=== PATIENT | male | born 1940 | race Caucasian/White ===

== ENCOUNTER → 2018-02-16 | Outpatient (CLI) | payer MEDICARE ==
[~2018-02-16] MED LIST: ALPR.5T PO; ASP81TEC PO; CHOL10008 PO; CHOL2000 PO; COUMADIN PO; HCTZ; HCTZ12.5T PO; HDR4T PO; HYDR1TAB PO; LISI40TA PO; LISINOPRIL; LOVA40TA2 PO; MECL25TA56 PO; METO25TA2 PO; OMG1KC PO; PROP1TAB77 PO; WRF5T PO; XANAX; [UNRECOGNIZED DRUG - OTHER]
--- NOTE | 2018-02-16 12:07 | Diagnostic Imaging Report ---
CLINICAL INDICATION: Patient having cervical spine pain which is chronic and tremors. EXAM: MRI of the cervical spine performed without IV contrast. Sequences include sagittal T1, sagittal T2, sagittal T2 fat-sat, and axial T2. COMPARISON: None. FINDINGS: There is nonspecific low T1/high T2 signal involving the right side of the C4 vertebra with Schmorl's nodes seen involving the upper T4 vertebra. There is associated left-sided degenerative disease in this high T2 marrow signal may be related to Modic type I degenerative signal changes. Cervical spine shows no acute fracture. Limited visualization of the posterior fossa is unremarkable. Cervical spinal cord is normal cord caliber and signal. There is no significant paraspinal soft tissue abnormality. C1-C2: There are degenerative spurs involving the atlantoodontoid interval anteriorly. C2-C3: There is mild diffuse disc bulge with ligamentum flavum buckling. There is mild central canal narrowing. There is xnlmxrig-iw-ddiyzw left neural foramen narrowing. There is bilateral facet arthropathy with moderately hypertrophic changes on the left. There is no significant right neural foramen narrowing. C3-C4: There is grade 1 retrolisthesis C3 on C4. There is a diffuse disc bulge with moderate loss of vertebral disc height. There is disc spurs posteriorly and hypertrophic left uncinate spurs. There is ligament flavum buckling. There is mild right facet arthropathy and severe left facet arthropathy/hypertrophy. There is severe left neural foramen narrowing and mild to moderate right neural foramen narrowing. There is severe central canal narrowing. C4-C5: There is a small posterior disc bulge and ligament flavum buckling. There is severe left facet arthropathy/hypertrophy and akab-nv-gfxsceax right facet arthropathy. There is no significant right neural foramen narrowing. There is severe left neural foramen narrowing and clvi-mv-jrjyaxra central canal narrowing. C5-C6: There is grade 1 retrolisthesis of C5 on C6. There is a diffuse disc bulge moderate loss of intervertebral disc height. There is mild ligament flavum buckling. There is mild bilateral neural foramen narrowing. There is ionfxvzc-pt-ubrbwi central canal narrowing. There is severe right neural foramen narrowing and at least moderate left neural foramen narrowing. C6-C7: There is a minimal posterior disc bulge and ligament flavum buckling. There is jtbs-ne-uqmrkbdv left facet arthropathy and mild right facet arthropathy. There is at least moderate right neural foramen narrowing and moderate left neural foramen narrowing. There is no significant central canal narrowing. C7-T1: There is no significant central spinal canal or neural foramen narrowing. 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 There is likely associated Modic type 1 degenerative signal changes involving the left C3-C4 level. 2: There is severe C3-C4 central canal narrowing and cmougcgl-ra-wbkazu C5-C6 central canal narrowing from disc spurs, ligament flavum buckling, and facet arthropathy. 3: There is yqjtpewx-fa-lcknqe multilevel neural foramen narrowing. 4: There is grade 1 retrolisthesis C3 on C4 and C5 on C6. Dictated by: Dictated on workstation # [id number]
== END ==
LOC: RAD 10:54
PROVIDERS: ATTEND Nurse Practitioner Family
DX: M47.812 Spondylosis without myelopathy or radiculopathy, cervical region (principal); M99.71 Connective tissue and disc stenosis of intervertebral foramina of cervical region; M46.82 Other specified inflammatory spondylopathies, cervical region; M43.12 Spondylolisthesis, cervical region; G25.0 Essential tremor
CPT/HCPCS: 72141

== ENCOUNTER 2018-11-18 06:39 | Inpatient (IN) | payer MEDICARE ==
[~2018-11-18] VITALS: Ht 177.8 cm; Wt 64.6 kg
[2018-11-18] VITALS (13 sets, daily range): BP systolic 75–127; BP diastolic 40–114
[2018-11-18 06:54] LABS: BASOPHILS % (AUTO) 0 % (0-10); EOSINOPHILS # (AUTO) 0.1 10^3/uL (0.0-0.3); EOSINOPHILS % (AUTO) 1 % (0-10); HEMATOCRIT 47 % (40-54); HEMOGLOBIN 15.8 G/DL (13.3-17.7); LYMPHOCYTES # (AUTO) 2.5 X 10^3 (1.0-4.0); LYMPHOCYTES % (AUTO) 28 % (12-44); MEAN CORPUSCULAR HEMOGLOBIN 32 PG (25-34); MEAN CORPUSCULAR HGB CONC 34 G/DL (32-36); MEAN CORPUSCULAR VOLUME 94 FL (80-99); MEAN PLATELET VOLUME 10.1 FL (7.4-10.4); MONOCYTES # (AUTO) 1.2 X 10^3 (0.0-1.0); MONOCYTES % (AUTO) 13 % (0-12); NEUTROPHILS # (AUTO) 5.2 X 10^3 (1.8-7.8); NEUTROPHILS % (AUTO) 58 % (42-75); PLATELET COUNT 285 10^3/uL (130-400); RED CELL DISTRIBUTION WIDTH 14.1 % (10.0-14.5)
[2018-11-18] MEDS ORDERED: NS IV 1000 ML 1,000 ML IV ONE ×3 (07:00→17:30)
[2018-11-18] MEDS ORDERED: ASPIRIN 81 MG CHEW (CHILDREN'S ASA) PO ONE (07:00)
[2018-11-18] MEDS ORDERED: DILTIAZEM 25 MG/5 ML INJ (CARDIZEM) VIAL IVP ONE (07:00)
[2018-11-18] MEDS ORDERED: DILTIAZEM INJECTION 125 MG in NS (IVPB) 100 ML IV SCH (07:00)
[2018-11-18 07:10] LABS: INR 1.2 (0.8-1.4); PROTHROMBIN TIME PATIENT 15.3 SEC (12.2-14.7)
[2018-11-18 07:17] LABS: ALANINE AMINOTRANSFERASE 22 U/L (0-55); ALBUMIN 4.8 GM/DL (3.2-4.5); ALKALINE PHOSPHATASE 72 U/L (40-136); BUN/CREATININE RATIO 33; CALCIUM 10.2 MG/DL (8.5-10.1); CARBON DIOXIDE 13 MMOL/L (21-32); CHLORIDE 107 MMOL/L (98-107); CREATININE SERUM 1.81 MG/DL (0.60-1.30); GFR ESTIMATED 36; GLUCOSE 134 MG/DL (70-105); MAGNESIUM 2.4 MG/DL (1.8-2.4); POTASSIUM 3.8 MMOL/L (3.6-5.0); SODIUM 139 MMOL/L (135-145)
--- NOTE | 2018-11-18 07:19 | NUR ---
CARDIZEM PLACED ON HOLD DUE TO HR DOWN TO 90' -100'S DR BUSTAMANTE AWARE OF AND OK WITH.
[2018-11-18 07:23] LABS: MYOGLOBIN SERUM 105.6 NG/ML (10.0-92.0)
[2018-11-18] MEDS ORDERED: NITROGLYCERIN 0.4 MG SL TABS BTL 25'S SL PRN (07:30)
[2018-11-18] MEDS ORDERED: meTOproloL SUCCINATE 50 MG (TOPROL XL) TAB PO ONE (07:30)
--- NOTE | 2018-11-18 07:30 | NUR ---
PATIENT REPORTS PAIN BETTER WORSE WHEN HE REMOVES WILL HOLD NITRO DUE TO B/P
--- NOTE | 2018-11-18 07:33 | Diagnostic Imaging Report ---
INDICATION: Chest pain Upright portable AP view of the chest is obtained. Comparison is made to the study of 09/01/2010. There is bilateral air trapping. Prominent interstitial markings are seen throughout the lungs. There is no evidence of pneumothorax or consolidation. No significant pleural fluid is seen. IMPRESSION: Probable air trapping and interstitial prominence which may be due to COPD. Otherwise, no acute abnormality or adverse change seen. Dictated by: Dictated on workstation # [id number]
--- NOTE | 2018-11-18 07:48 | NUR ---
PATIENT REPORTS THAT AFTER MOVING HIM FOR CXR REPORTS THAT PAIN WORSE WHEN PAIN WORSE DR NOTIFIED
[2018-11-18] MEDS ORDERED: fentaNYL INJECTION 100 MCG/2 ML AMP IVP ONE (08:15)
--- NOTE | 2018-11-18 08:29 | ED Chest Pain ---
General Chief Complaint: Chest Pain Stated Complaint: CP Nursing Triage Note: C/O CHEST PAIN THIS AM THAT WOKE HIM UP Nursing Sepsis Screen: No Definite Risk Source: patient Exam Limitations: no limitations History of Present Illness Date Seen by Provider: Nov 18, 2018 Time Seen by Provider: 06:48 Initial Comments This 78-year-old gentleman presented to the emergency room with complaints of chest pain and tachycardia this started this morning. He is noted to be in atrial fibrillation with RVR on arrival. Patient does have a history of atrial fibrillation and is anticoagulated on Xarelto. He denies any known coronary artery disease. 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 He last took Xarelto yesterday morning. ST depression and A. fib RVR are noted on the monitor. Allergies and Home Medications Allergies Coded Allergies: No Known Drug Allergies (Unverified , 11/18/18) Home Medications Dextromethorphan Polistirex 30 Mg/5 Ml Samanta.er.12h, 10 ML PO Q12H PRN for COUGH, (Reported) Lisinopril 40 Mg Tablet, 40 MG PO DAILY, (Reported) Metoprolol Succinate 25 Mg Tab.er.24h, 25 MG PO BID, (Reported) Rivaroxaban 10 Mg Tablet, 10 MG PO DAILY, (Reported) Tramadol HCl 50 Mg Tablet, 50 MG PO BID PRN for PAIN-MODERATE, (Reported) Patient Home Medication List Home Medication List Reviewed: Yes Review of Systems Review of Systems Constitutional: no symptoms reported EENTM: No Symptoms Reported Respiratory: No Symptoms Reported Cardiovascular: See HPI Gastrointestinal: No Symptoms Reported Genitourinary: No Symptoms Reported Musculoskeletal: no symptoms reported Skin: no symptoms reported Psychiatric/Neurological: No Symptoms Reported Endocrine: No Symptoms Reported Hematologic/Lymphatic: No Symptoms Reported Past Apcrwtc-Aekdfb-Irhnbv Hx Past Med/Social Hx: Reviewed and Corrections made Patient Social History Alcohol Use: Occasionally Uses Alcohol Beverage of Choice: Beer Recreational Drug Use: No Smoking Status: Current Everyday Smoker Recent Foreign Travel: No Contact w/Someone Who Travel: No Recent Infectious Disease Expo: No Recent Hopitalizations: No Past Medical History Surgeries: Yes (dental) Respiratory: No Cardiac: Yes Atrial Fibrillation Neurological: No Reproductive Disorders: No Gastrointestinal: No Musculoskeletal: Yes Endocrine: No HEENT: No Cancer: No Psychosocial: No Blood Disorders: No Physical Exam Vital Signs Vital Signs - First Documented 11/18/18 11/18/18 06:39 06:45 Temp 96.7 Pulse 125 Resp 18 B/P (MAP) 124/78 (93) Pulse Ox 96 O2 Delivery Nasal Cannula O2 Flow Rate 2.00 Capillary Refill : Less Than 3 Seconds Height, Weight, BMI Height: 5'10.00" Weight: 150lbs. oz. 68.205353ec; BMI Method:Stated General Appearance: No Apparent Distress, WD/WN, Thin HEENT: PERRL/EOMI, Normal ENT Inspection Neck: Normal Inspection Respiratory: Lungs Clear, Normal Breath Sounds, No Accessory Muscle Use, No Respiratory Distress Cardiovascular: No Edema, No Murmur, Irregularly Irregular, Tachycardia Gastrointestinal: Non Tender, Soft Extremity: Normal Capillary Refill, Normal Inspection, No Pedal Edema Neurologic/Psychiatric: Alert, Oriented x3, No Motor/Sensory Deficits, Normal Mood/Affect, attorney general II-XII Norm as Tested, Other (Tremor, right greater than left) Skin: Normal Color, Warm/Dry Progress/Results/Core Measures Results/Orders Lab Results Laboratory Tests Test 11/18/18 06:46 Range/Units White Blood Count 9.0 4.3-11.0 10^3/uL Red Blood Count 4.98 4.35-5.85 10^6/uL Hemoglobin 15.8 13.3-17.7 G/DL Hematocrit 47 40-54 % Mean Corpuscular Volume 94 80-99 FL Mean Corpuscular Hemoglobin 32 25-34 PG Mean Corpuscular Hemoglobin Concent 34 32-36 G/DL Red Cell Distribution Width 14.1 10.0-14.5 % Platelet Count 285 130-400 10^3/uL Mean Platelet Volume 10.1 7.4-10.4 FL Neutrophils (%) (Auto) 58 42-75 % Lymphocytes (%) (Auto) 28 12-44 % Monocytes (%) (Auto) 13 H 0-12 % Eosinophils (%) (Auto) 1 0-10 % Basophils (%) (Auto) 0 0-10 % Neutrophils # (Auto) 5.2 1.8-7.8 X 10^3 Lymphocytes # (Auto) 2.5 1.0-4.0 X 10^3 Monocytes # (Auto) 1.2 H 0.0-1.0 X 10^3 Eosinophils # (Auto) 0.1 0.0-0.3 10^3/uL Basophils # (Auto) 0.0 0.0-0.1 10^3/uL Prothrombin Time 15.3 H 12.2-14.7 SEC INR Comment 1.2 0.8-1.4 Activated Partial Thromboplast Time 38 H 24-35 SEC Sodium Level 139 135-145 MMOL/L Potassium Level 3.8 3.6-5.0 MMOL/L Chloride Level 107 98-107 MMOL/L Carbon Dioxide Level 13 L 21-32 MMOL/L Anion Gap 19 H 5-14 MMOL/L Blood Urea Nitrogen 59 H 7-18 MG/DL Creatinine 1.81 H 0.60-1.30 MG/DL Estimat Glomerular Filtration Rate 36 BUN/Creatinine Ratio 33 Glucose Level 134 H 70-105 MG/DL Calcium Level 10.2 H 8.5-10.1 MG/DL Corrected Calcium 8.5-10.1 MG/DL Magnesium Level 2.4 1.8-2.4 MG/DL Total Bilirubin 1.0 0.1-1.0 MG/DL Aspartate Amino Transf (AST/SGOT) 27 5-34 U/L Alanine Aminotransferase (ALT/SGPT) 22 0-55 U/L Alkaline Phosphatase 72 40-136 U/L Myoglobin 105.6 H 10.0-92.0 NG/ML Troponin I < 0.028 <0.028 NG/ML Total Protein 8.0 6.4-8.2 GM/DL Albumin 4.8 H 3.2-4.5 GM/DL TSH [place] Testing 2.56 0.35-4.94 UIU/ML My Orders Orders - ZULEMA LUONG MD Cbc With Automated Diff (11/18/18 06:49) Magnesium (11/18/18 06:49) Chest 1 View, Ap/Pa Only (11/18/18 06:49) Ekg Tracing (11/18/18 06:49) Cardiac Profile 1 (11/18/18 06:49) Comprehensive Metabolic Panel (11/18/18 06:49) Myoglobin Serum (11/18/18 06:49) Protime With Inr (11/18/18 06:49) Partial Thromboplastin Time (11/18/18 06:49) O2 (11/18/18 06:49) Monitor-Rhythm Ecg Trace Only (11/18/18 06:49) Lipid Panel (11/19/18 06:00) Aspirin Chewable Tablet (Baby Aspirin Ch (11/18/18 07:00) Saline Lock/Iv-Start (11/18/18 06:49) Ns (Ivpb) (Sodium C... W/Diltiazem Injec (11/18/18 07:00) Diltiazem Injection (Cardizem Injection) (11/18/18 07:00) Saline Lock/Iv-Start (11/18/18 07:00) Ns Iv 1000 Ml (Sodium Chloride 0.9%) (11/18/18 07:00) Thyroid Analyzer (11/18/18 07:00) Nitroglycerin 0.4 Mg Btl 25's (Nitrostat (11/18/18 07:30) Metoprolol Succinate (Xl) Tab (Toprol Xl (11/18/18 07:30) Fentanyl Injection (Sublimaze Injection (11/18/18 08:15) Enoxaparin Injection (Lovenox Injection) (11/18/18 08:30) Medications Given in ED Current Medications Medications Dose Ordered Sig/Froylan Route Start Time Stop Time Status Last Admin Dose Admin Aspirin 324 mg ONCE ONCE PO 11/18/18 07:00 11/18/18 07:01 DC 11/18/18 07:09 324 MG Enoxaparin Sodium 70 mg ONCE ONCE SC 11/18/18 08:30 11/18/18 08:31 DC 11/18/18 08:39 70 MG Fentanyl Citrate 50 mcg ONCE ONCE IVP 11/18/18 08:15 11/18/18 08:16 DC 11/18/18 08:08 50 MCG Metoprolol Succinate 50 mg ONCE ONCE PO 11/18/18 07:30 11/18/18 17:23 DC 11/18/18 08:06 50 MG Sodium Chloride 1,000 ml @ 0 mls/hr Q0M ONCE IV 11/18/18 07:00 11/18/18 07:01 DC 11/18/18 07:09 1,000 MLS/HR Vital Signs/I&O 11/18/18 11/18/18 11/18/18 06:39 06:45 09:03 Temp 96.7 Pulse 125 85 Resp 18 18 B/P (MAP) 124/78 (93) 104/92 (96) Pulse Ox 96 99 O2 Delivery Nasal Cannula Nasal Cannula Nasal Cannula O2 Flow Rate 2.00 2.00 Blood Pressure Mean: 93 Progress Progress Note : Time: 09:33 Progress Note Patient was seen and evaluated immediately upon arrival. He was found to be in A. fib with RVR with ST depression. Aspirin was administered. Cardizem drip and bolus were ordered but were not started as heart rate was trending down with hydration alone. Chest pain was also waning. At 07: To 8, pain and decreased from 9/10 down to 6/10. Blood pressure at that time was 107/78. Nitroglycerin was not administered due to blood pressure. Heart rate was 98 at that time. Case was discussed with Dr. Castro. He is also concerned about the ST depression and would like to treat this as potential ischemia. He recommended adding anticoagulation. It has been 24 hours since patient's last Xarelto dose. We will give Lovenox here. Per Dr. Castro's instructions patient also received Toprol-XL 50 mg by mouth. Nursing staff found patient to have an area tender to palpation on the right lateral chest. Fentanyl was given to help with further pain management. On reexamination patient had no pain. At this time we're awaiting transfer to the ICU as procedure patients are being transferred out of the ICU. Patient did receive 1 L of IV hydration. He reports he has had some diarrhea in recent days and may have been hypovolemic. Patient is to be kept NPO for possible procedures today. EKG #1: EKG Time: 06:39 Rhythm: V.Fib ECG Impression: Atrial Fibrillation w/RVR Comment Atrial fibrillation with RVR. ST depression in multiple leads. EKG #2: EKG Time: 07:06 Rate: 109 Rhythm: V.Fib ECG Impression: Atrial Fibrillation w/RVR Comment Atrial fibrillation with RVR with a slowed rate improved from prior. ST depression persists in multiple leads. Diagnostic Imaging Diagonstic Imaging: Xray Plain Films/CT/US/NM/MRI: chest Comments Chest x-ray viewed by me and report reviewed. See report below: NAME: DANNY FREITAS MED REC#: [id number] PT STATUS: REG ER : 1940 PHYSICIAN: ZULEMA LUONG MD ADMIT DATE: 11/18/18/ER Signed Date of Exam: 11/18/18 CHEST 1 VIEW, AP/PA ONLY INDICATION: Chest pain Upright portable AP view of the chest is obtained. Comparison is made to the study of 09/01/2010. There is bilateral air trapping. Prominent interstitial markings are seen throughout the lungs. There is no evidence of pneumothorax or consolidation. No significant pleural fluid is seen. IMPRESSION: Probable air trapping and interstitial prominence which may be due to COPD. Otherwise, no acute abnormality or adverse change seen. Dictated by: Dictated on workstation # [id number] Dict: 11/18/1831 Trans: 11/18/1841 Interpreted by: CASTRO KING MD Electronically signed by: CASTRO KING MD 11/18/18 0741 Departure Communication (Admissions) Time/Spoke to Admitting Phy: 07:19 Dr. Lund Time/Spoke to Consulting Phy: 07:52 Dr. Castro Impression Primary Impression: Chest pain Qualified Codes: R07.9 - Chest pain, unspecified Additional Impressions: Atrial fibrillation with RVR Renal failure Qualified Codes: N19 - Unspecified kidney failure ST segment depression Disposition: ADMITTED INPATIENT Condition: Improved Admissions Decision to Admit Reason: Admit from ER (General) Decision to Admit/Date: Nov 18, 2018 Time/Decision to Admit Time: 06:50 Departure-Patient Inst. Referrals: [facility] [place] (PCP) Primary Care Physician ZULEMA LUONG MD Nov 18, 2018 08:29
[2018-11-18] MEDS ORDERED: ENOXAPARIN 80 MG/0.8 ML (LOVENOX) SYR SC ONE (08:30)
--- NOTE | 2018-11-18 09:47 | NUR ---
DANNY FREITAS admitted to room CU5-1, with an admitting diagnosis of CP, AFIB W/ RVR, ST DEPRESSION, RENAL FAIL, on 11/18/18 from ER via CART, accompanied by STAFF.DANNY FREITAS introduced to surroundings, call light, bed controls, phone, TV, temperature control, lights, meal times, smoking policy, visitor policy, side rail policy, bathrooms and showers. Patient Rights given to patient in the handbook. DANNY FREITAS verbalizes understanding that [facility] is not responsible for the loss or damage to any personal effects or valuables that are kept in the patients posession during their hospitalization. The following Patient Care Plans were discussed with the PT: Discharge Planning, PAIN,ACTIVITY INTOLERANCE, and ANXIETY. DANNY FREITAS verbalizes understanding of Interdisciplinary Patient Education. Patient and family were informed about the Rapid Response Team and its purpose.
--- NOTE | 2018-11-18 09:58 | History & Physical-Hospitalist ---
History of Present Illness HPI/Chief Complaint Chief complaint: Palpitations HPI: This is an elderly white male Pt of [facility] with a past medical history of chronic atrial fibrillation on anti-coagulation who presented to ER with shortness of breath and palpitations found to have atrial fibrillation with rapid ventricular response. Cardiology recommended inpatient admission for IV drip for rate control. Pt does smoke on a regular basis. Pt does not use home oxygen or inhalers. Pt does have a tremor consistent with Parkinson's but the medication he has taken in the past made him very dizzy. Pt does live with his son. The son is at the bedside. 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 Pt does not drink alcohol. Diarrhea reported for the past 3 days to the nurse this afternoon so will increase fluids IV. Source: patient, family, RN/MD Exam Limitations: no limitations Date Seen 11/18/18 Time Seen by a Provider: 09:30 Attending Physician Akua Lund DO [facility] [place] Referring Physician Date of Admission Nov 18, 2018 at 09:21 Home Medications & Allergies Home Medications Reviewed patient Home Medication Reconciliation performed by pharmacy medication reconciliations csr technician and/or nursing. Patients Allergies have been reviewed. 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) Alcohol Use: Occasionally Uses Alcohol Beverage of Choice: Beer Recreational Drug Use: No Smoking Status: Current Everyday Smoker Recent Foreign Travel: No Contact w/other who traveled: No Recent Hopitalizations: No Recent Infectious Disease Expo: No Past Medical History Cardiac: Atrial Fibrillation Reproductive: No History of Blood Disorders: No Review of Systems Constitutional: see HPI, malaise, weakness EENTM: no symptoms reported Respiratory: no symptoms reported Cardiovascular: palpitations Gastrointestinal: no symptoms reported Genitourinary: no symptoms reported Musculoskeletal: no symptoms reported Skin: no symptoms reported Psychiatric/Neurological: No Symptoms Reported All Other Systems Reviewed Negative Unless Noted: Yes Physical Exam Physical Exam Vital Signs Vital Signs - First Documented 11/18/18 11/18/18 06:39 06:45 Temp 96.7 Pulse 125 Resp 18 B/P (MAP) 124/78 (93) Pulse Ox 96 O2 Delivery Nasal Cannula O2 Flow Rate 2.00 Capillary Refill : Less Than 3 Seconds Height, Weight, BMI Height: 5'10.00" Weight: 150lbs. oz. 68.245990wx; BMI Method:Stated General Appearance: No Apparent Distress, WD/WN, Anxious, Chronically ill, Cachetic Eyes: Right Eye Normal Inspection, Right Eye PERRL HEENT: PERRL/EOMI, Normal ENT Inspection, Pharynx Normal, Moist Mucous Membranes Neck: Full Range of Motion, Normal Inspection, Non Tender Respiratory: Chest Non Tender, Lungs Clear, Normal Breath Sounds, No Accessory Muscle Use, No Respiratory Distress, Decreased Breath Sounds Cardiovascular: No Edema, No Gallop, No JVD, No Murmur, Normal Peripheral Pulses, Irregularly Irregular, Tachycardia Gastrointestinal: Normal Bowel Sounds, No Organomegaly, No Pulsatile Mass, Non Tender, Soft Back: Normal Inspection, No CVA Tenderness, No Vertebral Tenderness Extremity: Normal Capillary Refill, Normal Inspection, Normal Range of Motion, Non Tender, No Calf Tenderness, No Pedal Edema Neurologic/Psychiatric: Alert, Oriented x3, No Motor/Sensory Deficits, Normal Mood/Affect Skin: Normal Color, Warm/Dry Lymphatic: No Adenopathy Results Results/Procedures Labs Laboratory Tests 11/18/18 06:46 Patient resulted labs reviewed. Assessment/Plan Admission Diagnosis Assessment: AF w/RVR ARF Dehydration Diarrhea Smoker PD Presumed COPD Plan: IVF Monitor AF w/RVR Home meds Anticoagulation Admission Status: Inpatient Order (span 2 midnights) Reason for Inpatient Admission: AF w/RVR and ARF and dehydration will require 3 days inpt Diagnosis/Problems Diagnosis/Problems (1) Atrial fibrillation with RVR Status: Acute (2) Elevated troponin Status: Acute (3) Dehydration Status: Acute (4) Smoker Status: Chronic (5) Parkinson disease Status: Chronic (6) Cachexia Status: Chronic (7) Anxiety Status: Acute (8) Atrial fibrillation, chronic Status: Chronic (9) ST segment depression Status: Acute (10) Chest pain Status: Acute Qualifiers: Chest pain type: unspecified Qualified Codes: R07.9 - Chest pain, unspecified (11) Renal failure Status: Acute Qualifiers: Renal failure chronicity: unspecified chronicity Qualified Codes: N19 - Unspecified kidney failure Clinical Quality Measures AMI/AHF: ASA po Prior to arrival: No AKUA LUND DO Nov 18, 2018 09:58
--- NOTE | 2018-11-18 10:15 | NUR ---
SUSHMA GRAHAM ON FLOOR TO SEE PT, INFORMED CARDIZEM WAS HELD IN ER. ADVISED TO HOLD AT THIS TIME.
--- NOTE | 2018-11-18 10:19 | Consultation-Cardiology ---
HPI-Cardiology Cardiology Consultation: Date of Consultation 11/18/18 Date of Admission 11-18-18 Attending Physician Akua Lund DO Admitting Physician [place] Consulting Physician Dejan Castro MD HPI: Chief Complaint: Chest pain Chronic a-fib with RVR Mr. Freitas is a 78 year old male admitted to ICU 5 from the ED. He is accompanied by his son. He reports he was awakened early this morning with a sudden onset of mid-sternal chest pain which he describes as sharp, stabbing. He states it stayed constant. He reports it was worse with movement. He reports palpitations. No c/o n/v or diaphoresis. He has chronic mild to mod dyspnea and did not feel this was any different. He reports he has had an increasing productive cough. He continues to smoke cigs approx 6-7 per day. He has chronic back pain. He denies any syncope or near syncope. No c/o LE swelling. He states he has chronic a-fib and is on Xarelto. Review of Systems-Cardiology Review of Systems Constitutional: No chills, No fever Eyes: No vision change Ears/Nose/Throat: No epistaxis, No recent hearing loss Respiratory: As described under HPI Cardiovascular: As described under HPI Gastrointestinal: No constipation, No diarrhea, No nausea, No vomiting Genitourinary: frequency, urine coloration changes (dark, orange) Musculoskeletal: back pain (chronic) Skin: No rash, No ulcerations Psychiatric/Neurological: No anxiety, No depression, No seizure, No focal weakness, No syncope Hematologic: No bleeding abnormalities WAP-Wsfwzm-Oqkysu Hx Patient Social History Alcohol Use: Occasionally Uses Recreational Drug Use: No Smoking Status: Current Everyday Smoker Recent Foreign Travel: No Recent Infectious Disease Expo: No Hospitalization with Isolation: Denies Past Medical History PMH As described under Assessment. Family Medical History Family Medical History: No known h/o CAD. Reports family h/o cancer. Allergies and Home Medications Allergies Coded Allergies: No Known Drug Allergies (Unverified , 11/18/18) Home Medications Dextromethorphan Polistirex 30 Mg/5 Ml Samanta.er.12h, 10 ML PO Q12H PRN for COUGH, (Reported) Lisinopril 40 Mg Tablet, 40 MG PO DAILY, (Reported) Metoprolol Succinate 25 Mg Tab.er.24h, 25 MG PO BID, (Reported) Rivaroxaban 10 Mg Tablet, 10 MG PO DAILY, (Reported) Tramadol HCl 50 Mg Tablet, 50 MG PO BID PRN for PAIN-MODERATE, (Reported) Physical Exam-Cardiology Physical Exam Vital Signs/I&O 11/18/18 11/18/18 11/18/18 11/18/18 20:00 20:00 21:00 22:00 Pulse 115 110 96 Resp 19 21 12 B/P (MAP) 89/67 (74) 95/66 (76) 95/67 (76) Pulse Ox 95 100 91 O2 Delivery Nasal Cannula Nasal Cannula Nasal Cannula Nasal Cannula O2 Flow Rate 2.00 2.00 2.00 2.00 11/18/18 11/18/18 11/19/18 11/19/18 23:00 23:31 00:00 00:00 Temp 97.5 Pulse 96 90 Resp 17 23 B/P (MAP) 88/67 (74) 94/72 (79) Pulse Ox 94 97 O2 Delivery Nasal Cannula Nasal Cannula Nasal Cannula O2 Flow Rate 2.00 2.00 2.00 11/19/18 11/19/18 11/19/18 11/19/18 01:00 01:00 02:00 03:00 Pulse 87 98 93 89 Resp 16 22 24 B/P (MAP) 90/71 (77) 96/67 (77) 99/71 (80) Pulse Ox 100 100 100 O2 Delivery Nasal Cannula Nasal Cannula Nasal Cannula O2 Flow Rate 2.00 2.00 2.00 11/19/18 11/19/18 11/19/18 11/19/18 03:59 04:00 04:00 05:00 Temp 97.0 Pulse 94 87 Resp 24 11 B/P (MAP) 109/99 (102) 90/69 (76) Pulse Ox 100 99 O2 Delivery Nasal Cannula Nasal Cannula Nasal Cannula O2 Flow Rate 2.00 2.00 2.00 11/19/18 06:00 Pulse 101 Resp 21 B/P (MAP) 91/68 (76) Pulse Ox 100 O2 Delivery Nasal Cannula O2 Flow Rate 2.00 11/19/18 00:00 Intake Total 4950 ml Output Total 350 ml Balance 4600 ml Capillary Refill : Less Than 3 Seconds Constitutional: AAO x 3, well-developed, other (thin) HEENT: hard of hearing; No ulceration Neck: No carotid bruit; carotid pulses are 2 + bilaterally Respiratory: No accessory muscle use, No respiratory distress; chest expansion is symmetric, chest is bilaterally symmetric, rhonchi, other (prolonged exp phase) Cardiovascular: irregularly irregular; No JVD; S1 and S2, systolic murmur Gastrointestinal: No tender; soft, round, audible bowel sounds Rectal: deferred Extremities: no lower extremity edema bilateral Neurologic/Psychiatric: other (upper extremity tremors), power is 5/5 both on sides Skin: No rash, No ulcerations Data Review Labs Laboratory Tests 11/18/18 10:28: Troponin I 0.324*H 11/18/18 15:15: Troponin I 1.580*H, White Blood Count 5.8, Red Blood Count 4.33L, Hemoglobin 13.7, Hematocrit 40, Mean Corpuscular Volume 93, Mean Corpuscular Hemoglobin 32 , Mean Corpuscular Hemoglobin Concent 34, Red Cell Distribution Width 13.9, Platelet Count 216, Mean Platelet Volume 10.0, Neutrophils (%) (Auto) 80H, Lymphocytes (%) (Auto) 11L, Monocytes (%) (Auto) 9, Eosinophils (%) (Auto) 0, Basophils (%) (Auto) 0, Neutrophils # (Auto) 4.6, Lymphocytes # (Auto) 0.6L, Monocytes # (Auto) 0.5, Eosinophils # (Auto) 0.0, Basophils # (Auto) 0.0, Sodium Level 138, Potassium Level 4.5, Chloride Level 112H, Carbon Dioxide Level 14L, Anion Gap 12, Blood Urea Nitrogen 58H, Creatinine 1.47H, Estimat Glomerular Filtration Rate 46, BUN/Creatinine Ratio 39, Glucose Level 102, Lactic Acid Level 0.73, Calcium Level 8.6, Corrected Calcium 8.8, Total Bilirubin 0.6, Aspartate Amino Transf (AST/SGOT) 32, Alanine Aminotransferase ( ALT/SGPT) 19, Alkaline Phosphatase 55, Total Protein 6.1L, Albumin 3.8 11/18/18 16:40: Urine Color YELLOW, Urine Clarity SLIGHTLY CLOUDY, Urine pH 5, Urine Specific [place] 1.020, Urine Protein 1+H, Urine Glucose (UA) NEGATIVE, Urine Ketones 1+H , Urine Nitrite NEGATIVE, Urine Bilirubin NEGATIVE, Urine Urobilinogen NORMAL, Urine Leukocyte Esterase NEGATIVE, Urine RBC (Auto) 1+H, Urine RBC 0-2, Urine WBC 2-5, Urine Squamous Epithelial Cells 5-10, Urine Crystals NONE, Urine Bacteria NEGATIVE, Urine Casts PRESENT, Urine Hyaline Casts 2-5H, Urine Mucus SMALLH, Urine Culture Indicated NO 11/18/18 18:15: Blood Gas Puncture Site LEFT BRACHIAL, Blood Gas Patient Temperature 97.3, Arterial Blood pH 7.23*L, Arterial Blood Partial Pressure CO2 27L, Arterial Blood Partial Pressure O2 90, Arterial Blood HCO3 11*L, Arterial Blood Total CO2 11.9L, Arterial Blood Oxygen Saturation 97, Arterial Blood Base Excess - 15.1L, Richard Test POSITIVE, Blood Gas Ventilator Setting NO, Blood Gas Inspired Oxygen 2 L 11/18/18 18:52: White Blood Count 5.7, Red Blood Count 4.00L, Hemoglobin 12.6L, Hematocrit 38L, Mean Corpuscular Volume 95, Mean Corpuscular Hemoglobin 32, Mean Corpuscular Hemoglobin Concent 33, Red Cell Distribution Width 13.7, Platelet Count 194, Mean Platelet Volume 9.9, Neutrophils (%) (Auto) 73, Lymphocytes (%) (Auto) 17, Monocytes (%) (Auto) 10, Eosinophils (%) (Auto) 0, Basophils (%) (Auto) 0, Neutrophils # (Auto) 4.2, Lymphocytes # (Auto) 0.9L, Monocytes # (Auto) 0.6, Eosinophils # (Auto) 0.0, Basophils # (Auto) 0.0, Sodium Level 138, Potassium Level 3.5L, Chloride Level 114H, Carbon Dioxide Level 14L, Anion Gap 10, Blood Urea Nitrogen 51H, Creatinine 1.19, Estimat Glomerular Filtration Rate 59, BUN/ Creatinine Ratio 43, Glucose Level 82, Lactic Acid Level 0.91, Calcium Level 7.7L, Corrected Calcium 8.1L, Total Bilirubin 0.5, Aspartate Amino Transf (AST/ SGOT) 67H, Alanine Aminotransferase (ALT/SGPT) 22, Alkaline Phosphatase 50, Total Protein 5.7L, Albumin 3.5 11/19/18 03:35: White Blood Count 6.6, Red Blood Count 4.18L, Hemoglobin 13.1L, Hematocrit 39L, Mean Corpuscular Volume 94, Mean Corpuscular Hemoglobin 31, Mean Corpuscular Hemoglobin Concent 34, Red Cell Distribution Width 13.9, Platelet Count 200, Mean Platelet Volume 10.0, Neutrophils (%) (Auto) 70, Lymphocytes (%) (Auto) 17 , Monocytes (%) (Auto) 13H, Eosinophils (%) (Auto) 0, Basophils (%) (Auto) 0, Neutrophils # (Auto) 4.6, Lymphocytes # (Auto) 1.1, Monocytes # (Auto) 0.9, Eosinophils # (Auto) 0.0, Basophils # (Auto) 0.0, Sodium Level 141, Potassium Level 3.7, Chloride Level 114H, Carbon Dioxide Level 15L, Anion Gap 12, Blood Urea Nitrogen 43H, Creatinine 1.09, Estimat Glomerular Filtration Rate > 60, BUN /Creatinine Ratio 39, Glucose Level 96, Calcium Level 7.8L, Phosphorus Level 2.2L, Magnesium Level 1.7L, Triglycerides Level 75, Cholesterol Level 100, LDL Cholesterol Direct 45, VLDL Cholesterol 15, HDL Cholesterol 37L 11/19/18 06:56: Blood Gas Puncture Site RR, Blood Gas Patient Temperature 96.8, Arterial Blood pH 7.36L, Arterial Blood Partial Pressure CO2 24L, Arterial Blood Partial Pressure O2 57L, Arterial Blood HCO3 13*L, Arterial Blood Total CO2 14.0L, Arterial Blood Oxygen Saturation 92L, Arterial Blood Base Excess -11.3L, Richard Test YES-POS, Blood Gas Ventilator Setting NO, Blood Gas Inspired Oxygen 2 Radiology NAME: DANNY FREITAS [facility] REC#: [id number] PT STATUS: REG ER : 1940 PHYSICIAN: ZULEMA LUONG MD ADMIT DATE: 11/18/18/ER Signed Date of Exam: 11/18/18 CHEST 1 VIEW, AP/PA ONLY INDICATION: Chest pain Upright portable AP view of the chest is obtained. Comparison is made to the study of 09/01/2010. There is bilateral air trapping. Prominent interstitial markings are seen throughout the lungs. There is no evidence of pneumothorax or consolidation. No significant pleural fluid is seen. IMPRESSION: Probable air trapping and interstitial prominence which may be due to COPD. Otherwise, no acute abnormality or adverse change seen. Dictated by: Dictated on workstation # [id number] Dict: 11/18/18 0731 Trans: 11/18/18 0741 Interpreted by: CASTRO KING MD Electronically signed by: CASTRO KING MD 11/18/18 0741 A/P-Cardiology Assessment/Admission Diagnosis Chronic a-fib - presented with RVR MPI of by Dr. Barajas showed no evidence of ischemia or infarction. LVEF 63% Xarelto for stroke prophylaxis COPD HTN Tobaccoism - cessation advised Chronic tremors TSH of 11-18-18 WNL Clinical Quality Measures AMI/AHF: ASA po Prior to arrival: SUSHMA Rodriguez Nov 18, 2018 10:19
[2018-11-18] MEDS ORDERED: CATHETER FLUSH 10 ML SYR IV PRN (10:30)
[2018-11-18] MEDS ORDERED: fentaNYL INJECTION 100 MCG/2 ML AMP IV PRN (10:30)
[2018-11-18] MEDS: DILTIAZEM 125 MG/NS 100 ML IV SCH ×2 (10:40)
[2018-11-18] MEDS: NS IV 1000 ML 1,000 ML IV SCH ×3 (10:40→23:31)
--- NOTE | 2018-11-18 12:55 | NUR ---
Initial visit with pt, ex , son and daughter in law. Pt states he is Oriental Orthodox and has always felt closer to God in nature than going to mandaeism. He demonstrated kind and welcoming attitude when I communicated respect for his personal beliefs and physical wellbeing. Smiling, pt expressed desire to be discharged as soon as tomorrow.
[2018-11-18] MEDS ORDERED: meTOproloL SUCCINATE 50 MG (TOPROL XL) TAB PO NR (13:19)
[2018-11-18] MEDS ORDERED: DEXT30SU5 PO (13:23)
[2018-11-18] MEDS ORDERED: RIVA10TA PO (13:23)
[2018-11-18] MEDS ORDERED: TRAM50TA2 PO (13:23)
[2018-11-18] MEDS ORDERED: LISI40TA PO (13:23)
[2018-11-18] MEDS ORDERED: METO-387 PO (13:23)
--- NOTE | 2018-11-18 13:24 | NUR ---
PATIENT HAD HIS MEDICATION BOTTLES WITH HIM, I COMPARED THEM WITH THE EXT MED HX AND HE VERIFIED HOW HE TAKES THEM. HE HAS BEEN TAKING DELSYM RECENTLY FOR HIS COUGH NEEDED OTC.
--- NOTE | 2018-11-18 14:23 | NUR ---
PLEASE NOTE----DIFFICULT TO OBTAIN ACCURATE BP'S R/T PTS TREMORS.
--- NOTE | 2018-11-18 15:00 | NUR ---
DR SHARP NOTIFIED OF DECREASED BP AND LOW URINE OUTPUT. NEW ORDERS RECEIVED FOR IVF AND LABS. SEE ORDERS FOR DETAILS.
[2018-11-18 15:28] LABS: BASOPHILS % (AUTO) 0 % (0-10); EOSINOPHILS % (AUTO) 0 % (0-10); HEMATOCRIT 40 % (40-54); HEMOGLOBIN 13.7 G/DL (13.3-17.7); LYMPHOCYTES # (AUTO) 0.6 X 10^3 (1.0-4.0); LYMPHOCYTES % (AUTO) 11 % (12-44); MEAN CORPUSCULAR HEMOGLOBIN 32 PG (25-34); MEAN CORPUSCULAR HGB CONC 34 G/DL (32-36); MEAN CORPUSCULAR VOLUME 93 FL (80-99); MONOCYTES # (AUTO) 0.5 X 10^3 (0.0-1.0); MONOCYTES % (AUTO) 9 % (0-12); NEUTROPHILS # (AUTO) 4.6 X 10^3 (1.8-7.8); NEUTROPHILS % (AUTO) 80 % (42-75); PLATELET COUNT 216 10^3/uL (130-400); RED CELL DISTRIBUTION WIDTH 13.9 % (10.0-14.5); WHITE BLOOD COUNT 5.8 10^3/uL (4.3-11.0)
[2018-11-18 15:55] LABS: ALBUMIN 3.8 GM/DL (3.2-4.5); BILIRUBIN,TOTAL 0.6 MG/DL (0.1-1.0); CALCIUM 8.6 MG/DL (8.5-10.1); CREATININE SERUM 1.47 MG/DL (0.60-1.30); POTASSIUM 4.5 MMOL/L (3.6-5.0); TOTAL PROTEIN 6.1 GM/DL (6.4-8.2)
[2018-11-18 16:09] LABS: CARDIAC PROFILE 2 1.58 NG/ML (<0.028)
--- NOTE | 2018-11-18 16:09 | Pulmonary Consultation ---
History of Present Illness History of Present Illness Date of Consultation 11/18/18 16:03 Date of Admission Allergies and Home Medications Allergies Coded Allergies: No Known Drug Allergies (Unverified , 11/18/18) Home Medications Dextromethorphan Polistirex 30 Mg/5 Ml Samanta.er.12h, 10 ML PO Q12H PRN for COUGH, (Reported) Lisinopril 40 Mg Tablet, 40 MG PO DAILY, (Reported) Metoprolol Succinate 25 Mg Tab.er.24h, 25 MG PO BID, (Reported) Rivaroxaban 10 Mg Tablet, 10 MG PO DAILY, (Reported) Tramadol HCl 50 Mg Tablet, 50 MG PO BID PRN for PAIN-MODERATE, (Reported) Past Siebskp-Krykny-Vaidsb Hx Past Med/Social Hx: Reviewed Nursing Past Med/Soc Hx, Reviewed and Corrections made Patient Social History Alcohol Use: Denies Use Alcohol Beverage of Choice: Beer Recreational Drug Use: No Smoking Status: Current Everyday Smoker Recent Foreign Travel: No Contact w/Someone Who Travel: No Recent Infectious Disease Expo: No Recent Hopitalizations: No Immunizations Up To Date Date of Pneumonia Vaccine: Sep 21, 2014 Date of Influenza Vaccine: Jun 21, 2018 Seasonal Allergies Seasonal Allergies: No Past Medical History Surgeries: Yes (dental) Respiratory: Yes COPD Currently Using CPAP: No Currently Using BIPAP: No Cardiac: Yes Atrial Fibrillation Neurological: Yes Reproductive Disorders: No Genitourinary: No Gastrointestinal: Yes Liver Disease/Jaundice, Hepatitis Musculoskeletal: Yes Arthritis Endocrine: No HEENT: No Cancer: No Psychosocial: No Integumentary: No Blood Disorders: No Family Medical History Diabetes mellitus 19 FATHER SON Neoplasm G8 SISTER Sepsis Event Evaluation Height, Weight, BMI Height: 5'10.00" Weight: 133lbs. 4.0oz. 60.454028wp; 19.1 BMI Method:Stated Exam Exam Vital Signs Date Time Temp Pulse Resp B/P (MAP) Pulse Ox O2 Delivery O2 Flow Rate FiO2 11/18/18 15:30 97.2 11/18/18 15:22 Nasal Cannula 2.00 11/18/18 15:00 93 14 100 Nasal Cannula 2.00 11/18/18 14:57 89 79/40 (53) 11/18/18 14:23 91/59 (70) 11/18/18 14:00 88 23 Nasal Cannula 2.00 11/18/18 13:00 97 11/18/18 13:00 84 7 Nasal Cannula 2.00 11/18/18 12:48 96.9 11/18/18 12:00 100 13 95/75 (82) 97 Nasal Cannula 2.00 11/18/18 12:00 Nasal Cannula 2.00 11/18/18 11:00 105 23 92/70 (77) 98 Nasal Cannula 2.00 11/18/18 10:30 69 11/18/18 09:52 97.6 93 28 127/98 (108) 96 Nasal Cannula 2.00 11/18/18 09:47 Nasal Cannula 2.00 11/18/18 09:38 85 18 103/77 (86) 96 Nasal Cannula 11/18/18 09:03 85 18 104/92 (96) 99 Nasal Cannula 2.00 11/18/18 06:45 Nasal Cannula 2.00 11/18/18 06:39 96.7 125 18 124/78 (93) 96 Nasal Cannula Height & Weight Height: 5'10.00" Weight: 133lbs. 4.0oz. 60.373208lk; 19.1 BMI Method:Stated General Appearance: No Apparent Distress, WD/WN, Anxious, Chronically ill, Cachetic HEENT: PERRL/EOMI, Normal ENT Inspection, Pharynx Normal, Moist Mucous Membranes Neck: Full Range of Motion, Normal Inspection, Non Tender Respiratory: Chest Non Tender, Lungs Clear, Normal Breath Sounds, No Accessory Muscle Use, No Respiratory Distress, Decreased Breath Sounds Cardiovascular: No Edema, No Gallop, No JVD, No Murmur, Normal Peripheral Pulses, Irregularly Irregular, Tachycardia Capillary Refill: Less Than 3 Seconds Extremity: Normal Capillary Refill, Normal Inspection, Normal Range of Motion, Non Tender, No Calf Tenderness, No Pedal Edema Neurologic/Psychiatric: Alert, Oriented x3, No Motor/Sensory Deficits, Normal Mood/Affect Skin: Normal Color, Warm/Dry Lymphatic: No Adenopathy Results Lab Laboratory Tests 11/18/18 06:46 11/18/18 15:15 Assessment/Plan Assessment/Plan COPD -SVNS -Check ABG Hypotension with dehydration -IVF -Monitor Tobacco use -Education -will do out patient testing NSTEMI with CP -Cardiology following renal failure with anion gap metabolic acidosis -LA is normal -monitor -Chech UA and ABG -IVF Afib RVR -Cardiology following Parkinson's disease Cachexia Anxiety DARIN RENEE DO Nov 18, 2018 16:09
[2018-11-18 16:45] LABS: BILIRUBIN,URINE NEGATIVE (NEGATIVE); CLARITY,URINE SLIGHTLY CLOUDY; COLOR,URINE YELLOW; GLUCOSE, URINE (UA) NEGATIVE (NEGATIVE); KETONES,URINE 1+ (NEGATIVE); LEUKOCYTE ESTERASE ,URINE NEGATIVE (NEGATIVE); NITRITE,URINE NEGATIVE (NEGATIVE); PH,URINE 5 (5-9); PROTEIN,URINE 1+ (NEGATIVE); UROBILINOGEN,URINE NORMAL (NORMAL)
[2018-11-18 16:55] LABS: BACTERIA,URINE NEGATIVE /HPF; RBC,URINE 0-2 /HPF
--- NOTE | 2018-11-18 17:19 | Consultation-Cardiology ---
HPI-Cardiology Cardiology Consultation: Date of Consultation 11/18/18 Time Seen by a Provider: 12:50 Date of Admission Attending Physician Akua Lund DO Admitting Physician [facility] Consulting Physician MINDI FLORES MD, MA, FACP, FACC, [facility], [facility] Physician requesting consult: Dr Lund HPI: Chief Complaint: Reasons for consultation: Chest pain Chronic a-fib with RVR HPI Mr. Salmeron is a 78 year old male admitted to ICU 5 from the ED. He is accompanied by his son. He reports he was awakened early this morning with a sudden onset of mid-sternal chest pain which he describes as sharp, stabbing. He states it stayed constant. He reports it was worse with movement. He reports palpitations. No c/o n/v or diaphoresis. He has chronic mild to mod dyspnea and did not feel this was any different. He reports he has had an increasing productive cough. He continues to smoke cigs approx 6-7 per day. He has chronic back pain. He denies any syncope or near syncope. No c/o LE swelling. He states he has chronic a-fib and is on Xarelto. Review of Systems-Cardiology Review of Systems Constitutional: No chills, No fever Eyes: No vision change Ears/Nose/Throat: No epistaxis, No recent hearing loss Respiratory: As described under HPI Cardiovascular: As described under HPI Gastrointestinal: No constipation, No diarrhea, No nausea, No vomiting Genitourinary: frequency, urine coloration changes (dark, orange) Musculoskeletal: back pain (chronic) Skin: No rash, No ulcerations Psychiatric/Neurological: No anxiety, No depression, No seizure, No focal weakness, No syncope Hematologic: No bleeding abnormalities All Other Systems Reviewed Negative Unless Noted: Yes QOV-Grxoub-Xxykfp Hx Patient Social History Marrital Status: single 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 Family Medical History Family Medical History: No known h/o CAD. Reports family h/o cancer. Family History: Diabetes mellitus 19 FATHER SON Neoplasm G8 SISTER Allergies and Home Medications Allergies Coded Allergies: No Known Drug Allergies (Unverified , 11/18/18) Home Medications Dextromethorphan Polistirex 30 Mg/5 Ml Samanta.er.12h, 10 ML PO Q12H PRN for COUGH, (Reported) Lisinopril 40 Mg Tablet, 40 MG PO DAILY, (Reported) Metoprolol Succinate 25 Mg Tab.er.24h, 25 MG PO BID, (Reported) Rivaroxaban 10 Mg Tablet, 10 MG PO DAILY, (Reported) Tramadol HCl 50 Mg Tablet, 50 MG PO BID PRN for PAIN-MODERATE, (Reported) Patient Home Medication List Home Medication List Reviewed: Yes Physical Exam-Cardiology Physical Exam Vital Signs/I&O 11/18/18 11/18/18 11/18/18 11/18/18 06:39 06:45 09:03 09:38 Temp 96.7 Pulse 125 85 85 Resp 18 18 18 B/P (MAP) 124/78 (93) 104/92 (96) 103/77 (86) Pulse Ox 96 99 96 O2 Delivery Nasal Cannula Nasal Cannula Nasal Cannula Nasal Cannula O2 Flow Rate 2.00 2.00 11/18/18 11/18/18 11/18/18 11/18/18 09:47 09:52 10:30 11:00 Temp 97.6 Pulse 93 69 105 Resp 23 B/P (MAP) 127/98 (108) 92/70 (77) Pulse Ox 96 98 O2 Delivery Nasal Cannula Nasal Cannula Nasal Cannula O2 Flow Rate 2.00 2.00 2.00 11/18/18 11/18/18 11/18/18 11/18/18 12:00 12:00 12:48 13:00 Temp 96.9 Pulse 100 84 Resp 13 7 B/P (MAP) 95/75 (82) Pulse Ox 97 O2 Delivery Nasal Cannula Nasal Cannula Nasal Cannula O2 Flow Rate 2.00 2.00 2.00 11/18/18 11/18/18 11/18/18 11/18/18 13:00 14:00 14:23 14:57 Pulse 97 88 89 Resp 23 B/P (MAP) 91/59 (70) 79/40 (53) O2 Delivery Nasal Cannula O2 Flow Rate 2.00 11/18/18 11/18/18 11/18/1819 15:00 15:22 15:30 16:00 Temp 97.2 Pulse 93 102 Resp 14 17 Pulse Ox 100 100 O2 Delivery Nasal Cannula Nasal Cannula Nasal Cannula O2 Flow Rate 2.00 2.00 2.00 Capillary Refill : Less Than 3 Seconds Constitutional: AAO x 3, well-developed, other (thin) HEENT: hard of hearing; No ulceration Neck: No carotid bruit; carotid pulses are 2 + bilaterally Respiratory: No accessory muscle use, No respiratory distress; chest expansion is symmetric, chest is bilaterally symmetric, rhonchi, other (prolonged exp phase) Cardiovascular: irregularly irregular; No JVD; S1 and S2, systolic murmur Gastrointestinal: No tender; soft, round, audible bowel sounds Rectal: deferred Extremities: no lower extremity edema bilateral Neurologic/Psychiatric: other (upper extremity tremors), power is 5/5 both on sides Skin: No rash, No ulcerations Data Review Labs Laboratory Tests 11/18/18 06:46: White Blood Count 9.0, Red Blood Count 4.98, Hemoglobin 15.8, Hematocrit 47, Mean Corpuscular Volume 94, Mean Corpuscular Hemoglobin 32, Mean Corpuscular Hemoglobin Concent 34, Red Cell Distribution Width 14.1, Platelet Count 285, Mean Platelet Volume 10.1, Neutrophils (%) (Auto) 58, Lymphocytes (%) (Auto) 28 , Monocytes (%) (Auto) 13H, Eosinophils (%) (Auto) 1, Basophils (%) (Auto) 0, Neutrophils # (Auto) 5.2, Lymphocytes # (Auto) 2.5, Monocytes # (Auto) 1.2H, Eosinophils # (Auto) 0.1, Basophils # (Auto) 0.0, Prothrombin Time 15.3H, INR Comment 1.2, Activated Partial Thromboplast Time 38H, Sodium Level 139, Potassium Level 3.8, Chloride Level 107, Carbon Dioxide Level 13L, Anion Gap 19H , Blood Urea Nitrogen 59H, Creatinine 1.81H, Estimat Glomerular Filtration Rate 36, BUN/Creatinine Ratio 33, Glucose Level 134H, Calcium Level 10.2H, Corrected Calcium , Magnesium Level 2.4, Total Bilirubin 1.0, Aspartate Amino Transf (AST/ SGOT) 27, Alanine Aminotransferase (ALT/SGPT) 22, Alkaline Phosphatase 72, Myoglobin 105.6H, Troponin I < 0.028, Total Protein 8.0, Albumin 4.8H, TSH [place] Testing 2.56 11/18/18 10:28: Troponin I 0.324*H 11/18/18 15:15: White Blood Count 5.8, Red Blood Count 4.33L, Hemoglobin 13.7, Hematocrit 40, Mean Corpuscular Volume 93, Mean Corpuscular Hemoglobin 32, Mean Corpuscular Hemoglobin Concent 34, Red Cell Distribution Width 13.9, Platelet Count 216, Mean Platelet Volume 10.0, Neutrophils (%) (Auto) 80H, Lymphocytes (%) (Auto) 11L, Monocytes (%) (Auto) 9, Eosinophils (%) (Auto) 0, Basophils (%) (Auto) 0, Neutrophils # (Auto) 4.6, Lymphocytes # (Auto) 0.6L, Monocytes # (Auto) 0.5, Eosinophils # (Auto) 0.0, Basophils # (Auto) 0.0, Sodium Level 138, Potassium Level 4.5, Chloride Level 112H, Carbon Dioxide Level 14L, Anion Gap 12, Blood Urea Nitrogen 58H, Creatinine 1.47H, Estimat Glomerular Filtration Rate 46, BUN/ Creatinine Ratio 39, Glucose Level 102, Calcium Level 8.6, Corrected Calcium 8.8 , Total Bilirubin 0.6, Aspartate Amino Transf (AST/SGOT) 32, Alanine Aminotransferase (ALT/SGPT) 19, Alkaline Phosphatase 55, Troponin I 1.580*H, Total Protein 6.1L, Albumin 3.8, Lactic Acid Level 0.73 11/18/18 16:40: Urine Color YELLOW, Urine Clarity SLIGHTLY CLOUDY, Urine pH 5, Urine Specific [place] 1.020, Urine Protein 1+H, Urine Glucose (UA) NEGATIVE, Urine Ketones 1+H , Urine Nitrite NEGATIVE, Urine Bilirubin NEGATIVE, Urine Urobilinogen NORMAL, Urine Leukocyte Esterase NEGATIVE, Urine RBC (Auto) 1+H, Urine RBC 0-2, Urine WBC 2-5, Urine Squamous Epithelial Cells 5-10, Urine Crystals NONE, Urine Bacteria NEGATIVE, Urine Casts PRESENT, Urine Hyaline Casts 2-5H, Urine Mucus SMALLH, Urine Culture Indicated NO A/P-Cardiology Assessment/Admission Diagnosis Chronic a-fib - presented with RVR Mild troponin elevation: likely acute NSTEMI due to A Fib with RVR on top of underlying CAD MPI of 12-[address] Barajas showed no evidence of ischemia or infarction. LVEF 63% Xarelto for stroke prophylaxis COPD HTN Tobaccoism - cessation advised Chronic tremors TSH of 11-18-18 WNL Discussion and Recomendations * Treat with ASA and Plavix * Switch Xarelto to enoxaparin during the hospitalization * Statin therapy * BB and LUIS-inhib, if tolerated by bp * Echo to evaluate LVEF and wall motion * Consider cath, but risk is elevated due to CKD. At the time of my exam, he was desiring conservative therapy * Monitor labs Clinical Quality Measures AMI/AHF: ASA po Prior to arrival: No DVT/VTE Risk/Contraindication: Risk Factor Score Per Nursin RFS Level Per Nursing on Admit: 4+=Very High MINDI FLORES MD FACP FAC CCDS Nov 18, 2018 17:19
[2018-11-18] MEDS ORDERED: CLOPIDOGREL 300 MG (PLAVIX) TABLET PO NR (18:01)
[2018-11-18] MEDS ORDERED: DIGOXIN 0.125 MG (LANOXIN) TAB PO NR (18:01)
[2018-11-18 18:23] LABS: ABG BASE EXCESS -15.1 MMOL/L (-2.5-2.5); ABG OXYGEN SATURATION 97 % (94-100); ABG PCO2 27 MMHG (35-45); ABG PO2 90 MMHG (79-93); ABG TCO2 11.9 MMOL/L (21.0-31.0)
[2018-11-18 18:27] LABS: ABG PH 7.23 (7.37-7.43)
[2018-11-18 18:28] LABS: ALLENS TEST POSITIVE; INSPIRED O2 2 L; PATIENT TEMP 97.3; VENTILATOR NO
[2018-11-18] MEDS: ENOXAPARIN 60 MG/0.6 ML (LOVENOX) SYR SC SCH (18:31)
[2018-11-18] MEDS ORDERED: SODIUM BICARB 8.4% 50 MEQ/50 ML (ABBOTT) SYR IV NR (18:52)
[2018-11-18 19:02] LABS: BASOPHILS % (AUTO) 0 % (0-10); EOSINOPHILS % (AUTO) 0 % (0-10); HEMATOCRIT 38 % (40-54); HEMOGLOBIN 12.6 G/DL (13.3-17.7); LYMPHOCYTES # (AUTO) 0.9 X 10^3 (1.0-4.0); LYMPHOCYTES % (AUTO) 17 % (12-44); MEAN CORPUSCULAR HEMOGLOBIN 32 PG (25-34); MEAN CORPUSCULAR HGB CONC 33 G/DL (32-36); MEAN CORPUSCULAR VOLUME 95 FL (80-99); MEAN PLATELET VOLUME 9.9 FL (7.4-10.4); MONOCYTES # (AUTO) 0.6 X 10^3 (0.0-1.0); MONOCYTES % (AUTO) 10 % (0-12); NEUTROPHILS # (AUTO) 4.2 X 10^3 (1.8-7.8); NEUTROPHILS % (AUTO) 73 % (42-75); PLATELET COUNT 194 10^3/uL (130-400); RED CELL DISTRIBUTION WIDTH 13.7 % (10.0-14.5); WHITE BLOOD COUNT 5.7 10^3/uL (4.3-11.0)
[2018-11-18 19:21] LABS: ALBUMIN 3.5 GM/DL (3.2-4.5); BILIRUBIN,TOTAL 0.5 MG/DL (0.1-1.0); CALCIUM 7.7 MG/DL (8.5-10.1); CREATININE SERUM 1.19 MG/DL (0.60-1.30); POTASSIUM 3.5 MMOL/L (3.6-5.0); TOTAL PROTEIN 5.7 GM/DL (6.4-8.2)
[2018-11-18] MEDS ORDERED: meTOproloL SUCCINATE 50 MG (TOPROL XL) TAB PO SCH (21:00)
[2018-11-18] MEDS: ATORVASTATIN 40 MG (LIPITOR) TABLET PO SCH (21:07)
--- NOTE | 2018-11-18 21:07 | NUR ---
This RN to bring pt's HS meds. Discussed with pt. Pt reports not taking atorvastatin at home and requesting to not take medication until cholesterol lab levels were checked. Therapeutic communication attempted, pt educated, verbalized understanding.
--- NOTE | 2018-11-18 21:40 | NUR ---
Pt requesting home dose of melatonin to help with sleeping tonight. E-ICU contacted, see EMR.
[2018-11-18] MEDS: MELATONIN 3 MG TABLET PO SCH (21:59)
[2018-11-19] VITALS (26 sets, daily range): BP systolic 80–185; BP diastolic 58–160
--- NOTE | 2018-11-19 03:30 | NUR ---
Pt reports leaking from around [place], linens changed, luis care performed. As this is the second time tonight and accurate I&O is critical for this pt, [place] was removed and replaced with condom catheter at this time, pt educated, agreeable, tolerated procedure well.
[2018-11-19 03:54] LABS: BASOPHILS % (AUTO) 0 % (0-10); EOSINOPHILS % (AUTO) 0 % (0-10); HEMATOCRIT 39 % (40-54); HEMOGLOBIN 13.1 G/DL (13.3-17.7); LYMPHOCYTES # (AUTO) 1.1 X 10^3 (1.0-4.0); LYMPHOCYTES % (AUTO) 17 % (12-44); MEAN CORPUSCULAR HEMOGLOBIN 31 PG (25-34); MEAN CORPUSCULAR HGB CONC 34 G/DL (32-36); MEAN CORPUSCULAR VOLUME 94 FL (80-99); MONOCYTES # (AUTO) 0.9 X 10^3 (0.0-1.0); MONOCYTES % (AUTO) 13 % (0-12); NEUTROPHILS # (AUTO) 4.6 X 10^3 (1.8-7.8); NEUTROPHILS % (AUTO) 70 % (42-75); PLATELET COUNT 200 10^3/uL (130-400); RED CELL DISTRIBUTION WIDTH 13.9 % (10.0-14.5); WHITE BLOOD COUNT 6.6 10^3/uL (4.3-11.0)
[2018-11-19 04:12] LABS: BUN/CREATININE RATIO 39; CALCIUM 7.8 MG/DL (8.5-10.1); CARBON DIOXIDE 15 MMOL/L (21-32); CHLORIDE 114 MMOL/L (98-107); CHOLESTEROL 100 MG/DL (< 200); CREATININE SERUM 1.09 MG/DL (0.60-1.30); GFR ESTIMATED > 60; GLUCOSE 96 MG/DL (70-105); HDL CHOLESTEROL 37 MG/DL (40-60); MAGNESIUM 1.7 MG/DL (1.8-2.4); PHOSPHORUS 2.2 MG/DL (2.3-4.7); POTASSIUM 3.7 MMOL/L (3.6-5.0); SODIUM 141 MMOL/L (135-145); TRIGLYCERIDES 75 MG/DL (<150); VLDL CHOLESTEROL 15 MG/DL (5-40)
[2018-11-19] MEDS: NS IV 1000 ML 1,000 ML IV SCH ×5 (04:39→23:28)
[2018-11-19] MEDS: KCL 20 MEQ TAB (K-DUR) PO SCH (05:00)
[2018-11-19] MEDS: POTASSIUM CL 10MEQ/50ML IVPB 50 ML IV SCH (05:00)
[2018-11-19] MEDS: MAGNESIUM 1 GM/100 ML IVPB 100 ML IV SCH (05:00)
--- NOTE | 2018-11-19 05:43 | Pulmonary Progress Note ---
Subjective Time Seen by a Provider: 06:17 Subjective/Events-last exam complains of SOB. Sepsis Event Evaluation Height, Weight, BMI Height: 5'10.00" Weight: 133lbs. 4.0oz. 60.519749ry; 19.1 BMI Method:Stated Focused Exam Lactate Level 11/18/18 15:15: Lactic Acid Level 0.73 11/18/18 18:52: Lactic Acid Level 0.91 Exam Exam Vital Signs Date Time Temp Pulse Resp B/P (MAP) Pulse Ox O2 Delivery O2 Flow Rate FiO2 11/19/18 05:00 87 11 90/69 (76) 99 Nasal Cannula 2.00 11/19/18 04:00 Nasal Cannula 2.00 11/19/18 04:00 94 24 109/99 (102) 100 Nasal Cannula 2.00 11/19/18 03:59 97.0 11/19/18 03:00 89 24 99/71 (80) 100 Nasal Cannula 2.00 11/19/18 02:00 93 22 96/67 (77) 100 Nasal Cannula 2.00 11/19/18 01:00 98 16 90/71 (77) 100 Nasal Cannula 2.00 11/19/18 01:00 87 11/19/18 00:00 Nasal Cannula 2.00 11/19/18 00:00 90 23 94/72 (79) 97 Nasal Cannula 2.00 11/18/18 23:31 97.5 11/18/18 23:00 96 17 88/67 (74) 94 Nasal Cannula 2.00 11/18/18 22:00 96 12 95/67 (76) 91 Nasal Cannula 2.00 11/18/18 21:00 110 21 95/66 (76) 100 Nasal Cannula 2.00 11/18/18 20:00 Nasal Cannula 2.00 11/18/18 20:00 115 19 89/67 (74) 95 Nasal Cannula 2.00 11/18/18 19:45 97.4 11/18/18 19:00 106 11/18/18 19:00 110 10 75/55 (62) 100 Nasal Cannula 2.00 11/18/18 18:00 124 8 101/73 (82) 99 Nasal Cannula 2.00 11/18/18 17:00 108 16 126/114 (118) 98 Nasal Cannula 2.00 11/18/18 16:00 102 17 100 Nasal Cannula 2.00 11/18/18 15:30 97.2 11/18/18 15:22 Nasal Cannula 2.00 11/18/18 15:00 93 14 100 Nasal Cannula 2.00 11/18/18 14:57 89 79/40 (53) 11/18/18 14:23 91/59 (70) 11/18/18 14:00 88 23 Nasal Cannula 2.00 11/18/18 13:00 97 11/18/18 13:00 84 7 Nasal Cannula 2.00 11/18/18 12:48 96.9 11/18/18 12:00 100 13 95/75 (82) 97 Nasal Cannula 2.00 11/18/18 12:00 Nasal Cannula 2.00 11/18/18 11:00 105 23 92/70 (77) 98 Nasal Cannula 2.00 11/18/18 10:30 69 11/18/18 09:52 97.6 93 28 127/98 (108) 96 Nasal Cannula 2.00 11/18/18 09:47 Nasal Cannula 2.00 11/18/18 09:38 85 18 103/77 (86) 96 Nasal Cannula 11/18/18 09:03 85 18 104/92 (96) 99 Nasal Cannula 2.00 11/18/18 06:45 Nasal Cannula 2.00 11/18/18 06:39 96.7 125 18 124/78 (93) 96 Nasal Cannula I & O 11/19/18 07:00 Intake Total 6050 ml Output Total 425 ml Balance 5625 ml Height & Weight Height: 5'10.00" Weight: 133lbs. 4.0oz. 60.622721ji; 19.1 BMI Method:Stated General Appearance: WD/WN, Anxious, Chronically ill, Moderate Distress, Thin HEENT: PERRL/EOMI, Normal ENT Inspection Neck: Normal Inspection Respiratory: Lungs Clear, Normal Breath Sounds, No Accessory Muscle Use, No Respiratory Distress Cardiovascular: No Edema, No Murmur, Irregularly Irregular, Tachycardia Capillary Refill: Less Than 3 Seconds Gastrointestinal: normal bowel sounds, non tender, soft Extremity: Normal Capillary Refill, Normal Inspection, No Pedal Edema Neurologic/Psychiatric: Alert, Oriented x3, No Motor/Sensory Deficits, Normal Mood/Affect, 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-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 Norm as Tested, Other (Tremor, right greater than left) Skin: Normal Color, Warm/Dry Lymphatic: No Adenopathy Results Lab Laboratory Tests 11/18/18 06:46 11/18/18 15:15 11/18/18 18:52 11/19/18 03:35 Assessment/Plan Assessment/Plan COPD -SVNS -Repeat ABG Hypotension with dehydration -IVF at 200 -Monitor -OBTAIN PICC LINE Tobacco use -Education -will do out patient testing Cachexia with recent significant wt loss -Will do CT of chest r/o mass CHF EF 35% -Monitor NSTEMI with CP -Cardiology following -Possible cath today Anemia -On plavix -Monitor -Check gastric occult renal failure with anion gap metabolic acidosis -LA is normal -Urine keytones are positive - Not DKA this is from dehydration -monitor -IVF hypokalemia, hypophos -Kphos Afib RVR- -Cardiology following Parkinson's disease Anxiety DARIN RENEE DO Nov 19, 2018 05:43
[2018-11-19] MEDS ORDERED: POTASSIUM PHOSPHATE INJ 30 MM in NS (IVPB) 250 ML IV ONE (05:45)
--- NOTE | 2018-11-19 06:00 | NUR ---
Condom catheter leaked per pt report, this RN at bedside, catheter off pt. This RN handed pt urinal and instructed on usage. Pt states "that's what I wanted all along".
[2018-11-19] MEDS: ENOXAPARIN 60 MG/0.6 ML (LOVENOX) SYR SC SCH ×2 (06:06→19:02)
[2018-11-19 07:05] LABS: ABG BASE EXCESS -11.3 MMOL/L (-2.5-2.5); ABG OXYGEN SATURATION 92 % (94-100); ABG PCO2 24 MMHG (35-45); ABG PH 7.36 (7.37-7.43); ABG PO2 57 MMHG (79-93)
[2018-11-19 07:13] LABS: ALLENS TEST YES-POS; INSPIRED O2 2; PATIENT TEMP 96.8; VENTILATOR NO
--- NOTE | 2018-11-19 08:45 | Progress Note-Cardiology ---
Cardiology SOAP Progress Note Subjective: Sitting up in bed. No c/o CP, palpitations, syncope or near syncope. Feels breathing is same as yesterday. Objective: I&O/Vital Signs 11/18/18 11/18/18 11/19/18 11/19/18 23:00 23:31 00:00 00:00 Temp 97.5 Pulse 96 90 Resp 17 23 B/P (MAP) 88/67 (74) 94/72 (79) Pulse Ox 94 97 O2 Delivery Nasal Cannula Nasal Cannula Nasal Cannula O2 Flow Rate 2.00 2.00 2.00 11/19/18 11/19/18 11/19/18 11/19/18 01:00 01:00 02:00 03:00 Pulse 87 98 93 89 Resp 16 22 24 B/P (MAP) 90/71 (77) 96/67 (77) 99/71 (80) Pulse Ox 100 100 100 O2 Delivery Nasal Cannula Nasal Cannula Nasal Cannula O2 Flow Rate 2.00 2.00 2.00 11/19/18 11/19/18 11/19/18 11/19/18 03:59 04:00 04:00 05:00 Temp 97.0 Pulse 94 87 Resp 24 11 B/P (MAP) 109/99 (102) 90/69 (76) Pulse Ox 100 99 O2 Delivery Nasal Cannula Nasal Cannula Nasal Cannula O2 Flow Rate 2.00 2.00 2.00 11/19/18 11/19/18 11/19/18 11/19/18 06:00 07:00 07:00 08:00 Pulse 101 146 88 92 Resp 21 14 22 B/P (MAP) 91/68 (76) 93/64 (74) 101/68 (79) Pulse Ox 100 100 100 O2 Delivery Nasal Cannula Nasal Cannula Nasal Cannula O2 Flow Rate 2.00 2.00 2.00 11/19/18 09:00 Pulse 98 Resp 19 B/P (MAP) 107/82 (90) Pulse Ox 94 O2 Delivery Nasal Cannula O2 Flow Rate 2.00 11/19/18 00:00 Intake Total 4950 ml Output Total 350 ml Balance 4600 ml Weight (Pounds): 141 Weight (Ounces): 9.0 Weight (Calculated Kilograms): 64.779309 Constitutional: AAO x 3, well-developed, other (thin) Respiratory: No accessory muscle use, No respiratory distress; chest expansion is symmetric, chest is bilaterally symmetric, rhonchi, other (prolonged exp phase) Cardiovascular: irregularly irregular; No JVD; S1 and S2, systolic murmur Gastrointestional: No tender; soft, round, audible bowel sounds Extremities: no lower extremity edema bilateral Neurologic/Psychiatric: other (upper extremity tremors), power is 5/5 both on sides Skin: No rash, No ulcerations Results/Procedures: Labs Laboratory Tests 11/18/18 10:28: Troponin I 0.324*H 11/18/18 15:15: Troponin I 1.580*H, White Blood Count 5.8, Red Blood Count 4.33L, Hemoglobin 13.7, Hematocrit 40, Mean Corpuscular Volume 93, Mean Corpuscular Hemoglobin 32 , Mean Corpuscular Hemoglobin Concent 34, Red Cell Distribution Width 13.9, Platelet Count 216, Mean Platelet Volume 10.0, Neutrophils (%) (Auto) 80H, Lymphocytes (%) (Auto) 11L, Monocytes (%) (Auto) 9, Eosinophils (%) (Auto) 0, Basophils (%) (Auto) 0, Neutrophils # (Auto) 4.6, Lymphocytes # (Auto) 0.6L, Monocytes # (Auto) 0.5, Eosinophils # (Auto) 0.0, Basophils # (Auto) 0.0, Sodium Level 138, Potassium Level 4.5, Chloride Level 112H, Carbon Dioxide Level 14L, Anion Gap 12, Blood Urea Nitrogen 58H, Creatinine 1.47H, Estimat Glomerular Filtration Rate 46, BUN/Creatinine Ratio 39, Glucose Level 102, Lactic Acid Level 0.73, Calcium Level 8.6, Corrected Calcium 8.8, Total Bilirubin 0.6, Aspartate Amino Transf (AST/SGOT) 32, Alanine Aminotransferase ( ALT/SGPT) 19, Alkaline Phosphatase 55, Total Protein 6.1L, Albumin 3.8 11/18/18 16:40: Urine Color YELLOW, Urine Clarity SLIGHTLY CLOUDY, Urine pH 5, Urine Specific [place] 1.020, Urine Protein 1+H, Urine Glucose (UA) NEGATIVE, Urine Ketones 1+H , Urine Nitrite NEGATIVE, Urine Bilirubin NEGATIVE, Urine Urobilinogen NORMAL, Urine Leukocyte Esterase NEGATIVE, Urine RBC (Auto) 1+H, Urine RBC 0-2, Urine WBC 2-5, Urine Squamous Epithelial Cells 5-10, Urine Crystals NONE, Urine Bacteria NEGATIVE, Urine Casts PRESENT, Urine Hyaline Casts 2-5H, Urine Mucus SMALLH, Urine Culture Indicated NO 11/18/18 18:15: Blood Gas Puncture Site LEFT BRACHIAL, Blood Gas Patient Temperature 97.3, Arterial Blood pH 7.23*L, Arterial Blood Partial Pressure CO2 27L, Arterial Blood Partial Pressure O2 90, Arterial Blood HCO3 11*L, Arterial Blood Total CO2 11.9L, Arterial Blood Oxygen Saturation 97, Arterial Blood Base Excess - 15.1L, Richard Test POSITIVE, Blood Gas Ventilator Setting NO, Blood Gas Inspired Oxygen 2 L 11/18/18 18:52: White Blood Count 5.7, Red Blood Count 4.00L, Hemoglobin 12.6L, Hematocrit 38L, Mean Corpuscular Volume 95, Mean Corpuscular Hemoglobin 32, Mean Corpuscular Hemoglobin Concent 33, Red Cell Distribution Width 13.7, Platelet Count 194, Mean Platelet Volume 9.9, Neutrophils (%) (Auto) 73, Lymphocytes (%) (Auto) 17, Monocytes (%) (Auto) 10, Eosinophils (%) (Auto) 0, Basophils (%) (Auto) 0, Neutrophils # (Auto) 4.2, Lymphocytes # (Auto) 0.9L, Monocytes # (Auto) 0.6, Eosinophils # (Auto) 0.0, Basophils # (Auto) 0.0, Sodium Level 138, Potassium Level 3.5L, Chloride Level 114H, Carbon Dioxide Level 14L, Anion Gap 10, Blood Urea Nitrogen 51H, Creatinine 1.19, Estimat Glomerular Filtration Rate 59, BUN/ Creatinine Ratio 43, Glucose Level 82, Lactic Acid Level 0.91, Calcium Level 7.7L, Corrected Calcium 8.1L, Total Bilirubin 0.5, Aspartate Amino Transf (AST/ SGOT) 67H, Alanine Aminotransferase (ALT/SGPT) 22, Alkaline Phosphatase 50, Total Protein 5.7L, Albumin 3.5 11/19/18 03:35: White Blood Count 6.6, Red Blood Count 4.18L, Hemoglobin 13.1L, Hematocrit 39L, Mean Corpuscular Volume 94, Mean Corpuscular Hemoglobin 31, Mean Corpuscular Hemoglobin Concent 34, Red Cell Distribution Width 13.9, Platelet Count 200, Mean Platelet Volume 10.0, Neutrophils (%) (Auto) 70, Lymphocytes (%) (Auto) 17 , Monocytes (%) (Auto) 13H, Eosinophils (%) (Auto) 0, Basophils (%) (Auto) 0, Neutrophils # (Auto) 4.6, Lymphocytes # (Auto) 1.1, Monocytes # (Auto) 0.9, Eosinophils # (Auto) 0.0, Basophils # (Auto) 0.0, Sodium Level 141, Potassium Level 3.7, Chloride Level 114H, Carbon Dioxide Level 15L, Anion Gap 12, Blood Urea Nitrogen 43H, Creatinine 1.09, Estimat Glomerular Filtration Rate > 60, BUN /Creatinine Ratio 39, Glucose Level 96, Calcium Level 7.8L, Phosphorus Level 2.2L, Magnesium Level 1.7L, Triglycerides Level 75, Cholesterol Level 100, LDL Cholesterol Direct 45, VLDL Cholesterol 15, HDL Cholesterol 37L 11/19/18 06:56: Blood Gas Puncture Site RR, Blood Gas Patient Temperature 96.8, Arterial Blood pH 7.36L, Arterial Blood Partial Pressure CO2 24L, Arterial Blood Partial Pressure O2 57L, Arterial Blood HCO3 13*L, Arterial Blood Total CO2 14.0L, Arterial Blood Oxygen Saturation 92L, Arterial Blood Base Excess -11.3L, Richard Test YES-POS, Blood Gas Ventilator Setting NO, Blood Gas Inspired Oxygen 2 A/P: Assessment: Chronic a-fib - presented with RVR Mild troponin elevation: likely acute NSTEMI due to A Fib with RVR on top of underlying CAD MPI of by Dr. Barajas showed no evidence of ischemia or infarction. LVEF 63% Echocardiogram of 11-18-18 showed LVEF 30-35%. LA dilated. Mild AoR. Mod to severe TR. PASP 40mmHg Xarelto for stroke prophylaxis - currently receiving Lovenox COPD HTN - currently low BP Tobaccoism - cessation advised Chronic tremors TSH of 11-18-18 WNL Plan: * Continue ASA and Plavix * Switch Xarelto to enoxaparin during the hospitalization * Statin therapy * Continue BB * Unable to initiate LUIS-inhib d/t low BP * Echo reviewed * CXR pending * Consider cath, but risk is elevated due to CKD * Monitor labs Physician Assessment Physician Assessment No cp. Shortness of breath persistent. No palp or syncope Lungs: dec bs at bases Cor: irreg Ext: no c/c/e A&R * As documented in our note above that I updated (italics) and as noted below * Card cath recommended to investigate his marked cm. The rationale, procedure, risks, and benefits of cath/PCI reviewed. I answered his questions. He provides informed consent. Will schedule Clinical Quality Measures AMI/AHF: ASA po Prior to arrival: SUSHMA Rodriguez Nov 19, 2018 08:45 MIDNI FLORES MD FACP FAC CCDS Nov 19, 2018 10:04
--- NOTE | 2018-11-19 08:54 | Diagnostic Imaging Report ---
Portable erect AP chest at 311 hours. INDICATION: Chest pain. FINDINGS: The heart size is within normal limits and stable when compared to 11/18/2018. The chronic pulmonary changes seen on the prior study are again evident. In the interval since the prior study, however, a few Sly B lines have developed in the periphery of each lung base. There is also now a trace amount of fluid in the minor fissure on the right. These findings do suggest that there is an element of mild pulmonary congestion present. There is still no confluent pneumonia identified nor is there any significant pleural effusion. Mediastinum is not widened. The osseous structures are intact. IMPRESSION: In the interval since the prior study, mild pulmonary congestion has developed. A followup study would be recommended for continued evaluation. Dictated by: Dictated on workstation # [id number]
[2018-11-19] MEDS ORDERED: ASPIRIN E.C. 81 MG (ECOTRIN) TAB PO SCH (09:00)
[2018-11-19] MEDS ORDERED: meTOproloL SUCCINATE 50 MG (TOPROL XL) TAB PO SCH (09:00)
[2018-11-19] MEDS: ASPIRIN 81 MG CHEW (CHILDREN'S ASA) PO SCH ×2 (09:33→12:17)
[2018-11-19] MEDS: DIGOXIN 0.125 MG (LANOXIN) TAB PO SCH (09:34)
[2018-11-19] MEDS: CLOPIDOGREL 75 MG (PLAVIX) TABLET PO SCH (09:34)
--- NOTE | 2018-11-19 10:34 | Progress Note-Hospitalist ---
Subjective HPI/CC On Admission Date Seen by Provider: Nov 19, 2018 Time Seen by Provider: 10:00 Chief complaint: Palpitations HPI: This is an elderly white male Pt of [facility] with a past medical history of chronic atrial fibrillation on anti-coagulation who presented to ER with shortness of breath and palpitations found to have atrial fibrillation with rapid ventricular response. Cardiology recommended inpatient admission for IV drip for rate control. Pt does smoke on a regular basis. Pt does not use home oxygen or inhalers. Pt does have a tremor consistent with Parkinson's but the medication he has taken in the past made him very dizzy. Pt does live with his son. The son is at the bedside. 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 Pt does not drink alcohol. Diarrhea reported for the past 3 days to the nurse this afternoon so will increase fluids IV. Subjective/Events-last exam Pt has an uneventful night last night. Pt is about to undergo cardiac catheterization if he agrees. Creatinine is now 1.0. Still having some diarrhea but much improved. Nebulizer treatments are maintained along with oxygen. Overall very weak. Smoking cessation counseled. IV fluid bolus resolved the hypotension yesterday. Review of Systems General: Fatigue Pulmonary: Dyspnea Focused Exam Lactate Level 11/18/18 15:15: Lactic Acid Level 0.73 11/18/18 18:52: Lactic Acid Level 0.91 Objective Exam Vital Signs Vital Signs Date Time Temp Pulse Resp B/P (MAP) Pulse Ox O2 Delivery O2 Flow Rate FiO2 11/19/18 21:00 96 19 104/81 (89) 100 Nasal Cannula 2.00 11/19/18 03:59 97.0 Capillary Refill : Less Than 3 Seconds General Appearance: WD/WN, Anxious, Chronically ill, Mild Distress, Thin HEENT: PERRL/EOMI, Normal ENT Inspection Neck: Normal Inspection Respiratory: Lungs Clear, Normal Breath Sounds, No Accessory Muscle Use, No Respiratory Distress, Decreased Breath Sounds Cardiovascular: No Edema, No Murmur, Irregularly Irregular, Tachycardia Gastrointestinal: Non Tender, Soft Back: Normal Inspection, No CVA Tenderness, No Vertebral Tenderness Extremity: Normal Capillary Refill, Normal Inspection, No Pedal Edema Neurologic/Psychiatric: Alert, Oriented x3, No Motor/Sensory Deficits, Normal Mood/Affect, motor driver II-XII Norm as Tested, Other (Tremor, right greater than left) Skin: Normal Color, Warm/Dry Lymphatic: No Adenopathy Results/Procedures Lab Laboratory Tests 11/19/18 03:35 Patient resulted labs reviewed. Assessment/Plan Assessment and Plan Assess & Plan/Chief Complaint Assessment: Chest pain AF w/RVR COPD Smoker ARF now resolved Presumed needs home O2 Plan: IVF Supportive care Cardiology evaluation along with Pulmonary revaluation is appreciated Diagnosis/Problems Diagnosis/Problems (1) Atrial fibrillation with RVR Status: Acute (2) Elevated troponin Status: Acute (3) Dehydration Status: Resolved Resolution Date/Time: 11/19/18 @ 21:31 (4) Smoker Status: Chronic (5) Parkinson disease Status: Chronic (6) Cachexia Status: Chronic (7) Anxiety Status: Acute (8) Atrial fibrillation, chronic Status: Chronic (9) ST segment depression Status: Acute (10) Chest pain Status: Acute Qualifiers: Chest pain type: unspecified Qualified Codes: R07.9 - Chest pain, unspecified (11) Renal failure Status: Resolved Qualifiers: Renal failure chronicity: unspecified chronicity Qualified Codes: N19 - Unspecified kidney failure Resolution Date/Time: 11/19/18 @ 21:31 Clinical Quality Measures AMI/AHF: ASA po Prior to arrival: No DVT/VTE Risk/Contraindication: Risk Factor Score Per Nursin RFS Level Per Nursing on Admit: 4+=Very High NIYAH SHARP DO Nov 19, 2018 10:34
--- NOTE | 2018-11-19 13:07 | Diagnostic Imaging Report ---
INDICATION: Evaluate PICC line placement. COMPARISON: Comparison made with prior examination from 11/19/2018. FINDINGS: There is cardiomegaly. There is a hiatal hernia. There is venous congestion. There are bibasilar infiltrates, right greater than left. There is no pleural effusion or pneumothorax. Mediastinum is unremarkable. The left upper extremity PICC line is likely coiled within a duplicated left SVC. IMPRESSION: 1. The left upper extremity PICC line is likely coiled within a duplicated left SVC. 2. Bibasilar infiltrates, right greater than left. 3. Cardiomegaly and some central pulmonary venous congestion. Dictated by: Dictated on workstation # [id number]
[2018-11-19] MEDS ORDERED: MIDAZOLAM 5 MG/5 ML (VERSED) VIAL ONE (15:10)
[2018-11-19] MEDS ORDERED: fentaNYL INJECTION 100 MCG/2 ML AMP ONE (15:10)
[2018-11-19] MEDS ORDERED: HEParin 1000 UNIT/ML (10ML VIAL) FOR BOLUS ONE (15:11)
[2018-11-19] MEDS ORDERED: NS IV 1000 ML 2,000 ML ONE (15:11)
[2018-11-19] MEDS ORDERED: LIDOCAINE 1% INJ 20 ML 20 ML VIAL ONE (15:11)
--- NOTE | 2018-11-19 15:26 | Diagnostic Imaging Report ---
INDICATION: Evaluate PICC line placement. Comparison made with prior examination from 11/19/2018. FINDINGS: The left upper extremity PICC line now has its tip in the superior vena cava. There is cardiomegaly. There is some venous congestion. There are patchy bibasilar infiltrates, right greater than left. There is no pleural effusion or pneumothorax. Mediastinum is unremarkable. IMPRESSION: The left upper extremity PICC line now has its tip in the upper superior vena cava. This could still be advanced a few centimeters. Patchy bibasilar infiltrates right greater than left. Cardiomegaly and mild central pulmonary venous congestion. Dictated by: Dictated on workstation # [id number]
[2018-11-19] MEDS ORDERED: NITRO DRIP 25000 MCG/D5W 0 ML IV ONE (16:02)
[2018-11-19] MEDS ORDERED: EPTIFIBATIDE BOLUS 20 ML IV ONE (16:02)
[2018-11-19] MEDS ORDERED: CLOPIDOGREL 75 MG (PLAVIX) TABLET ONE (16:56)
[2018-11-19] MEDS ORDERED: ASPIRIN 81 MG CHEW (CHILDREN'S ASA) ONE (16:58)
[2018-11-19] MEDS ORDERED: NS IV 1000 ML 1,000 ML IV SCH (16:59)
[2018-11-19] MEDS ORDERED: PATIENT MAY USE OWN MEDS, ALL PO SCH (17:00)
[2018-11-19] MEDS ORDERED: MAGNESIUM 1 GM/100 ML IVPB 100 ML IV ONE (17:00)
[2018-11-19] MEDS: DILTIAZEM 125 MG/NS 100 ML IV SCH ×2 (17:32)
[2018-11-19] MEDS: ATORVASTATIN 40 MG (LIPITOR) TABLET PO SCH (20:45)
[2018-11-19] MEDS: MELATONIN 3 MG TABLET PO SCH (20:45)
[2018-11-20] VITALS (18 sets, daily range): BP systolic 97–178; BP diastolic 66–103
--- NOTE | 2018-11-20 00:20 | CARDIAC CATHETERIZATION ---
DATE OF SERVICE: 11/18/2018 CARDIAC CATHETERIZATION AND CORONARY INTERVENTION REPORT The patient is a 78-year-old man who was hospitalized with acute systolic heart failure and acute non-ST elevation myocardial infarction. Cardiac catheterization was carried out today after having obtained an informed consent. DESCRIPTION OF PROCEDURE: He was brought to the cardiac catheterization laboratory in a fasting state. Right groin was prepared and draped in the usual sterile fashion. A 1% lidocaine was used for local anesthesia. Modified Seldinger technique was used to advance a 5-American sheath in right femoral artery, 5-American JL4 catheter for left coronary angiography, 5-American JR4 catheter for right coronary angiography. We did not carry left heart catheterization. This was to conserve contrast because the patient has chronic kidney disease and we wanted to reduce the risk of contrast nephropathy. PERCUTANEOUS INTERVENTION TO THE LEFT ANTERIOR DESCENDING ARTERY: Following completion of the diagnostic procedure, we carried out percutaneous intervention to the left anterior descending artery. There was exhibiting 99% ostial stenosis. We exchanged the sheath over a wire for a 7-American sheath. We used a 7-American JL5 guide catheter. The left coronary artery was engaged. We advanced a ChoICE Floppy wire into the left circumflex artery. This was to protect the left circumflex while intervention to the ostial left anterior descending. We used a BMW wire to cross the ostial lesion in the left anterior descending with moderate difficulty and the tip of the wire was placed in the distal vessel. We carried out a balloon angioplasty with Emerge 2.5 x 20 mm balloon. This improved the stenosis from 99% to approximately 70%. The balloon was removed and we advanced Alpine Rimma 3.0 x 18 mm stent. This was carefully positioned to cover the entire lesion and the stent was deployed at 15 atmospheres. The stent balloon was then collapsed and the stent balloon was pulled proximally to the proximal two thirds of the stent. This area of the stent was ballooned again and the balloon was inflated to 20 atmospheres. The balloon was then collapsed and removed. Angiography revealed 0% residual stenosis at the previous site of 90% stenosis and the distal flow has improved from JEWELS 2 to JEWELS 3. The patient tolerated the procedure well. Angiography of the right femoral artery had been carried out through the sheath at the beginning of the procedure. At the end of the procedure, Mynx was used to achieve hemostasis following sheath removal. CORONARY ANGIOGRAPHY: Diffuse coronary calcification seen. Left main coronary artery does not exhibit significant disease. Left anterior descending artery had 99% ostial stenosis with JEWELS 2 antegrade flow, which improved to 0% residual stenosis and JEWELS 3 antegrade flow following deployment of Rimma 3.0 x 18 mm stent. The left circumflex and the rest of left coronary system has mild diffuse disease. The right coronary artery is dominant, has 60% mid vessel stenosis. CONCLUSIONS: Coronary artery disease primarily consisting of 99% ostial stenosis left anterior descending artery, which was treated with Rimma 3.0 x 18 mm stent with reduction of stenosis to 0% residual and normal antegrade flow. The right coronary artery has moderate mid vessel disease and the rest of left coronary system has mild diffuse disease. DISCUSSION AND RECOMMENDATIONS: Dual antiplatelet therapy is being continued. He also has chronic atrial fibrillation and we are continuing therapy for stroke prophylaxis with enoxaparin. After 24 to 48 hours, we will reinitiate apixaban, stop Lovenox, continue clopidogrel, and stop aspirin. This is an effort to prevent triple therapy (to reduce risk of bleeding). Risk factor modification has been reviewed. Further recommendation will be based on hospital course. Job ID: [id number] DocumentID: [id number] Dictated Date: 11/19/2018 16:51:16 Clinical Education Coordinator Date: 11/20/2018 00:19:40 Dictated By: MINDI FLORES MD, MA, FACP, FACC,
[2018-11-20 04:17] LABS: BASOPHILS % (AUTO) 0 % (0-10); EOSINOPHILS % (AUTO) 0 % (0-10); HEMATOCRIT 32 % (40-54); HEMOGLOBIN 10.8 G/DL (13.3-17.7); LYMPHOCYTES # (AUTO) 1.3 X 10^3 (1.0-4.0); LYMPHOCYTES % (AUTO) 15 % (12-44); MEAN CORPUSCULAR HEMOGLOBIN 31 PG (25-34); MEAN CORPUSCULAR HGB CONC 33 G/DL (32-36); MEAN CORPUSCULAR VOLUME 93 FL (80-99); MEAN PLATELET VOLUME 10.5 FL (7.4-10.4); MONOCYTES # (AUTO) 1.1 X 10^3 (0.0-1.0); MONOCYTES % (AUTO) 12 % (0-12); NEUTROPHILS # (AUTO) 6.3 X 10^3 (1.8-7.8); NEUTROPHILS % (AUTO) 73 % (42-75); PLATELET COUNT 192 10^3/uL (130-400); RED CELL DISTRIBUTION WIDTH 14.2 % (10.0-14.5); WHITE BLOOD COUNT 8.7 10^3/uL (4.3-11.0)
[2018-11-20 04:43] LABS: BUN/CREATININE RATIO 38; CALCIUM 7.8 MG/DL (8.5-10.1); CARBON DIOXIDE 15 MMOL/L (21-32); CHLORIDE 115 MMOL/L (98-107); CREATININE SERUM 0.82 MG/DL (0.60-1.30); GFR ESTIMATED > 60; GLUCOSE 95 MG/DL (70-105); MAGNESIUM 1.8 MG/DL (1.8-2.4); PHOSPHORUS 2.2 MG/DL (2.3-4.7); POTASSIUM 4.3 MMOL/L (3.6-5.0); SODIUM 137 MMOL/L (135-145)
--- NOTE | 2018-11-20 04:54 | Pulmonary Progress Note ---
Subjective Time Seen by a Provider: 04:55 Subjective/Events-last exam Gets very SOB with even little exertion. Pt is on 2 liters of oxygen. Sepsis Event Evaluation Height, Weight, BMI Height: 5'10.00" Weight: 141lbs. 9.0oz. 64.911803yf; 19.1 BMI Method:Stated Focused Exam Lactate Level 11/18/18 15:15: Lactic Acid Level 0.73 11/18/18 18:52: Lactic Acid Level 0.91 Exam Exam Vital Signs Date Time Temp Pulse Resp B/P (MAP) Pulse Ox O2 Delivery O2 Flow Rate FiO2 11/20/18 04:00 97 18 105/78 (87) 100 Nasal Cannula 2.00 11/20/18 03:00 101 25 104/75 (85) 100 Nasal Cannula 2.00 11/20/18 02:00 99 21 102/75 (84) 100 Nasal Cannula 2.00 11/20/18 01:00 96 20 96 Nasal Cannula 2.00 11/20/18 01:00 103 11/20/18 00:00 96 23 119/87 (98) 98 Nasal Cannula 2.00 11/20/18 00:00 Nasal Cannula 2.00 11/20/18 00:00 97.6 11/19/18 23:00 90 20 105/83 (90) 97 Nasal Cannula 2.00 11/19/18 22:00 93 23 88/58 (68) 98 Nasal Cannula 2.00 11/19/18 21:29 Nasal Cannula 2.00 11/19/18 21:00 96 19 104/81 (89) 100 Nasal Cannula 2.00 11/19/18 20:00 108 14 125/67 (86) 94 Nasal Cannula 2.00 11/19/18 20:00 Nasal Cannula 2.00 11/19/18 20:00 97.1 Nasal Cannula 2.00 11/19/18 19:00 98 11/19/18 19:00 98 16 103/72 (82) 96 Nasal Cannula 2.00 11/19/18 18:30 101 15 125/82 (96) 99 Nasal Cannula 2.00 11/19/18 18:00 105 23 185/160 (168) 98 Nasal Cannula 2.00 11/19/18 17:45 93 22 122/76 (91) 100 Nasal Cannula 2.00 11/19/18 17:30 92 19 98/68 (78) 98 Nasal Cannula 2.00 11/19/18 17:15 101 20 99/76 (84) 100 Nasal Cannula 2.00 11/19/18 16:00 Nasal Cannula 2.00 11/19/18 15:00 98 22 98/70 (79) 97 Nasal Cannula 2.00 11/19/18 14:00 88 17 92/64 (73) 95 Nasal Cannula 2.00 11/19/18 13:00 101 26 94/61 (72) 95 Nasal Cannula 2.00 11/19/18 13:00 101 11/19/18 12:21 Nasal Cannula 2.00 11/19/18 12:00 96 52 102/74 (83) 98 Nasal Cannula 2.00 11/19/18 11:00 93 17 80/63 (69) 98 Nasal Cannula 2.00 11/19/18 10:07 135 11 159/127 (138) 99 Nasal Cannula 2.00 11/19/18 09:00 98 19 107/82 (90) 94 Nasal Cannula 2.00 11/19/18 08:00 92 22 101/68 (79) 100 Nasal Cannula 2.00 11/19/18 08:00 Nasal Cannula 2.00 11/19/18 07:00 88 11/19/18 07:00 146 14 93/64 (74) 100 Nasal Cannula 2.00 11/19/18 06:00 101 21 91/68 (76) 100 Nasal Cannula 2.00 11/19/18 05:00 87 11 90/69 (76) 99 Nasal Cannula 2.00 I & O 11/20/18 07:00 Intake Total 320 ml Output Total 655 ml Balance -335 ml Height & Weight Height: 5'10.00" Weight: 141lbs. 9.0oz. 64.239062mz; 19.1 BMI Method:Stated General Appearance: WD/WN, Anxious, Chronically ill, Thin HEENT: PERRL/EOMI, Normal ENT Inspection Neck: Normal Inspection Respiratory: No Accessory Muscle Use, No Respiratory Distress, Crackles, Decreased Breath Sounds Cardiovascular: No Edema, No Murmur, Irregularly Irregular, Tachycardia Capillary Refill: Less Than 3 Seconds Gastrointestinal: normal bowel sounds, non tender, soft Extremity: Normal Capillary Refill, Normal Inspection, No Pedal Edema Neurologic/Psychiatric: Alert, Oriented x3, No Motor/Sensory Deficits, Normal Mood/Affect, mortgage closer II-XII Norm as Tested, Other (Tremor, right greater than left) Skin: Normal Color, Warm/Dry Lymphatic: No Adenopathy Results Lab Laboratory Tests 11/18/18 06:46 11/18/18 15:15 11/18/18 18:52 11/19/18 03:35 11/20/18 03:35 Assessment/Plan Assessment/Plan COPD -SVNS -Repeat ABG Hypotension with dehydration -IVF at 200 -Monitor Tobacco use -Education -will do out patient testing Cachexia with recent significant wt loss -Will do CT of chest r/o mass CHF EF 35% -Monitor NSTEMI with CP s/p Cath with stenting of LAD -Cardiology following -Possible cath today Anemia -On plavix -Monitor -Check gastric occult renal failure with nonanion gap metabolic acidosis -LA - repeat -Urine keytones are positive - repeat LA -monitor -IVF - change to LR at 125 hypophos -Kphos Afib RVR- -Cardiology following Parkinson's disease Anxiety DARIN RENEE DO Nov 20, 2018 04:54
[2018-11-20] MEDS ORDERED: SODIUM BICARB 8.4% 50 MEQ/50 ML (ABBOTT) SYR IV ONE (05:00)
[2018-11-20] MEDS ORDERED: D5 LR IV SOLUTION 1,000 ML IV ONE (05:31)
[2018-11-20] MEDS ORDERED: SODIUM BICARB 8.4% 50 MEQ/50 ML (ABBOTT) SYR ONE (05:31)
[2018-11-20] MEDS: D5 LR IV SOLUTION 1,000 ML IV SCH ×3 (05:46→21:19)
[2018-11-20 06:01] LABS: BILIRUBIN,URINE NEGATIVE (NEGATIVE); CLARITY,URINE CLEAR; COLOR,URINE YELLOW; GLUCOSE, URINE (UA) NEGATIVE (NEGATIVE); KETONES,URINE 1+ (NEGATIVE); LEUKOCYTE ESTERASE ,URINE NEGATIVE (NEGATIVE); NITRITE,URINE NEGATIVE (NEGATIVE); PH,URINE 5 (5-9); PROTEIN,URINE 1+ (NEGATIVE); UROBILINOGEN,URINE NORMAL (NORMAL)
[2018-11-20 06:09] LABS: BACTERIA,URINE FEW /HPF
[2018-11-20] MEDS: MAGNESIUM 1 GM/100 ML IVPB 100 ML IV SCH (06:39)
[2018-11-20] MEDS: POTASSIUM CL 10MEQ/50ML IVPB 50 ML IV SCH (06:39)
[2018-11-20] MEDS: KCL 20 MEQ TAB (K-DUR) PO SCH (06:40)
[2018-11-20] MEDS: ENOXAPARIN 60 MG/0.6 ML (LOVENOX) SYR SC SCH ×2 (06:40→18:19)
[2018-11-20] MEDS ORDERED: SODIUM PHOSPHATE INJ 30 MM in NS (IVPB) 250 ML IV NR (07:00)
[2018-11-20] MEDS: DIGOXIN 0.125 MG (LANOXIN) TAB PO SCH (08:33)
[2018-11-20] MEDS: CLOPIDOGREL 75 MG (PLAVIX) TABLET PO SCH (08:33)
--- NOTE | 2018-11-20 08:57 | Diagnostic Imaging Report ---
INDICATION: Chest pain. COMPARISON: 11/19/2018. FINDINGS: No change in right basilar heterogeneous consolidations and trace right pleural effusion. Hyperaerated lung volume is unchanged. Borderline cardiomegaly similar. No pneumothorax. Stable left PICC. IMPRESSION: 1. No change in right lower lobe opacities likely on the basis of pneumonia. Dictated by: Dictated on workstation # [id number]
--- NOTE | 2018-11-20 12:31 | Progress Note-Hospitalist ---
Subjective HPI/CC On Admission Date Seen by Provider: Nov 20, 2018 Time Seen by Provider: 11:00 Chief complaint: Palpitations HPI: This is an elderly white male Pt of [facility] with a past medical history of chronic atrial fibrillation on anti-coagulation who presented to ER with shortness of breath and palpitations found to have atrial fibrillation with rapid ventricular response. Cardiology recommended inpatient admission for IV drip for rate control. Pt does smoke on a regular basis. Pt does not use home oxygen or inhalers. Pt does have a tremor consistent with Parkinson's but the medication he has taken in the past made him very dizzy. Pt does live with his son. The son is at the bedside. 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 Pt does not drink alcohol. Diarrhea reported for the past 3 days to the nurse this afternoon so will increase fluids IV. Subjective/Events-last exam Patient doing well Breathing better Reviewed Cardiology note Less diarrhea Had cardiac stent Review of Systems General: Fatigue Pulmonary: Dyspnea Focused Exam Lactate Level 11/18/18 15:15: Lactic Acid Level 0.73 11/18/18 18:52: Lactic Acid Level 0.91 11/20/18 05:45: Lactic Acid Level 1.04 Objective Exam Vital Signs Vital Signs Date Time Temp Pulse Resp B/P (MAP) Pulse Ox O2 Delivery O2 Flow Rate FiO2 11/20/18 15:00 106 22 109/86 (94) Nasal Cannula 2.00 11/20/18 12:00 100 11/20/18 04:00 97.2 Capillary Refill : Less Than 3 Seconds General Appearance: WD/WN, Anxious, Chronically ill, Thin HEENT: PERRL/EOMI, Normal ENT Inspection Neck: Normal Inspection Respiratory: No Accessory Muscle Use, No Respiratory Distress, Crackles, Decreased Breath Sounds Cardiovascular: No Edema, No Murmur, Irregularly Irregular, Tachycardia Gastrointestinal: Non Tender, Soft Back: Normal Inspection, No CVA Tenderness, No Vertebral Tenderness Extremity: Normal Capillary Refill, Normal Inspection, No Pedal Edema Neurologic/Psychiatric: Alert, Oriented x3, No Motor/Sensory Deficits, Normal Mood/Affect, medical records receptionist II-XII Norm as Tested, Other (Tremor, right greater than left) Skin: Normal Color, Warm/Dry Lymphatic: No Adenopathy Results/Procedures Lab Laboratory Tests 11/20/18 03:35 Patient resulted labs reviewed. Assessment/Plan Assessment and Plan Assess & Plan/Chief Complaint Assessment: Chest pain w/stent placed yesterday NSTEMI AF w/RVR COPD Smoker ARF now resolved Presumed needs home O2 Plan: IVF Supportive care Cardiology evaluation along with Pulmonary revaluation is appreciated Diagnosis/Problems Diagnosis/Problems (1) Atrial fibrillation with RVR Status: Acute (2) Elevated troponin Status: Acute (3) Dehydration Status: Resolved Resolution Date/Time: 11/19/18 @ 21:31 (4) Smoker Status: Chronic (5) Parkinson disease Status: Chronic (6) Cachexia Status: Chronic (7) Anxiety Status: Acute (8) Atrial fibrillation, chronic Status: Chronic (9) ST segment depression Status: Acute (10) Chest pain Status: Acute Qualifiers: Chest pain type: unspecified Qualified Codes: R07.9 - Chest pain, unspecified (11) Renal failure Status: Resolved Qualifiers: Renal failure chronicity: unspecified chronicity Qualified Codes: N19 - Unspecified kidney failure Resolution Date/Time: 11/19/18 @ 21:31 (12) Stented coronary artery Status: Acute (13) NSTEMI (non-ST elevated myocardial infarction) Status: Acute Clinical Quality Measures AMI/AHF: ASA po Prior to arrival: No DVT/VTE Risk/Contraindication: Risk Factor Score Per Nursin RFS Level Per Nursing on Admit: 4+=Very High NIYAH SHARP DO Nov 20, 2018 12:31
--- NOTE | 2018-11-20 15:12 | Progress Note-Cardiology ---
Cardiology SOAP Progress Note Subjective: Feels somewhat less short of breath and stronger No cp or palp or syncope Objective: I&O/Vital Signs 11/20/18 11/20/18 11/20/18 11/20/18 04:00 04:00 04:00 05:00 Temp 97.2 Pulse 97 101 Resp 18 22 B/P (MAP) 105/78 (87) 178/103 (128) Pulse Ox 100 98 O2 Delivery Nasal Cannula Nasal Cannula Nasal Cannula O2 Flow Rate 2.00 2.00 2.00 11/20/18 11/20/18 11/20/18 11/20/18 06:00 07:00 07:00 08:00 Pulse 110 95 95 Resp 24 18 B/P (MAP) 111/95 (100) 109/82 (91) Pulse Ox 100 100 O2 Delivery Nasal Cannula Nasal Cannula Nasal Cannula O2 Flow Rate 2.00 2.00 2.00 11/20/18 11/20/18 11/20/18 11/20/18 08:00 08:55 09:00 10:00 Pulse 111 105 108 Resp 14 21 21 B/P (MAP) 116/83 (94) 118/82 (94) 105/85 (92) Pulse Ox 100 100 100 O2 Delivery Nasal Cannula Nasal Cannula Nasal Cannula Nasal Cannula O2 Flow Rate 2.00 2.00 2.00 2.00 11/20/18 11/20/18 11/20/18 11/20/18 11:00 12:00 12:00 13:00 Pulse 93 96 112 Resp 10 18 21 B/P (MAP) 105/79 (88) 120/96 (104) 119/87 (98) Pulse Ox 92 100 O2 Delivery Nasal Cannula Nasal Cannula Nasal Cannula Nasal Cannula O2 Flow Rate 2.00 2.00 2.00 2.00 11/20/18 11/20/18 13:00 14:00 Pulse 117 109 Resp 15 B/P (MAP) 117/96 (103) O2 Delivery Nasal Cannula O2 Flow Rate 2.00 11/20/18 00:00 Intake Total 100 ml Output Total 575 ml Balance -475 ml Weight (Pounds): 140 Weight (Ounces): 9.0 Weight (Calculated Kilograms): 63.323975 Constitutional: AAO x 3, well-developed, other (thin) Respiratory: No accessory muscle use, No respiratory distress; chest expansion is symmetric, chest is bilaterally symmetric, rhonchi, other (prolonged exp phase) Cardiovascular: irregularly irregular; No JVD; S1 and S2, systolic murmur Gastrointestional: No tender; soft, round, audible bowel sounds Extremities: no lower extremity edema bilateral Neurologic/Psychiatric: other (upper extremity tremors), power is 5/5 both on sides Skin: No rash, No ulcerations Results/Procedures: Labs Laboratory Tests 11/20/18 03:35: White Blood Count 8.7, Red Blood Count 3.49L, Hemoglobin 10.8L, Hematocrit 32L, Mean Corpuscular Volume 93, Mean Corpuscular Hemoglobin 31, Mean Corpuscular Hemoglobin Concent 33, Red Cell Distribution Width 14.2, Platelet Count 192, Mean Platelet Volume 10.5H, Neutrophils (%) (Auto) 73, Lymphocytes (%) (Auto) 15 , Monocytes (%) (Auto) 12, Eosinophils (%) (Auto) 0, Basophils (%) (Auto) 0, Neutrophils # (Auto) 6.3, Lymphocytes # (Auto) 1.3, Monocytes # (Auto) 1.1H, Eosinophils # (Auto) 0.0, Basophils # (Auto) 0.0, Sodium Level 137, Potassium Level 4.3, Chloride Level 115H, Carbon Dioxide Level 15L, Anion Gap 7, Blood Urea Nitrogen 31H, Creatinine 0.82, Estimat Glomerular Filtration Rate > 60, BUN /Creatinine Ratio 38, Glucose Level 95, Calcium Level 7.8L, Phosphorus Level 2.2L, Magnesium Level 1.8 11/20/18 05:45: Lactic Acid Level 1.04 11/20/18 05:50: Urine Color YELLOW, Urine Clarity CLEAR, Urine pH 5, Urine Specific [place] 1.025H, Urine Protein 1+H, Urine Glucose (UA) NEGATIVE, Urine Ketones 1+H, Urine Nitrite NEGATIVE, Urine Bilirubin NEGATIVE, Urine Urobilinogen NORMAL, Urine Leukocyte Esterase NEGATIVE, Urine RBC (Auto) 3+H, Urine RBC 10-25H, Urine WBC NONE, Urine Squamous Epithelial Cells 2-5, Urine Crystals NONE, Urine Bacteria FEWH, Urine Casts NONE, Urine Mucus NEGATIVE, Urine Culture Indicated NO Microbiology 11/18/18 MRSA Screen - Final, Complete MRSA not isolated A/P: Assessment: CAD: Cath of 11/19/18 showed 99% ostial LAD that was stented with Rimma 3 x 18; other cors had mild to mod stenoses Ischemic dilated cardiomyopathy. Echocardiogram of 11-18-18 showed LVEF 30-35%. LA dilated. Mild AoR. Mod to severe TR. PASP 40mmHg Chronic a-fib - presented with RVR, now better controlled Xarelto for stroke prophylaxis - currently receiving Lovenox COPD Tobaccoism - cessation advised Chronic resting tremor TSH of 11-18-18 WNL Plan: * Dual antiplatelet therapy is being continued. He also has chronic atrial fibrillation and we are continuing therapy for stroke prophylaxis with enoxaparin. Tomorrow, we will reinitiate rivaroxaban, stop Lovenox, continue clopidogrel, and stop aspirin. * Unable to initiate LUIS-inhib d/t low BP * Monitor labs * I reviewed in detail with him the cath findings and interventions undertaken Clinical Quality Measures AMI/AHF: ASA po Prior to arrival: MINDI Mina MD FACP FAC CCDS Nov 20, 2018 15:12
[2018-11-20] MEDS: DILTIAZEM 125 MG/NS 100 ML IV SCH ×2 (18:38)
[2018-11-20 19:23] LABS: BILIRUBIN,URINE NEGATIVE (NEGATIVE); CLARITY,URINE CLEAR; COLOR,URINE YELLOW; GLUCOSE, URINE (UA) NEGATIVE (NEGATIVE); KETONES,URINE 1+ (NEGATIVE); LEUKOCYTE ESTERASE ,URINE NEGATIVE (NEGATIVE); NITRITE,URINE NEGATIVE (NEGATIVE); PH,URINE 5 (5-9); PROTEIN,URINE 1+ (NEGATIVE); UROBILINOGEN,URINE NORMAL (NORMAL)
[2018-11-20 19:36] LABS: BACTERIA,URINE NEGATIVE /HPF; RBC,URINE 0-2 /HPF; WBC,URINE 0-2 /HPF
[2018-11-20] MEDS: MELATONIN 3 MG TABLET PO SCH (21:19)
[2018-11-20] MEDS: ATORVASTATIN 40 MG (LIPITOR) TABLET PO SCH (21:19)
[2018-11-21] VITALS (8 sets, daily range): BP systolic 104–137; BP diastolic 55–84
--- OUTSIDE RECORDS SUMMARY | 2018-11-21 01:37 | XMS REPORT ---
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 28729747222549523 Problem Anxiety F41.9 Active 13666555 Problem Essential hypertension I10 Active 16510984 ALLERGIES No Known Allergies ENCOUNTERS Encounter Location Date Diagnosis [facility] [address] [phone] Jul, Essential hypertension I10 ; Degenerative disc disease, cervical M50.30 ; Essential tremor G25.0 and History of atrial fibrillation Z86.79 [facility] [id number] [place] [address] Jul, History of atrial fibrillation Z86.79 [facility] [id number] [place] [phone] Mar, Essential hypertension I10 [facility] [id number] [place] [phone] Mar, [facility] [address] [address] Mar, Essential hypertension I10 [facility] [id number] [place] [address] Mar, [facility] [id number] [place] [address] Mar, Exposure to hepatitis C Z20.5 and Essential hypertension I10 [place] [address] [address] [facility] [id number] [place] [address] Feb, Degenerative disc disease, cervical M50.30 [place] [address] [address] [facility] [id number] [address] January, Essential tremor G25.0 ; Neck pain without injury M54.2 and Skin lesion L98.9 [place] [address] [address] [facility] [id number] [address] Dec, Encounter to establish care Z76.89 ; Essential hypertension I10 ; History of atrial fibrillation Z86.79 and Anxiety F41.9 IMMUNIZATIONS No Known Immunizations SOCIAL HISTORY Never Assessed REASON FOR VISIT 6 month check up Inés GIL, Pt would like to know if he can take any OTC pain meds with the medication he is taking Inés gil PLAN OF CARE Activity Details Follow Up w/ PCP,3 Months Reason:CHM VITAL SIGNS Height 70 in 2018-08-04 Weight 136.8 lbs 2018-08-04 Temperature 97.6 degrees Fahrenheit 2018-08-04 Heart Rate 78 bpm 2018-08-04 Respiratory Rate 18 2018-08-04 BMI 19.63 kg/m2 2018-08-04 Blood pressure systolic 138 mmHg 2018-08-04 Blood pressure diastolic 84 mmHg 2018-08-04 MEDICATIONS Medication Instructions Dosage Frequency Start Date End Date Duration Status Toprol XL 25 MG Orally Once a day 1 tablet 24h Dec, Active Tramadol HCl 50 MG by oral route 2 times a day 1 tablet 12h 07 days Active Lisinopril 40 mg Orally Once a day 1 tablet 24h Active Xarelto 10 mg Orally Once a day 1 tablet with food 24h 10 Dec, 2017 Active Topiramate 50 MG Orally daily 1 tablet 24h Jul, 30 day(s) Active RESULTS No Results PROCEDURES No Known procedures INSTRUCTIONS MEDICATIONS ADMINISTERED No Known Medications MEDICAL (GENERAL) HISTORY Type Description Date Medical History HTN Medical History COPD Medical History Brain Tumor Medical History Afib Medical History Severe central canal narrowing C3-C4, multi level neural foramen narrowing Medical History Degenerative Disc disease C3-C6 Hospitalization History HTN 2009?
--- OUTSIDE RECORDS SUMMARY | 2018-11-21 01:38 | XMS REPORT ---
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 Active 88058822157317348 Problem Anxiety F41.9 Active 50050746 Problem Essential hypertension I10 Active 20557090 ALLERGIES No Known Allergies ENCOUNTERS Encounter Location Date Diagnosis [facility] [id number] [place] [phone] Mar, Essential hypertension I10 [facility] [id number] [place] [address] Mar, [facility] [id number] [place] [address] Mar, Essential hypertension I10 [facility] [id number] [place] [address] Mar, [facility] [address] [address] Mar, Exposure to hepatitis C Z20.5 and Essential hypertension I10 [facility] [address] [address] Feb, Degenerative disc disease, cervical M50.30 [facility] [id number] [place] [address] January, Essential tremor G25.0 ; Neck pain without injury M54.2 and Skin lesion L98.9 [facility] [address] [facility] [id number] [place] [address] Dec, 2017 Encounter to establish care Z76.89 ; Essential hypertension I10 ; History of atrial fibrillation Z86.79 and Anxiety F41.9 IMMUNIZATIONS No Known Immunizations SOCIAL HISTORY Never Assessed REASON FOR VISIT Growth on back of head x2 weeks - Pt reports dull pain upon palpation. Neck pain x5 years, pt states pain medication is not helping. [facility] PLAN OF CARE Activity Details Follow Up 4 Weeks, prn Reason:neck pain and tremors VITAL SIGNS Height 70 in 2018-02-05 Weight 127 lbs 2018-02-05 Temperature 97.7 degrees Fahrenheit 2018-02-05 Respiratory Rate 24 2018-02-05 BMI 18.22 kg/m2 2018-02-05 Blood pressure systolic 160 mmHg 2018-02-05 Blood pressure diastolic 100 mmHg 2018-02-05 MEDICATIONS Medication Instructions Dosage Frequency Start Date End Date Duration Status Cyclobenzaprine HCl 5 mg Orally twice a day 1 tablet as needed 12h 18 Jan, 2018 Feb, 30 days Active Tramadol HCl Active Xarelto 10 mg Orally Once a day 1 tablet with food 24h Dec, 30 day(s) Active Lisinopril 10 MG Orally daily 1 tablet 24h 90 days Active BusPIRone HCl 10 mg Orally Three times a day 1 tablet 8h Dec, 30 days Active Toprol XL 25 MG Orally Once a day 1 tablet 24h Dec, 90 days Active RESULTS Name Result Date Reference Range MRI : Cervical w/o Contrast 2018-02-16 PROCEDURES No Known procedures INSTRUCTIONS MEDICATIONS ADMINISTERED No Known Medications MEDICAL (GENERAL) HISTORY Type Description Date Medical History HTN Medical History COPD Medical History Brain Tumor Medical History Afib Medical History Severe central canal narrowing C3-C4, multi level neural foramen narrowing Medical History Degenerative Disc disease C3-C6 Hospitalization History HTN 2009?
--- OUTSIDE RECORDS SUMMARY | 2018-11-21 01:38 | XMS REPORT ---
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 [id number] [place] [phone] Jul, [facility] [id number] [place] [address] Jul, History of atrial fibrillation Z86.79 [facility] [id number] [place] [phone] Mar, Essential hypertension I10 [facility] [id number] [place] [address] Mar, [facility] [id number] [place] [address] Mar, Essential hypertension I10 [facility] [id number] [place] [address] Mar, [facility] [id number] [place] [address] Mar, Exposure to hepatitis C Z20.5 and Essential hypertension I10 [facility] [id number] [place] [address] Feb, Degenerative disc disease, cervical M50.30 [facility] [address] [facility] [id number] [address] January, Essential tremor G25.0 ; Neck pain without injury M54.[address] [facility] [address] [facility] [id number] [phone] Dec, Encounter to establish care Z76.89 ; Essential hypertension I10 ; History of atrial fibrillation Z86.79 and Anxiety F41.9 IMMUNIZATIONS No Known Immunizations SOCIAL HISTORY Never Assessed REASON FOR VISIT Xarelto Refill Request PLAN OF CARE VITAL SIGNS MEDICATIONS Medication Instructions Dosage Frequency Start Date End Date Duration Status Xarelto 10 mg Orally Once a day 1 tablet with food 24h Dec, 30 day(s) Active RESULTS No Results PROCEDURES [...]
--- OUTSIDE RECORDS SUMMARY | 2018-11-21 01:38 | XMS REPORT ---
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 58564310037553511 Problem Anxiety F41.9 Active 22371666 Problem Essential hypertension I10 Active 42670497 ALLERGIES No Information ENCOUNTERS Encounter Location Date Diagnosis [facility] IN [facility] [id number] [place] [address] Mar, Essential hypertension I10 [facility] [place] [address] [address] Mar, [facility] [place] [address] [address] Mar, Essential hypertension I10 [facility] [place] [id number] [place] [address] Mar, [facility] [place] [address] [address] Mar, Exposure to hepatitis C Z20.5 and Essential hypertension I10 [facility] [place] [address] [address] Feb, Degenerative disc disease, cervical M50.30 [facility] [place] [id number] [place] [address] January, Essential tremor G25.0 ; Neck pain without injury M54.2 and Skin lesion L98.9 [facility] [place] [address] [facility] [id number] [place] [address] 10 Dec, 2017 Encounter to establish care Z76.89 ; Essential hypertension I10 ; History of atrial fibrillation Z86.79 and Anxiety F41.9 IMMUNIZATIONS No Known Immunizations SOCIAL HISTORY Never Assessed REASON FOR VISIT Medication Dosage PLAN OF CARE VITAL SIGNS MEDICATIONS No Known Medications RESULTS No Results PROCEDURES No Known procedures INSTRUCTIONS MEDICATIONS ADMINISTERED No Known Medications MEDICAL (GENERAL) HISTORY Type Description Date Medical History HTN Medical History COPD Medical History Brain Tumor Medical History Afib Medical History Severe central canal narrowing C3-C4, multi level neural foramen narrowing Medical History Degenerative Disc disease C3-C6 Hospitalization History HTN 2009?
--- OUTSIDE RECORDS SUMMARY | 2018-11-21 01:38 | XMS REPORT ---
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 Active 72578913349089647 Problem Anxiety F41.9 Active 90348705 Problem Essential hypertension I10 Active 86135377 ALLERGIES No Known Allergies ENCOUNTERS Encounter Location Date Diagnosis [facility] IN [facility] [id number] [place] [address] Mar, Essential hypertension I10 [facility] [id number] [place] [address] Mar, [facility] [id number] [place] [address] Mar, Essential hypertension I10 [facility] [id number] [place] [address] Mar, [facility] [address] [address] Mar, Exposure to hepatitis C Z20.5 and Essential hypertension I10 [facility] [address] [address] Feb, Degenerative disc disease, cervical M50.30 [facility] [id number] [place] [address] January, Essential tremor G25.0 ; Neck pain without injury M54.2 and Skin lesion L98.9 [facility] [address] [facility] [id number] [place] [address] Dec, Encounter to establish care Z76.89 ; Essential hypertension I10 ; History of atrial fibrillation Z86.79 and Anxiety F41.9 IMMUNIZATIONS No Known Immunizations SOCIAL HISTORY Never Assessed REASON FOR VISIT bp f/u--LOUISE Zuniga PLAN OF CARE Activity Details Follow Up 3 Months, prn Reason:HTN VITAL SIGNS Height 70 in 2018-04-14 Weight 132 lbs 2018-04-14 Temperature 98.1 degrees Fahrenheit 2018-04-14 Heart Rate 80 bpm 2018-04-14 Respiratory Rate 20 2018-04-14 BMI 18.94 kg/m2 2018-04-14 Blood pressure systolic 138 mmHg 2018-04-14 Blood pressure diastolic 88 mmHg 2018-04-14 MEDICATIONS Medication Instructions Dosage Frequency Start Date End Date Duration Status Gabapentin 300 MG Orally Once a day at bedtime 1 capsule Active Tramadol HCl Active Lisinopril 40 mg Orally Once a day 1 tablet 24h 90 days Active Xarelto 10 mg Orally Once a day 1 tablet with food 24h Dec, 30 day(s) Active Toprol XL 25 MG Orally Once a day 1 tablet 24h Dec, 90 days Active RESULTS No Results PROCEDURES No Known procedures INSTRUCTIONS MEDICATIONS ADMINISTERED No Known Medications MEDICAL (GENERAL) HISTORY Type Description Date Medical History HTN Medical History COPD Medical History Brain Tumor Medical History Afib Medical History Severe central canal narrowing C3-C4, multi level neural foramen narrowing Medical History Degenerative Disc disease C3-C6 Hospitalization History HTN 2009?
--- OUTSIDE RECORDS SUMMARY | 2018-11-21 01:38 | XMS REPORT ---
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 Active 45022029356267633 Problem Anxiety F41.9 Active 87195853 Problem Essential hypertension I10 Active 15523038 ALLERGIES No Information ENCOUNTERS Encounter Location Date Diagnosis [facility] [address] [address] Mar, Essential hypertension I10 [facility] [address] [address] Mar, [facility] [address] [address] Mar, Essential hypertension I10 [facility] [address] [address] Mar, [facility] [address] [address] Mar, Exposure to hepatitis C Z20.5 and Essential hypertension I10 [facility] [address] [address] Feb, Degenerative disc disease, cervical M50.30 [facility] [address] [address] January, Essential tremor G25.0 ; Neck pain without injury M54.2 and Skin lesion L98.9 [facility] [address] [facility] [id number] [place] [address] Dec, Encounter to establish care Z76.89 ; Essential hypertension I10 ; History of atrial fibrillation Z86.79 and Anxiety F41.9 IMMUNIZATIONS No Known Immunizations SOCIAL HISTORY Never Assessed REASON FOR VISIT Requests return call PLAN OF CARE VITAL SIGNS MEDICATIONS No [...]
--- OUTSIDE RECORDS SUMMARY | 2018-11-21 01:38 | XMS REPORT ---
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 Active 03607642548380096 Problem Anxiety F41.9 Active 10722317 Problem Essential hypertension I10 Active 62627113 ALLERGIES No Known Allergies ENCOUNTERS Encounter Location Date Diagnosis [facility] [address] [address] Mar, Essential hypertension I10 [facility] [address] [address] Mar, [facility] [address] [address] Mar, Essential hypertension I10 [facility] [address] [address] Mar, [facility] [address] [address] Mar, Exposure to hepatitis C Z20.5 and Essential hypertension I10 [facility] [address] [address] Feb, Degenerative disc disease, cervical M50.30 [facility] [address] [address] January, Essential tremor G25.0 ; Neck pain without injury M54.2 and Skin lesion L98.9 [facility] [address] [facility] [id number] [place] [address] 10 Dec, 2017 Encounter to establish care Z76.89 ; Essential hypertension I10 ; History of atrial fibrillation Z86.79 and Anxiety F41.9 IMMUNIZATIONS No Known Immunizations SOCIAL HISTORY Never Assessed REASON FOR VISIT possible exposure to hep C roughly 8 years and is just now finding out that he could possibly be exposed., almost out of BP medication-awoods PLAN OF CARE Activity Details Follow Up prn or as indicated by lab Reason: VITAL SIGNS Height 70 in 2018-03-31 Weight 132.3 lbs 2018-03-31 Temperature 98.8 degrees Fahrenheit 2018-03-31 Heart Rate 70 bpm 2018-03-31 Respiratory Rate 20 2018-03-31 BMI 18.98 kg/m2 2018-03-31 Blood pressure systolic 134 mmHg 2018-03-31 Blood pressure diastolic 82 mmHg 2018-03-31 MEDICATIONS Medication Instructions Dosage Frequency Start Date End Date Duration Status Lisinopril 10 MG Orally daily 1 tablet 24h 90 days Active Tramadol HCl Active Toprol XL 25 MG Orally Once a day 1 tablet 24h Dec, 90 days Active Xarelto 10 mg Orally Once a day 1 tablet with food 24h Dec, 30 day(s) Active RESULTS Name Result Date Reference Range HEPATITIS PROFILE 2018-03-31 HEPATITIS A IGM NON-REACTIVE NON-REACTIVE HEPATITIS B SURFACE ANTIGEN NON-REACTIVE NON-REACTIVE HEPATITIS B CORE ANTIBODY (IGM) NON-REACTIVE NON-REACTIVE HEPATITIS C ANTIBODY NON-REACTIVE NON-REACTIVE SIGNAL TO CUT-OFF 0.03 <1.00 PROCEDURES Procedure Date Ordered Result Body Site LAB NOT BILLED BY [facility] March 31, 2018 VENIPUNCT, ROUTINE* March 31, 2018 INSTRUCTIONS MEDICATIONS ADMINISTERED No Known Medications MEDICAL (GENERAL) HISTORY Type Description Date Medical History HTN Medical History COPD Medical History Brain Tumor Medical History Afib Medical History Severe central canal narrowing C3-C4, multi level neural foramen narrowing Medical History Degenerative Disc disease C3-C6 Hospitalization History HTN 2009?
--- OUTSIDE RECORDS SUMMARY | 2018-11-21 01:38 | XMS REPORT ---
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 Active 12455834052554683 Problem Anxiety F41.9 Active 94492678 Problem Essential hypertension I10 Active 63048713 ALLERGIES No Known Allergies ENCOUNTERS Encounter Location Date Diagnosis [facility] [id number] [place] [address] Mar, Essential hypertension I10 [facility] [id number] [place] [address] Mar, [facility] [id number] [place] [address] Mar, Essential hypertension I10 [facility] [id number] [place] [address] Mar, [facility] [address] [address] Mar, Exposure to hepatitis C Z20.5 and Essential hypertension I10 [facility] [address] [address] Feb, Degenerative disc disease, cervical M50.30 [facility] [id number] [place] [address] January, Essential tremor G25.0 ; Neck pain without injury M54.2 and Skin lesion L98.9 [facility] [address] [facility] [id number] [place] [address] Dec, Encounter to establish care Z76.89 ; Essential hypertension I10 ; History of atrial fibrillation Z86.79 and Anxiety F41.9 IMMUNIZATIONS No Known Immunizations SOCIAL HISTORY Never Assessed REASON FOR VISIT Establish Care, DARLENE Weaver, History of A-fib, tremors, neck pain, HTN, brain tumor and COPD PLAN OF CARE Activity Details Follow Up 6 Months, prn Reason:pending lab results VITAL SIGNS Height 70 in 2017-12-29 Weight 124 lbs 2017-12-29 Temperature 97.6 degrees Fahrenheit 2017-12-29 Heart Rate 103 bpm 2017-12-29 Respiratory Rate 20 2017-12-29 Oximetry 98 % 2017-12-29 BMI 17.79 kg/m2 2017-12-29 Blood pressure systolic 118 mmHg 2017-12-29 Blood pressure diastolic 68 mmHg 2017-12-29 MEDICATIONS Medication Instructions Dosage Frequency Start Date End Date Duration Status BusPIRone HCl 10 mg Orally Three times a day 1 tablet 8h Dec, 30 days Active Toprol XL 25 MG Orally Once a day 1 tablet 24h Dec, 90 days Active Xarelto 10 mg Orally Once a day 1 tablet with food 24h Dec, 30 day(s) Active Lisinopril 10 MG Orally daily 1 tablet 24h 90 days Active RESULTS No Results PROCEDURES Procedure Date Ordered Result Body Site Hemoglobin Test Send Out 0 dollar December 29, 2017 ASSAY THYROID STIM HORMONE December 29, 2017 COMPREHEN METABOLIC PANEL December 29, 2017 COMPLETE CBC W/AUTO DIFF WBC December 29, 2017 LIPID PANEL December 29, 2017 INSTRUCTIONS MEDICATIONS ADMINISTERED No Known Medications MEDICAL (GENERAL) HISTORY Type Description Date Medical History HTN Medical History COPD Medical History Brain Tumor Medical History Afib Medical History Severe central canal narrowing C3-C4, multi level neural foramen narrowing Medical History Degenerative Disc disease C3-C6 Hospitalization History HTN 2009?
--- OUTSIDE RECORDS SUMMARY | 2018-11-21 01:38 | XMS REPORT ---
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 [address] [address] Mar, Essential hypertension I10 [facility] [address] [address] Mar, [facility] [address] [address] Mar, Essential hypertension I10 [facility] [address] [address] Mar, [facility] [address] [address] Mar, Exposure to hepatitis C Z20.5 and Essential hypertension I10 [facility] [address] [address] Feb, Degenerative disc disease, cervical M50.30 [facility] [address] [address] January, Essential tremor G25.0 ; Neck pain without injury M54.2 and Skin lesion L98.9 [facility] [address] [facility] [id number] [place] [address] Dec, Encounter to establish care Z76.89 ; Essential hypertension I10 ; History of atrial fibrillation Z86.79 and Anxiety F41.9 IMMUNIZATIONS No Known Immunizations SOCIAL HISTORY Never Assessed REASON FOR VISIT growth f/u- mpopepemagenkMA, Pt states he had an MRI at a week ago and would like to discuss this. PLAN OF CARE Activity Details Follow Up prn Reason: VITAL SIGNS Height 70 in 2018-02-26 Weight 130.2 lbs 2018-02-26 Temperature 97.7 degrees Fahrenheit 2018-02-26 Heart Rate 80 bpm 2018-02-26 Respiratory Rate 20 2018-02-26 BMI 18.68 kg/m2 2018-02-26 Blood pressure systolic 130 mmHg 2018-02-26 Blood pressure diastolic 85 mmHg 2018-02-26 MEDICATIONS Medication Instructions Dosage Frequency Start Date End Date Duration Status Xarelto 10 mg Orally Once a day 1 tablet with food 24h Dec, 30 day(s) Active Cyclobenzaprine HCl 5 mg Orally twice a day 1 tablet as needed 12h January, Feb, 30 days Active Toprol XL 25 MG Orally Once a day 1 tablet 24h Dec, 90 days Active Lisinopril 10 MG Orally daily 1 tablet 24h 90 days Active BusPIRone HCl 10 mg Orally Three times a day 1 tablet 8h Dec, 30 days Active Tramadol HCl Active RESULTS No Results PROCEDURES No Known procedures INSTRUCTIONS MEDICATIONS ADMINISTERED No Known Medications MEDICAL (GENERAL) HISTORY Type Description Date Medical History HTN Medical History COPD Medical History Brain Tumor Medical History Afib Medical History Severe central canal narrowing C3-C4, multi level neural foramen narrowing Medical History Degenerative Disc disease C3-C6 Hospitalization History HTN 2009?
--- OUTSIDE RECORDS SUMMARY | 2018-11-21 01:38 | XMS REPORT ---
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 Active 98663284446450495 Problem Anxiety F41.9 Active 73982041 Problem Essential hypertension I10 Active 72871559 ALLERGIES No Information ENCOUNTERS Encounter Location Date Diagnosis [facility] [id number] [place] [address] Mar, Essential hypertension I10 [facility] [address] [address] Mar, [place] [address] [address] Mar, Essential hypertension I10 [facility] [id number] [place] [address] Mar, [facility] [address] [address] Mar, Exposure to hepatitis C Z20.5 and Essential hypertension I10 [facility] [address] [address] Feb, Degenerative disc disease, cervical M50.30 [facility] [id number] [place] [address] January, Essential tremor G25.0 ; Neck pain without injury M54.2 and Skin lesion L98.9 [facility] [address] [facility] [id number] [place] [address] 10 Dec, 2017 Encounter to establish care Z76.89 ; Essential hypertension I10 ; History of atrial fibrillation Z86.79 and Anxiety F41.9 IMMUNIZATIONS No Known Immunizations SOCIAL HISTORY Never Assessed REASON FOR VISIT medication refill PLAN OF CARE VITAL SIGNS MEDICATIONS Medication [...]
[2018-11-21] MEDS: D5 LR IV SOLUTION 1,000 ML IV SCH ×3 (06:04→22:38)
[2018-11-21] MEDS: ENOXAPARIN 60 MG/0.6 ML (LOVENOX) SYR SC SCH (06:08)
[2018-11-21 06:25] LABS: BASOPHILS % (AUTO) 0 % (0-10); EOSINOPHILS % (AUTO) 0 % (0-10); HEMATOCRIT 30 % (40-54); HEMOGLOBIN 10.2 G/DL (13.3-17.7); LYMPHOCYTES # (AUTO) 1.5 X 10^3 (1.0-4.0); LYMPHOCYTES % (AUTO) 18 % (12-44); MEAN CORPUSCULAR HEMOGLOBIN 31 PG (25-34); MEAN CORPUSCULAR HGB CONC 34 G/DL (32-36); MEAN CORPUSCULAR VOLUME 91 FL (80-99); MEAN PLATELET VOLUME 9.9 FL (7.4-10.4); MONOCYTES % (AUTO) 12 % (0-12); NEUTROPHILS # (AUTO) 5.9 X 10^3 (1.8-7.8); NEUTROPHILS % (AUTO) 70 % (42-75); PLATELET COUNT 177 10^3/uL (130-400); RED CELL DISTRIBUTION WIDTH 13.7 % (10.0-14.5); WHITE BLOOD COUNT 8.5 10^3/uL (4.3-11.0)
[2018-11-21 06:54] LABS: BUN/CREATININE RATIO 24; CARBON DIOXIDE 24 MMOL/L (21-32); CHLORIDE 108 MMOL/L (98-107); CREATININE SERUM 0.75 MG/DL (0.60-1.30); GFR ESTIMATED > 60; GLUCOSE 100 MG/DL (70-105); MAGNESIUM 1.4 MG/DL (1.8-2.4); PHOSPHORUS 1.9 MG/DL (2.3-4.7); POTASSIUM 3.6 MMOL/L (3.6-5.0); SODIUM 138 MMOL/L (135-145)
[2018-11-21] MEDS: ASPIRIN 81 MG CHEW (CHILDREN'S ASA) PO SCH (09:44)
[2018-11-21] MEDS: DIGOXIN 0.125 MG (LANOXIN) TAB PO SCH (09:44)
[2018-11-21] MEDS: CLOPIDOGREL 75 MG (PLAVIX) TABLET PO SCH (09:44)
[2018-11-21] MEDS: lisINopril 40 MG (PRINIVIL) TABLET PO SCH (09:44)
--- NOTE | 2018-11-21 12:55 | Progress Note-Hospitalist ---
Subjective HPI/CC On Admission Date Seen by Provider: Nov 21, 2018 Time Seen by Provider: 11:00 Chief complaint: Palpitations HPI: This is an elderly white male Pt of [facility] with a past medical history of chronic atrial fibrillation on anti-coagulation who presented to ER with shortness of breath and palpitations found to have atrial fibrillation with rapid ventricular response. Cardiology recommended inpatient admission for IV drip for rate control. Pt does smoke on a regular basis. Pt does not use home oxygen or inhalers. Pt does have a tremor consistent with Parkinson's but the medication he has taken in the past made him very dizzy. Pt does live with his son. The son is at the bedside. 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 Pt does not drink alcohol. Diarrhea reported for the past 3 days to the nurse this afternoon so will increase fluids IV. Subjective/Events-last exam Patient doing much better Maintained on oxygen of which he does not use at home Maintained on oral anticoagulation in addition to Plavix now since stent was placed Rate is controlled reviewed meds Slept well last night Right-sided tremor noted Review of Systems General: Fatigue Pulmonary: Dyspnea Focused Exam Lactate Level 11/20/18 05:45: Lactic Acid Level 1.04 Objective Exam Vital Signs Vital Signs Date Time Temp Pulse Resp B/P (MAP) Pulse Ox O2 Delivery O2 Flow Rate FiO2 11/21/18 19:00 103 11/21/18 17:56 Nasal Cannula 2.00 11/21/18 16:05 98.3 24 109/76 (87) 100 Capillary Refill : Less Than 3 Seconds General Appearance: No Apparent Distress, WD/WN, Anxious, Chronically ill, Thin HEENT: PERRL/EOMI, Normal ENT Inspection Neck: Normal Inspection Respiratory: No Accessory Muscle Use, No Respiratory Distress, Crackles, Decreased Breath Sounds Cardiovascular: No Edema, No Murmur, Irregularly Irregular, Tachycardia Gastrointestinal: Non Tender, Soft Back: Normal Inspection, No CVA Tenderness, No Vertebral Tenderness Extremity: Normal Capillary Refill, Normal Inspection, No Pedal Edema Neurologic/Psychiatric: Alert, Oriented x3, No Motor/Sensory Deficits, Normal Mood/Affect, healthcare marketer II-XII Norm as Tested, Other (Tremor, right greater than left) Skin: Normal Color, Warm/Dry Lymphatic: No Adenopathy Results/Procedures Lab Laboratory Tests 11/21/18 06:15 Patient resulted labs reviewed. Assessment/Plan Assessment and Plan Assess & Plan/Chief Complaint Assessment: Chest pain w/stent placed Thursday for NSTEMI AF w/RVR COPD Smoker ARF now resolved Presumed needs home O2 Plan: IVF Supportive care Cardiology evaluation along with Pulmonary revaluation is appreciated Needs home O2 at DC Smoking cessation Diagnosis/Problems Diagnosis/Problems (1) Atrial fibrillation with RVR Status: Resolved Resolution Date/Time: 11/21/18 @ 19:57 (2) Elevated troponin Status: Acute (3) Dehydration Status: Resolved Resolution Date/Time: 11/19/18 @ 21:31 (4) Smoker Status: Chronic (5) Parkinson disease Status: Chronic (6) Cachexia Status: Chronic (7) Anxiety Status: Acute (8) Atrial fibrillation, chronic Status: Chronic (9) ST segment depression Status: Acute (10) Chest pain Status: Acute Qualifiers: Chest pain type: unspecified Qualified Codes: R07.9 - Chest pain, unspecified (11) Renal failure Status: Resolved Qualifiers: Renal failure chronicity: unspecified chronicity Qualified Codes: N19 - Unspecified kidney failure Resolution Date/Time: 11/19/18 @ 21:31 (12) Stented coronary artery Status: Acute (13) NSTEMI (non-ST elevated myocardial infarction) Status: Acute Clinical Quality Measures AMI/AHF: ASA po Prior to arrival: No DVT/VTE Risk/Contraindication: Risk Factor Score Per Nursin RFS Level Per Nursing on Admit: 4+=Very High NIYAH SHARP DO Nov 21, 2018 12:55
--- NOTE | 2018-11-21 15:11 | Progress Note-Cardiology ---
Cardiology SOAP Progress Note Subjective: Feels better than before Still has impaired appetite and malaise, but improving No cp or palp or syncope Objective: I&O/Vital Signs 11/21/18 11/21/18 11/21/18 11/21/18 04:00 04:11 06:21 07:00 Temp 97.0 98.0 Pulse 107 103 97 Resp 20 20 B/P (MAP) 104/73 (83) 119/81 (94) Pulse Ox 97 98 O2 Delivery Nasal Cannula Nasal Cannula Nasal Cannula O2 Flow Rate 2.00 2.00 2.00 11/21/18 11/21/18 11/21/18 11/21/18 08:00 08:00 12:00 13:00 Temp 97.3 98.4 Pulse 71 72 95 Resp 18 20 B/P (MAP) 137/84 (101) 111/72 (85) Pulse Ox 97 97 95 O2 Delivery Nasal Cannula Nasal Cannula Nasal Cannula O2 Flow Rate 2.00 2.00 2.00 11/21/18 00:00 Intake Total 300 ml Output Total 850 ml Balance -550 ml Weight (Pounds): 142 Weight (Ounces): 0.0 Weight (Calculated Kilograms): 64.837528 Constitutional: AAO x 3, well-developed, other (thin) Respiratory: No accessory muscle use, No respiratory distress; chest expansion is symmetric, chest is bilaterally symmetric, rhonchi, other (prolonged exp phase) Cardiovascular: irregularly irregular; No JVD; S1 and S2, systolic murmur Gastrointestional: No tender; soft, round, audible bowel sounds Extremities: no lower extremity edema bilateral Neurologic/Psychiatric: other (upper extremity tremors), power is 5/5 both on sides Skin: No rash, No ulcerations Results/Procedures: Labs Laboratory Tests 11/21/18 06:15: White Blood Count 8.5, Red Blood Count 3.26L, Hemoglobin 10.2L, Hematocrit 30L, Mean Corpuscular Volume 91, Mean Corpuscular Hemoglobin 31, Mean Corpuscular Hemoglobin Concent 34, Red Cell Distribution Width 13.7, Platelet Count 177, Mean Platelet Volume 9.9, Neutrophils (%) (Auto) 70, Lymphocytes (%) (Auto) 18, Monocytes (%) (Auto) 12, Eosinophils (%) (Auto) 0, Basophils (%) (Auto) 0, Neutrophils # (Auto) 5.9, Lymphocytes # (Auto) 1.5, Monocytes # (Auto) 1.0, Eosinophils # (Auto) 0.0, Basophils # (Auto) 0.0, Sodium Level 138, Potassium Level 3.6, Chloride Level 108H, Carbon Dioxide Level 24, Anion Gap 6, Blood Urea Nitrogen 18, Creatinine 0.75, Estimat Glomerular Filtration Rate > 60, BUN/ Creatinine Ratio 24, Glucose Level 100, Calcium Level 8.0L, Phosphorus Level 1.9L, Magnesium Level 1.4L Microbiology 11/18/18 MRSA Screen - Final, Complete MRSA not isolated Laboratory Tests 11/20/18 03:35 11/21/18 06:15 A/P: Assessment: CAD: Cath of 11/19/18 showed 99% ostial LAD that was stented with Rimma 3 x 18; other cors had mild to mod stenoses Ischemic dilated cardiomyopathy. Echocardiogram of 11-18-18 showed LVEF 30-35%. LA dilated. Mild AoR. Mod to severe TR. PASP 40mmHg Chronic a-fib - presented with RVR, now better controlled Xarelto for stroke prophylaxis - currently receiving Lovenox COPD Tobaccoism - cessation advised Chronic resting tremor TSH of 11-18-18 WNL Plan: * Stop Lovenox; start Eliquis; stop ASA (after starting Eliquis); continue Plavix * Replenish Mg * Monitor labs Clinical Quality Measures AMI/AHF: ASA po Prior to arrival: MINDI Mina MD FACP [facility] CCDS Nov 21, 2018 15:11
[2018-11-21] MEDS: MAGNESIUM 1 GM/100 ML IVPB 100 ML IV SCH ×3 (17:01→19:39)
[2018-11-21] MEDS: ATORVASTATIN 40 MG (LIPITOR) TABLET PO SCH (20:50)
[2018-11-21] MEDS: MELATONIN 3 MG TABLET PO SCH (20:51)
[2018-11-21] MEDS: APIXABAN 5 MG (ELIQUIS) TABLET PO SCH (20:51)
[2018-11-22] VITALS (7 sets, daily range): BP systolic 99–127; BP diastolic 58–80
[2018-11-22] MEDS: D5 LR IV SOLUTION 1,000 ML IV SCH (01:16)
[2018-11-22 05:28] LABS: BASOPHILS % (AUTO) 0 % (0-10); EOSINOPHILS % (AUTO) 0 % (0-10); HEMATOCRIT 30 % (40-54); HEMOGLOBIN 10.2 G/DL (13.3-17.7); LYMPHOCYTES # (AUTO) 1.4 X 10^3 (1.0-4.0); LYMPHOCYTES % (AUTO) 15 % (12-44); MEAN CORPUSCULAR HEMOGLOBIN 32 PG (25-34); MEAN CORPUSCULAR HGB CONC 34 G/DL (32-36); MEAN CORPUSCULAR VOLUME 92 FL (80-99); MEAN PLATELET VOLUME 10.2 FL (7.4-10.4); MONOCYTES # (AUTO) 0.9 X 10^3 (0.0-1.0); MONOCYTES % (AUTO) 10 % (0-12); NEUTROPHILS % (AUTO) 74 % (42-75); PLATELET COUNT 197 10^3/uL (130-400); RED CELL DISTRIBUTION WIDTH 13.3 % (10.0-14.5); WHITE BLOOD COUNT 9.3 10^3/uL (4.3-11.0)
[2018-11-22 05:46] LABS: BUN/CREATININE RATIO 23; CALCIUM 8.1 MG/DL (8.5-10.1); CARBON DIOXIDE 23 MMOL/L (21-32); CHLORIDE 105 MMOL/L (98-107); CREATININE SERUM 0.69 MG/DL (0.60-1.30); GFR ESTIMATED > 60; GLUCOSE 109 MG/DL (70-105); PHOSPHORUS 2.1 MG/DL (2.3-4.7); POTASSIUM 3.4 MMOL/L (3.6-5.0); SODIUM 134 MMOL/L (135-145)
[2018-11-22 06:09] LABS: LYMPHOCYTES % (MANUAL) 15 %; MONOCYTES % (MANUAL) 13 %; NEUTROPHILS % (MANUAL) 72 %
--- NOTE | 2018-11-22 07:50 | Pulmonary Progress Note ---
Subjective Time Seen by a Provider: 12:43 Subjective/Events-last exam PT has more wheezing denies SOB. Sepsis Event Evaluation Height, Weight, BMI Height: 5'10.00" Weight: 146lbs. 9.0oz. 66.512000uv; 19.1 BMI Method:Stated Focused Exam Lactate Level 11/20/18 05:45: Lactic Acid Level 1.04 Exam Exam Vital Signs Date Time Temp Pulse Resp B/P (MAP) Pulse Ox O2 Delivery O2 Flow Rate FiO2 11/22/18 07:32 Nasal Cannula 2.00 11/22/18 07:00 90 11/22/18 03:43 98.0 90 20 113/80 (91) 95 Nasal Cannula 2.00 11/22/18 01:00 82 11/22/18 00:00 98.6 73 21 104/58 (73) 98 Nasal Cannula 2.00 11/21/18 21:00 Nasal Cannula 2.00 11/21/18 20:51 97 20 113/81 (92) 95 Nasal Cannula 2.00 11/21/18 19:05 97.5 101 24 117/55 (75) 98 Nasal Cannula 2.00 11/21/18 19:00 103 11/21/18 17:56 Nasal Cannula 2.00 11/21/18 16:05 98.3 96 24 109/76 (87) 100 Nasal Cannula 2.00 11/21/18 13:00 95 11/21/18 12:00 98.4 72 20 111/72 (85) 95 Nasal Cannula 2.00 11/21/18 08:00 97.3 71 18 137/84 (101) 97 Nasal Cannula 2.00 11/21/18 08:00 97 Nasal Cannula 2.00 I & O 11/22/18 06:59 Intake Total 2010 ml Output Total 950 ml Balance 1060 ml Height & Weight Height: 5'10.00" Weight: 146lbs. 9.0oz. 66.593244fx; 19.1 BMI Method:Stated General Appearance: No Apparent Distress, WD/WN, Anxious, Chronically ill, Thin HEENT: PERRL/EOMI, Normal ENT Inspection Neck: Normal Inspection Respiratory: No Accessory Muscle Use, No Respiratory Distress, Crackles, Decreased Breath Sounds, Wheezing Cardiovascular: No Edema, No Murmur, Irregularly Irregular, Tachycardia Capillary Refill: Less Than 3 Seconds Gastrointestinal: normal bowel sounds, non tender, soft Extremity: Normal Capillary Refill, Normal Inspection, No Pedal Edema Neurologic/Psychiatric: Alert, Oriented x3, No Motor/Sensory Deficits, Normal Mood/Affect, bottle carrier II-XII Norm as Tested, Other (Tremor, right greater than left) Skin: Normal Color, Warm/Dry Lymphatic: No Adenopathy Results Lab Laboratory Tests 11/21/18 06:15 11/22/18 05:22 Assessment/Plan Assessment/Plan COPD -SVNS -Hep lock IVF -Give lasix x1 and check BNP Tobacco use -Education -will do out patient testing Cachexia with recent significant wt loss -Will do CT of chest r/o mass CHF EF 35% -Monitor NSTEMI with CP s/p Cath with stenting of LAD -Cardiology following -Possible cath today SOB with hypoxia and wheezing -SVNS -Pt is on 2 liters of oxygen -Check BNP and repeat CXR -give lasix x 1 Anemia -On plavix -Monitor -Check gastric occult hypophos -Kphos Afib RVR- -Cardiology following Parkinson's disease Anxiety DARIN RENEE DO Nov 22, 2018 07:50
[2018-11-22] MEDS ORDERED: KCL 20 MEQ TAB (K-DUR) PO NR (08:00)
[2018-11-22] MEDS ORDERED: SODIUM PHOSPHATE INJ 30 MM in NS (IVPB) 250 ML IV NR (08:00)
[2018-11-22] MEDS: lisINopril 40 MG (PRINIVIL) TABLET PO SCH (08:41)
[2018-11-22] MEDS: APIXABAN 5 MG (ELIQUIS) TABLET PO SCH ×2 (08:41→21:18)
[2018-11-22] MEDS: CLOPIDOGREL 75 MG (PLAVIX) TABLET PO SCH (08:41)
[2018-11-22] MEDS: DIGOXIN 0.125 MG (LANOXIN) TAB PO SCH (08:41)
[2018-11-22] MEDS ORDERED: ATOR40TA PO (11:02)
[2018-11-22] MEDS ORDERED: CLOP75TA28 PO (11:02)
[2018-11-22] MEDS ORDERED: DIGO125T18 PO (11:02)
[2018-11-22] MEDS ORDERED: APIX5TAB PO (11:02)
[2018-11-22] MEDS ORDERED: FUROSEMIDE 40 MG/4 ML INJ (LASIX) IVP NR (12:45)
--- NOTE | 2018-11-22 13:07 | Diagnostic Imaging Report ---
INDICATION: Shortness of breath. Comparison made with prior examination from 11/20/2018. FINDINGS: There is cardiomegaly. There is moderate central pulmonary venous congestion. There are bibasilar infiltrates right greater than left. There is no pleural effusion or pneumothorax. Mediastinum is unremarkable. IMPRESSION: Bibasilar infiltrates right greater than left. Cardiomegaly and moderate central pulmonary venous congestion. Dictated by: Dictated on workstation # [id number]
--- NOTE | 2018-11-22 13:14 | Progress Note-Cardiology ---
Cardiology SOAP Progress Note Subjective: No cp or palp or syncope Shortness of breath improved Wishes to go home Objective: I&O/Vital Signs 11/22/18 11/22/18 11/22/18 11/22/18 03:43 07:00 07:32 08:00 Temp 98.0 97.6 Pulse 90 90 96 Resp 20 20 B/P (MAP) 113/80 (91) 122/71 (88) Pulse Ox 95 96 O2 Delivery Nasal Cannula Nasal Cannula Nasal Cannula O2 Flow Rate 2.00 2.00 2.00 11/22/18 09:00 O2 Delivery Nasal Cannula O2 Flow Rate 2.00 11/22/18 00:00 Intake Total 1470 ml Output Total 750 ml Balance 720 ml Weight (Pounds): 146 Weight (Ounces): 9.0 Weight (Calculated Kilograms): 66.061742 Constitutional: AAO x 3, well-developed, other (thin) Respiratory: No accessory muscle use, No respiratory distress; chest expansion is symmetric, chest is bilaterally symmetric, rhonchi, other (prolonged exp phase) Cardiovascular: irregularly irregular; No JVD; S1 and S2, systolic murmur Gastrointestional: No tender; soft, round, audible bowel sounds Extremities: no lower extremity edema bilateral Neurologic/Psychiatric: other (upper extremity tremors), power is 5/5 both on sides Skin: No rash, No ulcerations Results/Procedures: Labs Laboratory Tests 11/22/18 05:22: White Blood Count 9.3, Red Blood Count 3.23L, Hemoglobin 10.2L, Hematocrit 30L, Mean Corpuscular Volume 92, Mean Corpuscular Hemoglobin 32, Mean Corpuscular Hemoglobin Concent 34, Red Cell Distribution Width 13.3, Platelet Count 197, Mean Platelet Volume 10.2, Neutrophils (%) (Auto) 74, Lymphocytes (%) (Auto) 15 , Monocytes (%) (Auto) 10, Eosinophils (%) (Auto) 0, Basophils (%) (Auto) 0, Neutrophils # (Auto) 7.0, Lymphocytes # (Auto) 1.4, Monocytes # (Auto) 0.9, Eosinophils # (Auto) 0.0, Basophils # (Auto) 0.0, Neutrophils % (Manual) 72, Lymphocytes % (Manual) 15, Monocytes % (Manual) 13, Sodium Level 134L, Potassium Level 3.4L, Chloride Level 105, Carbon Dioxide Level 23, Anion Gap 6, Blood Urea Nitrogen 16, Creatinine 0.69, Estimat Glomerular Filtration Rate > 60 , BUN/Creatinine Ratio 23, Glucose Level 109H, Calcium Level 8.1L, Phosphorus Level 2.1L, Magnesium Level 2.0, B-Type Natriuretic Peptide 680.2H, Digoxin Level < 0.30L Microbiology 11/18/18 MRSA Screen - Final, Complete MRSA not isolated A/P: Assessment: CAD: Cath of 11/19/18 showed 99% ostial LAD that was stented with Rimma 3 x 18; other cors had mild to mod stenoses Ischemic dilated cardiomyopathy. Echocardiogram of 11-18-18 showed LVEF 30-35%. LA dilated. Mild AoR. Mod to severe TR. PASP 40mmHg Chronic a-fib - presented with RVR, now better controlled Apixaban for stroke prophylaxis COPD Tobaccoism - cessation advised Chronic resting tremor TSH of 11-18-18 WNL Plan: * Stop Lovenox; start Eliquis; stop ASA (after starting Eliquis); continue Plavix. This all was done yesterday * Reduce or discontinue diuretics * Close outpt f/u * Ok for d/c from card standpoint. Cardiac meds written Clinical Quality Measures AMI/AHF: ASA po Prior to arrival: MINDI Mina MD FACP [facility] CCDS Nov 22, 2018 13:13
--- NOTE | 2018-11-22 14:33 | Physical Therapy Evaluation ---
PT Evaluation-General Medical Diagnosis Admission Date Nov 18, 2018 at 09:21 Medical Diagnosis: chest pain; a fib Onset Date: Nov 18, 2018 Therapy Diagnosis Therapy Diagnosis: weakness; abn gait Height/Weight Height (Feet): 5 Height (Inches): 10.00 Weight (Pounds): 146 Weight (Ounces): 9.0 Precautions Precautions/Isolations: Fall Prevention, Standard Precautions Weight Bear Status Right Lower Extremity: Right Weight Bearing/Tolerated Left Lower Extremity: Left Weight Bearing/Tolerated Referral Physician: Guero Reason for Referral: Evaluation/Treatment Medical History Pertinent Medical History: Atrial Fib, LA, Parkinson's Additional Medical History anxiety Current History Pt admitted with chest pain and A fib. Cardiac Stent placed. Reviewed History: Yes Social History Home: Single Level Current Living Status: Other Family (son and DIL) Entry Into Home: Stairs With Railing Prior/Core FIM Prior Level of Function Therapy Code Descriptions/Definitions Functional [place] Measure: 0=Not Assessed/NA 4=Minimal Assistance 1=Total Assistance 5=Supervision or Setup 2=Maximal Assistance 6=Modified [place] 3=Moderate Assistance 7=Complete [place] Therapy Quality Codes: 6 Independent with activity with or without an assistive device 5 Patient requires set up or clean up by helper. Patient completes activity by themselves 4 Supervision or touching assist (CGA). [place] provide cues , steadying assist 3 The helper provides less than half the effort to complete the activity 2 The helper provides more than half the effort to complete the activity 1 Dependent. The helper does all the effort to complete an activity 7 Patient refused to complete or attempt activity 9 The patient did not perform the activity before the current illness or injury 88 Not attempted due to Medical conditions or safety concerns Functional Abilities and Goals: Independent: Patient completed the activities by him/herself, with or without an assistive device, with no assistance from a helper. Needed Some Help: Patient needed partial assistance from another person to complete activities. Dependent: A helper completed the activities for the patient. Unknown: Not Applicable: Bed Mobility: 7 Transfers (B,C,W/C) (FIM): 7 Gait: [address] PT Evaluation-Current Subjective Agrees to PT. Reports he would like to go home soon. Wants to sit up in the chair. Pain Numeric Pain Scale: 0-No Pain Comment: Pt denies pain. Reports he is "sore" Pt/Family Goals Home with family when able. Objective Patient Orientation: Person, Place, Time, Situation Problem Solving: Fair Attachments: Oxygen ROM/Strength ROM Lower Extremities WFL Strength Lower Extremities grossly 3+/5 Integumentary/Posture Integumentary Refer to nursing notes. Bowel Incontinence: No Bladder Incontinence: No Posture rounded shoulders with sligth thoracic kyphosis. Neuromuscular (Tone, Coordination, Reflexes) intact and functional Sensory Vision: Functional Hearing: Functional Hand Dominance: Right Sensation Right Lower Extremit: Intact Sensation Left Lower Extremity: Intact Transfers Therapy Code Descriptions/Definitions Functional [place] Measure: 0=Not Assessed/NA 4=Minimal Assistance 1=Total Assistance 5=Supervision or Setup 2=Maximal Assistance 6=Modified [place] 3=Moderate Assistance 7=Complete [place] Transfers (B, C, W/C) (FIM): 4 Supine to/from Sit: 5 (takes extra time and skilled cues to sequence; relies on HOB elevated and bed rail to pull up) Sit to/from Stand: 4 (to steady him to to tremors and decreased safety) Pt was able to stand up and take a few steps to the chair with min assist. Pt up in chair post treatment with needs met. Balance Sitting Static: Good Sitting Dynamic: Good Standing Static: Fair Standing Dynamic: Fair Treatment Sitting EOB, worked on posture and trunk control. Performed LE ther ex to promote strength for gait and transfers for AP< LAQ and seated hip flexion x 15 B Assessment/Needs pt presents with tremors that do imipair functional mobioltiy. He has strength adn balance deficits that limit safety with transfers. He will benefit from continued skilled PT to address safe functional mobiolity. Rehab Potential: Good PT Developer Advocate Goals Developer Advocate Goals PT Developer Advocate Goals Time Frame: Nov 29, 2018 Transfers (B,C,W/C) (FIM): 7 Gait (FIM): 6 Gait distance (FIM): 3=150 ft Gait Assistive Device: FWW PT Plan Problem List Problem List: Activity Tolerance, Functional Strength, Safety, Balance, Gait, Transfer, Bed Mobility Treatment/Plan Treatment Plan: Continue Plan of Care Treatment Plan: Bed Mobility, Education, Functional Activity [place], Functional Strength, Gait, Safety, Therapeutic Exercise, Transfers Treatment Duration: Nov 29, 2018 Frequency: 6 times per week Estimated Hrs Per Day: .5 hour per day Patient and/or Family Agrees t: Yes Safety Risks/Education Patient Education: Transfer Techniques, Safety Issues Teaching Recipient: Patient Teaching Methods: Demonstration, Discussion Response to Teaching: Reinforcement Needed Discharge Recommendations Therapy D/C Recommendations: Physical Therapy Home Care Time/GCodes Time In: 1400 Time Out: 1424 Total Billed Treatment Time: 24 Total Billed Treatment visit EVL 14 FA 10 INDERJIT MCDOWELL PT Nov 22, 2018 14:33
--- NOTE | 2018-11-22 15:28 | NUR ---
HOME O2 EVAL. PTS SP02 ON 1.5LPM 96% AFTER 15MINS, SP02 DROPPED TO 87% 1.5LPM NC REPLACED. SP02 INCREASED TO 95% AFTER 3MINS. PT REQUIRES HOME 02 AT ALL TIMES. Addendum: 11/22/18 at 1529 by TIP PRATER RT Amended: Links added.
--- NOTE | 2018-11-22 16:16 | Progress Note (SOAP) ---
Subjective Subjective/Events-last exam Afebrile, no acute events. He states he is hoping to go home, but he is still requiring 2 lpm supplemental oxygen and does not normally use oxygen at home. He states he does not have inhalers or nebulizer at home, because he does not want to. Review of Systems Date Seen by Provider: Nov 22, 2018 Time Seen by Provider: 10:42 Focused Exam Lactate Level 11/20/18 05:45: Lactic Acid Level 1.04 Objective Exam Last Set of Vital Signs Vital Signs Date Time Temp Pulse Resp B/P (MAP) Pulse Ox O2 Delivery O2 Flow Rate FiO2 11/22/18 15:38 97.6 106 24 117/70 (86) 98 Nasal Cannula 2.00 Capillary Refill : Less Than 3 Seconds I&O Intake and Output 11/22/18 00:00 Intake Total 1770 ml Output Total 1350 ml Balance 420 ml Intake Oral 1770 ml Output Urine Total 1350 ml # Voids 1 General: Alert, No Acute Distress Lungs: Other (diffuse wheezing) Heart: Regular Rate, No Murmurs Abdomen: Normal Bowel Sounds, Soft Neuro: Other (pill rolling tremor in hands) Psych/Mental Status: Mood NL Results/Procedures Lab Laboratory Tests 11/22/18 05:22: White Blood Count 9.3, Red Blood Count 3.23L, Hemoglobin 10.2L, Hematocrit 30L, Mean Corpuscular Volume 92, Mean Corpuscular Hemoglobin 32, Mean Corpuscular Hemoglobin Concent 34, Red Cell Distribution Width 13.3, Platelet Count 197, Mean Platelet Volume 10.2, Neutrophils (%) (Auto) 74, Lymphocytes (%) (Auto) 15 , Monocytes (%) (Auto) 10, Eosinophils (%) (Auto) 0, Basophils (%) (Auto) 0, Neutrophils # (Auto) 7.0, Lymphocytes # (Auto) 1.4, Monocytes # (Auto) 0.9, Eosinophils # (Auto) 0.0, Basophils # (Auto) 0.0, Neutrophils % (Manual) 72, Lymphocytes % (Manual) 15, Monocytes % (Manual) 13, Sodium Level 134L, Potassium Level 3.4L, Chloride Level 105, Carbon Dioxide Level 23, Anion Gap 6, Blood Urea Nitrogen 16, Creatinine 0.69, Estimat Glomerular Filtration Rate > 60 , BUN/Creatinine Ratio 23, Glucose Level 109H, Calcium Level 8.1L, Phosphorus Level 2.1L, Magnesium Level 2.0, B-Type Natriuretic Peptide 680.2H, Digoxin Level < 0.30L Microbiology 11/18/18 MRSA Screen - Final, Complete MRSA not isolated Radiology NAME: DANNY FREITAS [facility] REC#: [id number] PT STATUS: REG ER : 1940 PHYSICIAN: ZULEMA LUONG MD ADMIT DATE: 11/18/18/ER Signed Date of Exam: 11/18/18 CHEST 1 VIEW, AP/PA ONLY INDICATION: Chest pain Upright portable AP view of the chest is obtained. Comparison is made to the study of 09/01/2010. There is bilateral air trapping. Prominent interstitial markings are seen throughout the lungs. There is no evidence of pneumothorax or consolidation. No significant pleural fluid is seen. IMPRESSION: Probable air trapping and interstitial prominence which may be due to COPD. Otherwise, no acute abnormality or adverse change seen. Dictated by: Dictated on workstation # [id number] Dict: 11/18/18 0731 Trans: 11/18/18 0741 Interpreted by: CASTRO KING MD Electronically signed by: CASTRO KING MD 11/18/18 0741 Assessment/Plan Assessment/Plan (1) Atrial fibrillation, chronic Status: Chronic Assessment & Plan: On admission with RVR, now resolved. Cardiology consulted, appreciate recommendations. Continue Eliquis. (2) NSTEMI (non-ST elevated myocardial infarction) Status: Acute Assessment & Plan: Now s/p stenting on 11/19, Cardiology following, appreciate recommendations. Continue antiplatelet. (3) Congestive heart failure Status: Acute Assessment & Plan: EF 30-35 on 11/18 echo. Secondary to ischemia and a fib. Appreciate Cardiology recommendations. 3- BNP elevated this am, furosemide ordered per Dr. Gonzales Qualifiers: (4) Hypertension Status: Chronic Qualifiers: Qualified Codes: I10 - Essential (primary) hypertension (5) COPD exacerbation Status: Acute Assessment & Plan: 3/4 Remains wheezy and hypoxic today in spite of being on IV solumedrol and breathing treatments. X-ray with possible right sided abnormality. No clear evidence of pneumonia. CT chest tomorrow am. Pulmonology consulted, appreciate recommendations. (6) Chronic neck pain Status: Chronic Assessment & Plan: Continue home meds. (7) Parkinson disease Status: Chronic Assessment & Plan: Possible, outpatient had not been diagnosed with PD, but tremor is consistent. PT to eval for discharge planning purposes. (8) DVT prophylaxis Status: Acute Assessment & Plan: On Eliis Clinical Quality Measures AMI/AHF: ASA po Prior to arrival: No DVT/VTE Risk/Contraindication: Risk Factor Score Per Nursin RFS Level Per Nursing on Admit: 4+=Very High HOME MARCOS MD Nov 22, 2018 16:16
--- NOTE | 2018-11-22 17:47 | NUR ---
CALLED R.T. FOR BREATHING TREATMENT. PATIENT IS AUDIBLY WHEEZING AFTER COMING BACK FOR CT OF CHEST.
--- NOTE | 2018-11-22 17:57 | Diagnostic Imaging Report ---
PROCEDURE: CT chest without contrast. TECHNIQUE: Multiple contiguous axial images were obtained through the chest without the use of intravenous contrast. INDICATION: Dyspnea. FINDINGS: Unenhanced images of the thorax reveal mild to moderate pleural effusion, greater on the right with subjacent atelectasis and/or pneumonitis involving primarily the lower lobes. Interstitial markings are prominent diffusely likely related to interstitial edema and/or pneumonitis with possible component of associated underlying scarring. There are mildly prominent mediastinal lymph nodes without evidence of pathologic adenopathy. There is small amount of pericardial fluid. Upper abdominal images somewhat limited due to motion. There may be mild diffuse edema or inflammation within the mesentery. Left upper extremity PICC is in place with tip reaching the distal left brachiocephalic vein. IMPRESSION: Mild bilateral pleural effusions, greater on the right with subjacent atelectasis and/or pneumonitis. There is also diffuse interstitial lung disease likely related to interstitial edema and/or pneumonitis with possible underlying fibrosis as well. Dictated by: Dictated on workstation # [id number]
[2018-11-22] MEDS: RT-ALBUTEROL/IPRATROPIUM 3 ML (DUONEB) VIAL INH SCH (19:02)
[2018-11-22] MEDS: MELATONIN 3 MG TABLET PO SCH (21:18)
[2018-11-22] MEDS: ATORVASTATIN 40 MG (LIPITOR) TABLET PO SCH (21:18)
[2018-11-23] VITALS (7 sets, daily range): BP systolic 61–143; BP diastolic 70–84
[2018-11-23] MEDS: RT-ALBUTEROL/IPRATROPIUM 3 ML (DUONEB) VIAL INH SCH ×5 (03:45→19:25)
[2018-11-23] MEDS ORDERED: RT-ALBUTEROL/IPRATROPIUM 3 ML (DUONEB) VIAL INH PRN (04:00)
[2018-11-23 07:06] LABS: BASOPHILS % (AUTO) 0 % (0-10); EOSINOPHILS % (AUTO) 0 % (0-10); HEMATOCRIT 31 % (40-54); HEMOGLOBIN 10.6 G/DL (13.3-17.7); LYMPHOCYTES # (AUTO) 1.6 X 10^3 (1.0-4.0); LYMPHOCYTES % (AUTO) 15 % (12-44); MEAN CORPUSCULAR HEMOGLOBIN 32 PG (25-34); MEAN CORPUSCULAR HGB CONC 34 G/DL (32-36); MEAN CORPUSCULAR VOLUME 93 FL (80-99); MEAN PLATELET VOLUME 9.9 FL (7.4-10.4); MONOCYTES # (AUTO) 1.2 X 10^3 (0.0-1.0); MONOCYTES % (AUTO) 11 % (0-12); NEUTROPHILS # (AUTO) 7.8 X 10^3 (1.8-7.8); NEUTROPHILS % (AUTO) 74 % (42-75); PLATELET COUNT 249 10^3/uL (130-400); RED CELL DISTRIBUTION WIDTH 13.6 % (10.0-14.5); WHITE BLOOD COUNT 10.6 10^3/uL (4.3-11.0)
[2018-11-23 07:24] LABS: BUN/CREATININE RATIO 16; CALCIUM 8.5 MG/DL (8.5-10.1); CARBON DIOXIDE 25 MMOL/L (21-32); CHLORIDE 103 MMOL/L (98-107); CREATININE SERUM 0.76 MG/DL (0.60-1.30); GFR ESTIMATED > 60; GLUCOSE 109 MG/DL (70-105); MAGNESIUM 2.1 MG/DL (1.8-2.4); PHOSPHORUS 2.5 MG/DL (2.3-4.7); POTASSIUM 3.7 MMOL/L (3.6-5.0); SODIUM 137 MMOL/L (135-145)
--- NOTE | 2018-11-23 07:51 | Pulmonary Progress Note ---
Subjective Time Seen by a Provider: 07:50 Subjective/Events-last exam No complications noted. Sepsis Event Evaluation Height, Weight, BMI Height: 5'10.00" Weight: 146lbs. 9.0oz. 66.256696yj; 19.1 BMI Method:Stated Exam Exam Vital Signs Date Time Temp Pulse Resp B/P (MAP) Pulse Ox O2 Delivery O2 Flow Rate FiO2 11/23/18 03:54 97.0 97 24 122/70 (87) 98 Nasal Cannula 2.00 11/23/18 03:52 91 Nasal Cannula 1.50 11/23/18 01:00 91 11/23/18 01:00 100 11/22/18 23:07 97.9 91 22 109/70 (83) 96 Nasal Cannula 2.00 11/22/18 21:00 Nasal Cannula 2.00 11/22/18 19:31 98.4 128 22 127/77 (94) 98 Nasal Cannula 2.00 11/22/18 19:02 95 Nasal Cannula 2.50 11/22/18 19:00 106 11/22/18 15:38 97.6 106 24 117/70 (86) 98 Nasal Cannula 2.00 11/22/18 15:27 96 1.50 11/22/18 13:00 106 11/22/18 12:00 97.6 87 20 99/75 (83) 97 Nasal Cannula 2.00 11/22/18 09:00 Nasal Cannula 2.00 11/22/18 08:00 97.6 96 20 122/71 (88) 96 Nasal Cannula 2.00 I & O 11/23/18 07:00 Intake Total 2965 ml Output Total 2600 ml Balance 365 ml Height & Weight Height: 5'10.00" Weight: 146lbs. 9.0oz. 66.074223da; 19.1 BMI Method:Stated General Appearance: No Apparent Distress, WD/WN, Anxious, Chronically ill, Thin HEENT: PERRL/EOMI, Normal ENT Inspection Neck: Normal Inspection Respiratory: No Accessory Muscle Use, No Respiratory Distress, Crackles, Decreased Breath Sounds, Wheezing Cardiovascular: No Edema, No Murmur, Irregularly Irregular, Tachycardia Capillary Refill: Less Than 3 Seconds Gastrointestinal: normal bowel sounds, non tender, soft Extremity: Normal Capillary Refill, Normal Inspection, No Pedal Edema Neurologic/Psychiatric: Alert, Oriented x3, No Motor/Sensory Deficits, Normal Mood/Affect, 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 Norm as Tested, Other (Tremor, right greater than left) Skin: Normal Color, Warm/Dry Lymphatic: No Adenopathy Results Lab Laboratory Tests 11/22/18 05:22 11/23/18 07:00 Assessment/Plan Assessment/Plan COPDAE with hypoxia -Add prednisone taper -Oxygen -SVNS -Hep lock IVF -Give lasix x1 and check BNP -CT scan reviewed CHF EF 35% with bilateral pleural effusions -Give 60mg of Lasix X 1 -Monitor Tobacco use -Education -will do out patient testing Cachexia with recent significant wt loss -Will do CT of chest r/o mass NSTEMI with CP s/p Cath with stenting of LAD -Cardiology following -Possible cath today SOB with hypoxia and wheezing -SVNS -Pt is on 2 liters of oxygen -Check BNP and repeat CXR -give lasix x 1 Anemia -On plavix -Monitor -Check gastric occult hypophos -Kphos Afib RVR- -Cardiology following Parkinson's disease Anxiety DARIN RENEE DO Nov 23, 2018 07:51
[2018-11-23] MEDS ORDERED: KCL 20 MEQ TAB (K-DUR) PO NR (08:00)
[2018-11-23] MEDS ORDERED: FUROSEMIDE 40 MG/4 ML INJ (LASIX) IVP NR (08:00)
[2018-11-23] MEDS: DIGOXIN 0.125 MG (LANOXIN) TAB PO SCH (08:38)
[2018-11-23] MEDS: APIXABAN 5 MG (ELIQUIS) TABLET PO SCH ×2 (08:38→21:07)
[2018-11-23] MEDS: lisINopril 40 MG (PRINIVIL) TABLET PO SCH (08:38)
[2018-11-23] MEDS: predniSONE 10 MG TAB PO SCH (08:38)
[2018-11-23] MEDS: CLOPIDOGREL 75 MG (PLAVIX) TABLET PO SCH (08:38)
--- NOTE | 2018-11-23 09:32 | Physical Therapy Progress Note ---
Therapy Progress Note Attempted PT visit this morning. Pt declined stating, "I'm peeing too much" due to having taken a "water pill". Reports he will try to walk later. INDERJIT MCDOWELL PT Nov 23, 2018 09:32
[2018-11-23] MEDS ORDERED: FURO-124 PO (11:00)
[2018-11-23] MEDS ORDERED: POTA-51 PO (11:00)
--- NOTE | 2018-11-23 11:00 | Progress Note-Cardiology ---
Cardiology SOAP Progress Note Subjective: Sitting up in bed. C/O frequent urination. No c/o CP or palpitations. Chronic dyspnea, which he feels is better, but reports "wheezing". Objective: I&O/Vital Signs 11/23/18 11/23/18 11/23/18 11/23/18 07:00 07:48 08:00 09:00 Temp 97.6 Pulse 112 116 Resp 20 B/P (MAP) 110/74 (86) Pulse Ox 96 97 O2 Delivery Nasal Cannula Nasal Cannula Nasal Cannula O2 Flow Rate 2.00 1.00 2.00 11/23/18 11/23/18 11/23/18 11/23/18 11:11 12:21 13:00 16:24 Temp 98.2 97.1 Pulse 130 130 108 Resp 20 20 B/P (MAP) 143/76 (98) 61/74 (70) Pulse Ox 94 98 98 O2 Delivery Nasal Cannula Nasal Cannula Nasal Cannula O2 Flow Rate 2.00 2.00 1.00 11/23/18 00:00 Intake Total 1730 ml Output Total 2250 ml Balance -520 ml Weight (Pounds): 146 Weight (Ounces): 9.0 Weight (Calculated Kilograms): 66.517306 Constitutional: AAO x 3, well-developed, other (thin) Respiratory: No accessory muscle use, No respiratory distress; chest expansion is symmetric, chest is bilaterally symmetric, crackles (bi-basilar), rhonchi, other (prolonged exp phase) Cardiovascular: irregularly irregular; No JVD; S1 and S2, systolic murmur Gastrointestional: No tender; soft, round, audible bowel sounds Extremities: no lower extremity edema bilateral Neurologic/Psychiatric: other (upper extremity tremors), power is 5/5 both on sides Skin: No rash, No ulcerations Results/Procedures: Labs Laboratory Tests 11/23/18 07:00: White Blood Count 10.6, Red Blood Count 3.34L, Hemoglobin 10.6L, Hematocrit 31L , Mean Corpuscular Volume 93, Mean Corpuscular Hemoglobin 32, Mean Corpuscular Hemoglobin Concent 34, Red Cell Distribution Width 13.6, Platelet Count 249, Mean Platelet Volume 9.9, Neutrophils (%) (Auto) 74, Lymphocytes (%) (Auto) 15, Monocytes (%) (Auto) 11, Eosinophils (%) (Auto) 0, Basophils (%) (Auto) 0, Neutrophils # (Auto) 7.8, Lymphocytes # (Auto) 1.6, Monocytes # (Auto) 1.2H, Eosinophils # (Auto) 0.0, Basophils # (Auto) 0.0, Sodium Level 137, Potassium Level 3.7, Chloride Level 103, Carbon Dioxide Level 25, Anion Gap 9, Blood Urea Nitrogen 12, Creatinine 0.76, Estimat Glomerular Filtration Rate > 60, BUN/ Creatinine Ratio 16, Glucose Level 109H, Calcium Level 8.5, Phosphorus Level 2.5 , Magnesium Level 2.1 11/23/18 16:23: Glucometer 208H Microbiology 11/18/18 MRSA Screen - Final, Complete MRSA not isolated Laboratory Tests 11/22/18 05:22 11/23/18 07:00 Procedures NAME: DANNY FREITAS [facility] REC#: [id number] PT STATUS: ADM IN : 1940 PHYSICIAN: HOME MARCOS MD ADMIT DATE: 11/18/18 Signed Date of Exam: 11/22/18 CT CHEST WO PROCEDURE: CT chest without contrast. TECHNIQUE: Multiple contiguous axial images were obtained through the chest without the use of intravenous contrast. INDICATION: Dyspnea. FINDINGS: Unenhanced images of the thorax reveal mild to moderate pleural effusion, greater on the right with subjacent atelectasis and/or pneumonitis involving primarily the lower lobes. Interstitial markings are prominent diffusely likely related to interstitial edema and/or pneumonitis with possible component of associated underlying scarring. There are mildly prominent mediastinal lymph nodes without evidence of pathologic adenopathy. There is small amount of pericardial fluid. Upper abdominal images somewhat limited due to motion. There may be mild diffuse edema or inflammation within the mesentery. Left upper extremity PICC is in place with tip reaching the distal left brachiocephalic vein. IMPRESSION: Mild bilateral pleural effusions, greater on the right with subjacent atelectasis and/or pneumonitis. There is also diffuse interstitial lung disease likely related to interstitial edema and/or pneumonitis with possible underlying fibrosis as well. Dictated by: Dictated on workstation # [id number] Dict: 11/22/18 1752 Trans: 11/22/181801 Interpreted by: CATSRO KING MD Electronically signed by: CASTRO KING MD 11/22/181801 A/P: Assessment: CAD: Cath of 11/19/18 showed 99% ostial LAD that was stented with Rimma 3 x 18; other cors had mild to mod stenoses Ischemic dilated cardiomyopathy. Echocardiogram of 11-18-18 showed LVEF 30-35%. LA dilated. Mild AoR. Mod to severe TR. PASP 40mmHg Chronic a-fib - presented with RVR, now better controlled Apixaban for stroke prophylaxis COPD Tobaccoism - cessation advised Chronic resting tremor TSH of 11-18-18 WNL Plan: * Continue Eliquis and Plavix * Continue current medication regimen * Add oral lasix and potassium * Close outpt f/u * Ok for d/c from card standpoint. Cardiac meds written Physician Assessment Physician Assessment No new symptoms. Shortness of breath improved. No cp or palp or syncope Cor: reg Lungs: fair to good bilat air entry Ext: no c/c/e A&R * As documented in our note above that I updated (italics) and as noted below * Monitor labs * Ok for d/c from card standpoint * Outpt f/u advised Clinical Quality Measures AMI/AHF: ASA po Prior to arrival: SUSHMA Rodriguez Nov 23, 2018 11:00 MIND[facility] FLORES MD [facility] Nov 23, 2018 16:57
[2018-11-23] MEDS: RT-ADVAIR HFA 115/21 MCG PER PUFF IH SCH ×2 (11:13→19:25)
--- NOTE | 2018-11-23 11:39 | Progress Note (SOAP) ---
Subjective Subjective/Events-last exam Afebrile, no acute events. He is hopeful to go home, but continues to have a lot of wheezing and requiring 2 lpm supplemental oxygen. Review of Systems Date Seen by Provider: Nov 23, 2018 Time Seen by Provider: 08:23 Objective Exam Last Set of Vital Signs Vital Signs Date Time Temp Pulse Resp B/P (MAP) Pulse Ox O2 Delivery O2 Flow Rate FiO2 11/23/18 11:11 94 Nasal Cannula 2.00 11/23/18 08:00 97.6 116 20 110/74 (86) Capillary Refill : Less Than 3 Seconds I&O Intake and Output 11/23/18 00:00 Intake Total 3145 ml Output Total 2450 ml Balance 695 ml Intake Oral 2010 ml IV Total 1135 ml Output Urine Total 2450 ml # Voids 1 General: Alert, No Acute Distress Lungs: Other (diffuse wheezing) Heart: Regular Rate, No Murmurs Abdomen: Normal Bowel Sounds, Soft Neuro: Other (right hand/arm resting tremor) Psych/Mental Status: Mood NL Results/Procedures Lab Laboratory Tests 11/23/18 07:00: White Blood Count 10.6, Red Blood Count 3.34L, Hemoglobin 10.6L, Hematocrit 31L , Mean Corpuscular Volume 93, Mean Corpuscular Hemoglobin 32, Mean Corpuscular Hemoglobin Concent 34, Red Cell Distribution Width 13.6, Platelet Count 249, Mean Platelet Volume 9.9, Neutrophils (%) (Auto) 74, Lymphocytes (%) (Auto) 15, Monocytes (%) (Auto) 11, Eosinophils (%) (Auto) 0, Basophils (%) (Auto) 0, Neutrophils # (Auto) 7.8, Lymphocytes # (Auto) 1.6, Monocytes # (Auto) 1.2H, Eosinophils # (Auto) 0.0, Basophils # (Auto) 0.0, Sodium Level 137, Potassium Level 3.7, Chloride Level 103, Carbon Dioxide Level 25, Anion Gap 9, Blood Urea Nitrogen 12, Creatinine 0.76, Estimat Glomerular Filtration Rate > 60, BUN/ Creatinine Ratio 16, Glucose Level 109H, Calcium Level 8.5, Phosphorus Level 2.5 , Magnesium Level 2.1 Microbiology 11/18/18 MRSA Screen - Final, Complete MRSA not isolated Radiology NAME: DANNY FREITAS [facility] REC#: [id number] PT STATUS: REG ER : 1940 PHYSICIAN: ZULEMA LUONG MD ADMIT DATE: 11/18/18/ER Signed Date of Exam: 11/18/18 CHEST 1 VIEW, AP/PA ONLY INDICATION: Chest pain Upright portable AP view of the chest is obtained. Comparison is made to the study of 09/01/2010. There is bilateral air trapping. Prominent interstitial markings are seen throughout the lungs. There is no evidence of pneumothorax or consolidation. No significant pleural fluid is seen. IMPRESSION: Probable air trapping and interstitial prominence which may be due to COPD. Otherwise, no acute abnormality or adverse change seen. Dictated by: Dictated on workstation # [id number] Dict: 11/18/18730 Trans: 11/18/18740 Interpreted by: CASTRO KING MD Electronically signed by: CASTRO KING MD 11/18/1841 Assessment/Plan Assessment/Plan (1) Atrial fibrillation, chronic Status: Chronic Assessment & Plan: On admission with RVR, now resolved. Cardiology consulted, appreciate recommendations. Continue Eliquis. (2) NSTEMI (non-ST elevated myocardial infarction) Status: Acute Assessment & Plan: Now s/p stenting on 11/19, Cardiology following, appreciate recommendations. Continue antiplatelet. (3) Congestive heart failure Status: Acute Assessment & Plan: EF 30-35 on 11/18 echo. Secondary to ischemia and a fib. Appreciate Cardiology recommendations. 3/4- BNP elevated this am, furosemide ordered per Dr. Gonzales 3/5- Repeating furosemide per Dr. Gonzales Qualifiers: (4) Hypertension Status: Chronic Qualifiers: Qualified Codes: I10 - Essential (primary) hypertension (5) COPD exacerbation Status: Acute Assessment & Plan: 3/4 Remains wheezy and hypoxic today in spite of being on IV solumedrol and breathing treatments. X-ray with possible right sided abnormality. No clear evidence of pneumonia. CT chest tomorrow am. Pulmonology consulted, appreciate recommendations. 3/5 change to oral taper, continue breathing treatments. CT without evidence of mass. (6) Chronic neck pain Status: Chronic Assessment & Plan: Continue home meds. (7) Parkinson disease Status: Chronic Assessment & Plan: Possible, outpatient had not been diagnosed with PD, but tremor is consistent. PT to eval for discharge planning purposes. (8) DVT prophylaxis Status: Acute Assessment & Plan: On Eliquis Clinical Quality Measures AMI/AHF: ASA po Prior to arrival: No DVT/VTE Risk/Contraindication: Risk Factor Score Per Nursin RFS Level Per Nursing on Admit: 4+=Very High HOME MARCOS MD Nov 23, 2018 11:39
--- NOTE | 2018-11-23 12:04 | Physical Therapy Daily Note ---
PT Daily Note-Current Subjective Pt declined therapy visit at 1030 this date but agreed this attempt. "I'm not trying to be contankerous". Agreed to sit up in the chair for lunch. Transfers Therapy Code Descriptions/Definitions Functional [place] Measure: 0=Not Assessed/NA 4=Minimal Assistance 1=Total Assistance 5=Supervision or Setup 2=Maximal Assistance 6=Modified [place] 3=Moderate Assistance 7=Complete [place] Therapy Quality Codes: 6 Independent with activity with or without an assistive device 5 Patient requires set up or clean up by helper. Patient completes activity by themselves 4 Supervision or touching assist (CGA). [place] provide cues , steadying assist 3 The helper provides less than half the effort to complete the activity 2 The helper provides more than half the effort to complete the activity 1 Dependent. The helper does all the effort to complete an activity 7 Patient refused to complete or attempt activity 9 The patient did not perform the activity before the current illness or injury 88 Not attempted due to Medical conditions or safety concerns Transfers (B, C, W/C) (FIM): 5 SBA with all transfers. Used bedrail to get up out of bed. SBA to stand up; tremors noted. Weight Bearing Right Lower Extremity: Right Weight Bearing/Tolerated Left Lower Extremity: Left Weight Bearing/Tolerated Treatments Pt used FWW to take 5-6 steps to transfer to the chair at bedside. Up in chair with needs met. Pt planned to order lunch. Instructed pt to request assist to return to bed. He verbalized understanding. Assessment Pt fearful of urine incontinence when up. Tremors decrease functional safety with upright mobilty. PT Locker Room Attendant Goals Locker Room Attendant Goals PT Locker Room Attendant Goals Time Frame: Nov 29, 2018 Transfers (B,C,W/C) (FIM): 7 Gait (FIM): 6 Gait distance (FIM): 3=150 ft Gait Assistive Device: FWW PT Plan Problem List Problem List: Activity Tolerance, Functional Strength, Safety, Balance, Gait, Transfer, Bed Mobility Treatment/Plan Treatment Plan: Continue Plan of Care Treatment Plan: Bed Mobility, Education, Functional Activity [place], Functional Strength, Gait, Safety, Therapeutic Exercise, Transfers Treatment Duration: Nov 29, 2018 Frequency: 6 times per week Estimated Hrs Per Day: .5 hour per day Patient and/or Family Agrees t: Yes Safety Risks/Education Patient Education: Safety Issues Teaching Recipient: Patient Teaching Methods: Discussion Response to Teaching: Reinforcement Needed Discharge Recommendations Therapy D/C Recommendations: Physical Therapy Home Care Time/GCodes Time In: 1144 Time Out: 1200 Total Billed Treatment Time: 16 Total Billed Treatment visit FA 16 INDERJIT MCDOWELL PT Nov 23, 2018 12:04
--- NOTE | 2018-11-23 18:00 | NUR ---
NOTE THAT PT'S SON WAS TO DESK AND ASKED [facility] ABOUT PT'S CELL PHONE Z OS MAINFRAME SYSTEMS PROGRAMMER SHE CALLED ICU SINCE PT WAS A PT THERE -- THEY WOULD LOOK -- APPARENTLY THAT WAS NOT QUICK ENOUGH FOR THE PT'S SON HE WENT UP TO ICU TO HAVE THEM CHECK -- HE THEN ASKED THE [facility] ABOUT CELL PHONE Z OS MAINFRAME SYSTEMS PROGRAMMER AND HIS HOME MEDS -- NOTE THAT THIS RN WAS TOLD BY N.A. THAT SHE WAS ASKED ABOUT PHONE Z OS MAINFRAME SYSTEMS PROGRAMMER -- THIS RN WENT IN ROOM AND OPENED THE [facility] CHIEF ROOM AND FOUND HOME MEDS AND HIS PHONE CHARGE IN BAG -- SON VOICED HE WOULD TAKE THE HOME MEDS HE GRABEED THEM FROM THIS RN HAND -- AND SON HANDED THE PHONE Z OS MAINFRAME SYSTEMS PROGRAMMER TO THE PT -- THIS RN LEFT ROOM
[2018-11-23] MEDS: MELATONIN 3 MG TABLET PO SCH (21:07)
[2018-11-23] MEDS: ATORVASTATIN 40 MG (LIPITOR) TABLET PO SCH (21:07)
[2018-11-24 00:28] VITALS: BP 118/79
[2018-11-24 04:47] VITALS: BP 122/83
[2018-11-24 06:47] LABS: BASOPHILS % (AUTO) 0 % (0-10); EOSINOPHILS % (AUTO) 0 % (0-10); HEMATOCRIT 31 % (40-54); HEMOGLOBIN 10.3 G/DL (13.3-17.7); LYMPHOCYTES # (AUTO) 1.8 X 10^3 (1.0-4.0); LYMPHOCYTES % (AUTO) 13 % (12-44); MEAN CORPUSCULAR HEMOGLOBIN 31 PG (25-34); MEAN CORPUSCULAR HGB CONC 33 G/DL (32-36); MEAN CORPUSCULAR VOLUME 94 FL (80-99); MEAN PLATELET VOLUME 10.2 FL (7.4-10.4); MONOCYTES # (AUTO) 1.5 X 10^3 (0.0-1.0); MONOCYTES % (AUTO) 12 % (0-12); NEUTROPHILS # (AUTO) 9.8 X 10^3 (1.8-7.8); NEUTROPHILS % (AUTO) 75 % (42-75); PLATELET COUNT 291 10^3/uL (130-400); RED CELL DISTRIBUTION WIDTH 13.4 % (10.0-14.5); WHITE BLOOD COUNT 13.2 10^3/uL (4.3-11.0)
[2018-11-24] MEDS ORDERED: KCL 20 MEQ TAB (K-DUR) PO SCH (07:00)
[2018-11-24 07:15] LABS: BUN/CREATININE RATIO 17; CARBON DIOXIDE 28 MMOL/L (21-32); CHLORIDE 101 MMOL/L (98-107); CREATININE SERUM 0.78 MG/DL (0.60-1.30); GFR ESTIMATED > 60; GLUCOSE 103 MG/DL (70-105); MAGNESIUM 1.6 MG/DL (1.8-2.4); PHOSPHORUS 2.9 MG/DL (2.3-4.7); POTASSIUM 3.9 MMOL/L (3.6-5.0); SODIUM 137 MMOL/L (135-145)
--- NOTE | 2018-11-24 07:26 | Pulmonary Progress Note ---
Sepsis Event Evaluation Height, Weight, BMI Height: " Weight: 146lbs. 9.0oz. 66.622048aa; 19.1 BMI Method:Stated Exam Exam Vital Signs Date Time Temp Pulse Resp B/P (MAP) Pulse Ox O2 Delivery O2 Flow Rate FiO2 11/24/18 04:47 97.8 95 20 122/83 (96) 96 Nasal Cannula 2.00 11/24/18 01:00 99 11/24/18 00:28 97.8 101 20 118/79 (92) 97 Nasal Cannula 2.00 11/23/18 21:08 110 20 130/74 (92) 97 Nasal Cannula 2.00 11/23/18 21:00 Nasal Cannula 2.00 11/23/18 19:44 98.1 121 22 130/84 (99) 97 Nasal Cannula 2.00 11/23/18 19:30 Nasal Cannula 2.00 11/23/18 19:25 96 Nasal Cannula 2.00 11/23/18 19:00 100 11/23/18 16:45 97.1 108 20 141/74 (96) 98 Nasal Cannula 1.00 11/23/18 13:00 130 11/23/18 12:21 98.2 130 20 143/76 (98) 98 Nasal Cannula 2.00 11/23/18 11:11 94 Nasal Cannula 2.00 11/23/18 09:00 Nasal Cannula 2.00 11/23/18 08:00 97.6 116 20 110/74 (86) 97 Nasal Cannula 1.00 11/23/18 07:48 96 Nasal Cannula 2.00 I & O 11/24/18 07:00 Intake Total 850 ml Output Total 2025 ml Balance -1175 ml Height & Weight Height: " Weight: 146lbs. 9.0oz. 66.167649gx; 19.1 BMI Method:Stated General Appearance: No Apparent Distress, WD/WN, Anxious, Chronically ill, Thin HEENT: PERRL/EOMI, Normal ENT Inspection Neck: Normal Inspection Respiratory: No Accessory Muscle Use, No Respiratory Distress, Crackles, Decreased Breath Sounds, Wheezing Cardiovascular: No Edema, No Murmur, Irregularly Irregular, Tachycardia Capillary Refill: Less Than 3 Seconds Gastrointestinal: normal bowel sounds, non tender, soft Extremity: Normal Capillary Refill, Normal Inspection, No Pedal Edema Neurologic/Psychiatric: Alert, Oriented x3, No Motor/Sensory Deficits, Normal Mood/Affect, manager file II-XII Norm as Tested, Other (Tremor, right greater than left) Skin: Normal Color, Warm/Dry Lymphatic: No Adenopathy Results Lab Laboratory Tests 11/23/18 07:00 11/24/18 06:15 Assessment/Plan Assessment/Plan COPDAE with hypoxia - prednisone taper -Oxygen -SVNS -Hep lock IVF -Give lasix x1 and check BNP -CT scan reviewed CHF EF 35% with bilateral pleural effusions -Lasix -Monitor ILD per CT chest -Will continue to follow as out patient. Tobacco use -Education -will do out patient testing Cachexia with recent significant wt loss= NSTEMI with CP s/p Cath with stenting of LAD -Cardiology following -Possible cath today SOB with hypoxia and wheezing -SVNS -Pt is on 2 liters of oxygen -give lasix x 1 Anemia -On plavix -Monitor -Check gastric occult hypophos -Kphos Afib RVR- -Cardiology following Parkinson's disease Anxiety DARIN RENEE DO Nov 24, 2018 07:26
[2018-11-24] MEDS: RT-ALBUTEROL/IPRATROPIUM 3 ML (DUONEB) VIAL INH SCH ×2 (07:59→11:01)
[2018-11-24 08:00] VITALS: BP 132/84
[2018-11-24] MEDS: RT-ADVAIR HFA 115/21 MCG PER PUFF IH SCH (08:06)
[2018-11-24] MEDS: MAGNESIUM 1 GM/100 ML IVPB 100 ML IV SCH ×2 (08:32→08:34)
--- NOTE | 2018-11-24 08:36 | Diagnostic Imaging Report ---
Indication: Shortness of breath. Time of exam 8:15 AM Correlation is made with prior study from 11/22/2018. Left upper extremity PICC line has tip overlying the left innominate vein. The heart size is stable. Interstitial changes in both lungs persist but these appear somewhat improved since two days earlier perhaps on the basis of mild improving interstitial edema. There continues to be some airspace infiltrate in the right base. Small infiltrate in left base as well partially obscuring the left hemidiaphragm. There appear to be small effusions. No pneumothorax is seen. Impression: There has been some improvement in interstitial changes since 2 days earlier, perhaps improving interstitial edema. Mild bibasilar infiltrates and small effusions persist. Dictated by: Dictated on workstation # [id number]
[2018-11-24] MEDS: CLOPIDOGREL 75 MG (PLAVIX) TABLET PO SCH (08:39)
[2018-11-24] MEDS: DIGOXIN 0.125 MG (LANOXIN) TAB PO SCH (08:39)
[2018-11-24] MEDS: lisINopril 40 MG (PRINIVIL) TABLET PO SCH (08:40)
[2018-11-24] MEDS: predniSONE 10 MG TAB PO SCH (08:40)
[2018-11-24] MEDS: APIXABAN 5 MG (ELIQUIS) TABLET PO SCH (08:40)
[2018-11-24] MEDS ORDERED: FUROSEMIDE 40 MG (LASIX) TAB PO SCH (09:00)
[2018-11-24 12:00] VITALS: BP 123/86
[2018-11-24] MEDS ORDERED: IPRA3AMP31 INH (13:01)
[2018-11-24] MEDS ORDERED: PRD10T PO (13:01)
[2018-11-24] MEDS ORDERED: FLUT12AE4 IH (13:01)
--- NOTE | 2018-11-24 13:07 | D/C HH Face to Face Order ---
D/C Face to Face Orders Instructions for Patient Via [facility], Patient Instructions/FollowUp: Follow up with Dr. Sindy Agustin at [facility] on 11/29 at 9:40 am. Follow up with Dr. Castro as scheduled. Physician to follow Patient: Dr. Sindy Agustin Discharge Diet for Home: Cardiac Diet Patient Problems: CHF COPD Parkinson Disease suspected Atrial fibrillation Hypertension Patient Data-Allergies,Ht & Wt Patient Allergies: Coded Allergies: No Known Drug Allergies (Unverified , 11/18/18) Height (Feet): 5 Height (Inches): 10.00 Weight (Pounds): 142 Weight (Ounces): 6.0 Home Health Need/Face to Face Date of Face to Face: Nov 24, 2018 Clinical Findings: Generalized weakness and fatigue, Shortness of breath I have seen Pt [id number]: Yes Discharged To: Home Diagnosis/Conditions: COPD exacerbation Parkinson disease CHF exacerbation Patient is Homebound due to: Adina fall risk due to instabilty, Shortness of breath/distress Homebound Status Due to the above stated illness, injury or surgical procedure (medical condition or diagnosis) and associated clinical findings, the patient is homebound because of his/her inability to leave home except with aid of a supportive device and/or person AND leaving the home requires a considerable and taxing effort or is medically contraindicated. Pt req the following assistanc: Aid of another person Home Health Nursing Orders Home Health Services Order: Nursing Services, Hydroelectric Station Operator Chief-Evaluate & Treat, Physical Therapy-Evaluate & Treat Home Health Infusion Therapy Line Type: PICC Therapy Orders Therapy Orders: OT (must have SN or PT order), Physical Therapy, PT to assess for OT Therapy Specific Orders: Eval assistive deivces, Teach enviro modifications/ safety, Gait training Certify Stmt I certify that this patient is under my care and that I, a nurse practitioner or a physician; a assistant director of financial aid working with me, had a face to face encounter that - meets the physician face to face encounter requirements with this patient as dated. HOME MARCOS MD Nov 24, 2018 13:07
--- NOTE | 2018-11-24 14:00 | NUR ---
Important Message from Medicare presented/reviewed/signed and charted. Patient voiced no intention to appeal and deny any needs or further questions at this time. Patient states, "Once he gets his discharge papers, he will call family to come get him."
--- NOTE | 2018-11-24 14:01 | Physical Therapy Daily Note ---
PT Daily Note-Current Subjective Pt is laying Supine in bed with visible tremors. Pt agrees to Supine Ex so pt can practice these at home as pt is DC today. Pain Location: No Pain Reported Mental Status Patient Orientation: Person, Place, Situation Transfers Therapy Code Descriptions/Definitions Functional Gary Measure: 0=Not Assessed/NA 4=Minimal Assistance 1=Total Assistance 5=Supervision or Setup 2=Maximal Assistance 6=Modified Gary 3=Moderate Assistance 7=Complete Gary Therapy Quality Codes: 6 Independent with activity with or without an assistive device 5 Patient requires set up or clean up by helper. Patient completes activity by themselves 4 Supervision or touching assist (CGA). [place] provide cues , steadying assist 3 The helper provides less than half the effort to complete the activity 2 The helper provides more than half the effort to complete the activity 1 Dependent. The helper does all the effort to complete an activity 7 Patient refused to complete or attempt activity 9 The patient did not perform the activity before the current illness or injury 88 Not attempted due to Medical conditions or safety concerns Weight Bearing Right Lower Extremity: Right Weight Bearing/Tolerated Left Lower Extremity: Left Weight Bearing/Tolerated Exercises Supine Ex: Ankle pumps, Quad Set, Glut sets, Straight leg raise, Hip abd/add Supine Reps: 15 Treatments Pt completes Supine Ex in bed as practice for home. Pt is to DC today. Pt resting in bed at end of tx. with all needs met. Assessment Current Status: Fair Progress Pt demonstrates continual tremors during Ex. Pt states this is ongoing over last 4-5 years. PT Chcf Goals Chcf Goals PT Supervisor Education Goals Time Frame: Nov 29, 2018 Transfers (B,C,W/C) (FIM): 7 Gait (FIM): 6 Gait distance (FIM): 3=150 ft Gait Assistive Device: FWW PT Plan Problem List Problem List: Activity Tolerance, Functional Strength, Safety Treatment/Plan Treatment Plan: Continue Plan of Care Treatment Plan: Bed Mobility, Education, Functional Activity Edna, Functional Strength, Gait, Safety, Therapeutic Exercise, Transfers Treatment Duration: Nov 29, 2018 Frequency: 6 times per week Estimated Hrs Per Day: .5 hour per day Patient and/or Family Agrees t: Yes Safety Risks/Education Patient Education: Correct Positioning, Safety Issues Teaching Recipient: Patient Teaching Methods: Discussion Response to Teaching: Verbalize Understanding Time/GCodes Time In: 1320 Time Out: 1337 Total Billed Treatment Time: 17 Total Billed Treatment 1, EX (17m) G Codes Necessary: SUSANA Yanes PTA Nov 24, 2018 14:01
--- NOTE | 2018-11-24 14:46 | Discharge Summary ---
Diagnosis/Chief Complaint Date of Admission Nov 18, 2018 at 09:21 Date of Discharge Nov 24, 2018 Admission Diagnosis Admission Diagnosis See problem list Discharge Diagnosis See problem list Problems/Diagnosis: (1) Atrial fibrillation, chronic Assessment & Plan: On admission with RVR, now resolved. Cardiology consulted, appreciate recommendations. Continue Eliquis. Status: Chronic (2) NSTEMI (non-ST elevated myocardial infarction) Assessment & Plan: Now s/p stenting on 11/19, Cardiology following, appreciate recommendations. Continue antiplatelet. Status: Acute (3) Congestive heart failure Assessment & Plan: EF 30-35 on 11/18 echo. Secondary to ischemia and a fib. Appreciate Cardiology recommendations. 11/22- BNP elevated this am, furosemide ordered per Dr. Gonzales 11/23- Repeating furosemide per Dr. Gonzales Discharged on daily furosemide. Qualifiers: Status: Acute (4) Hypertension Qualifiers: Qualified Codes: I10 - Essential (primary) hypertension Status: Chronic (5) COPD exacerbation Assessment & Plan: 11/22 Remains wheezy and hypoxic today in spite of being on IV solumedrol and breathing treatments. X-ray with possible right sided abnormality. No clear evidence of pneumonia. CT chest tomorrow am. Pulmonology consulted, appreciate recommendations. 11/23 change to oral taper, continue breathing treatments. CT without evidence of mass. 11/24 no wheezing, discharged with scripts for fluticasone/salmeterol inhaler, nebulizer and Duonebs and supplemental oxygen. Status: Acute (6) Chronic neck pain Assessment & Plan: Continue home meds. Status: Chronic (7) Parkinson disease Assessment & Plan: Possible, outpatient had not been diagnosed with PD, but tremor is consistent. PT to [facility] for discharge planning purposes. Home health ordered with PT. Status: Chronic Chief Complaint/HPI Chief Complaint/HPI From Dr. Lund's H&P: This is an elderly white male Pt of [facility] with a past medical history of chronic atrial fibrillation on anti-coagulation who presented to ER with shortness of breath and palpitations found to have atrial fibrillation with rapid ventricular response. Cardiology recommended inpatient admission for IV drip for rate control. Pt does smoke on a regular basis. Pt does not use home oxygen or inhalers. Pt does have a tremor consistent with Parkinson's but the medication he has taken in the past made him very dizzy. Pt does live with his son. The son is at the bedside. 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 Pt does not drink alcohol. Diarrhea reported for the past 3 days to the nurse this afternoon so will increase fluids IV. Discharge Summary-Simple/Stand Consultations Discharge Physical Examination Allergies: Coded Allergies: No Known Drug Allergies (Unverified , 11/18/18) Vitals & I&Os Vital Sign - Last 12Hours Date Time Temp Pulse Resp B/P (MAP) Pulse Ox O2 Delivery O2 Flow Rate FiO2 11/24/18 12:00 98.1 82 20 123/86 (98) 94 Nasal Cannula 2.00 Intake and Output 11/24/18 00:00 Intake Total 850 ml Output Total 2025 ml Balance -1175 ml General Appearance: Alert, No Acute Distress Respiratory: Normal Air Movement, Other (faint ronchi) Cardiovascular: Regular Rate, No Murmurs Abdominal: Normal Bowel Sounds, Soft Neuro: Other (right hand/arm tremor) Psych/Mental Status: Mental Status NL Hospital Course See final discharge diagnosis. Radiology Reviewed NAME: DANNY FREITAS [facility] REC#: [id number] PT STATUS: REG ER : 1940 PHYSICIAN: ZULEMA LUONG MD ADMIT DATE: 11/18/18/ER Signed Date of Exam: 11/18/18 CHEST 1 VIEW, AP/PA ONLY INDICATION: Chest pain Upright portable AP view of the chest is obtained. Comparison is made to the study of 09/01/2010. There is bilateral air trapping. Prominent interstitial markings are seen throughout the lungs. There is no evidence of pneumothorax or consolidation. No significant pleural fluid is seen. IMPRESSION: Probable air trapping and interstitial prominence which may be due to COPD. Otherwise, no acute abnormality or adverse change seen. Dictated by: Dictated on workstation # [id number] Dict: 11/18/18 0731 Trans: 11/18/1841 Interpreted by: CASTRO KING MD Electronically signed by: CASTRO KING MD 11/18/18 0741 Discharge Instructions to patient/family Please see electronic discharge instructions given to patient. Discharge Medications Reviewed and agree with Discharge Medication list on patient's Discharge Instruction sheet Clinical Quality Measures AMI/AHF: ASA po Prior to arrival: No DVT/VTE Risk/Contraindication: Risk Factor Score Per Nursin RFS Level Per Nursing on Admit: 4+=Very High Copy Copies To 1: DARIN GONZALES DO; MINDI FLORES MD FACP FAC CCDS; MANI REAVES MD, BETHANY N MD Nov 24, 2018 14:46
--- NOTE | 2018-11-24 15:00 | NUR ---
CM/SS, respond to consult for post hospital care coordination. HHC: Discussed with patient, referral completed with his preferred agency, [facility]. Physician understands agency can not start services until Thursday, she has added addendum approving start date. DME: Patient requires continuous O2 and nebulizer. Discussed agencies, referral completed with his preferred agency, [facility]. Agency staff understand to deliver portable to patient room and to contact family about home setup. Patient has significant tremor and was unable to sign forms or manipulate his cell phone. Visited appropriately regarding topics of discussion. He resides with his son Indio Salmeron, phone [phone]. A daughter will likely transport home, commercial insurance underwriter asked that patient have someone stay with him until home O2 is set up. Updated unit RN that patient must wait for portable O2 before leaving.
[2018-11-24 17:23] VITALS: BP 123/86
== END 2018-11-24 17:26 | disposition home health service (06) | DRG 246 ==
LOC: EDUNIT# 06:39 → ER 06:42 → ICU 09:21 → 4TH 11-20 22:29
PROVIDERS: ADMIT Internal Medicine; ATTEND Internal Medicine
PROC: 027034Z Dilation of Coronary Artery, One Artery with Drug-eluting Intraluminal Device, Percutaneous Approach (ICD-10-PCS; principal; 2018-11-18)
PROC: B2111ZZ Fluoroscopy of Multiple Coronary Arteries using Low Osmolar Contrast (ICD-10-PCS; 2018-11-18)
DX: I21.4 Non-ST elevation (NSTEMI) myocardial infarction (principal); I25.10 Atherosclerotic heart disease of native coronary artery without angina pectoris; I48.2 Chronic atrial fibrillation; I13.0 Hypertensive heart and chronic kidney disease with heart failure and stage 1 through stage 4 chronic kidney disease, or unspecified chronic kidney disease; I50.21 Acute systolic (congestive) heart failure; N18.9 Chronic kidney disease, unspecified; E87.2 Acidosis; N17.9 Acute kidney failure, unspecified; J44.1 Chronic obstructive pulmonary disease with (acute) exacerbation; R64 Cachexia; I25.5 Ischemic cardiomyopathy; D64.9 Anemia, unspecified; F17.210 Nicotine dependence, cigarettes, uncomplicated; E87.6 Hypokalemia; E83.39 Other disorders of phosphorus metabolism; K75.9 Inflammatory liver disease, unspecified; E86.0 Dehydration; G20 Parkinson's disease; R19.7 Diarrhea, unspecified; F41.9 Anxiety disorder, unspecified; M19.91 Primary osteoarthritis, unspecified site; M54.9 Dorsalgia, unspecified; Z79.01 Long term (current) use of anticoagulants
CPT/HCPCS: 36415; 36600; 71045; 71250; 76937; 80048; 80053; 80061; 80162; 81000; 82274; 82805; 82962; 83605; 83735; 83874; 83880; 84100; 84443; 84484; 85007; 85025; 85027; 85610; 85730; 87081; 93005; 93041; 93306; 93454; 94640; 94760; 94761; 96361; 96372; 96374

== ENCOUNTER 2018-11-29 11:10 | Inpatient (IN) | payer MEDICARE ==
[2018-11-29] VITALS (8 sets, daily range): BP systolic 89–109; BP diastolic 54–70
[~2018-11-29] VITALS: Ht 177.8 cm; Wt 65.8 kg
[~2018-11-29 11:10] MED LIST changes: +APIX5TAB PO; +ATOR40TA PO; +CLOP75TA28 PO; +DEXT30SU5 PO; +DIGO125T18 PO; +FLUT12AE4 IH; +FURO-124 PO; +IPRA3AMP31 INH; +METO-387 PO; +POTA-51 PO; +PRD10T PO; +RIVA10TA PO; +TRAM50TA2 PO
[2018-11-29 11:34] LABS: BASOPHILS % (AUTO) 0 % (0-10); EOSINOPHILS % (AUTO) 0 % (0-10); HEMATOCRIT 36 % (40-54); HEMOGLOBIN 11.7 G/DL (13.3-17.7); LYMPHOCYTES # (AUTO) 2.3 X 10^3 (1.0-4.0); LYMPHOCYTES % (AUTO) 9 % (12-44); MEAN CORPUSCULAR HEMOGLOBIN 32 PG (25-34); MEAN CORPUSCULAR HGB CONC 33 G/DL (32-36); MEAN CORPUSCULAR VOLUME 97 FL (80-99); MEAN PLATELET VOLUME 9.2 FL (7.4-10.4); MONOCYTES # (AUTO) 1.5 X 10^3 (0.0-1.0); MONOCYTES % (AUTO) 6 % (0-12); NEUTROPHILS # (AUTO) 22.2 X 10^3 (1.8-7.8); NEUTROPHILS % (AUTO) 85 % (42-75); PLATELET COUNT 494 10^3/uL (130-400); RED CELL DISTRIBUTION WIDTH 13.7 % (10.0-14.5)
--- NOTE | 2018-11-29 11:34 | ED General ---
General Chief Complaint: Respiratory Problems Stated Complaint: LOW ON OXYGEN JUST FEELS BAD Source of Information: Patient Exam Limitations: No Limitations History of Present Illness Date Seen by Provider: Nov 29, 2018 Time Seen by Provider: 11:31 Initial Comments To ER per private vehicle from [facility] with reports of "low oxygen". He presented there for a follow-up appointment and was found to be hypoxic and referred to the emergency room. He does wear oxygen at home. Patient states he feels "like shit". He was admitted to the hospital and and discharged on 11/24/18 for chest pain, atrial fibrillation with rapid ventricular response, COPD and congestive heart failure. He states he feels worse today than he did on discharge. He states he does not have any shortness of breath or chest pain, states that he feels generally weak. 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 With rate controlling agents and apixaban. He states that he has been compliant with taking his Plavix. Timing/Duration: 2-3 Days Severity: Moderate Associated Systoms: Weakness Allergies and Home Medications Allergies Coded Allergies: No Known Drug Allergies (Unverified , 11/18/18) Home Medications Apixaban 5 Mg Tablet, 5 MG PO BID Prescribed by: SUSHMA JORGE on 11/22/18 1102 Atorvastatin Calcium 40 Mg Tablet, 40 MG PO HS Prescribed by: SUSHMA JORGE on 11/22/18 1102 Clopidogrel Bisulfate 75 Mg Tablet, 75 MG PO DAILY Prescribed by: SUSHMA JORGE on 11/22/18 1102 Dextromethorphan Polistirex 30 Mg/5 Ml Samanta.er.12h, 10 ML PO Q12H PRN for COUGH, (Reported) Digoxin 125 Mcg Tablet, 0.125 MG PO DAILY Prescribed by: SUSHMA JORGE on 11/22/18 1102 Fluticasone/Salmeterol 12 Gm Hfa.aer.ad, 2 PUFF IH BID@08,20 Prescribed by: HOME MARCOS on 11/24/18 1301 Furosemide 40 Mg Tablet, 40 MG PO DAILY Prescribed by: SUSHMA JORGE on 11/23/18 1100 Ipratropium/Albuterol Sulfate 3 Ml Ampul.neb, 3 ML INH QID PRN for SHORTNESS OF BREATH Prescribed by: HOME MARCOS on 11/24/18 1301 Lisinopril 40 Mg Tablet, 40 MG PO DAILY, (Reported) Metoprolol Succinate 25 Mg Tab.er.24h, 25 MG PO BID, (Reported) Potassium Chloride 20 Meq Tablet.er, 20 MEQ PO DAILY Prescribed by: SUSHMA JORGE on 11/23/18 1100 Prednisone 10 Mg Tab, 0 PO UD Take 4 tabs(40mg)daily, decrease by 1 tab(10mg) every other day. Prescribed by: HOME MARCOS on 11/24/18 1301 Tramadol HCl 50 Mg Tablet, 50 MG PO BID PRN for PAIN-MODERATE, (Reported) Patient Home Medication List Home Medication List Reviewed: Yes Review of Systems Review of Systems Constitutional: see HPI, weakness EENTM: see HPI Respiratory: see HPI Cardiovascular: no symptoms reported Genitourinary: no symptoms reported Musculoskeletal: no symptoms reported Skin: no symptoms reported Psychiatric/Neurological: No Symptoms Reported Hematologic/Lymphatic: No Symptoms Reported Immunological/Allergic: no symptoms reported Past Rkyinne-Jjtcuf-Payyzz Hx Patient Social History Alcohol Beverage of Choice: Beer Recent Foreign Travel: No Contact w/Someone Who Travel: No Recent Hopitalizations: No Immunizations Up To Date Date of Pneumonia Vaccine: Sep 21, 2014 Date of Influenza Vaccine: Jun 21, 2018 Seasonal Allergies Seasonal Allergies: No Past Medical History Surgeries: Yes (dental) Respiratory: Yes COPD Currently Using CPAP: No Currently Using BIPAP: No Cardiac: Yes Atrial Fibrillation Neurological: Yes Reproductive Disorders: No Genitourinary: No Gastrointestinal: Yes Liver Disease/Jaundice, Hepatitis Musculoskeletal: Yes Arthritis Endocrine: No HEENT: No Cancer: No Psychosocial: No Integumentary: No Blood Disorders: No Family Medical History Diabetes mellitus 19 FATHER SON Neoplasm G8 SISTER Physical Exam Vital Signs Vital Signs - First Documented 11/29/18 11:15 Temp 96.5 Pulse 98 Resp 22 B/P (MAP) 136/106 (116) Pulse Ox 96 O2 Delivery OxyMask O2 Flow Rate 10.00 Capillary Refill : Height, Weight, BMI Height: 5'10.00" Weight: 142lbs. 6.0oz. [id number]; 19.1 BMI Method:Stated General Appearance: No Apparent Distress, WD/WN, Other (speaks in full sentences, alert and oriented, no obvious distress) Eyes: Bilateral Eye Normal Inspection, Bilateral Eye PERRL, Bilateral Eye EOMI HEENT: PERRL/EOMI, TMs Normal Neck: Full Range of Motion, Normal Inspection Respiratory: No Accessory Muscle Use, No Respiratory Distress, Decreased Breath Sounds Cardiovascular: Regular Rate, Rhythm, Normal Peripheral Pulses Gastrointestinal: Normal Bowel Sounds, Non Tender, Soft Extremity: Normal Capillary Refill, Normal Inspection, No Pedal Edema Neurologic/Psychiatric: Alert, Oriented x3 Skin: Normal Color, Warm/Dry Focused Exam Sepsis Stage: Sepsis Possible Source: Pulmonary Lactate Level 11/29/18 11:20: Lactic Acid Level 2.47*H 11/29/18 13:09: Lactic Acid Level 0.73 Time of Focused Exam: 14:36 Respiratory: Chest Non Tender, Decreased Breath Sounds Cardiovascular: Regular Rate, Rhythm, Normal Peripheral Pulses Capillary Refill: Less Than 3 Seconds Skin: normal color, warm/dry Lactic Acid Level Laboratory Tests Test 11/29/18 13:09 Lactic Acid Level 0.73 MMOL/L (0.50-2.00) Within 3hrs of presentation: Blood cultures prior to ABX's, Lactate level Progress/Results/Core Measures Suspected Sepsis SIRS Temperature: Pulse: Respiratory Rate: Laboratory Tests 11/29/18 11:20: White Blood Count 26.0H Blood Pressure / Mean: 11/29/18 11:20: Lactic Acid Level 2.47*H 11/29/18 13:09: Lactic Acid Level 0.73 Laboratory Tests 11/29/18 11:20: Creatinine 1.23, Platelet Count 494H, Total Bilirubin 1.6H Results/Orders Lab Results Laboratory Tests Test 11/29/18 10:26 11/29/18 11:20 11/29/18 11:29 11/29/18 12:21 Range/Units Digoxin Level 0.60 L 0.80-2.00 NG/ML White Blood Count 26.0 H 4.3-11.0 10^3/uL Red Blood Count 3.71 L 4.35-5.85 10^6/uL Hemoglobin 11.7 L 13.3-17.7 G/DL Hematocrit 36 L 40-54 % Mean Corpuscular Volume 97 80-99 FL Mean Corpuscular Hemoglobin 32 25-34 PG Mean Corpuscular Hemoglobin Concent 33 32-36 G/DL Red Cell Distribution Width 13.7 10.0-14.5 % Platelet Count 494 H 130-400 10^3/uL Mean Platelet Volume 9.2 7.4-10.4 FL Neutrophils (%) (Auto) 85 H 42-75 % Lymphocytes (%) (Auto) 9 L 12-44 % Monocytes (%) (Auto) 6 0-12 % Eosinophils (%) (Auto) 0 0-10 % Basophils (%) (Auto) 0 0-10 % Neutrophils # (Auto) 22.2 H 1.8-7.8 X 10^3 Lymphocytes # (Auto) 2.3 1.0-4.0 X 10^3 Monocytes # (Auto) 1.5 H 0.0-1.0 X 10^3 Eosinophils # (Auto) 0.0 0.0-0.3 10^3/uL Basophils # (Auto) 0.0 0.0-0.1 10^3/uL Neutrophils % (Manual) 85 % Lymphocytes % (Manual) 9 % Monocytes % (Manual) 6 % Blood Morphology Comment NORMAL Sodium Level 138 135-145 MMOL/L Potassium Level 4.0 3.6-5.0 MMOL/L Chloride Level 98 98-107 MMOL/L Carbon Dioxide Level 28 21-32 MMOL/L Anion Gap 12 5-14 MMOL/L Blood Urea Nitrogen 27 H 7-18 MG/DL Creatinine 1.23 0.60-1.30 MG/DL Estimat Glomerular Filtration Rate 57 BUN/Creatinine Ratio 22 Glucose Level 96 70-105 MG/DL Lactic Acid Level 2.47 *H 0.50-2.00 MMOL/L Calcium Level 9.4 8.5-10.1 MG/DL Corrected Calcium 9.6 8.5-10.1 MG/DL Total Bilirubin 1.6 H 0.1-1.0 MG/DL Aspartate Amino Transf (AST/SGOT) 20 5-34 U/L Alanine Aminotransferase (ALT/SGPT) 26 0-55 U/L Alkaline Phosphatase 65 40-136 U/L Troponin I 0.419 *H <0.028 NG/ML B-Type Natriuretic Peptide 595.1 H <100.0 PG/ML Total Protein 6.6 6.4-8.2 GM/DL Albumin 3.8 3.2-4.5 GM/DL Blood Gas Puncture Site R BRACH Blood Gas Patient Temperature 96.5 Arterial Blood pH 7.52 H 7.37-7.43 Arterial Blood Partial Pressure CO2 35 35-45 MMHG Arterial Blood Partial Pressure O2 137 H 79-93 MMHG Arterial Blood HCO3 28 H 23-27 MMOL/L Arterial Blood Total CO2 29.4 21.0-31.0 MMOL/L Arterial Blood Oxygen Saturation 99 94-100 % Arterial Blood Base Excess 5.0 H -2.5-2.5 MMOL/L Richard Test YES-POS Blood Gas Ventilator Setting NO Blood Gas Inspired Oxygen 6 Urine Color YELLOW Urine Clarity CLEAR Urine pH 7 5-9 Urine Specific [place] 1.010 L 1.016-1.022 Urine Protein NEGATIVE NEGATIVE Urine Glucose (UA) NEGATIVE NEGATIVE Urine Ketones NEGATIVE NEGATIVE Urine Nitrite NEGATIVE NEGATIVE Urine Bilirubin NEGATIVE NEGATIVE Urine Urobilinogen NORMAL NORMAL MG/DL Urine Leukocyte Esterase NEGATIVE NEGATIVE Urine RBC (Auto) NEGATIVE NEGATIVE Urine RBC NONE /HPF Urine WBC NONE /HPF Urine Crystals NONE /LPF Urine Bacteria NEGATIVE /HPF Urine Casts NONE /LPF Urine Mucus NEGATIVE /LPF Urine Culture Indicated NO Test 11/29/18 13:09 Range/Units Lactic Acid Level 0.73 0.50-2.00 MMOL/L My Orders Orders - DARIELA SORENSON APRN Troponin I (11/29/18 11:26) Ekg Tracing (11/29/18 11:26) Chest 1 View, Ap/Pa Only (11/29/18 11:26) Cbc With Automated Diff (11/29/18 11:26) Comprehensive Metabolic Panel (11/29/18 11:26) Blood Culture (11/29/18 11:26) Lactic Acid Analyzer (11/29/18 11:26) BNP (11/29/18 11:26) Arterial Blood Gas (11/29/18 11:29) Arterial Blood Draw (11/29/18 ) Digoxin (11/29/18 11:34) Manual Differential (11/29/18 11:20) Ua Culture If Indicated (11/29/18 12:09) General/Regular (11/29/18 Lunch) Aspirin Chewable Tablet (Baby Aspirin Ch (11/29/18 13:30) Piperacillin/Tazobactam (Bulk) (Zosyn In (11/29/18 14:45) Lactated Ringers (Lr 1000 Ml Iv Solution (3/11/19 16:00) Medications Given in ED Current Medications Medications Dose Ordered Sig/Froylan Route Start Time Stop Time Status Last Admin Dose Admin Aspirin 324 mg ONCE ONCE PO 11/29/18 13:30 11/29/18 13:31 DC 11/29/18 14:00 324 MG Vital Signs/I&O 11/29/18 11/29/18 11:15 15:25 Temp 96.5 96.5 Pulse 98 86 Resp 22 18 B/P (MAP) 136/106 (116) 96/64 (75) Pulse Ox 96 98 O2 Delivery OxyMask Nasal Cannula O2 Flow Rate 10.00 4.00 Capillary Refill : Departure Communication (Admissions) Time/Spoke to Admitting Phy: 13:[address] Lund who is on-call for [facility]. We will admit for recurrent pneumonia, consult Dr. Gonzales and Dr. Castro. Time/Spoke to Consulting Phy: 13:[address] Waters. He agrees to consult and wishes to ensure that the patient did have his Plavix today. I confirmed with the patient that he did take his morning dose of Plavix and has been compliant with taking it. 1552- floor RN has called to report that patient is hypotensive at 80s systolic now. Fluids were initially withheld due to his history of CHF and absence of hypotension here. However we'll give 1 L bolus, all further orders per admitting physician. Impression Primary Impression: Recurrent pneumonia Additional Impressions: Sepsis COPD (chronic obstructive pulmonary disease) Disposition: 01 HOME, SELF-CARE Condition: Stable Admissions Decision to Admit Reason: Admit from ER (General) Decision to Admit/Date: Nov 29, 2018 Time/Decision to Admit Time: 13:00 Departure-Patient Inst. Referrals: [facility] (PCP) Primary Care Physician DARIELA SORENSON APRN Nov 29, 2018 11:34
[2018-11-29 11:35] LABS: ABG OXYGEN SATURATION 99 % (94-100); ABG PCO2 35 MMHG (35-45); ABG PH 7.52 (7.37-7.43); ABG PO2 137 MMHG (79-93); ABG TCO2 29.4 MMOL/L (21.0-31.0)
[2018-11-29 11:36] LABS: ALLENS TEST YES-POS; INSPIRED O2 6; PATIENT TEMP 96.5; VENTILATOR NO
[2018-11-29 11:50] LABS: LYMPHOCYTES % (MANUAL) 9 %; NEUTROPHILS % (MANUAL) 85 %
[2018-11-29 11:51] LABS: MONOCYTES % (MANUAL) 6 %; RBC MORPH NORMAL
[2018-11-29 11:54] LABS: ALBUMIN 3.8 GM/DL (3.2-4.5); BILIRUBIN,TOTAL 1.6 MG/DL (0.1-1.0); CALCIUM 9.4 MG/DL (8.5-10.1); CREATININE SERUM 1.23 MG/DL (0.60-1.30); TOTAL PROTEIN 6.6 GM/DL (6.4-8.2)
[2018-11-29 12:26] LABS: BILIRUBIN,URINE NEGATIVE (NEGATIVE); CLARITY,URINE CLEAR; COLOR,URINE YELLOW; GLUCOSE, URINE (UA) NEGATIVE (NEGATIVE); KETONES,URINE NEGATIVE (NEGATIVE); LEUKOCYTE ESTERASE ,URINE NEGATIVE (NEGATIVE); NITRITE,URINE NEGATIVE (NEGATIVE); PH,URINE 7 (5-9); PROTEIN,URINE NEGATIVE (NEGATIVE); UROBILINOGEN,URINE NORMAL (NORMAL)
--- NOTE | 2018-11-29 12:27 | Diagnostic Imaging Report ---
Indication: Low oxygen and respiratory problems. Time of exam 12:05 PM Correlation is made to prior study 11/24/2018. The heart size is stable. Lungs are hyperinflated. Infiltrate in the lung bases persist, greater on the right however this is improved when compared to examination from 5 days earlier. No new infiltrate is seen. Mid and upper lung moreno are clear. Impression: Bibasilar infiltrates do show some mild improvement when compared to examination 5 days earlier. Dictated by: Dictated on workstation # [id number]
[2018-11-29 12:32] LABS: BACTERIA,URINE NEGATIVE /HPF
--- NOTE | 2018-11-29 13:12 | History & Physical-Hospitalist ---
History of Present Illness HPI/Chief Complaint CC: Dyspnea HPI: This is a 78-year-old white male [facility] patient who is known to me from recent hospital stay for pneumonia, non-ST elevation status post stented coronary artery and elevated BNP who presents to the ER with hypoxia when he saw Dr. Agustin a [facility] for a follow-up visit. He was that 80 percent at the clinic but when he arrived to the ER he was found to be stable but having bilateral infiltrates elevated white count and elevated lactic acid along with elevated troponin and BNP he met criteria for hospital stay and pulmonary and cardiology consultation along with [facility] placement arrangements. He does live with his son and tokhpyzm-yq-exu but it appears that he has declined since going home and may very well need skilled care. Source: patient, family, RN/MD Exam Limitations: no limitations Date Seen 11/29/18 Time Seen by a Provider: 13:00 Attending Physician PCP Zenda/Loretta,[facility] Referring Physician Date of Admission Home Medications & Allergies Home Medications Reviewed patient Home Medication Reconciliation performed by pharmacy medication reconciliations oscillograph technician and/or nursing. Patients Allergies have been reviewed. Allergies Allergies Coded Allergies No Known Drug Allergies (Unverified11/18/18) Past Ilacuzo-Yylcjz-Vhouat Hx Past Med/Social Hx: Reviewed Nursing Past Med/Soc Hx, Reviewed and Corrections made Patient Social History Marrital Status: single Employed/Student: retired Alcohol Use: Past History Number of Drinks Today: AA Alcohol Beverage of Choice: Beer Recreational Drug Use: No Smoking Status: Former Smoker (quit 11/09) Type Used: Cigarettes 2nd Hand Smoke Exposure: Yes Recent Foreign Travel: No Contact w/other who traveled: No Recent Hopitalizations: No Recent Infectious Disease Expo: No Immunizations Up To Date Tetanus Booster (TDap): Unknown Date of Pneumonia Vaccine: Sep 21, 2014 Date of Influenza Vaccine: Jun 21, 2018 Seasonal Allergies Seasonal Allergies: No Past Medical History Surgeries: Coronary Stent Currently Using CPAP: No Currently Using BIPAP: No Cardiac: Atrial Fibrillation, Coronary Artery Disease, High Cholesterol Reproductive: No Gastrointestinal: Liver Disease/Jaundice, Hepatitis Musculoskeletal: Arthritis History of Blood Disorders: No Family History Diabetes mellitus 19 FATHER SON Neoplasm G8 SISTER Review of Systems Constitutional: see HPI, weakness EENTM: no symptoms reported Respiratory: dyspnea on exertion, wheezing Cardiovascular: no symptoms reported Gastrointestinal: loss of appetite Genitourinary: no symptoms reported Musculoskeletal: no symptoms reported Skin: no symptoms reported Psychiatric/Neurological: No Symptoms Reported All Other Systems Reviewed Negative Unless Noted: Yes Physical Exam Physical Exam Vital Signs Vital Signs - First Documented 11/29/18 11:15 Temp 96.5 Pulse 98 Resp 22 B/P (MAP) 136/106 (116) Pulse Ox 96 O2 Delivery OxyMask O2 Flow Rate 10.00 Capillary Refill : Less Than 3 Seconds Height, Weight, BMI Height: 5'10.00" Weight: 133lbs. 6.0oz. 60.347222hq; 19.1 BMI Method:Stated General Appearance: No Apparent Distress, Chronically ill, Thin Eyes: Right Eye Normal Inspection, Right Eye PERRL HEENT: PERRL/EOMI, Normal ENT Inspection, Pharynx Normal, Moist Mucous Membranes Neck: Full Range of Motion, Normal Inspection, Non Tender Respiratory: Chest Non Tender, Accessory Muscle Use, Crackles, Decreased Breath Sounds, Rales, Wheezing Cardiovascular: Regular Rate, Rhythm, No Edema, No Gallop, No JVD, No Murmur, Normal Peripheral Pulses Gastrointestinal: Normal Bowel Sounds, No Organomegaly, No Pulsatile Mass, Non Tender, Soft Back: Normal Inspection, No CVA Tenderness, No Vertebral Tenderness Extremity: Normal Capillary Refill, Normal Inspection, Normal Range of Motion, Non Tender, No Calf Tenderness, No Pedal Edema Neurologic/Psychiatric: Alert, Oriented x3, No Motor/Sensory Deficits, Normal Mood/Affect, Other (tremor noted right hand) Skin: Normal Color, Warm/Dry Lymphatic: No Adenopathy Results Results/Procedures Labs Laboratory Tests 11/29/18 11:20 Patient resulted labs reviewed. Assessment/Plan Admission Diagnosis Assessment: Recurrent bibasilar pneumonia Hypoxia Elevated troponin Recent stent and coronary artery Status post non-ST elevation ND Elevated BNP Parkinson's Cachexia Former smoker quit last week Home O2 dependent Plan: Readmit Cardiology and pulmonology consultations Social work for placement in skilled facility at discharge Maintain oxygen Nebulizer treatments Antibiotics Admission Status: Inpatient Order (span 2 midnights) Reason for Inpatient Admission: Recurrent pneumonia failed home Diagnosis/Problems Diagnosis/Problems (1) Recurrent pneumonia Status: Acute (2) Cachexia Status: Chronic (3) Former smoker Status: Chronic (4) RESPIRATORY FAILURE, UNSP, UNSP W HYPOXIA OR HYPERCAPNIA Status: Acute (5) Anxiety Status: Acute (6) Parkinson disease Status: Chronic (7) Elevated troponin Status: Acute (8) Atrial fibrillation, chronic Status: Chronic (9) Congestive heart failure Status: Acute Qualifiers: Heart failure type: unspecified Heart failure chronicity: unspecified Qualified Codes: I50.9 - Heart failure, unspecified (10) Hypertension Status: Chronic Qualifiers: Hypertension type: essential hypertension Qualified Codes: I10 - Essential (primary) hypertension (11) COPD (chronic obstructive pulmonary disease) Status: Chronic Qualifiers: COPD type: unspecified COPD Qualified Codes: J44.9 - Chronic obstructive pulmonary disease, unspecified (12) Stented coronary artery Status: Acute NIYAH SHARP DO Nov 29, 2018 13:12
[2018-11-29] MEDS ORDERED: ASPIRIN 81 MG CHEW (CHILDREN'S ASA) PO ONE (13:30)
--- NOTE | 2018-11-29 13:35 | NUR ---
MEAL TRAY RECIEVED. ASSISTED PT TO SIDE OF ED CART.
--- NOTE | 2018-11-29 13:50 | NUR ---
PT TOLERATED FOOD WELL.
--- NOTE | 2018-11-29 14:31 | NUR ---
1430: BP 87/65 BP CUFF REPOSITIONED. 1431: BP 115/74
[2018-11-29] MEDS ORDERED: PIPERACILLIN/TAZOBACTAM (BULK) 4.5 GM in NS (IVPB) 100 ML IV ONE (14:45)
--- NOTE | 2018-11-29 15:25 | NUR ---
1524: BP 75/62 BP CUFF REPOSITIONED 1525: BP 96/64
--- NOTE | 2018-11-29 15:45 | NUR ---
patient's bp-89/54 pulse tachy at
--- NOTE | 2018-11-29 15:45 | NUR ---
NOTE this is an extension of linked note. Called Down to ER to ask patient's primary ER nurse if patient had any fluids given in the ER. Notified her that patient's bp is now hypotensive at 89/54 and patient's heart rate is tachy. TECHNICIAN [employer]MENT states she will talk with Chela the ER ENGLISH AND READING INSTRUCTOR and call me back. Flakito calls this RN back and states to give a 1 time 1L LR bolus at a rate of 500ml/hr then go back to running lr at 100ml/hr. Will carry out orders and continue to monitor.
[2018-11-29] MEDS ORDERED: D5 LR IV SOLUTION 1,000 ML IV ONE (16:00)
[2018-11-29] MEDS ORDERED: LACTATED RINGERS 1,000 ML IV SCH ×3 (16:00→16:30)
--- NOTE | 2018-11-29 16:08 | Consultation-Cardiology ---
HPI-Cardiology Cardiology Consultation: Date of Consultation 11/29/18 Time Seen by a Provider: 16:00 Date of Admission 11-29-18 Attending Physician Akua Lund DO Admitting Physician [place] Consulting Physician Dejan Castro MD HPI: Chief Complaint: Hypoxia Elevated troponin Mr. Freitas is a 78 year old male admitted to [facility] from the ED. He has family x 2 at the bedside. He reports he was seen at [facility] for his f/u appt. His oxygen sat was low at 83% with oxygen. They increased his O2 and were unable to raise his oxygen sats therefore he was sent to the ED. His family reports he has not been sleeping well secondary to steroids. He reports feeling weak and tired. He denies any c/o CP, palpitations, syncope, or near syncope. He reports he has been compliant with his medications. He reports no cough at home , but has been coughing occ since he has been admitted. Review of Systems-Cardiology Review of Systems Constitutional: No chills, No fever; malaise Eyes: No vision change Ears/Nose/Throat: No epistaxis, No recent hearing loss Respiratory: As described under HPI Cardiovascular: As described under HPI Gastrointestinal: No constipation, No diarrhea, No nausea, No vomiting Genitourinary: No dysuria, No hematuria Musculoskeletal: no symptoms reported Skin: No rash, No ulcerations Psychiatric/Neurological: other (chronic tremors of upper extremities); No anxiety, No depression, No seizure, No focal weakness, No syncope Hematologic: No bleeding abnormalities All Other Systems Reviewed Negative Unless Noted: Yes OAK-Nvyhsu-Qzibkw Hx Patient Social History Marrital Status: single Employed/Student: retired Alcohol Use: Past History Recreational Drug Use: No Smoking Status: Former Smoker (quit 11/09) Type Used: Cigarettes 2nd Hand Smoke Exposure: Yes Recent Foreign Travel: No Recent Infectious Disease Expo: No Hospitalization with Isolation: Denies Immunizations Up To Date Tetanus Booster (TDap): Unknown Date of Pneumonia Vaccine: Sep 21, 2014 Date of Influenza Vaccine: Jun 21, 2018 Past Medical History PMH As described under Assessment. Family Medical History Family Medical History: No known h/o CAD. Reports family h/o cancer. Family History: Diabetes mellitus 19 FATHER SON Neoplasm G8 SISTER Allergies and Home Medications Allergies Coded Allergies: No Known Drug Allergies (Unverified , 11/18/18) Home Medications Apixaban 5 Mg Tablet, 5 MG PO BID, (Reported) Atorvastatin Calcium 40 Mg Tablet, 40 MG PO HS, (Reported) Clopidogrel Bisulfate 75 Mg Tablet, 75 MG PO DAILY, (Reported) Dextromethorphan Polistirex 30 Mg/5 Ml Samanta.er.12h, 10 ML PO Q12H PRN for COUGH, (Reported) Digoxin 125 Mcg Tablet, 125 MCG PO DAILY, (Reported) Fluticasone/Salmeterol 12 Gm Hfa.aer.ad, 2 PUFF IH BID, (Reported) Furosemide 40 Mg Tablet, 40 MG PO DAILY, (Reported) Ipratropium/Albuterol Sulfate 3 Ml Ampul.neb, 3 ML NEB QID PRN for SHORTNESS OF BREATH, (Reported) Lisinopril 40 Mg Tablet, 40 MG PO DAILY, (Reported) Metoprolol Succinate 25 Mg Tab.er.24h, 25 MG PO BID, (Reported) Potassium Chloride 20 Meq Tablet.er, 20 MEQ PO DAILY, (Reported) Prednisone 10 Mg Tab, 0 PO UD Take 4 tabs(40mg)daily, decrease by 1 tab(10mg) every other day. Prescribed by: HOME MARCOS on 11/24/18 1301 Tramadol HCl 50 Mg Tablet, 50 MG PO BID PRN for PAIN-MODERATE, (Reported) Physical Exam-Cardiology Physical Exam Vital Signs/I&O 11/29/18 11/29/18 11/29/18 11/29/18 20:00 20:00 21:55 23:23 Temp 98.1 98.3 Pulse 94 95 Resp 18 18 B/P (MAP) 96/59 (71) 109/58 (75) Pulse Ox 95 98 98 O2 Delivery Nasal Cannula Nasal Cannula Nasal Cannula Nasal Cannula O2 Flow Rate 1.00 1.00 0.50 0.50 11/29/18 11/30/18 11/30/18 11/30/18 23:50 01:00 02:53 04:08 Temp 98.5 98.2 Pulse 93 94 106 Resp 20 18 B/P (MAP) 100/65 (77) 110/76 (87) Pulse Ox 98 98 97 O2 Delivery Nasal Cannula Nasal Cannula Nasal Cannula O2 Flow Rate 0.50 0.50 0.50 11/30/18 00:00 Intake Total 1742.5 ml Output Total 200 ml Balance 1542.5 ml Capillary Refill : Less Than 3 Seconds Constitutional: AAO x 3, other (thin) HEENT: PERRL, hearing is well preserved Neck: No carotid bruit; carotid pulses are 2 + bilaterally Respiratory: No accessory muscle use, No respiratory distress; other ( diminished lower lobes bilat) Cardiovascular: irregularly irregular; No JVD; S1 and S2 Gastrointestinal: No tender; soft, round Rectal: deferred Extremities: no lower extremity edema bilateral Neurologic/Psychiatric: other (chronic resting tremors of upper extremities), grossly intact, power is 5/5 both on sides Skin: warm/dry; No rash, No ulcerations Data Review Labs Laboratory Tests 11/29/18 10:26: Digoxin Level 0.60L 11/29/18 11:20: White Blood Count 26.0H, Red Blood Count 3.71L, Hemoglobin 11.7L, Hematocrit 36L , Mean Corpuscular Volume 97, Mean Corpuscular Hemoglobin 32, Mean Corpuscular Hemoglobin Concent 33, Red Cell Distribution Width 13.7, Platelet Count 494H, Mean Platelet Volume 9.2, Neutrophils (%) (Auto) 85H, Lymphocytes (%) (Auto) 9L , Monocytes (%) (Auto) 6, Eosinophils (%) (Auto) 0, Basophils (%) (Auto) 0, Neutrophils # (Auto) 22.2H, Lymphocytes # (Auto) 2.3, Monocytes # (Auto) 1.5H, Eosinophils # (Auto) 0.0, Basophils # (Auto) 0.0, Neutrophils % (Manual) 85, Lymphocytes % (Manual) 9, Monocytes % (Manual) 6, Blood Morphology Comment NORMAL, Sodium Level 138, Potassium Level 4.0, Chloride Level 98, Carbon Dioxide Level 28, Anion Gap 12, Blood Urea Nitrogen 27H, Creatinine 1.23, Estimat Glomerular Filtration Rate 57, BUN/Creatinine Ratio 22, Glucose Level 96 , Lactic Acid Level 2.47*H, Calcium Level 9.4, Corrected Calcium 9.6, Total Bilirubin 1.6H, Aspartate Amino Transf (AST/SGOT) 20, Alanine Aminotransferase ( ALT/SGPT) 26, Alkaline Phosphatase 65, Troponin I 0.419*H, B-Type Natriuretic Peptide 595.1H, Total Protein 6.6, Albumin 3.8 11/29/18 11:29: Blood Gas Puncture Site R BRACH, Blood Gas Patient Temperature 96.5, Arterial Blood pH 7.52H, Arterial Blood Partial Pressure CO2 35, Arterial Blood Partial Pressure O2 137H, Arterial Blood HCO3 28H, Arterial Blood Total CO2 29.4, Arterial Blood Oxygen Saturation 99, Arterial Blood Base Excess 5.0H, Richard Test YES-POS, Blood Gas Ventilator Setting NO, Blood Gas Inspired Oxygen 6 11/29/18 12:21: Urine Color YELLOW, Urine Clarity CLEAR, Urine pH 7, Urine Specific [place] 1.010L, Urine Protein NEGATIVE, Urine Glucose (UA) NEGATIVE, Urine Ketones NEGATIVE, Urine Nitrite NEGATIVE, Urine Bilirubin NEGATIVE, Urine Urobilinogen NORMAL, Urine Leukocyte Esterase NEGATIVE, Urine RBC (Auto) NEGATIVE, Urine RBC NONE, Urine WBC NONE, Urine Crystals NONE, Urine Bacteria NEGATIVE, Urine Casts NONE, Urine Mucus NEGATIVE, Urine Culture Indicated NO 11/29/18 13:09: Lactic Acid Level 0.73 11/30/18 03:45: White Blood Count 11.8H, Red Blood Count 3.63L, Hemoglobin 11.3L, Hematocrit 35L , Mean Corpuscular Volume 96, Mean Corpuscular Hemoglobin 31, Mean Corpuscular Hemoglobin Concent 32, Red Cell Distribution Width 13.4, Platelet Count 421H, Mean Platelet Volume 9.3, Neutrophils (%) (Auto) 94H, Lymphocytes (%) (Auto) 5L , Monocytes (%) (Auto) 2, Eosinophils (%) (Auto) 0, Basophils (%) (Auto) 0, Neutrophils # (Auto) 11.0H, Lymphocytes # (Auto) 0.5L, Monocytes # (Auto) 0.2, Eosinophils # (Auto) 0.0, Basophils # (Auto) 0.0, Sodium Level 138, Potassium Level 3.9, Chloride Level 99, Carbon Dioxide Level 26, Anion Gap 13, Blood Urea Nitrogen 29H, Creatinine 1.11, Estimat Glomerular Filtration Rate > 60, BUN/ Creatinine Ratio 26, Glucose Level 178H, Calcium Level 8.9, Corrected Calcium 9.4, Magnesium Level 1.7L, Total Bilirubin 1.3H, Aspartate Amino Transf (AST/ SGOT) 19, Alanine Aminotransferase (ALT/SGPT) 23, Alkaline Phosphatase 60, Total Protein 6.0L, Albumin 3.4, Digoxin Level 0.58L Radiology NAME: DANNY FREITAS REC#: [id number] PT STATUS: REG ER : 1940 PHYSICIAN: DARIELA SORENSON APRN ADMIT DATE: 11/29/18/ER Draft Date of Exam:11/29/18 CHEST 1 VIEW, AP/PA ONLY Indication: Low oxygen and respiratory problems. Time of exam 12:05 PM Correlation is made to prior study 11/24/2018. The heart size is stable. Lungs are hyperinflated. Infiltrate in the lung bases persist, greater on the right however this is improved when compared to examination from 5 days earlier. No new infiltrate is seen. Mid and upper lung moreno are clear. Impression: Bibasilar infiltrates do show some mild improvement when compared to examination 5 days earlier. Dictated on workstation # [id number] Dict: 11/29/18 1223 Trans: 11/29/18 1227 [facility] [id number] Interpreted by: JOSE GEE MD Electronically signed by: ECG Impression ECG Initial ECG Impression: Atrial Fibrillation A/P-Cardiology Assessment/Admission Diagnosis Pneumonia with sepsis- management per medical services Elevated troponin - likely r/t recent coronary intervention as noted below, trending down CAD: Cath of 11/19/18 showed 99% ostial LAD that was stented with Rimma 3 x 18; other cors had mild to mod stenoses Ischemic dilated cardiomyopathy. Echocardiogram of 11-18-18 showed LVEF 30-35%. LA dilated. Mild AoR. Mod to severe TR. PASP 40mmHg Acute on chronic systolic CHF Chronic a-fib - controlled Apixaban for stroke prophylaxis COPD Tobaccoism - cessation advised - he has been refraining Chronic resting tremor TSH of 11-18-18 WNL Discussion and Recomendations Pneumonia with sepsis - management per medical services Mild troponin elevated likely d/t recent coronary intervention and/or hypoxia Continue Plavix d/t know h/o CAD with recent stent placement Chronic a-fib - continue OAC for stroke prophylaxis; resume Dig Hypotension - hold anti-hypertensives for now (Lisinopril and BB) - receiving IVF Acute on chronic systolic CHF - give Lasix as indicated and tolerated Monitor lab closely Further recs will be based on hospital course We would like to thank medical services for this consult SUSHMA JORGE Nov 29, 2018 16:08
[2018-11-29] MEDS: LACTATED RINGERS 1,000 ML IV SCH ×2 (16:12→18:27)
[2018-11-29] MEDS ORDERED: IPRA3AMP31 NEB (16:23)
[2018-11-29] MEDS ORDERED: DIGO125T PO (16:23)
[2018-11-29] MEDS ORDERED: POTA-51 PO (16:23)
[2018-11-29] MEDS ORDERED: ATOR40TA70 PO (16:23)
[2018-11-29] MEDS ORDERED: CLOP75TA69 PO (16:23)
[2018-11-29] MEDS ORDERED: FURO40TA4 PO (16:23)
[2018-11-29] MEDS ORDERED: FLUT12AE4 IH (16:23)
[2018-11-29] MEDS ORDERED: APIX5TAB PO (16:23)
--- NOTE | 2018-11-29 16:24 | NUR ---
REVIEWED MED REC IT WAS ORDERED UPON RECENT DISCHARGE. DID NOT RE INTERVIEW THE PATIENT AT THIS TIME.
--- NOTE | 2018-11-29 17:08 | Pulmonary Consultation ---
History of Present Illness History of Present Illness Date of Consultation 11/29/18 17:04 Date of Admission Allergies and Home Medications Allergies Coded Allergies: No Known Drug Allergies (Unverified , 11/18/18) Home Medications Apixaban 5 Mg Tablet, 5 MG PO BID, (Reported) Atorvastatin Calcium 40 Mg Tablet, 40 MG PO HS, (Reported) Clopidogrel Bisulfate 75 Mg Tablet, 75 MG PO DAILY, (Reported) Dextromethorphan Polistirex 30 Mg/5 Ml Samanta.er.12h, 10 ML PO Q12H PRN for COUGH, (Reported) Digoxin 125 Mcg Tablet, 125 MCG PO DAILY, (Reported) Fluticasone/Salmeterol 12 Gm Hfa.aer.ad, 2 PUFF IH BID, (Reported) Furosemide 40 Mg Tablet, 40 MG PO DAILY, (Reported) Ipratropium/Albuterol Sulfate 3 Ml Ampul.neb, 3 ML NEB QID PRN for SHORTNESS OF BREATH, (Reported) Lisinopril 40 Mg Tablet, 40 MG PO DAILY, (Reported) Metoprolol Succinate 25 Mg Tab.er.24h, 25 MG PO BID, (Reported) Potassium Chloride 20 Meq Tablet.er, 20 MEQ PO DAILY, (Reported) Prednisone 10 Mg Tab, 0 PO UD Take 4 tabs(40mg)daily, decrease by 1 tab(10mg) every other day. Prescribed by: HOME MARCOS on 11/24/18 1301 Tramadol HCl 50 Mg Tablet, 50 MG PO BID PRN for PAIN-MODERATE, (Reported) Past Wqfogkq-Tcfrcu-Biekyp Hx Past Med/Social Hx: Reviewed Nursing Past Med/Soc Hx, Reviewed and Corrections made Patient Social History Alcohol Use: Past History Number of Drinks Today: AA Alcohol Beverage of Choice: Beer Recreational Drug Use: No Smoking Status: Former Smoker (quit 11/09) Type Used: Cigarettes 2nd Hand Smoke Exposure: Yes Recent Foreign Travel: No Contact w/Someone Who Travel: No Recent Infectious Disease Expo: No Recent Hopitalizations: No Immunizations Up To Date Tetanus Booster (TDap): Unknown Date of Pneumonia Vaccine: Sep 21, 2014 Date of Influenza Vaccine: Jun 21, 2018 Seasonal Allergies Seasonal Allergies: No Past Medical History Surgeries: Yes (dental) Coronary Stent Respiratory: Yes COPD Currently Using CPAP: No Currently Using BIPAP: No Cardiac: Yes Atrial Fibrillation, Coronary Artery Disease, High Cholesterol Neurological: Yes Reproductive Disorders: No Genitourinary: No Gastrointestinal: Yes Liver Disease/Jaundice, Hepatitis Musculoskeletal: Yes Arthritis Endocrine: No HEENT: No Cancer: No Psychosocial: No Integumentary: No Blood Disorders: No Family Medical History Diabetes mellitus 19 FATHER SON Neoplasm G8 SISTER Sepsis Event Evaluation Height, Weight, BMI Height: 5'10.00" Weight: 133lbs. 6.0oz. 60.038172ad; 19.1 BMI Method:Stated Exam Exam Vital Signs Date Time Temp Pulse Resp B/P (MAP) Pulse Ox O2 Delivery O2 Flow Rate FiO2 11/29/18 16:48 90 11/29/18 15:25 96.5 86 18 96/64 (75) 98 Nasal Cannula 4.00 11/29/18 13:00 98 Nasal Cannula 4.00 11/29/18 11:15 96 OxyMask 10.00 11/29/18 11:15 96.5 98 22 136/106 (116) 96 OxyMask 10.00 Height & Weight Height: 5'10.00" Weight: 133lbs. 6.0oz. 60.289125cv; 19.1 BMI Method:Stated General Appearance: No Apparent Distress, WD/WN, Other (speaks in full sentences, alert and oriented, no obvious distress) HEENT: PERRL/EOMI, TMs Normal Neck: Full Range of Motion, Normal Inspection Respiratory: Chest Non Tender, Decreased Breath Sounds Cardiovascular: Regular Rate, Rhythm, Normal Peripheral Pulses Capillary Refill: Less Than 3 Seconds Extremity: Normal Capillary Refill, Normal Inspection, No Pedal Edema Neurologic/Psychiatric: Alert, Oriented x3 Skin: Normal Color, Warm/Dry Lymphatic: No Adenopathy Results Lab Laboratory Tests 11/29/18 11:20 Assessment/Plan Assessment/Plan Recurrent Bibasilar PNA with sepsis -Zosyn - add vanco -Eddy culture -30cc/kg -IVF COPDAE with hypoxia with home oxygen - Solumedrol -Oxygen -SVNS NSTEMI -Cardiology following CHF EF 35% with bilateral pleural effusions -Monitor Dehydration -IVF ILD per CT chest -Will continue to follow as out patient. Tobacco use -Education -will do out patient testing Hypoxia -Pt does have home 02 -out patient testing Elevated troponin CAD - with stents Parkinsons Cachexia DARIN RENEE DO Nov 29, 2018 17:08
[2018-11-29] MEDS ORDERED: PHARMACY TO DOSE IV SCH (17:15)
[2018-11-29] MEDS: methylPREDNISolone 125 MG (Solu-MEDROL) VIAL IV SCH ×2 (17:18→23:37)
[2018-11-29] MEDS ORDERED: VANCOMYCIN 1250 MG/NS 250 ML IVPB IV NR ×2 (18:00)
--- NOTE | 2018-11-29 18:04 | NUR ---
VANCOMYCIN DOSING SCR 1.23; CRCL ~ 42; BOLUS VANC 20 MG/KG X 60 KG ~ 1250 MG THEN 15 MG/KG ~ 1 GM Q24H CHECK TROUGH LEVEL BEFORE 3RD DOSE 12/01 1700 HOLD DOSE AND CONTACT PHARMACY IF LEVEL IS GREATER THAN 20
--- NOTE | 2018-11-29 18:53 | Consultation-Cardiology ---
HPI-Cardiology Cardiology Consultation: Date of Consultation 11/29/18 Time Seen by a Provider: 18:40 Date of Admission Attending Physician Akua Lund DO Admitting Physician [place]/[facility] Consulting Physician MINDI FLORES MD, MA, FACP, FACC, [facility], [facility] Physician requesting consult: Dr Lund HPI: Chief Complaint: Hypoxia Elevated troponin Mr. Salmeron is a 78 year old male admitted to [facility] from the ED. He has family x 2 at the bedside. He reports he was seen at [facility] for his f/u appt. His oxygen sat was low at 83% with oxygen. They increased his O2 and were unable to raise his oxygen sats therefore he was sent to the ED. His family reports he has not been sleeping well secondary to steroids. He reports feeling weak and tired. He denies any c/o CP, palpitations, syncope, or near syncope. He reports he has been compliant with his medications. He reports no cough at home , but has been coughing occ since he has been admitted. Review of Systems-Cardiology Review of Systems Constitutional: No chills, No fever; malaise Eyes: No vision change Ears/Nose/Throat: No epistaxis, No recent hearing loss Respiratory: As described under HPI Cardiovascular: As described under HPI Gastrointestinal: No constipation, No diarrhea, No nausea, No vomiting Genitourinary: No dysuria, No hematuria Musculoskeletal: no symptoms reported Skin: No rash, No ulcerations Psychiatric/Neurological: other (chronic tremors of upper extremities); No anxiety, No depression, No seizure, No focal weakness, No syncope Hematologic: No bleeding abnormalities All Other Systems Reviewed Negative Unless Noted: Yes [id number]-[id number]-Nzepic Hx Patient Social History Marrital Status: single Employed/Student: retired Alcohol Use: Past History Recreational Drug Use: No Smoking Status: Former Smoker (quit 11/09) Type Used: Cigarettes 2nd Hand Smoke Exposure: Yes Recent Foreign Travel: No Recent Infectious Disease Expo: No Hospitalization with Isolation: Denies Immunizations Up To Date Tetanus Booster (TDap): Unknown Date of Pneumonia Vaccine: Jul 01, 2018 Date of Influenza Vaccine: Jul 01, 2018 Past Medical History PMH As described under Assessment. Family Medical History Family Medical History: No known h/o CAD. Reports family h/o cancer. Family History: Diabetes mellitus 19 FATHER SON Neoplasm G8 SISTER Allergies and Home Medications Allergies Coded Allergies: No Known Drug Allergies (Unverified , 11/18/18) Home Medications Apixaban 5 Mg Tablet, 5 MG PO BID, (Reported) Atorvastatin Calcium 40 Mg Tablet, 40 MG PO HS, (Reported) Clopidogrel Bisulfate 75 Mg Tablet, 75 MG PO DAILY, (Reported) Dextromethorphan Polistirex 30 Mg/5 Ml Samanta.er.12h, 10 ML PO Q12H PRN for COUGH, (Reported) Digoxin 125 Mcg Tablet, 125 MCG PO DAILY, (Reported) Fluticasone/Salmeterol 12 Gm Hfa.aer.ad, 2 PUFF IH BID, (Reported) Furosemide 40 Mg Tablet, 40 MG PO DAILY, (Reported) Ipratropium/Albuterol Sulfate 3 Ml Ampul.neb, 3 ML NEB QID PRN for SHORTNESS OF BREATH, (Reported) Lisinopril 40 Mg Tablet, 40 MG PO DAILY, (Reported) Metoprolol Succinate 25 Mg Tab.er.24h, 25 MG PO BID, (Reported) Potassium Chloride 20 Meq Tablet.er, 20 MEQ PO DAILY, (Reported) Prednisone 10 Mg Tab, 0 PO UD Take 4 tabs(40mg)daily, decrease by 1 tab(10mg) every other day. Prescribed by: HOME MARCOS on 11/24/18 1301 Tramadol HCl 50 Mg Tablet, 50 MG PO BID PRN for PAIN-MODERATE, (Reported) Patient Home Medication List Home Medication List Reviewed: Yes Physical Exam-Cardiology Physical Exam Vital Signs/I&O 11/29/18 11/29/18 11/29/18 11/29/18 11:15 11:15 13:00 15:25 Temp 96.5 96.5 Pulse 98 86 Resp 22 18 B/P (MAP) 136/106 (116) 96/64 (75) Pulse Ox 96 96 98 98 O2 Delivery OxyMask OxyMask Nasal Cannula Nasal Cannula O2 Flow Rate 10.00 10.00 4.00 4.00 11/29/18 11/29/18 11/29/18 11/29/18 16:48 17:06 17:06 17:28 Temp 96.5 Pulse 90 92 92 Resp 18 B/P (MAP) 100/60 Pulse Ox 100 100 100 O2 Delivery Nasal Cannula Nasal Cannula O2 Flow Rate 4.00 4.00 4.00 FiO2 36 Capillary Refill : Less Than 3 Seconds Constitutional: AAO x 3, other (thin) HEENT: PERRL, hearing is well preserved Neck: No carotid bruit; carotid pulses are 2 + bilaterally Respiratory: No accessory muscle use, No respiratory distress; other ( diminished lower lobes bilat) Cardiovascular: irregularly irregular; No JVD; S1 and S2 Gastrointestinal: No tender; soft, round Rectal: deferred Extremities: no lower extremity edema bilateral Neurologic/Psychiatric: other (chronic resting tremors of upper extremities), grossly intact, power is 5/5 both on sides Skin: warm/dry; No rash, No ulcerations Data Review Labs Laboratory Tests 11/29/18 10:26: Digoxin Level 0.60L 11/29/18 11:20: White Blood Count 26.0H, Red Blood Count 3.71L, Hemoglobin 11.7L, Hematocrit 36L , Mean Corpuscular Volume 97, Mean Corpuscular Hemoglobin 32, Mean Corpuscular Hemoglobin Concent 33, Red Cell Distribution Width 13.7, Platelet Count 494H, Mean Platelet Volume 9.2, Neutrophils (%) (Auto) 85H, Lymphocytes (%) (Auto) 9L , Monocytes (%) (Auto) 6, Eosinophils (%) (Auto) 0, Basophils (%) (Auto) 0, Neutrophils # (Auto) 22.2H, Lymphocytes # (Auto) 2.3, Monocytes # (Auto) 1.5H, Eosinophils # (Auto) 0.0, Basophils # (Auto) 0.0, Neutrophils % (Manual) 85, Lymphocytes % (Manual) 9, Monocytes % (Manual) 6, Blood Morphology Comment NORMAL, Sodium Level 138, Potassium Level 4.0, Chloride Level 98, Carbon Dioxide Level 28, Anion Gap 12, Blood Urea Nitrogen 27H, Creatinine 1.23, Estimat Glomerular Filtration Rate 57, BUN/Creatinine Ratio 22, Glucose Level 96 , Lactic Acid Level 2.47*H, Calcium Level 9.4, Corrected Calcium 9.6, Total Bilirubin 1.6H, Aspartate Amino Transf (AST/SGOT) 20, Alanine Aminotransferase ( ALT/SGPT) 26, Alkaline Phosphatase 65, Troponin I 0.419*H, B-Type Natriuretic Peptide 595.1H, Total Protein 6.6, Albumin 3.8 11/29/18 11:29: Blood Gas Puncture Site R BRACH, Blood Gas Patient Temperature 96.5, Arterial Blood pH 7.52H, Arterial Blood Partial Pressure CO2 35, Arterial Blood Partial Pressure O2 137H, Arterial Blood HCO3 28H, Arterial Blood Total CO2 29.4, Arterial Blood Oxygen Saturation 99, Arterial Blood Base Excess 5.0H, Richard Test YES-POS, Blood Gas Ventilator Setting NO, Blood Gas Inspired Oxygen 6 11/29/18 12:21: Urine Color YELLOW, Urine Clarity CLEAR, Urine pH 7, Urine Specific [place] 1.010L, Urine Protein NEGATIVE, Urine Glucose (UA) NEGATIVE, Urine Ketones NEGATIVE, Urine Nitrite NEGATIVE, Urine Bilirubin NEGATIVE, Urine Urobilinogen NORMAL, Urine Leukocyte Esterase NEGATIVE, Urine RBC (Auto) NEGATIVE, Urine RBC NONE, Urine WBC NONE, Urine Crystals NONE, Urine Bacteria NEGATIVE, Urine Casts NONE, Urine Mucus NEGATIVE, Urine Culture Indicated NO 11/29/18 13:09: Lactic Acid Level 0.73 A/P-Cardiology Assessment/Admission Diagnosis Pneumonia with sepsis- management per medical services Elevated troponin - likely on the downward trend from recent NSTEMI CAD: Cath of 11/19/18 showed 99% ostial LAD that was stented with Rimma 3 x 18; other cors had mild to mod stenoses Ischemic dilated cardiomyopathy. Echocardiogram of 11-18-18 showed LVEF 30-35%. LA dilated. Mild AoR. Mod to severe TR. PASP 40mmHg Acute on chronic systolic CHF Chronic a-fib - controlled Apixaban for stroke prophylaxis COPD Tobaccoism - cessation advised - he has been refraining Chronic resting tremor TSH of 11-18-18 WNL Discussion and Recomendations Pneumonia with sepsis - management per medical services Mild troponin elevated likely d/t NSTEMI (treated with cor intervention) and/or hypoxia Continue Plavix d/t know h/o CAD with recent stent placement Chronic a-fib - continue OAC for stroke prophylaxis; resume Dig Hypotension - hold anti-hypertensives for now (Lisinopril and BB) - receiving IVF Acute on chronic systolic CHF - give Lasix as indicated and tolerated Monitor lab closely Further recs will be based on hospital course We would like to thank medical services for this consult MINDI FLORES MD FACP [facility] Nov 29, 2018 18:53
[2018-11-29] MEDS: RT-ALBUTEROL/IPRATROPIUM 3 ML (DUONEB) VIAL INH SCH ×2 (19:27→23:22)
[2018-11-29] MEDS: APIXABAN 5 MG (ELIQUIS) TABLET PO SCH (19:43)
[2018-11-29] MEDS: PIPERACILLIN/TAZO 4.5 GM/NS 100 ML IV SCH ×2 (19:43)
[2018-11-29] MEDS ORDERED: CALCIUM CARBONATE 500 MG (TUMS) TAB.CHEW PO PRN (20:15)
[2018-11-29] MEDS ORDERED: LOPERAMIDE 2 MG (IMODIUM) CAP PO PRN (20:15)
[2018-11-29] MEDS ORDERED: HYDROcodone/APAP 5 MG/325 MG (LORTAB) TAB PO PRN (20:15)
[2018-11-29] MEDS ORDERED: diphenhydrAMINE 25 MG TAB (BENADRYL) PO PRN (20:15)
[2018-11-29] MEDS ORDERED: DOCUSATE SODIUM 100 MG (COLACE) CAP PO PRN (20:15)
[2018-11-29] MEDS ORDERED: ONDANSETRON 4 MG (ZOFRAN) ORAL DISSOLVE TAB PO PRN (20:15)
[2018-11-29] MEDS ORDERED: fentaNYL INJECTION 100 MCG/2 ML AMP IVP PRN (20:15)
[2018-11-29] MEDS ORDERED: ACETAMINOPHEN 500 MG TAB (TYLENOL) PO PRN (20:15)
[2018-11-29] MEDS ORDERED: ONDANSETRON 4 MG/2 ML (SDV) Z0FRAN IVP PRN (20:15)
[2018-11-30] MEDS: RT-ALBUTEROL/IPRATROPIUM 3 ML (DUONEB) VIAL INH SCH ×6 (02:51→22:18)
[2018-11-30 04:08] VITALS: BP 110/76
[2018-11-30 04:21] LABS: BASOPHILS % (AUTO) 0 % (0-10); EOSINOPHILS % (AUTO) 0 % (0-10); HEMATOCRIT 35 % (40-54); HEMOGLOBIN 11.3 G/DL (13.3-17.7); LYMPHOCYTES # (AUTO) 0.5 X 10^3 (1.0-4.0); LYMPHOCYTES % (AUTO) 5 % (12-44); MEAN CORPUSCULAR HEMOGLOBIN 31 PG (25-34); MEAN CORPUSCULAR HGB CONC 32 G/DL (32-36); MEAN CORPUSCULAR VOLUME 96 FL (80-99); MEAN PLATELET VOLUME 9.3 FL (7.4-10.4); MONOCYTES # (AUTO) 0.2 X 10^3 (0.0-1.0); MONOCYTES % (AUTO) 2 % (0-12); NEUTROPHILS % (AUTO) 94 % (42-75); PLATELET COUNT 421 10^3/uL (130-400); RED CELL DISTRIBUTION WIDTH 13.4 % (10.0-14.5); WHITE BLOOD COUNT 11.8 10^3/uL (4.3-11.0)
[2018-11-30 04:51] LABS: ALANINE AMINOTRANSFERASE 23 U/L (0-55); ALBUMIN 3.4 GM/DL (3.2-4.5); ALKALINE PHOSPHATASE 60 U/L (40-136); BILIRUBIN,TOTAL 1.3 MG/DL (0.1-1.0); BUN/CREATININE RATIO 26; CALCIUM 8.9 MG/DL (8.5-10.1); CARBON DIOXIDE 26 MMOL/L (21-32); CHLORIDE 99 MMOL/L (98-107); CREATININE SERUM 1.11 MG/DL (0.60-1.30); GFR ESTIMATED > 60; GLUCOSE 178 MG/DL (70-105); MAGNESIUM 1.7 MG/DL (1.8-2.4); POTASSIUM 3.9 MMOL/L (3.6-5.0); SODIUM 138 MMOL/L (135-145)
[2018-11-30] MEDS: LACTATED RINGERS 1,000 ML IV SCH ×3 (05:07→22:43)
[2018-11-30] MEDS: PIPERACILLIN/TAZO 4.5 GM/NS 100 ML IV SCH ×6 (05:23→20:46)
[2018-11-30 08:00] VITALS: BP 129/92
[2018-11-30] MEDS: CLOPIDOGREL 75 MG (PLAVIX) TABLET PO SCH (08:23)
[2018-11-30] MEDS: DIGOXIN 0.125 MG (LANOXIN) TAB PO SCH (08:23)
[2018-11-30] MEDS: methylPREDNISolone 125 MG (Solu-MEDROL) VIAL IV SCH ×3 (08:23→23:45)
[2018-11-30] MEDS: APIXABAN 5 MG (ELIQUIS) TABLET PO SCH ×2 (08:23→20:46)
--- NOTE | 2018-11-30 11:11 | Progress Note-Cardiology ---
Cardiology SOAP Progress Note Subjective: No new symptoms Objective: I&O/Vital Signs 11/30/18 11/30/18 11/30/18 11/30/18 11:23 12:00 12:15 13:14 Temp 97.8 Pulse 101 110 Resp 20 B/P (MAP) 160/88 (112) Pulse Ox 97 95 O2 Delivery Nasal Cannula Room Air Room Air O2 Flow Rate 2.00 11/30/18 11/30/18 11/30/18 11/30/18 15:37 18:58 19:00 19:11 Temp 98.6 Pulse 93 93 Resp 18 B/P (MAP) 100/57 (71) Pulse Ox 98 95 100 O2 Delivery Nasal Cannula Nasal Cannula Room Air O2 Flow Rate 2.00 1.50 11/30/18 20:53 Pulse 115 B/P (MAP) 111/61 (78) 11/30/18 00:00 Intake Total 1742.5 ml Output Total 200 ml Balance 1542.5 ml Weight (Pounds): 133 Weight (Ounces): 6.0 Weight (Calculated Kilograms): 60.989433 Constitutional: AAO x 3, other (thin) Respiratory: No accessory muscle use, No respiratory distress; other ( diminished lower lobes bilat) Cardiovascular: irregularly irregular; No JVD; S1 and S2 Gastrointestional: No tender; soft, round, audible bowel sounds Extremities: no lower extremity edema bilateral Neurologic/Psychiatric: other (chronic resting tremors of upper extremities), grossly intact, power is 5/5 both on sides Skin: warm/dry; No rash, No ulcerations Results/Procedures: Labs Laboratory Tests 11/30/18 03:45: White Blood Count 11.8H, Red Blood Count 3.63L, Hemoglobin 11.3L, Hematocrit 35L , Mean Corpuscular Volume 96, Mean Corpuscular Hemoglobin 31, Mean Corpuscular Hemoglobin Concent 32, Red Cell Distribution Width 13.4, Platelet Count 421H, Mean Platelet Volume 9.3, Neutrophils (%) (Auto) 94H, Lymphocytes (%) (Auto) 5L , Monocytes (%) (Auto) 2, Eosinophils (%) (Auto) 0, Basophils (%) (Auto) 0, Neutrophils # (Auto) 11.0H, Lymphocytes # (Auto) 0.5L, Monocytes # (Auto) 0.2, Eosinophils # (Auto) 0.0, Basophils # (Auto) 0.0, Sodium Level 138, Potassium Level 3.9, Chloride Level 99, Carbon Dioxide Level 26, Anion Gap 13, Blood Urea Nitrogen 29H, Creatinine 1.11, Estimat Glomerular Filtration Rate > 60, BUN/ Creatinine Ratio 26, Glucose Level 178H, Calcium Level 8.9, Corrected Calcium 9.4, Magnesium Level 1.7L, Total Bilirubin 1.3H, Aspartate Amino Transf (AST/ SGOT) 19, Alanine Aminotransferase (ALT/SGPT) 23, Alkaline Phosphatase 60, Total Protein 6.0L, Albumin 3.4, Digoxin Level 0.58L Microbiology 11/29/18 Blood Culture - Preliminary, Resulted No growth 11/29/18 Gram Stain, Resulted Pending 11/29/18 Sputum Culture - Preliminary, Resulted Usual upper respiratory ashish Laboratory Tests 11/29/18 11:20 11/30/18 03:45 A/P: Assessment: Pneumonia with sepsis- management per medical services Elevated troponin - likely on the downward trend from recent NSTEMI CAD: Cath of 11/19/18 showed 99% ostial LAD that was stented with Rimma 3 x 18; other cors had mild to mod stenoses Ischemic dilated cardiomyopathy. Echocardiogram of 11-18-18 showed LVEF 30-35%. LA dilated. Mild AoR. Mod to severe TR. PASP 40mmHg Acute on chronic systolic CHF Chronic a-fib - rate not well controlled Apixaban for stroke prophylaxis COPD Tobaccoism - cessation advised - he has been refraining Chronic resting tremor TSH of 11-18-18 WNL Plan: Pneumonia with sepsis - management per medical services Mild troponin elevated likely d/t NSTEMI (treated with cor intervention) and/or hypoxia Continue Plavix d/t know h/o CAD with recent stent placement Chronic a-fib - continue OAC for stroke prophylaxis - HR not well controlled - resume BB Hypotension - resolved - BB restarted - if BP allows re-start LUIS d/t ICM Acute on chronic systolic CHF - give Lasix as indicated and tolerated Monitor lab closely Physician Assessment Physician Assessment No cp or palp or syncope. Shortness of breath improving Lungs: fair to good air entry, diminished at the bases Cor: irreg Ext: no c/c/e A&R * As documented in our note above that I updated (italics) and as noted below * Monitor labs * Dr Deras covering Card Svce beginning 12/01/18 [facility] Nov 30, 2018 11:11 MINDI FLORES MD [facility] Nov 30, 2018 21:55
--- NOTE | 2018-11-30 11:14 | Progress Note-Hospitalist ---
Subjective HPI/CC On Admission Date Seen by Provider: Nov 30, 2018 Time Seen by Provider: 10:15 CC: Dyspnea HPI: This is a 78-year-old white male [facility] patient who is known to me from recent hospital stay for pneumonia, non-ST elevation status post stented coronary artery and elevated BNP who presents to the ER with hypoxia when he saw Dr. Agustin a [facility] for a follow-up visit. He was that 80 percent at the clinic but when he arrived to the ER he was found to be stable but having bilateral infiltrates elevated white count and elevated lactic acid along with elevated troponin and BNP he met criteria for hospital stay and pulmonary and cardiology consultation along with long term placement arrangements. He does live with his son and [id number] but it appears that he has declined since going home and may very well need skilled care. Subjective/Events-last exam Pt improved. Bowels are moving. Less shortness of breath. Severe tremor noted but intolerant to Parkinson's medications. Denies any chest pain. Appreciate cardiology and pulmonology expertise Needs to go to a long term at discharge. Review of Systems General: Fatigue Focused Exam Lactate Level 11/29/18 11:20: Lactic Acid Level 2.47*H 11/29/18 13:09: Lactic Acid Level 0.73 Time of Focused Exam: 14:36 Objective Exam Vital Signs Vital Signs Date Time Temp Pulse Resp B/P (MAP) Pulse Ox O2 Delivery O2 Flow Rate FiO2 11/30/18 19:11 98.6 93 18 100/57 (71) 100 Room Air 11/30/18 18:58 1.50 11/29/18 17:06 36 Capillary Refill : Less Than 3 Seconds General Appearance: No Apparent Distress, WD/WN, Chronically ill, Cachetic, Other (speaks in full sentences, alert and oriented, no obvious distress) HEENT: PERRL/EOMI, TMs Normal Neck: Full Range of Motion, Normal Inspection Respiratory: Chest Non Tender, No Accessory Muscle Use, No Respiratory Distress , Crackles, Decreased Breath Sounds, Wheezing Cardiovascular: No Edema, Normal Peripheral Pulses, Irregularly Irregular Gastrointestinal: Normal Bowel Sounds, Non Tender, Soft Back: Normal Inspection, No CVA Tenderness, No Vertebral Tenderness Extremity: Normal Capillary Refill, Normal Inspection, No Pedal Edema Neurologic/Psychiatric: Alert, Oriented x3, No Motor/Sensory Deficits, Normal Mood/Affect, 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 Assessment/Plan Assessment and Plan Assess & Plan/Chief Complaint Assessment: Recurrent bibasilar pneumonia Hypoxia Elevated troponin Recent stent and coronary artery Status post non-ST elevation AK Elevated BNP Parkinson's Cachexia Former smoker quit last week Home O2 dependent Plan: Readmit Cardiology and pulmonology consultations Social work for placement in skilled facility at discharge Maintain oxygen Nebulizer treatments Antibiotics Diagnosis/Problems Diagnosis/Problems (1) Recurrent pneumonia Status: Acute (2) Cachexia Status: Chronic (3) Former smoker Status: Chronic (4) RESPIRATORY FAILURE, UNSP, UNSP W HYPOXIA OR HYPERCAPNIA Status: Acute (5) Anxiety Status: Acute (6) Parkinson disease Status: Chronic (7) Elevated troponin Status: Acute (8) Atrial fibrillation, chronic Status: Chronic (9) Congestive heart failure Status: Acute Qualifiers: Heart failure type: unspecified Heart failure chronicity: unspecified Qualified Codes: I50.9 - Heart failure, unspecified (10) Hypertension Status: Chronic Qualifiers: Hypertension type: essential hypertension Qualified Codes: I10 - Essential (primary) hypertension (11) COPD (chronic obstructive pulmonary disease) Status: Chronic Qualifiers: COPD type: unspecified COPD Qualified Codes: J44.9 - Chronic obstructive pulmonary disease, unspecified (12) Stented coronary artery Status: Acute Clinical Quality Measures DVT/VTE Risk/Contraindication: Risk Factor Score Per Nursin RFS Level Per Nursing on Admit: 4+=Very High NIYAH SHARP DO Nov 30, 2018 11:14
[2018-11-30 12:00] VITALS: BP 160/88
--- NOTE | 2018-11-30 12:46 | NUR ---
CM/SS. Patient was IP Nov 18 - Nov 24, 2018. He is now readmitted for recurrent pneumonia and sepsis. Physician documentation reflects recommendation [facility]. Patient was sleeping soundly, brief writer contacted son [place] who indicated they preferred [facility]. Boardinghouse Keeper contacted [facility] to inquire if they accept patient's insurance, [employer], confirmed they likely will. Referral sent for their review and to allow for benefit exploration.
--- NOTE | 2018-11-30 16:22 | Pulmonary Progress Note ---
Sepsis Event Evaluation Height, Weight, BMI Height: 5'10.00" Weight: 133lbs. 6.0oz. 60.220971ui; 19.1 BMI Method:Stated Focused Exam Lactate Level 11/29/18 11:20: Lactic Acid Level 2.47*H 11/29/18 13:09: Lactic Acid Level 0.73 Time of Focused Exam: 14:36 Exam Exam Vital Signs Date Time Temp Pulse Resp B/P (MAP) Pulse Ox O2 Delivery O2 Flow Rate FiO2 11/30/18 15:37 98 Nasal Cannula 2.00 11/30/18 13:14 110 11/30/18 12:15 95 Room Air 11/30/18 12:00 97.8 101 20 160/88 (112) 97 Room Air 11/30/18 11:23 Nasal Cannula 2.00 11/30/18 08:05 93 Room Air 11/30/18 08:00 Room Air 11/30/18 08:00 97.4 131 22 129/92 (104) 93 Room Air 11/30/18 07:09 85 11/30/18 04:08 98.2 106 18 110/76 (87) 97 Nasal Cannula 0.50 11/30/18 02:53 98 Nasal Cannula 0.50 11/30/18 01:00 94 11/29/18 23:50 98.5 93 20 100/65 (77) 98 Nasal Cannula 0.50 11/29/18 23:23 98 Nasal Cannula 0.50 11/29/18 21:55 98.3 95 18 109/58 (75) 98 Nasal Cannula 0.50 11/29/18 20:00 Nasal Cannula 1.00 11/29/18 20:00 98.1 94 18 96/59 (71) 95 Nasal Cannula 1.00 11/29/18 19:32 98 Nasal Cannula 1.00 11/29/18 19:00 86 11/29/18 18:00 98.0 93 18 106/70 (82) 99 Nasal Cannula 2.00 11/29/18 17:28 96.5 92 18 100/60 100 Nasal Cannula 4.00 4.00 11/29/18 17:06 92 100 36 11/29/18 17:06 100 Nasal Cannula 4.00 11/29/18 16:55 88 100/60 (73) Nasal Cannula 3.50 11/29/18 16:48 90 I & O 11/30/18 07:00 Intake Total 2862.5 ml Output Total 825 ml Balance 2037.5 ml Height & Weight Height: 5'10.00" Weight: 133lbs. 6.0oz. 60.346933fc; 19.1 BMI Method:Stated General Appearance: No Apparent Distress, WD/WN, Other (speaks in full sentences, alert and oriented, no obvious distress) HEENT: PERRL/EOMI, TMs Normal Neck: Full Range of Motion, Normal Inspection Respiratory: Chest Non Tender, Decreased Breath Sounds Cardiovascular: Regular Rate, Rhythm, Normal Peripheral Pulses Capillary Refill: Less Than 3 Seconds Extremity: Normal Capillary Refill, Normal Inspection, No Pedal Edema Neurologic/Psychiatric: Alert, Oriented x3 Skin: Normal Color, Warm/Dry Lymphatic: No Adenopathy Results Lab Laboratory Tests 11/29/18 11:20 11/30/18 03:45 Assessment/Plan Assessment/Plan Recurrent Bibasilar PNA with sepsis -Zosyn vanco -Eddy culture -IVF COPDAE with hypoxia with home oxygen - Solumedrol -Oxygen -SVNS NSTEMI -Cardiology following CHF EF 35% with bilateral pleural effusions -Monitor Dehydration -IVF ILD per CT chest -Will continue to follow as out patient. Tobacco use -Education -will do out patient testing Hypoxia -Pt does have home 02 -out patient testing Elevated troponin CAD - with stents Parkinsons Cachexia DARIN RENEE DO Nov 30, 2018 16:22
[2018-11-30] MEDS ORDERED: VANCOMYCIN 1 GM/NS 250 ML IVPB IV SCH ×2 (18:00)
[2018-11-30 19:11] VITALS: BP 100/57
[2018-11-30 20:53] VITALS: BP 111/61
[2018-12-01 00:39] VITALS: BP 112/69
[2018-12-01] MEDS: RT-ALBUTEROL/IPRATROPIUM 3 ML (DUONEB) VIAL INH SCH ×6 (02:26→21:51)
[2018-12-01] MEDS: LACTATED RINGERS 1,000 ML IV SCH ×3 (03:23→20:48)
[2018-12-01 04:04] VITALS: BP 125/72
[2018-12-01] MEDS: PIPERACILLIN/TAZO 4.5 GM/NS 100 ML IV SCH ×2 (04:37)
[2018-12-01 04:41] LABS: BUN/CREATININE RATIO 28; CALCIUM 8.9 MG/DL (8.5-10.1); CARBON DIOXIDE 25 MMOL/L (21-32); CHLORIDE 103 MMOL/L (98-107); CREATININE SERUM 0.95 MG/DL (0.60-1.30); GFR ESTIMATED > 60; GLUCOSE 159 MG/DL (70-105); POTASSIUM 4.1 MMOL/L (3.6-5.0); SODIUM 140 MMOL/L (135-145)
--- NOTE | 2018-12-01 07:48 | Pulmonary Progress Note ---
Sepsis Event Evaluation Height, Weight, BMI Height: 5'.00" Weight: 145lbs. 12.8oz. 66.817407xu; 19.1 BMI Method:Stated Focused Exam Lactate Level 11/29/18 11:20: Lactic Acid Level 2.47*H 11/29/18 13:09: Lactic Acid Level 0.73 Time of Focused Exam: 14:36 Exam Exam Vital Signs Date Time Temp Pulse Resp B/P (MAP) Pulse Ox O2 Delivery O2 Flow Rate FiO2 12/01/18 07:05 97 Nasal Cannula 1.50 12/01/18 04:04 98.3 93 18 125/72 (89) 100 Nasal Cannula 1.00 12/01/18 02:26 93 Nasal Cannula 1.50 12/01/18 01:00 93 12/01/18 00:39 98.4 97 18 112/69 (83) 100 Nasal Cannula 1.50 11/30/18 22:18 92 Nasal Cannula 1.50 11/30/18 20:53 115 111/61 (78) 11/30/18 20:45 Nasal Cannula 1.00 11/30/18 19:11 98.6 93 18 100/57 (71) 100 Room Air 11/30/18 19:00 93 11/30/18 18:58 95 Nasal Cannula 1.50 11/30/18 15:37 98 Nasal Cannula 2.00 11/30/18 13:14 110 11/30/18 12:15 95 Room Air 11/30/18 12:00 97.8 101 20 160/88 (112) 97 Room Air 11/30/18 11:23 Nasal Cannula 2.00 11/30/18 08:05 93 Room Air 11/30/18 08:00 Room Air 11/30/18 08:00 97.4 131 22 129/92 (104) 93 Room Air I & O 12/01/18 07:00 Intake Total 2900 ml Output Total 2240 ml Balance 660 ml Height & Weight Height: 5'10.00" Weight: 145lbs. 12.8oz. 66.122197tx; 19.1 BMI Method:Stated General Appearance: No Apparent Distress, WD/WN, Chronically ill, Cachetic, Other (speaks in full sentences, alert and oriented, no obvious distress) HEENT: PERRL/EOMI, TMs Normal Neck: Full Range of Motion, Normal Inspection Respiratory: Chest Non Tender, No Accessory Muscle Use, No Respiratory Distress , Crackles, Decreased Breath Sounds, Wheezing Cardiovascular: No Edema, Normal Peripheral Pulses, Irregularly Irregular Capillary Refill: Less Than 3 Seconds Extremity: Normal Capillary Refill, Normal Inspection, No Pedal Edema Neurologic/Psychiatric: Alert, Oriented x3, No Motor/Sensory Deficits, Normal Mood/Affect, charge authorizer II-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 Tobacco use -Education -will do out patient testing Hypoxia -Pt does have home 02 -out patient testing Elevated troponin CAD - with stents Parkinsons Cachexia DARIN RENEE DO Dec 01, 2018 07:48
[2018-12-01 08:00] VITALS: BP 144/88
[2018-12-01] MEDS: DIGOXIN 0.125 MG (LANOXIN) TAB PO SCH (09:57)
[2018-12-01] MEDS: predniSONE 10 MG TAB PO SCH (09:57)
[2018-12-01] MEDS: APIXABAN 5 MG (ELIQUIS) TABLET PO SCH ×2 (09:58→20:46)
[2018-12-01] MEDS: CLOPIDOGREL 75 MG (PLAVIX) TABLET PO SCH (09:58)
--- NOTE | 2018-12-01 11:18 | Progress Note-Hospitalist ---
Subjective HPI/CC On Admission Date Seen by Provider: Dec 01, 2018 Time Seen by Provider: 11:00 CC: Dyspnea HPI: This is a 78-year-old white male [facility] patient who is known to me from recent hospital stay for pneumonia, non-ST elevation status post stented coronary artery and elevated BNP who presents to the ER with hypoxia when he saw Dr. Agustin a [facility] for a follow-up visit. He was that 80 percent at the clinic but when he arrived to the ER he was found to be stable but having bilateral infiltrates elevated white count and elevated lactic acid along with elevated troponin and BNP he met criteria for hospital stay and pulmonary and cardiology consultation along with intermediate placement arrangements. He does live with his son and [id number] but it appears that he has declined since going home and may very well need skilled care. Subjective/Events-last exam Patient doing a little better Overall weakness will require intermediate placement and [place] at discharge likely tomorrow or Patrick Tolerating antibiotics well Lungs are clear but diminished which is chronic Severe Parkinson's and intolerant to Parkinson's medications preclude anything other than a poor prognosis Will initiate physical therapy and occupational therapy to get out of bed Bowels moved yesterday Urinating well Maintained on oxygen Review of Systems General: Fatigue Pulmonary: Dyspnea Focused Exam Lactate Level 11/29/18 11:20: Lactic Acid Level 2.47*H 11/29/18 13:09: Lactic Acid Level 0.73 Time of Focused Exam: 14:36 Objective Exam Vital Signs Vital Signs Date Time Temp Pulse Resp B/P (MAP) Pulse Ox O2 Delivery O2 Flow Rate FiO2 12/01/18 11:02 96 Nasal Cannula 1.50 12/01/18 08:00 97.2 98 20 144/88 (106) 11/29/18 17:06 36 Capillary Refill : Less Than 3 Seconds General Appearance: No Apparent Distress, WD/WN, Chronically ill, Cachetic, Other (speaks in full sentences, alert and oriented, no obvious distress) HEENT: PERRL/EOMI, TMs Normal Neck: Full Range of Motion, Normal Inspection Respiratory: Chest Non Tender, Lungs Clear, Normal Breath Sounds, No Accessory Muscle Use, No Respiratory Distress, Decreased Breath Sounds Cardiovascular: No Edema, Normal Peripheral Pulses, Irregularly Irregular Gastrointestinal: Normal Bowel Sounds, Non Tender, Soft Back: Normal Inspection, No CVA Tenderness, No Vertebral Tenderness Extremity: Normal Capillary Refill, Normal Inspection, No Pedal Edema Neurologic/Psychiatric: Alert, Oriented x3, No Motor/Sensory Deficits, Normal Mood/Affect, rn referral II-XII Norm as Tested, Other (tremor noted) Skin: Normal Color, Warm/Dry Lymphatic: No Adenopathy Results/Procedures Lab Laboratory Tests 12/01/18 04:05 Patient resulted labs reviewed. Assessment/Plan Assessment and Plan Assess & Plan/Chief Complaint Assessment: Recurrent bibasilar pneumonia Hypoxia Elevated troponin Recent stent and coronary artery Status post non-ST elevation [place] Elevated BNP Parkinson's Cachexia Former smoker quit last week Home O2 dependent Plan: Readmit Cardiology and pulmonology consultations Social work for placement in skilled facility at discharge Maintain oxygen Nebulizer treatments Antibiotics NHP Diagnosis/Problems Diagnosis/Problems (1) Recurrent pneumonia Status: Acute (2) Cachexia Status: Chronic (3) Former smoker Status: Chronic (4) RESPIRATORY FAILURE, UNSP, UNSP W HYPOXIA OR HYPERCAPNIA Status: Acute (5) Anxiety Status: Acute (6) Parkinson disease Status: Chronic (7) Elevated troponin Status: Acute (8) Atrial fibrillation, chronic Status: Chronic (9) Congestive heart failure Status: Acute Qualifiers: Heart failure type: unspecified Heart failure chronicity: unspecified Qualified Codes: I50.9 - Heart failure, unspecified (10) Hypertension Status: Chronic Qualifiers: Hypertension type: essential hypertension Qualified Codes: I10 - Essential (primary) hypertension (11) COPD (chronic obstructive pulmonary disease) Status: Chronic Qualifiers: COPD type: unspecified COPD Qualified Codes: J44.9 - Chronic obstructive pulmonary disease, unspecified (12) Stented coronary artery Status: Acute Clinical Quality Measures DVT/VTE Risk/Contraindication: Risk Factor Score Per Nursin RFS Level Per Nursing on Admit: 4+=Very High NIYAH SHARP DO Dec 01, 2018 11:18
--- NOTE | 2018-12-01 11:29 | NUR ---
CM/CAREN. [facility] has accepted patient for admission, they have submitted for preauthorization to his insurance. Must wait for that approval, they will followup with insurance later today and update with any news. Anticipate discharge Thursday depending on medical stability. CARE Assessment pending.
[2018-12-01 12:00] VITALS: BP 107/64
--- NOTE | 2018-12-01 14:01 | Cardiology Progress Note ---
Cardiology SOAP Progress Note Subjective: No cardiac complaints. Objective: I&O/Vital Signs 12/01/18 12/01/18 12/01/18 12/01/18 02:26 04:04 07:03 07:05 Temp 98.3 Pulse 93 82 Resp 18 B/P (MAP) 125/72 (89) Pulse Ox 93 100 97 O2 Delivery Nasal Cannula Nasal Cannula Nasal Cannula O2 Flow Rate 1.50 1.00 1.50 12/01/18 12/01/18 12/01/18 12/01/18 08:00 11:02 12:00 12:51 Temp 97.2 97.6 Pulse 98 88 94 Resp 20 20 B/P (MAP) 144/88 (106) 107/64 (78) Pulse Ox 98 96 97 O2 Delivery Nasal Cannula Nasal Cannula Nasal Cannula O2 Flow Rate 1.00 1.50 1.00 12/01/18 00:00 Intake Total 1440 ml Output Total 1015 ml Balance 425 ml Weight (Pounds): 145 Weight (Ounces): 12.8 Weight (Calculated Kilograms): 66.391966 Constitutional: No appears stated age; AAO x 3; No apparent distress, No PERRL , No well-developed, No well-nourished; other (thin) Respiratory: No accessory muscle use, No respiratory distress; chest is bilaterally symmetric, lungs clear to auscultation, other (diminished lower lobes bilat) Cardiovascular: No regular rate-rhythm; irregularly irregular; No extra beats, No parasternal heave is noted, No JVD, No edema, No bradycardia, No tachycardia , No point of maximal impulse, No cardiac thrills are palpable; S1 and S2; No gallop/S3, No gallop/S4, No diastolic murmur, No systolic murmur, No friction rub, No click, No other Gastrointestional: No tender; soft, round, audible bowel sounds Extremities: No normal range of motion, No non-tender, No normal inspection, No pedal edema, No calf tenderness, No normal capillary refill, No pelvis stable , No calf tenderness, No inflammation, No pedal edema, No slow capillary refill , No swelling, No other, No abrasion, No clubbing, No cyanosis, No ecchymosis, No laceration; no lower extremity edema bilateral; No significant edema, No tenderness, No wound Neurologic/Psychiatric: no motor/sensory deficits, alert, normal mood/affect, oriented x 3, other (chronic resting tremors of upper extremities), grossly intact, power is 5/5 both on sides Skin: warm/dry; No rash, No ulcerations Results/Procedures: Labs Laboratory Tests 12/01/18 04:05: Sodium Level 140, Potassium Level 4.1, Chloride Level 103, Carbon Dioxide Level 25, Anion Gap 12, Blood Urea Nitrogen 27H, Creatinine 0.95, Estimat Glomerular Filtration Rate > 60, BUN/Creatinine Ratio 28, Glucose Level 159H, Calcium Level 8.9 Microbiology 11/29/18 Blood Culture - Preliminary, Resulted No growth 11/29/18 Gram Stain - Final, Resulted 11/29/18 Sputum Culture - Preliminary, Resulted Streptococcus pneumoniae Usual upper respiratory ashish A/P: Assessment/Dx: Pneumonia with sepsis- management per medical services Elevated troponin - likely on the downward trend from recent NSTEMI CAD: Cath of 11/19/18 showed 99% ostial LAD that was stented with Xience Rimma 3 x 18; other cors had mild to mod stenoses Ischemic dilated cardiomyopathy. Echocardiogram of 11-18-18 showed LVEF 30-35%. LA dilated. Mild AoR. Mod to severe TR. PASP 40mmHg Acute on chronic systolic CHF Chronic a-fib - rate not well controlled Apixaban for stroke prophylaxis COPD Tobaccoism - cessation advised - he has been refraining Chronic resting tremor TSH of 11-18-18 WNL Plan: Pneumonia with sepsis - management per medical services Mild troponin elevated likely d/t NSTEMI (treated with cor intervention) and/or hypoxia Continue Plavix d/t know h/o CAD with recent stent placement Chronic a-fib - continue OAC for stroke prophylaxis - HR not well controlled - resume BB Hypotension - resolved - BB restarted - if BP allows re-start LUIS d/t ICM Acute on chronic systolic CHF - give Lasix as indicated and tolerated Monitor lab closely Thank you for your consultation. Please call me if you have any questions. Jacques Deras MD, FACP, FACC, FSCAI, FHRS, CCDS Interventional Cardiology Cardiac Electrophysiology Vascular Medicine and Endovascular Interventions Focused Exam Lactate Level 11/29/18 11:20: Lactic Acid Level 2.47*H 11/29/18 13:09: Lactic Acid Level 0.73 Time of Focused Exam: 14:36 Cameron DERAS MD Dec 01, 2018 14:01
--- NOTE | 2018-12-01 14:27 | Occupational Therapy Eval ---
OT Evaluation-General/PLF Medical Diagnosis Admission Date Nov 29, 2018 at 14:21 Medical Diagnosis: Hypoxia Onset Date: Nov 29, 2018 Therapy Diagnosis Therapy Diagnosis: Weakness Height/Weight Height (Feet): 5 Height (Inches): 10.00 Weight (Pounds): 145 Weight (Ounces): 12.8 Precautions Precautions/Isolations: Fall Prevention Safety Interventions: Bed Exit Alarm Weight Bear Status Weight Bearing Restriction: Weight Bearing/Tolerated Referral Physician: Dr. Lund Referral Reason: Activity Tolerance, Self Care, Evaluation/Treatment, Strengthening/ROM Medical History Pertinent Medical History: Atrial Fib, CAD, SC, Parkinson's Additional Medical History Coronary stent Current History pt. came to ER with hypoxia. Has recurrent bibasilar pneumonia, recent stent, Parkinsons. Reviewed History: Yes Social History Home: Single Level Current Living Status: Children Entry Into Home: Level Entry ADL-Prior Level of Function Therapy Code Descriptions/Definitions Functional [place] Measure: 0=Not Assessed/NA 4=Minimal Assistance 1=Total Assistance 5=Supervision or Setup 2=Maximal Assistance 6=Modified [place] 3=Moderate Assistance 7=Complete [place] Therapy Quality Codes: 6 Independent with activity with or without an assistive device 5 Patient requires set up or clean up by helper. Patient completes activity by themselves 4 Supervision or touching assist (CGA). [place] provide cues , steadying assist 3 The helper provides less than half the effort to complete the activity 2 The helper provides more than half the effort to complete the activity 1 Dependent. The helper does all the effort to complete an activity 7 Patient refused to complete or attempt activity 9 The patient did not perform the activity before the current illness or injury 88 Not attempted due to Medical conditions or safety concerns Functional Abilities and Goals: Independent: Patient completed the activities by him/herself, with or without an assistive device, with no assistance from a helper. Needed Some Help: Patient needed partial assistance from another person to complete activities. Dependent: A helper completed the activities for the patient. Unknown: Not Applicable: Self Care: Independent (Per pt. with ADLs) Functional Cognition: Unknown DME/Equipment: Bath Chair, Shower DME/Equipment Comments Pt. doesn't use walker but states that he has one. OT Current Status Subjective No pain reported. Appearance Pt. in bed. Pt's IV site has been bleeding and pt. has blood on gown, blanket. Pt. agrees to let OT assist him to clean up and change clothing. Mental Status/Objective Patient Orientation: Person, Place Attachments: IV, Oxygen Current Hand Dominance: Right Upper Extremity ROM WFL Noted bilateral UE tremors during all tasks. ADL-Treatment Therapy Code Descriptions/Definitions Functional [place] Measure: 0=Not Assessed/NA 4=Minimal Assistance 1=Total Assistance 5=Supervision or Setup 2=Maximal Assistance 6=Modified [place] 3=Moderate Assistance 7=Complete [place] Therapy Quality Codes: 6 Independent with activity with or without an assistive device 5 Patient requires set up or clean up by helper. Patient completes activity by themselves 4 Supervision or touching assist (CGA). [place] provide cues , steadying assist 3 The helper provides less than half the effort to complete the activity 2 The helper provides more than half the effort to complete the activity 1 Dependent. The helper does all the effort to complete an activity 7 Patient refused to complete or attempt activity 9 The patient did not perform the activity before the current illness or injury 88 Not attempted due to Medical conditions or safety concerns Bathing (FIM): 5 (SBA seated on side of bed with cues to wash all parts. Pt able to stand and wash luis area with bath wipes.) Transfers (B, C, W/C) (FIM): 4 (Pt. able to transfer supine-sit with SBA, and sit on side of bed with CGA.) Pt. transferred to side of bed to complete sponge bath. OT assisted with cleansing dried blood on arm. Pt. able to wash all other parts. OT changed squares in bed, sheet, and blanket, as well as pt's gown due to IV site. Pt. transferred back to bed with SBA after this task. Nurse tech notified of pt's arm and site to let nurse know. Pt. declines donning slipper socks at this time. Education OT Patient Education: Correct positioning, Modified ADL techniques, Progress toward Goal/Update tx plan, Purpose of tx/functional activities, Reviewed precautions, Rehab process, Transfer techniques Teaching Recipient: Patient Teaching Methods: Demonstration, Discussion Response to Teaching: Verbalize Understanding, Return Demonstration OT Short Term Goals Short Term Goals 1=Demonstrate adherence to instructed precautions during ADL tasks. 2=Patient will verbalize/demonstrate understanding of assistive devices/ modifications for ADL. 3=Patient will improve strength/tolerance for activity to enable patient to perform ADL's. OT Fur Remodeler Goals Fur Remodeler Goals Time Frame: Dec 15, 2018 Eating (FIM): 6 Grooming(FIM): 6 Bathing(FIM): 5 Upper Body Dressing(FIM): 5 Lower Body Dressing(FIM): 5 Toileting(FIM): 6 Transfers (B,C,W/C) (FIM): 6 Toilet/Commode Transfer(FIM): 6 Shower Transfer(FIM): 5 Additional Goals: 1-Demonstrate ADL Tasks, 2-Verbalize Understanding, 3- ImproveStrength/[place] 1=Demonstrate adherence to instructed precautions during ADL tasks. 2=Patient will verbalize/demonstrate understanding of assistive devices/ modifications for ADL. 3=Patient will improve strength/tolerance for activity to enable patient to perform ADL's. OT Education/Plan Problem List/Assessment Assessment: Decreased Activ Tolerance, Decreased UE Strength, Dependent Transfers, Impaired I ADL's, Impaired Self-Care Skills Discharge Recommendations Plan/Recommendations: Continue POC Treatment Plan/Plan of Care Treatment,Training & Education: Yes Patient would benefit from OT for education, treatment and training to promote independence in ADL's, mobility, safety and/or upper extremity function for ADL' s. Plan of Care: ADL Retraining, Functional Mobility, UE Funct Exercise/Act Treatment Duration: Dec 15, 2018 Frequency: 5 times per week Estimated Hrs Per Day: .25 hour per day Agreement: Yes Rehab Potential: Fair Time/GCodes Start Time: 13:45 Stop Time: 14:10 Total Time Billed (hr/min): 25 Billed Treatment Time 1, EVH x 10minutes, ADL x 15minutes DEUCE ADHIKARI OT Dec 01, 2018 14:27
--- NOTE | 2018-12-01 14:40 | NUR ---
LT AC HL LEAKING AND REMOVED.
--- NOTE | 2018-12-01 14:45 | Physical Therapy Progress Note ---
Therapy Progress Note Evaluation order received. Eval attempted but patient refused. He states he thought the eval was scheduled for tomorrow and was too tired to do it at this time. He would like to start PT in the morning. Will try back in the morning. JANES MG PT Dec 01, 2018 14:45
[2018-12-01 16:15] VITALS: BP 113/71
[2018-12-01] MEDS ORDERED: TROUGH ORDER-PHARMACY XX NR (17:00)
[2018-12-01] MEDS: AUGMENTIN 500 MG TAB (AMOXICILLIN/CLAVULANATE) PO SCH (17:26)
[2018-12-01 20:45] VITALS: BP 109/72
[2018-12-02] VITALS: BP 119/77
[2018-12-02] MEDS: MELATONIN 3 MG TABLET PO PRN ×2 (00:03→21:07)
[2018-12-02] MEDS: RT-ALBUTEROL/IPRATROPIUM 3 ML (DUONEB) VIAL INH SCH ×5 (01:55→21:14)
[2018-12-02 04:00] VITALS: BP 110/72
[2018-12-02] MEDS: LACTATED RINGERS 1,000 ML IV SCH ×2 (06:25→16:44)
[2018-12-02] MEDS: AUGMENTIN 500 MG TAB (AMOXICILLIN/CLAVULANATE) PO SCH ×2 (06:26→16:44)
[2018-12-02] MEDS: predniSONE 10 MG TAB PO SCH (06:26)
[2018-12-02] MEDS: CLOPIDOGREL 75 MG (PLAVIX) TABLET PO SCH (07:55)
[2018-12-02] MEDS: DIGOXIN 0.125 MG (LANOXIN) TAB PO SCH (07:55)
[2018-12-02] MEDS: APIXABAN 5 MG (ELIQUIS) TABLET PO SCH ×2 (07:55→21:07)
[2018-12-02 08:00] VITALS: BP 139/78
--- NOTE | 2018-12-02 08:43 | Physician Query Clarification ---
PQ-Conflicting Diagnosis Admission/Discharge Admission Date: Nov 29, 2018 at 14:21 Discharge Date: The medical record reflects the following clinical scenario: History/Risk Factors: Pneumonia COPD Clinical Findings:T 96.5, Pulse 98, Resp 22, BP 136/106, WBC 26.0, blood cultures-no growth, lactic acid 2.47. Treatment:IV Piperacillin Sod/Tazobactam Sod, IV vancomycin HCI. Question: Do you agree with the impression of the Sepsis per Flakito Majano APRN and Dr. Gonzales. Also, please clarify, if acute respiratory failure documented on your H& P is due to sepsis? Please document a response below. Yes PHYSICIAN RESPONSE Do you agree w/Consulting Dx?: Yes In responding to this query, please exercise your independent professional judgment. The purpose of this communication is to more accurately reflect the complexity of your patients condition. The fact that a question is asked does not imply that any particular answer is desired or expected. Thank you for your timely response to this clarification. Requestors name: Latia Bar [facility] Phone # [phone] or [phone] THIS PHYSICIAN QUERY FORM IS A PERMANENT PART OF THE MEDICAL RECORD LATIA BAR Dec 02, 2018 08:43 NIYAH SHARP DO Dec 02, 2018 09:35
--- NOTE | 2018-12-02 09:49 | Progress Note-Hospitalist ---
Subjective HPI/CC On Admission Date Seen by Provider: Dec 02, 2018 Time Seen by Provider: 10:15 CC: Dyspnea HPI: This is a 78-year-old [facility] who is known to me from recent hospital stay for pneumonia, non-ST elevation status post stented coronary artery and elevated BNP who presents to the ER with hypoxia when he saw Dr. Agustin a [facility] for a follow-up visit. He was that 80 percent at the clinic but when he arrived to the ER he was found to be stable but having bilateral infiltrates elevated white count and elevated lactic acid along with elevated troponin and BNP he met criteria for hospital stay and pulmonary and cardiology consultation along with shelter placement arrangements. He does live with his son and [id number] but it appears that he has declined since going home and may very well need skilled care. Subjective/Events-last exam Patient doing well Has dry eyes so will initiate an ointment Awaiting shelter approval for [facility] in [place] Shortness of breath is much improved Checked meds and labs Urinating and bowels are normal Review of Systems General: Fatigue Focused Exam Lactate Level 11/29/18 13:09: Lactic Acid Level 0.73 Time of Focused Exam: 14:36 Objective Exam Vital Signs Vital Signs Date Time Temp Pulse Resp B/P (MAP) Pulse Ox O2 Delivery O2 Flow Rate FiO2 12/02/18 08:01 Nasal Cannula 2.00 12/02/18 08:00 97.0 90 20 139/78 (98) 92 11/29/18 17:06 36 Capillary Refill : Less Than 3 SecondsLess Than 3 Seconds General Appearance: No Apparent Distress, WD/WN, Chronically ill, Cachetic, Other (speaks in full sentences, alert and oriented, no obvious distress) HEENT: PERRL/EOMI, TMs Normal Neck: Full Range of Motion, Normal Inspection Respiratory: Chest Non Tender, Lungs Clear, Normal Breath Sounds, No Accessory Muscle Use, No Respiratory Distress Cardiovascular: No Edema, Normal Peripheral Pulses, Irregularly Irregular Gastrointestinal: Normal Bowel Sounds, Non Tender, Soft Back: Normal Inspection, No CVA Tenderness, No Vertebral Tenderness Extremity: Normal Capillary Refill, Normal Inspection, No Pedal Edema Neurologic/Psychiatric: Alert, Oriented x3, No Motor/Sensory Deficits, Normal Mood/Affect, 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 Assessment/Plan Assessment and Plan Assess & Plan/Chief Complaint Assessment: Recurrent bibasilar pneumonia Hypoxia Elevated troponin Recent stent and coronary artery Status post non-ST elevation [place] Elevated BNP Parkinson's Cachexia Former smoker quit last week Home O2 dependent Plan: Cardiology and pulmonology consultations are appreciated Social work for placement in skilled facility at discharge, awaiting approval Maintain oxygen Nebulizer treatments Antibiotics NHP Diagnosis/Problems Diagnosis/Problems (1) Recurrent pneumonia Status: Acute (2) Cachexia Status: Chronic (3) Former smoker Status: Chronic (4) RESPIRATORY FAILURE, UNSP, UNSP W HYPOXIA OR HYPERCAPNIA Status: Acute (5) Anxiety Status: Acute (6) Parkinson disease Status: Chronic (7) Elevated troponin Status: Acute (8) Atrial fibrillation, chronic Status: Chronic (9) Congestive heart failure Status: Acute Qualifiers: Heart failure type: unspecified Heart failure chronicity: unspecified Qualified Codes: I50.9 - Heart failure, unspecified (10) Hypertension Status: Chronic Qualifiers: Hypertension type: essential hypertension Qualified Codes: I10 - Essential (primary) hypertension (11) COPD (chronic obstructive pulmonary disease) Status: Chronic Qualifiers: COPD type: unspecified COPD Qualified Codes: J44.9 - Chronic obstructive pulmonary disease, unspecified (12) Stented coronary artery Status: Acute Clinical Quality Measures DVT/VTE Risk/Contraindication: Risk Factor Score Per Nursin RFS Level Per Nursing on Admit: 4+=Very High NIYAH SHARP DO Dec 02, 2018 09:49
--- NOTE | 2018-12-02 10:58 | Physical Therapy Evaluation ---
PT Evaluation-General Medical Diagnosis Admission Date Nov 29, 2018 at 14:21 Medical Diagnosis: Hypoxia Onset Date: Nov 29, 2018 Therapy Diagnosis Therapy Diagnosis: generalized weakness/debility Height/Weight Height (Feet): 5 Height (Inches): 10.00 Weight (Pounds): 144 Weight (Ounces): 12.8 Precautions Precautions/Isolations: Fall Prevention, Standard Precautions Referral Physician: Dr. Lund Reason for Referral: Evaluation/Treatment Medical History Pertinent Medical History: Atrial Fib, CAD, COPD, Heart Failure, ND, Parkinson' s Current History ED via private vehicle secondary to increase SOA (has home O2) Reviewed History: Yes Social History Home: Single Level Current Living Status: Children Entry Into Home: Level Entry Prior/Core FIM Prior Level of Function Therapy Code Descriptions/Definitions Functional [place] Measure: 0=Not Assessed/NA 4=Minimal Assistance 1=Total Assistance 5=Supervision or Setup 2=Maximal Assistance 6=Modified [place] 3=Moderate Assistance 7=Complete [place] Therapy Quality Codes: 6 Independent with activity with or without an assistive device 5 Patient requires set up or clean up by helper. Patient completes activity by themselves 4 Supervision or touching assist (CGA). [place] provide cues , steadying assist 3 The helper provides less than half the effort to complete the activity 2 The helper provides more than half the effort to complete the activity 1 Dependent. The helper does all the effort to complete an activity 7 Patient refused to complete or attempt activity 9 The patient did not perform the activity before the current illness or injury 88 Not attempted due to Medical conditions or safety concerns Functional Abilities and Goals: Independent: Patient completed the activities by him/herself, with or without an assistive device, with no assistance from a helper. Needed Some Help: Patient needed partial assistance from another person to complete activities. Dependent: A helper completed the activities for the patient. Unknown: Not Applicable: Bed Mobility: 6 Transfers (B,C,W/C) (FIM): 6 Gait: 6 Indoor Mobility (Ambulation): Independent Stairs: Independent Prior Devices Use: Walker PT Evaluation-Current Subjective Patient agrees to PT and reports that he may go to [place] to receive therapy to improve his mobility and strength. Pain Numeric Pain Scale: 0-No Pain Location: No Pain Reported Objective Patient Orientation: Normal For Age Problem Solving: Fair Attachments: Oxygen, IV ROM/Strength ROM Lower Extremities bilateral LE WFL Strength Lower Extremities 4/5 grossly bilateral LE all planes Integumentary/Posture Integumentary refer to nursing notes Bowel Incontinence: No Bladder Incontinence: No Posture WFL Neuromuscular (Tone, Coordination, Reflexes) noted tremors bilateral UE's Sensory Vision: Functional Hearing: Impaired Hand Dominance: Right Sensation Right Lower Extremit: Intact Sensation Left Lower Extremity: Intact Transfers Therapy Code Descriptions/Definitions Functional [place] Measure: 0=Not Assessed/NA 4=Minimal Assistance 1=Total Assistance 5=Supervision or Setup 2=Maximal Assistance 6=Modified [place] 3=Moderate Assistance 7=Complete [place] Transfers (B, C, W/C) (FIM): 5 Scootin Rollin Supine to/from Sit: 6 Sit to/from Stand: 5 SBA for safety Gait Mode of Locomotion: Walk Anticipated Mode of Locomotion: Walk Gait (FIM): 5 Distance (FIM): 3=150 ft Distance: 225' Gait Level of Assist: 5 Gait Assistive Device: FWW Comments/Gait Description slow, steady reciprocal pattern with FWW Balance Sitting Static: Good Sitting Dynamic: Good Standing Static: Good Standing Dynamic: Good Assessment/Needs 78 y.o male, will benefit from skilled PT to address functional strength and mobility to improve current LOF. Patient reports difficulty caring for self at home and is very agreeable to NH placement if needed. Rehab Potential: Fair PT [place] Department Operator Goals Jail Goals PT Jail Goals Time Frame: Dec 08, 2018 Transfers (B,C,W/C) (FIM): 6 Gait (FIM): 6 Gait distance (FIM): 3=150 ft Distance: 300' Gait Level of Assist: 6 Gait Assistive Device: FWW PT Plan Problem List Problem List: Activity Tolerance, Functional Strength, Safety, Balance, Gait, Transfer, Bed Mobility Treatment/Plan Treatment Plan: Continue Plan of Care Treatment Plan: Bed Mobility, Education, Functional Activity Edna, Functional Strength, Gait, Safety, Therapeutic Exercise, Transfers Treatment Duration: Dec 08, 2018 Frequency: 6 times per week Estimated Hrs Per Day: .25 hour per day Patient and/or Family Agrees t: Yes Discharge Recommendations Therapy D/C Recommendations: Senior Care Placement, Fdc (TCU/NH) Time/GCodes Time In: 1000 Time Out: 1024 Total Billed Treatment Time: 24 Total Billed Treatment 1 visit EVMod 24 min AINSLEY CANSECO PT Dec 02, 2018 10:58
--- NOTE | 2018-12-02 11:26 | Occupational Ther Daily Note ---
OT Current Status-Daily Note Subjective Pt seen in room, up in recliner, agreeable to OT. No pain mentioned. Appearance Alert, cooperative Mental Status/Objective Therapy Code Descriptions/Definitions Functional [place] Measure: 0=Not Assessed/NA 4=Minimal Assistance 1=Total Assistance 5=Supervision or Setup 2=Maximal Assistance 6=Modified [place] 3=Moderate Assistance 7=Complete [place] Attachments: IV, Oxygen, Telemetry ADL-Treatment Pt declined a shower, stating that he was too tired after walking with PT. Also declined toileting, stating that he was pleased that he could stand to urinate now and it made urinating easier. Pt indicated that he wanted to be able to get up to stand to use the urinal and OT cautioned him to be sure to call for help first, for safety. Pt got up from recliner with SBA and walked to bed. Sat EOB without assistance, then was able to swing his legs into bed himself. Tremors noted bilat UEs. Cues for hand placement. Pt left up in bed, 4 rails up, O2 in place, bed alarm on, all needs met. Education OT Patient Education: Progress toward Goal/Update tx plan, Purpose of tx/ functional activities, Safety issues, Transfer techniques Teaching Recipient: Patient Teaching Methods: Discussion Response to Teaching: Verbalize Understanding, Return Demonstration, Reinforcement Needed OT Short Term Goals Short Term Goals 1=Demonstrate adherence to instructed precautions during ADL tasks. 2=Patient will verbalize/demonstrate understanding of assistive devices/ modifications for ADL. 3=Patient will improve strength/tolerance for activity to enable patient to perform ADL's. OT Nursing Home Goals Nursing Home Goals Time Frame: Dec 15, 2018 Eating (FIM): 6 Grooming(FIM): 6 Bathing(FIM): 5 Upper Body Dressing(FIM): 5 Lower Body Dressing(FIM): 5 Toileting(FIM): 6 Transfers (B,C,W/C) (FIM): 6 Toilet/Commode Transfer(FIM): 6 Shower Transfer(FIM): 5 Additional Goals: 1-Demonstrate ADL Tasks, 2-Verbalize Understanding, 3- ImproveStrength/Edna 1=Demonstrate adherence to instructed precautions during ADL tasks. 2=Patient will verbalize/demonstrate understanding of assistive devices/ modifications for ADL. 3=Patient will improve strength/tolerance for activity to enable patient to perform ADL's. OT Education/Plan Discharge Recommendations Plan/Recommendations: Continue POC Treatment Plan/Plan of Care Patient would benefit from OT for education, treatment and training to promote independence in ADL's, mobility, safety and/or upper extremity function for ADL' s. Plan of Care: ADL Retraining, Functional Mobility, UE Funct Exercise/Act Treatment Duration: Dec 15, 2018 Frequency: 5 times per week Estimated Hrs Per Day: .25 hour per day Agreement: Yes Rehab Potential: Fair Time/GCodes Start Time: 10:55 Stop Time: 11:10 Total Time Billed (hr/min): 15 Billed Treatment Time visit, 15 minutes functional activity XOCHILT MOSHER OT Dec 02, 2018 11:26
[2018-12-02 12:00] VITALS: BP 115/87
--- NOTE | 2018-12-02 15:07 | Cardiology Progress Note ---
Cardiology SOAP Progress Note Subjective: Feeling weak. Objective: I&O/Vital Signs 12/02/18 12/02/18 12/02/18 12/02/18 07:00 07:22 08:00 08:01 Temp 97.0 Pulse 78 90 Resp 20 B/P (MAP) 139/78 (98) Pulse Ox 96 92 O2 Delivery Nasal Cannula Nasal Cannula Nasal Cannula O2 Flow Rate 2.50 1.50 2.00 12/02/18 12/02/18 12/02/18 12/02/18 11:52 12:00 13:00 15:54 Temp 97.1 98.4 Pulse 105 84 87 82 Resp 20 19 B/P (MAP) 115/87 (96) 119/82 (94) Pulse Ox 96 95 100 O2 Delivery Nasal Cannula Nasal Cannula O2 Flow Rate 1.50 2.50 FiO2 30 12/02/18 00:00 Intake Total 2500 ml Output Total 1775 ml Balance 725 ml Weight (Pounds): 144 Weight (Ounces): 12.8 Weight (Calculated Kilograms): 65.058848 Constitutional: No appears stated age; AAO x 3; No apparent distress, No PERRL , No well-developed, No well-nourished; other (thin) Respiratory: No accessory muscle use, No respiratory distress; chest is bilaterally symmetric, lungs clear to auscultation, other (diminished lower lobes bilat) Cardiovascular: No regular rate-rhythm; irregularly irregular; No extra beats, No parasternal heave is noted, No JVD, No edema, No bradycardia, No tachycardia , No point of maximal impulse, No cardiac thrills are palpable; S1 and S2; No gallop/S3, No gallop/S4, No diastolic murmur, No systolic murmur, No friction rub, No click, No other Gastrointestional: No tender; soft, round, audible bowel sounds Extremities: No normal range of motion, No non-tender, No normal inspection, No pedal edema, No calf tenderness, No normal capillary refill, No pelvis stable , No calf tenderness, No inflammation, No pedal edema, No slow capillary refill , No swelling, No other, No abrasion, No clubbing, No cyanosis, No ecchymosis, No laceration; no lower extremity edema bilateral; No significant edema, No tenderness, No wound Neurologic/Psychiatric: no motor/sensory deficits, alert, normal mood/affect, oriented x 3, other (chronic resting tremors of upper extremities), grossly intact, power is 5/5 both on sides Skin: warm/dry; No rash, No ulcerations Results/Procedures: Labs Microbiology 11/29/18 Blood Culture - Preliminary, Resulted No growth 11/29/18 Gram Stain - Final, Complete 11/29/18 Sputum Culture - Final, Complete Streptococcus pneumoniae Usual upper respiratory ashish A/P: Assessment/Dx: Pneumonia with sepsis- management per medical services Elevated troponin - likely on the downward trend from recent NSTEMI CAD: Cath of 11/19/18 showed 99% ostial LAD that was stented with Xience Rimma 3 x 18; other cors had mild to mod stenoses Ischemic dilated cardiomyopathy. Echocardiogram of 11-18-18 showed LVEF 30-35%. LA dilated. Mild AoR. Mod to severe TR. PASP 40mmHg Acute on chronic systolic CHF Chronic a-fib - rate not well controlled Apixaban for stroke prophylaxis COPD Tobaccoism - cessation advised - he has been refraining Chronic resting tremor TSH of 11-18-18 WNL Plan: Pneumonia with sepsis - management per medical services Mild troponin elevated likely d/t NSTEMI (treated with cor intervention) and/or hypoxia Continue Plavix d/t know h/o CAD with recent stent placement Chronic a-fib - continue OAC for stroke prophylaxis - HR not well controlled - resume BB Hypotension - resolved - BB restarted - if BP allows re-start LUIS d/t ICM Acute on chronic systolic CHF - give Lasix as indicated and tolerated Monitor lab closely Thank you for your consultation. Please call me if you have any questions. Jacques Deras MD, FACP, FACC, FSCAI, FHRS, CCDS Interventional Cardiology Cardiac Electrophysiology Vascular Medicine and Endovascular Interventions Focused Exam Time of Focused Exam: 14:36 Cameron DERAS MD Dec 02, 2018 15:07
--- NOTE | 2018-12-02 15:39 | NUR ---
CM/SS. Insurance has requested more information, provided this date a.m. by KARIN RN. Computer Laboratory Technician left message for SANDRA/Nakita to see if they had any confirmation, await update. Call from patient's DIL/Melody Salmeron. Anxious about patient going to SNF, but she works and patient is alone during days. Melody was trying to figure out how to keep patient at home and avoid SNF environment; however, magazine writer assured her that patient needs were best addressed with 24/7 care at this time and daily therapy to regain and maximize strength/stamina. Melody is going to visit with patient tonight about correction and the goal for his return home as soon as he is able. Waiting for insurance approval, [facility] is ready to receive patient when medically stable.
[2018-12-02 15:54] VITALS: BP 119/82
--- NOTE | 2018-12-02 15:58 | Pulmonary Progress Note ---
Subjective Time Seen by a Provider: 10:16 Subjective/Events-last exam PT is doing better. Sepsis Event Evaluation Height, Weight, BMI Height: 5'10.00" Weight: 144lbs. 12.8oz. 65.713811hr; 19.1 BMI Method:Stated Focused Exam Time of Focused Exam: 14:36 Exam Exam Vital Signs Date Time Temp Pulse Resp B/P (MAP) Pulse Ox O2 Delivery O2 Flow Rate FiO2 12/02/18 13:00 87 12/02/18 12:00 97.1 84 20 115/87 (96) 95 Nasal Cannula 1.50 12/02/18 11:52 105 96 30 12/02/18 08:01 Nasal Cannula 2.00 12/02/18 08:00 97.0 90 20 139/78 (98) 92 Nasal Cannula 1.50 12/02/18 07:22 96 Nasal Cannula 2.50 12/02/18 07:00 78 12/02/18 04:00 98.0 90 18 110/72 (85) 95 Nasal Cannula 1.50 1.50 12/02/18 01:55 96 Nasal Cannula 1.50 12/02/18 01:00 93 12/02/18 00:00 98.5 92 18 119/77 (91) 96 Nasal Cannula 1.50 1.50 12/01/18 21:52 92 Nasal Cannula 1.50 12/01/18 20:45 98.5 81 18 109/72 (84) 97 Nasal Cannula 1.00 12/01/18 20:00 Nasal Cannula 2.00 12/01/18 19:00 100 12/01/18 16:15 98.7 93 18 113/71 (85) 96 Nasal Cannula 1.00 I & O 12/02/18 07:00 Intake Total 2600 ml Output Total 2400 ml Balance 200 ml Height & Weight Height: 5'10.00" Weight: 144lbs. 12.8oz. 65.727762ta; 19.1 BMI Method:Stated General Appearance: No Apparent Distress, WD/WN, Chronically ill, Cachetic, Other (speaks in full sentences, alert and oriented, no obvious distress) HEENT: PERRL/EOMI, TMs Normal Neck: Full Range of Motion, Normal Inspection Respiratory: Chest Non Tender, Lungs Clear, Normal Breath Sounds, No Accessory Muscle Use, No Respiratory Distress Cardiovascular: No Edema, Normal Peripheral Pulses, Irregularly Irregular Capillary Refill: Less Than 3 Seconds Extremity: Normal Capillary Refill, Normal Inspection, No Pedal Edema Neurologic/Psychiatric: Alert, Oriented x3, No Motor/Sensory Deficits, Normal Mood/Affect, 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 Tobacco use -Education -will do out patient testing Hypoxia -Pt does have home 02 -out patient testing Elevated troponin CAD - with stents Parkinsons Cachexia DARIN RENEE DO Dec 02, 2018 15:58
--- NOTE | 2018-12-02 17:28 | NUR ---
HOME MEDS TO SON DANNY PER HIS REQUEST.
[2018-12-02 20:24] VITALS: BP 128/80
[2018-12-02] MEDS: ALPRAZolam 0.25 MG (XANAX) TAB PO PRN (21:07)
[2018-12-03 00:14] VITALS: BP 111/66
[2018-12-03] MEDS: LACTATED RINGERS 1,000 ML IV SCH ×2 (02:59→18:07)
[2018-12-03 04:20] VITALS: BP 138/83
[2018-12-03] MEDS: RT-ALBUTEROL/IPRATROPIUM 3 ML (DUONEB) VIAL INH SCH ×3 (04:22→22:12)
[2018-12-03] MEDS: AUGMENTIN 500 MG TAB (AMOXICILLIN/CLAVULANATE) PO SCH ×2 (06:03→18:11)
[2018-12-03] MEDS: predniSONE 10 MG TAB PO SCH (06:03)
[2018-12-03 08:00] VITALS: BP 119/78
[2018-12-03] MEDS: APIXABAN 5 MG (ELIQUIS) TABLET PO SCH ×2 (08:41→21:11)
[2018-12-03] MEDS: CLOPIDOGREL 75 MG (PLAVIX) TABLET PO SCH (08:41)
[2018-12-03] MEDS: DIGOXIN 0.125 MG (LANOXIN) TAB PO SCH (08:45)
--- NOTE | 2018-12-03 10:18 | Pulmonary Progress Note ---
Subjective Time Seen by a Provider: 10:18 Subjective/Events-last exam NO complications noted. Sepsis Event Evaluation Height, Weight, BMI Height: 5'10.00" Weight: 146lbs. 6.0oz. 66.208188yh; 19.1 BMI Method:Stated Focused Exam Time of Focused Exam: 14:36 Exam Exam Vital Signs Date Time Temp Pulse Resp B/P (MAP) Pulse Ox O2 Delivery O2 Flow Rate FiO2 12/03/18 08:00 Nasal Cannula 2.00 12/03/18 08:00 97.5 92 20 119/78 (92) 100 Nasal Cannula 2.00 12/03/18 07:49 94 Nasal Cannula 2.50 12/03/18 07:00 103 12/03/18 04:24 95 Nasal Cannula 2.50 12/03/18 04:20 96.8 93 20 138/83 (101) 98 Nasal Cannula 1.00 12/03/18 00:14 97.0 106 18 111/66 (81) 97 Nasal Cannula 2.00 12/02/18 21:14 96 Nasal Cannula 2.50 12/02/18 20:24 97.2 90 20 128/80 (96) 100 Nasal Cannula 2.00 12/02/18 20:00 Nasal Cannula 2.00 12/02/18 19:00 93 12/02/18 15:54 98.4 82 19 119/82 (94) 100 Nasal Cannula 2.50 12/02/18 13:00 87 12/02/18 12:00 97.1 84 20 115/87 (96) 95 Nasal Cannula 1.50 12/02/18 11:52 105 96 30 I & O 12/03/18 07:00 Intake Total 3040 ml Output Total 2075 ml Balance 965 ml Height & Weight Height: 5'.00" Weight: 146lbs. 6.0oz. 66.747023wn; 19.1 BMI Method:Stated General Appearance: No Apparent Distress, WD/WN, Chronically ill, Cachetic, Other (speaks in full sentences, alert and oriented, no obvious distress) HEENT: PERRL/EOMI, TMs Normal Neck: Full Range of Motion, Normal Inspection Respiratory: Chest Non Tender, Lungs Clear, Normal Breath Sounds, No Accessory Muscle Use, No Respiratory Distress Cardiovascular: No Edema, Normal Peripheral Pulses, Irregularly Irregular Capillary Refill: Less Than 3 Seconds Extremity: Normal Capillary Refill, Normal Inspection, No Pedal Edema Neurologic/Psychiatric: Alert, Oriented x3, No Motor/Sensory Deficits, Normal 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 Tobacco use -Education -will do out patient testing Hypoxia -Pt does have home 02 -out patient testing Elevated troponin CAD - with stents Parkinsons Cachexia DARIN RENEE DO Dec 03, 2018 10:18
--- NOTE | 2018-12-03 10:38 | Progress Note-Hospitalist ---
Subjective HPI/CC On Admission Date Seen by Provider: Dec 03, 2018 Time Seen by Provider: 10:00 CC: Dyspnea HPI: This is a 78-year-old white [facility] patient who is known to me from recent hospital stay for pneumonia, non-ST elevation status post stented coronary artery and elevated BNP who presents to the ER with hypoxia when he saw Dr. Agustin a [facility] for a follow-up visit. He was that 80 percent at the clinic but when he arrived to the ER he was found to be stable but having bilateral infiltrates elevated white count and elevated lactic acid along with elevated troponin and BNP he met criteria for hospital stay and pulmonary and cardiology consultation along with prison placement arrangements. He does live with his son and [id number] but it appears that he has declined since going home and may very well need skilled care. Subjective/Events-last exam Patient doing better but too weak to go home. Spoke to Dr [facility] at the [employer] in-depth regarding the need to go to [place] due to failure at home after DC last week and they will let us know their decision soon and I informed her that there would be a Fast Appeal if her decision was a denial. Patient reports his BM are normal Tolerating abx well along with steroids. Review of Systems General: Fatigue Pulmonary: Dyspnea Focused Exam Time of Focused Exam: 14:36 Objective Exam Vital Signs Vital Signs Date Time Temp Pulse Resp B/P (MAP) Pulse Ox O2 Delivery O2 Flow Rate FiO2 12/03/18 08:00 Nasal Cannula 2.00 12/03/18 08:00 97.5 92 20 119/78 (92) 100 12/02/18 11:52 30 Capillary Refill : Less Than 3 SecondsLess Than 3 Seconds General Appearance: No Apparent Distress, WD/WN, Chronically ill, Cachetic, Other (speaks in full sentences, alert and oriented, no obvious distress) HEENT: PERRL/EOMI, TMs Normal Neck: Full Range of Motion, Normal Inspection Respiratory: Chest Non Tender, Lungs Clear, No Accessory Muscle Use, No Respiratory Distress, Decreased Breath Sounds Cardiovascular: No Edema, Normal Peripheral Pulses, Irregularly Irregular Gastrointestinal: Normal Bowel Sounds, Non Tender, Soft Back: Normal Inspection, No CVA Tenderness, No Vertebral Tenderness Extremity: Normal Capillary Refill, Normal Inspection, No Pedal Edema Neurologic/Psychiatric: Alert, Oriented x3, No Motor/Sensory Deficits, Normal Mood/Affect, 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 Assessment/Plan Assessment and Plan Assess & Plan/Chief Complaint Assessment: Recurrent bibasilar pneumonia on PO abx AECOPD on steroids Hypoxia Elevated troponin Recent stent and coronary artery Status post non-ST elevation [place] Elevated BNP Parkinson's Cachexia Former smoker quit last week Home O2 dependent Plan: Cardiology and pulmonology consultations are appreciated Social work for placement in skilled facility at discharge, awaiting approval Maintain oxygen Nebulizer treatments Antibiotics NHP is needed for skilled care due to cachexia and overall weakness and failed DC to home last week Diagnosis/Problems Diagnosis/Problems (1) Recurrent pneumonia Status: Acute (2) Cachexia Status: Chronic (3) Former smoker Status: Chronic (4) RESPIRATORY FAILURE, UNSP, UNSP W HYPOXIA OR HYPERCAPNIA Status: Acute (5) Anxiety Status: Acute (6) Parkinson disease Status: Chronic (7) Elevated troponin Status: Acute (8) Atrial fibrillation, chronic Status: Chronic (9) Congestive heart failure Status: Acute Qualifiers: Heart failure type: unspecified Heart failure chronicity: unspecified Qualified Codes: I50.9 - Heart failure, unspecified (10) Hypertension Status: Chronic Qualifiers: Hypertension type: essential hypertension Qualified Codes: I10 - Essential (primary) hypertension (11) COPD (chronic obstructive pulmonary disease) Status: Chronic Qualifiers: COPD type: unspecified COPD Qualified Codes: J44.9 - Chronic obstructive pulmonary disease, unspecified (12) Stented coronary artery Status: Acute Clinical Quality Measures DVT/VTE Risk/Contraindication: Risk Factor Score Per Nursin RFS Level Per Nursing on Admit: 4+=Very High NIYAH SHARP DO Dec 03, 2018 10:38
--- NOTE | 2018-12-03 10:58 | Physical Therapy Daily Note ---
PT Daily Note-Current Subjective Patient agrees to PT. No c/o on this date. Pain Numeric Pain Scale: 0-No Pain Location: No Pain Reported Mental Status Patient Orientation: Person, Time, Situation Attachments: Oxygen, IV Transfers Therapy Code Descriptions/Definitions Functional [place] Measure: 0=Not Assessed/NA 4=Minimal Assistance 1=Total Assistance 5=Supervision or Setup 2=Maximal Assistance 6=Modified [place] 3=Moderate Assistance 7=Complete [place] Therapy Quality Codes: 6 Independent with activity with or without an assistive device 5 Patient requires set up or clean up by helper. Patient completes activity by themselves 4 Supervision or touching assist (CGA). Lynd provide cues , steadying assist 3 The helper provides less than half the effort to complete the activity 2 The helper provides more than half the effort to complete the activity 1 Dependent. The helper does all the effort to complete an activity 7 Patient refused to complete or attempt activity 9 The patient did not perform the activity before the current illness or injury 88 Not attempted due to Medical conditions or safety concerns Transfers (B, C, W/C) (FIM): 5 Scootin Supine to/from Sit: 5 Sit to/from Stand: 5 Gait Training Gait (FIM): 4 Distance (FIM): 3=150 ft Distance: 250' x 2 Gait Level of Assist: 4 Gait Persons Needed: 1 Gait Assistive Device: FWW CGA for safety Assessment Patient declined exercises on this date and returned to bed with all 4 rails up and bed alarm activated. PT Intermediate Goals Forging Press Setter Up Goals PT Intermediate Goals Time Frame: Dec 08, 2018 Transfers (B,C,W/C) (FIM): 6 Gait (FIM): 6 Gait distance (FIM): 3=150 ft Distance: 300' Gait Level of Assist: 6 Gait Assistive Device: FWW PT Plan Treatment/Plan Treatment Plan: Continue Plan of Care Treatment Plan: Bed Mobility, Education, Functional Activity Edna, Functional Strength, Gait, Safety, Therapeutic Exercise, Transfers Treatment Duration: Dec 08, 2018 Frequency: 6 times per week Estimated Hrs Per Day: .25 hour per day Patient and/or Family Agrees t: Yes Time/GCodes Time In: 1013 Time Out: 1027 Total Billed Treatment Time: 14 Total Billed Treatment 1 visit FA 14 min AINSLEY CANSECO PT Dec 03, 2018 10:58
[2018-12-03 12:00] VITALS: BP 124/81
--- NOTE | 2018-12-03 12:22 | Cardiology Progress Note ---
Cardiology SOAP Progress Note Subjective: No cardiac symptoms. Objective: I&O/Vital Signs 12/03/18 12/03/18 12/03/18 12/03/18 04:20 04:24 07:00 07:49 Temp 96.8 Pulse 93 103 Resp 20 B/P (MAP) 138/83 (101) Pulse Ox 98 95 94 O2 Delivery Nasal Cannula Nasal Cannula Nasal Cannula O2 Flow Rate 1.00 2.50 2.50 12/03/18 12/03/18 08:00 08:00 Temp 97.5 Pulse 92 Resp 20 B/P (MAP) 119/78 (92) Pulse Ox 100 O2 Delivery Nasal Cannula Nasal Cannula O2 Flow Rate 2.00 2.00 12/03/18 00:00 Intake Total 1940 ml Output Total 1125 ml Balance 815 ml Weight (Pounds): 146 Weight (Ounces): 6.0 Weight (Calculated Kilograms): 66.144164 Constitutional: No appears stated age; AAO x 3; No apparent distress, No PERRL , No well-developed, No well-nourished; other (thin) Respiratory: No accessory muscle use, No respiratory distress; chest is bilaterally symmetric, lungs clear to auscultation, other (diminished lower lobes bilat) Cardiovascular: No regular rate-rhythm; irregularly irregular; No extra beats, No parasternal heave is noted, No JVD, No edema, No bradycardia, No tachycardia , No point of maximal impulse, No cardiac thrills are palpable; S1 and S2; No gallop/S3, No gallop/S4, No diastolic murmur, No systolic murmur, No friction rub, No click, No other Gastrointestional: No tender; soft, round, audible bowel sounds Extremities: No normal range of motion, No non-tender, No normal inspection, No pedal edema, No calf tenderness, No normal capillary refill, No pelvis stable , No calf tenderness, No inflammation, No pedal edema, No slow capillary refill , No swelling, No other, No abrasion, No clubbing, No cyanosis, No ecchymosis, No laceration; no lower extremity edema bilateral; No significant edema, No tenderness, No wound Neurologic/Psychiatric: no motor/sensory deficits, alert, normal mood/affect, oriented x 3, other (chronic resting tremors of upper extremities), grossly intact, power is 5/5 both on sides Skin: warm/dry; No rash, No ulcerations Results/Procedures: Labs Microbiology 11/29/18 Blood Culture - Preliminary, Resulted No growth 11/29/18 Gram Stain - Final, Complete 11/29/18 Sputum Culture - Final, Complete Streptococcus pneumoniae Usual upper respiratory ashish A/P: Assessment/Dx: Pneumonia with sepsis- management per medical services Elevated troponin - likely on the downward trend from recent NSTEMI CAD: Cath of 11/19/18 showed 99% ostial LAD that was stented with Xience Rimma 3 x 18; other cors had mild to mod stenoses Ischemic dilated cardiomyopathy. Echocardiogram of 11-18-18 showed LVEF 30-35%. LA dilated. Mild AoR. Mod to severe TR. PASP 40mmHg Acute on chronic systolic CHF Chronic a-fib - rate not well controlled Apixaban for stroke prophylaxis COPD Tobaccoism - cessation advised - he has been refraining Chronic resting tremor TSH of 11-18-18 WNL Plan: Pneumonia with sepsis - management per medical services Mild troponin elevated likely d/t NSTEMI (treated with cor intervention) and/or hypoxia Continue Plavix d/t know h/o CAD with recent stent placement Chronic a-fib - continue OAC for stroke prophylaxis - HR not well controlled - resume BB Hypotension - resolved - BB restarted - if BP allows re-start LUIS d/t ICM Acute on chronic systolic CHF - give Lasix as indicated and tolerated Monitor lab closely Thank you for your consultation. Please call me if you have any questions. Jacques Deras MD, FACP, FACC, FSCAI, FHRS, CCDS Interventional Cardiology Cardiac Electrophysiology Vascular Medicine and Endovascular Interventions Focused Exam Time of Focused Exam: 14:36 Cameron DERAS MD Dec 03, 2018 12:22 pm
--- NOTE | 2018-12-03 14:28 | Occupational Ther Daily Note ---
OT Current Status-Daily Note Subjective Pt alert, lying in bed. Pt agrees to therapy. No c/o pain. Mental Status/Objective Patient Orientation: Person, Place, Time, Situation Therapy Code Descriptions/Definitions Functional [place] Measure: 0=Not Assessed/NA 4=Minimal Assistance 1=Total Assistance 5=Supervision or Setup 2=Maximal Assistance 6=Modified [place] 3=Moderate Assistance 7=Complete [place] Attachments: IV, Oxygen Other Treatment Pt able to complete UE medium resistance theraband exercises to increase strength and activity tolerance. Pt able to complete 10 reps with B UE and R UE exercises. 5 reps only with L UE. Pt required recovery break. After therapy, pt lying in bed with call light/phone in reach. Nrsg present in room. All needs met in room. OT Short Term Goals Short Term Goals 1=Demonstrate adherence to instructed precautions during ADL tasks. 2=Patient will verbalize/demonstrate understanding of assistive devices/ modifications for ADL. 3=Patient will improve strength/tolerance for activity to enable patient to perform ADL's. OT [facility] Goals [facility] Goals Time Frame: Dec 15, 2018 Eating (FIM): 6 Grooming(FIM): 6 Bathing(FIM): 5 Upper Body Dressing(FIM): 5 Lower Body Dressing(FIM): 5 Toileting(FIM): 6 Transfers (B,C,W/C) (FIM): 6 Toilet/Commode Transfer(FIM): 6 Shower Transfer(FIM): 5 Additional Goals: 1-Demonstrate ADL Tasks, 2-Verbalize Understanding, 3- ImproveStrength/Edna 1=Demonstrate adherence to instructed precautions during ADL tasks. 2=Patient will verbalize/demonstrate understanding of assistive devices/ modifications for ADL. 3=Patient will improve strength/tolerance for activity to enable patient to perform ADL's. OT Education/Plan Problem List/Assessment Assessment: Decreased Activ Tolerance, Decreased UE Strength, Impaired Self- Care Skills Discharge Recommendations Plan/Recommendations: Continue POC Therapy D/C Recommendations: [facility] (TCU/NH) Treatment Plan/Plan of Care Patient would benefit from OT for education, treatment and training to promote independence in ADL's, mobility, safety and/or upper extremity function for ADL' s. Plan of Care: ADL Retraining, Functional Mobility, UE Funct Exercise/Act Treatment Duration: Dec 15, 2018 Frequency: 5 times per week Estimated Hrs Per Day: .25 hour per day Agreement: Yes Rehab Potential: Fair Time/GCodes Start Time: 14:10 Stop Time: 14:20 Total Time Billed (hr/min): 10 Billed Treatment Time 1 visit-EX 1 (10 min) INDERJIT NELSON Dec 03, 2018 14:28
[2018-12-03 16:00] VITALS: BP 120/74
--- NOTE | 2018-12-03 16:00 | NUR ---
CM/SS. Involved throughout the day intermittently, along with physician, in an attempt to complete [facility]. [facility] review team denied benefits and physician has completed Expedited Appeal this p.m. Insurance has 72 hours to indicate a decision. MLF/Yasmin updated. Info for Expedited Appeal: Auth #[id number] Code #[id number] This is NOT a pre-auth for actual benefit access, only the appeal process. Notified DIL Melody Salmeron. She understands that if insurance denies patient will be discharged home with [facility] as before. He already has home O2 from last admission. Will followup Thursday.
[2018-12-03 20:35] VITALS: BP 114/79
[2018-12-03] MEDS: MELATONIN 3 MG TABLET PO PRN (21:11)
[2018-12-03] MEDS: ALPRAZolam 0.25 MG (XANAX) TAB PO PRN (21:11)
[2018-12-04] MEDS: RT-ALBUTEROL/IPRATROPIUM 3 ML (DUONEB) VIAL INH SCH ×4 (03:17→19:42)
[2018-12-04 04:00] VITALS: BP 116/68
[2018-12-04] MEDS: LACTATED RINGERS 1,000 ML IV SCH (04:02)
[2018-12-04] MEDS: predniSONE 10 MG TAB PO SCH (06:57)
[2018-12-04] MEDS: AUGMENTIN 500 MG TAB (AMOXICILLIN/CLAVULANATE) PO SCH ×2 (06:57→17:30)
[2018-12-04 07:44] VITALS: BP 136/79
[2018-12-04] MEDS: DIGOXIN 0.125 MG (LANOXIN) TAB PO SCH (08:31)
[2018-12-04] MEDS: CLOPIDOGREL 75 MG (PLAVIX) TABLET PO SCH (08:31)
[2018-12-04] MEDS: APIXABAN 5 MG (ELIQUIS) TABLET PO SCH ×2 (08:32→20:53)
--- NOTE | 2018-12-04 08:57 | Pulmonary Progress Note ---
Subjective Time Seen by a Provider: 08:56 Subjective/Events-last exam No complications noted. Sepsis Event Evaluation Height, Weight, BMI Height: 5'10.00" Weight: 146lbs. 7.0oz. 66.439998vl; 19.1 BMI Method:Stated Focused Exam Time of Focused Exam: 14:36 Exam Exam Vital Signs Date Time Temp Pulse Resp B/P (MAP) Pulse Ox O2 Delivery O2 Flow Rate FiO2 12/04/18 07:44 97.5 86 20 136/79 (98) 99 Nasal Cannula 1.00 12/04/18 07:00 86 12/04/18 04:00 97.4 88 20 116/68 (84) 97 Nasal Cannula 1.00 12/04/18 03:17 94 Nasal Cannula 1.00 12/04/18 01:00 83 12/03/18 22:12 94 Nasal Cannula 1.00 12/03/18 20:35 97.6 90 20 114/79 (91) 99 12/03/18 19:00 77 12/03/18 16:00 97.3 85 18 120/74 (89) 99 Nasal Cannula 2.00 12/03/18 13:00 112 12/03/18 12:00 97.0 94 18 124/81 (95) 98 Nasal Cannula 2.00 I & O 12/04/18 07:00 Intake Total 1700 ml Output Total 2675 ml Balance -975 ml Height & Weight Height: 5'10.00" Weight: 146lbs. 7.0oz. 66.581686uk; 19.1 BMI Method:Stated General Appearance: No Apparent Distress, WD/WN, Chronically ill, Cachetic, Other (speaks in full sentences, alert and oriented, no obvious distress) HEENT: PERRL/EOMI, TMs Normal Neck: Full Range of Motion, Normal Inspection Respiratory: Chest Non Tender, Lungs Clear, No Accessory Muscle Use, No Respiratory Distress, Decreased Breath Sounds Cardiovascular: No Edema, Normal Peripheral Pulses, Irregularly Irregular Capillary Refill: Less Than 3 Seconds Extremity: Normal Capillary Refill, Normal Inspection, No Pedal Edema Neurologic/Psychiatric: Alert, Oriented x3, No Motor/Sensory Deficits, Normal Mood/Affect, plater barrel II-XII Norm as Tested, Other (tremor noted) Skin: Normal Color, Warm/Dry Lymphatic: No Adenopathy Assessment/Plan Assessment/Plan recurrent Bibasilar PNA with sepsis strep pneumonia -Augmentin -Eddy culture COPDAE with hypoxia with home oxygen -prednisone taper -Oxygen -SVNS NSTEMI -Cardiology following CHF EF 35% with bilateral pleural effusions -Monitor ILD per CT chest -Will continue to follow as out patient. Tobacco use -Education -will do out patient testing Hypoxia -Pt does have home 02 -out patient testing Elevated troponin CAD - with stents Parkinsons Cachexia DARIN RENEE DO Dec 04, 2018 08:57
--- NOTE | 2018-12-04 11:32 | Physical Therapy Daily Note ---
PT Daily Note-Current Subjective Pt agreeable. Pt denies pain. Pt expresses he is anxious to get better and get home. Mental Status Patient Orientation: Person, Place, Situation Transfers Therapy Code Descriptions/Definitions Functional [place] Measure: 0=Not Assessed/NA 4=Minimal Assistance 1=Total Assistance 5=Supervision or Setup 2=Maximal Assistance 6=Modified [place] 3=Moderate Assistance 7=Complete [place] Therapy Quality Codes: 6 Independent with activity with or without an assistive device 5 Patient requires set up or clean up by helper. Patient completes activity by themselves 4 Supervision or touching assist (CGA). Antler provide cues , steadying assist 3 The helper provides less than half the effort to complete the activity 2 The helper provides more than half the effort to complete the activity 1 Dependent. The helper does all the effort to complete an activity 7 Patient refused to complete or attempt activity 9 The patient did not perform the activity before the current illness or injury 88 Not attempted due to Medical conditions or safety concerns Gait Training Gait Assistive Device: FWW Pt amb with FWW, CGA and O2 at 1L/min. Pt required 2 person assist due to f/u of IV and w/c. Pt amb 300ft with multiple but very brief seated rest breaks as needed. Exercises Seated Therapy Exercises: Long arc quads, Hip flexion Seated Reps: 20 Assessment Current Status: Good Progress Pt back to recliner with call light in lap and O2 insitu. All needs met post therapy session. Ambu alarm activated. PT Fdc Goals Fdc Goals PT Agronomist Goals Time Frame: Dec 08, 2018 Transfers (B,C,W/C) (FIM): 6 Gait (FIM): 6 Gait distance (FIM): 3=150 ft Distance: 300' Gait Level of Assist: 6 Gait Assistive Device: FWW PT Plan Treatment/Plan Treatment Plan: Continue Plan of Care Treatment Plan: Bed Mobility, Education, Functional Activity Edna, Functional Strength, Gait, Safety, Therapeutic Exercise, Transfers Treatment Duration: Dec 08, 2018 Frequency: 6 times per week Estimated Hrs Per Day: .25 hour per day Patient and/or Family Agrees t: Yes Time/GCodes Time In: 945 Time Out: 1015 Total Billed Treatment Time: 30 Total Billed Treatment 1, gait 20min, ther ex 10min ACACIA WAGNER CPTAdrian Dec 04, 2018 11:32
[2018-12-04 11:46] VITALS: BP 108/72
--- NOTE | 2018-12-04 12:54 | Progress Note-Hospitalist ---
Subjective HPI/CC On Admission Date Seen by Provider: Dec 04, 2018 Time Seen by Provider: 12:30 CC: Dyspnea HPI: This is a 78-year-old white male [facility] patient who is known to me from recent hospital stay for pneumonia, non-ST elevation status post stented coronary artery and elevated BNP who presents to the ER with hypoxia when he saw Dr. Agustin a [facility] for a follow-up visit. He was that 80 percent at the clinic but when he arrived to the ER he was found to be stable but having bilateral infiltrates elevated white count and elevated lactic acid along with elevated troponin and BNP he met criteria for hospital stay and pulmonary and cardiology consultation along with detention placement arrangements. He does live with his son and [id number] but it appears that he has declined since going home and may very well need skilled care. Subjective/Events-last exam Patient improved but frail Insurance fast appeal completed yesterday and patient was updated and appreciated the help in getting him to skilled care rather than home where he failed last week and resulted in returning to admission to hospital Will HLIVF Eating well Review of Systems General: Fatigue Focused Exam Time of Focused Exam: 14:36 Objective Exam Vital Signs Vital Signs Date Time Temp Pulse Resp B/P (MAP) Pulse Ox O2 Delivery O2 Flow Rate FiO2 12/04/18 13:00 81 12/04/18 11:46 97.8 20 108/72 (84) 98 Nasal Cannula 0.50 12/02/18 11:52 30 Capillary Refill : Less Than 3 SecondsLess Than 3 Seconds General Appearance: No Apparent Distress, WD/WN, Chronically ill, Cachetic, Other (speaks in full sentences, alert and oriented, no obvious distress) HEENT: PERRL/EOMI, TMs Normal Neck: Full Range of Motion, Normal Inspection Respiratory: Chest Non Tender, Lungs Clear, No Accessory Muscle Use, No Respiratory Distress, Decreased Breath Sounds Cardiovascular: No Edema, Normal Peripheral Pulses, Irregularly Irregular Gastrointestinal: Normal Bowel Sounds, Non Tender, Soft Back: Normal Inspection, No CVA Tenderness, No Vertebral Tenderness Extremity: Normal Capillary Refill, Normal Inspection, No Pedal Edema Neurologic/Psychiatric: Alert, Oriented x3, No Motor/Sensory Deficits, Normal 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 Assessment/Plan Assessment and Plan Assess & Plan/Chief Complaint Assessment: Recurrent bibasilar pneumonia on PO abx AECOPD on steroids Hypoxia Elevated troponin Recent stent and coronary artery Status post non-ST elevation SD Elevated BNP Parkinson's Cachexia Former smoker quit last week Home O2 dependent Plan: Cardiology and pulmonology consultations are appreciated Social work for placement in skilled facility at discharge, awaiting approval Maintain oxygen Nebulizer treatments Antibiotics NHP is needed for skilled care due to cachexia and overall weakness and failed DC to home last week HLIVF Diagnosis/Problems Diagnosis/Problems (1) Recurrent pneumonia Status: Acute (2) Cachexia Status: Chronic (3) Former smoker Status: Chronic (4) RESPIRATORY FAILURE, UNSP, UNSP W HYPOXIA OR HYPERCAPNIA Status: Acute (5) Anxiety Status: Acute (6) Parkinson disease Status: Chronic (7) Elevated troponin Status: Acute (8) Atrial fibrillation, chronic Status: Chronic (9) Congestive heart failure Status: Acute Qualifiers: Heart failure type: unspecified Heart failure chronicity: unspecified Qualified Codes: I50.9 - Heart failure, unspecified (10) Hypertension Status: Chronic Qualifiers: Hypertension type: essential hypertension Qualified Codes: I10 - Essential (primary) hypertension (11) COPD (chronic obstructive pulmonary disease) Status: Chronic Qualifiers: COPD type: unspecified COPD Qualified Codes: J44.9 - Chronic obstructive pulmonary disease, unspecified (12) Stented coronary artery Status: Acute Clinical Quality Measures DVT/VTE Risk/Contraindication: Risk Factor Score Per Nursin RFS Level Per Nursing on Admit: 4+=Very High NIYAH SHARP DO Dec 04, 2018 12:54
--- NOTE | 2018-12-04 14:15 | Cardiology Progress Note ---
Cardiology SOAP Progress Note Subjective: Complains of weakness but no shortness of breath. Objective: I&O/Vital Signs 12/04/18 12/04/18 12/04/18 12/04/18 03:17 04:00 07:00 07:44 Temp 97.4 97.5 Pulse 88 86 86 Resp 20 20 B/P (MAP) 116/68 (84) 136/79 (98) Pulse Ox 94 97 99 O2 Delivery Nasal Cannula Nasal Cannula Nasal Cannula O2 Flow Rate 1.00 1.00 1.00 12/04/18 12/04/18 12/04/18 08:00 11:46 13:00 Temp 97.8 Pulse 81 81 Resp 20 B/P (MAP) 108/72 (84) Pulse Ox 98 O2 Delivery Nasal Cannula Nasal Cannula O2 Flow Rate 2.00 0.50 12/04/18 00:00 Intake Total 1300 ml Output Total 1525 ml Balance -225 ml Weight (Pounds): 146 Weight (Ounces): 7.0 Weight (Calculated Kilograms): 66.248966 Constitutional: No appears stated age; AAO x 3; No apparent distress, No PERRL , No well-developed, No well-nourished; other (thin) Respiratory: No accessory muscle use, No respiratory distress; chest is bilaterally symmetric, lungs clear to auscultation, other (diminished lower lobes bilat) Cardiovascular: No regular rate-rhythm; irregularly irregular; No extra beats, No parasternal heave is noted, No JVD, No edema, No bradycardia, No tachycardia , No point of maximal impulse, No cardiac thrills are palpable; S1 and S2; No gallop/S3, No gallop/S4, No diastolic murmur, No systolic murmur, No friction rub, No click, No other Gastrointestional: No tender; soft, round, audible bowel sounds Extremities: No normal range of motion, No non-tender, No normal inspection, No pedal edema, No calf tenderness, No normal capillary refill, No pelvis stable , No calf tenderness, No inflammation, No pedal edema, No slow capillary refill , No swelling, No other, No abrasion, No clubbing, No cyanosis, No ecchymosis, No laceration; no lower extremity edema bilateral; No significant edema, No tenderness, No wound Neurologic/Psychiatric: no motor/sensory deficits, alert, normal mood/affect, oriented x 3, other (chronic resting tremors of upper extremities), grossly intact, power is 5/5 both on sides Skin: warm/dry; No rash, No ulcerations Results/Procedures: Labs Microbiology 11/29/18 Blood Culture - Preliminary, Resulted No growth 11/29/18 Gram Stain - Final, Complete 11/29/18 Sputum Culture - Final, Complete Streptococcus pneumoniae Usual upper respiratory ashish A/P: Assessment/Dx: Pneumonia with sepsis- management per medical services Elevated troponin - likely on the downward trend from recent NSTEMI CAD: Cath of 11/19/18 showed 99% ostial LAD that was stented with Xience Rimma 3 x 18; other cors had mild to mod stenoses Ischemic dilated cardiomyopathy. Echocardiogram of 11-18-18 showed LVEF 30-35%. LA dilated. Mild AoR. Mod to severe TR. PASP 40mmHg Acute on chronic systolic CHF Chronic a-fib - rate not well controlled Apixaban for stroke prophylaxis COPD Tobaccoism - cessation advised - he has been refraining Chronic resting tremor TSH of 11-18-18 WNL Plan: Pneumonia with sepsis - management per medical services Mild troponin elevated likely d/t NSTEMI (treated with cor intervention) and/or hypoxia Continue Plavix d/t know h/o CAD with recent stent placement Chronic a-fib - continue OAC for stroke prophylaxis - HR not well controlled - resume BB Hypotension - resolved - BB restarted - if BP allows re-start LUIS d/t ICM Acute on chronic systolic CHF - give Lasix as indicated and tolerated Monitor lab closely Thank you for your consultation. Please call me if you have any questions. Jacques Deras MD, FACP, FACC, FSCAI, FHRS, CCDS Interventional Cardiology Cardiac Electrophysiology Vascular Medicine and Endovascular Interventions Focused Exam Time of Focused Exam: 14:36 Cameron DERAS MD Dec 04, 2018 2:15 pm
[2018-12-04 15:55] VITALS: BP 108/56
[2018-12-04 20:30] VITALS: BP 108/63
[2018-12-04] MEDS: MELATONIN 3 MG TABLET PO PRN (20:53)
[2018-12-04] MEDS: ALPRAZolam 0.25 MG (XANAX) TAB PO PRN (20:53)
[2018-12-05] VITALS (7 sets, daily range): BP systolic 106–132; BP diastolic 59–79
[2018-12-05] MEDS: RT-ALBUTEROL/IPRATROPIUM 3 ML (DUONEB) VIAL INH SCH ×3 (02:39→20:38)
[2018-12-05 05:46] LABS: BASOPHILS % (AUTO) 0 % (0-10); EOSINOPHILS # (AUTO) 0.1 10^3/uL (0.0-0.3); EOSINOPHILS % (AUTO) 1 % (0-10); HEMATOCRIT 34 % (40-54); HEMOGLOBIN 10.9 G/DL (13.3-17.7); LYMPHOCYTES # (AUTO) 2.1 X 10^3 (1.0-4.0); LYMPHOCYTES % (AUTO) 19 % (12-44); MEAN CORPUSCULAR HEMOGLOBIN 31 PG (25-34); MEAN CORPUSCULAR HGB CONC 32 G/DL (32-36); MEAN CORPUSCULAR VOLUME 97 FL (80-99); MONOCYTES % (AUTO) 9 % (0-12); NEUTROPHILS # (AUTO) 7.7 X 10^3 (1.8-7.8); NEUTROPHILS % (AUTO) 71 % (42-75); PLATELET COUNT 387 10^3/uL (130-400); RED CELL DISTRIBUTION WIDTH 13.5 % (10.0-14.5); WHITE BLOOD COUNT 10.9 10^3/uL (4.3-11.0)
[2018-12-05 06:09] LABS: ALANINE AMINOTRANSFERASE 30 U/L (0-55); ALKALINE PHOSPHATASE 55 U/L (40-136); BILIRUBIN,TOTAL 0.5 MG/DL (0.1-1.0); BUN/CREATININE RATIO 27; CALCIUM 8.6 MG/DL (8.5-10.1); CARBON DIOXIDE 26 MMOL/L (21-32); CHLORIDE 102 MMOL/L (98-107); CREATININE SERUM 0.93 MG/DL (0.60-1.30); GFR ESTIMATED > 60; GLUCOSE 101 MG/DL (70-105); POTASSIUM 3.6 MMOL/L (3.6-5.0); SODIUM 137 MMOL/L (135-145)
[2018-12-05] MEDS: predniSONE 10 MG TAB PO SCH (06:44)
[2018-12-05] MEDS: AUGMENTIN 500 MG TAB (AMOXICILLIN/CLAVULANATE) PO SCH ×2 (06:44→17:08)
[2018-12-05] MEDS: DIGOXIN 0.125 MG (LANOXIN) TAB PO SCH (09:42)
[2018-12-05] MEDS: APIXABAN 5 MG (ELIQUIS) TABLET PO SCH ×2 (09:42→21:10)
[2018-12-05] MEDS: CLOPIDOGREL 75 MG (PLAVIX) TABLET PO SCH (09:42)
--- NOTE | 2018-12-05 11:43 | Cardiology Progress Note ---
Cardiology SOAP Progress Note Subjective: Mild weakness. No cardiac complaints. Objective: I&O/Vital Signs 12/05/18 12/05/18 12/05/18 12/05/18 00:00 01:00 02:39 04:00 Temp 97.8 97.8 Pulse 87 90 89 Resp 18 18 B/P (MAP) 113/68 (83) 132/79 (96) Pulse Ox 98 96 98 O2 Delivery Nasal Cannula Nasal Cannula Nasal Cannula O2 Flow Rate 1.00 1.00 1.00 12/05/18 12/05/18 12/05/18 12/05/18 07:00 08:00 08:30 08:40 Temp 96.1 Pulse 79 75 Resp 20 B/P (MAP) 112/59 (76) Pulse Ox 99 96 96 O2 Delivery Nasal Cannula Room Air Room Air O2 Flow Rate 1.00 12/05/18 08:51 Pulse 77 Pulse Ox 96 FiO2 21 12/05/18 00:00 Intake Total 2080 ml Output Total 2025 ml Balance 55 ml Weight (Pounds): 144 Weight (Ounces): 8.0 Weight (Calculated Kilograms): 65.328689 Constitutional: No appears stated age; AAO x 3; No apparent distress, No PERRL , No well-developed, No well-nourished; other (thin) Respiratory: No accessory muscle use, No respiratory distress; chest is bilaterally symmetric, lungs clear to auscultation, other (diminished lower lobes bilat) Cardiovascular: No regular rate-rhythm; irregularly irregular; No extra beats, No parasternal heave is noted, No JVD, No edema, No bradycardia, No tachycardia , No point of maximal impulse, No cardiac thrills are palpable; S1 and S2; No gallop/S3, No gallop/S4, No diastolic murmur, No systolic murmur, No friction rub, No click, No other Gastrointestional: No tender; soft, round, audible bowel sounds Extremities: No normal range of motion, No non-tender, No normal inspection, No pedal edema, No calf tenderness, No normal capillary refill, No pelvis stable , No calf tenderness, No inflammation, No pedal edema, No slow capillary refill , No swelling, No other, No abrasion, No clubbing, No cyanosis, No ecchymosis, No laceration; no lower extremity edema bilateral; No significant edema, No tenderness, No wound Neurologic/Psychiatric: no motor/sensory deficits, alert, normal mood/affect, oriented x 3, other (chronic resting tremors of upper extremities), grossly intact, power is 5/5 both on sides Skin: warm/dry; No rash, No ulcerations Results/Procedures: Labs Laboratory Tests 12/05/18 05:21: White Blood Count 10.9, Red Blood Count 3.49L, Hemoglobin 10.9L, Hematocrit 34L , Mean Corpuscular Volume 97, Mean Corpuscular Hemoglobin 31, Mean Corpuscular Hemoglobin Concent 32, Red Cell Distribution Width 13.5, Platelet Count 387, Mean Platelet Volume 9.0, Neutrophils (%) (Auto) 71, Lymphocytes (%) (Auto) 19, Monocytes (%) (Auto) 9, Eosinophils (%) (Auto) 1, Basophils (%) (Auto) 0, Neutrophils # (Auto) 7.7, Lymphocytes # (Auto) 2.1, Monocytes # (Auto) 1.0, Eosinophils # (Auto) 0.1, Basophils # (Auto) 0.0, Sodium Level 137, Potassium Level 3.6, Chloride Level 102, Carbon Dioxide Level 26, Anion Gap 9, Blood Urea Nitrogen 25H, Creatinine 0.93, Estimat Glomerular Filtration Rate > 60, BUN/ Creatinine Ratio 27, Glucose Level 101, Calcium Level 8.6, Corrected Calcium 9.4 , Total Bilirubin 0.5, Aspartate Amino Transf (AST/SGOT) 15, Alanine Aminotransferase (ALT/SGPT) 30, Alkaline Phosphatase 55, Total Protein 5.0L, Albumin 3.0L Microbiology 11/29/18 Blood Culture - Preliminary, Resulted No growth 11/29/18 Gram Stain - Final, Complete 11/29/18 Sputum Culture - Final, Complete Streptococcus pneumoniae Usual upper respiratory ashish A/P: Assessment/Dx: Pneumonia with sepsis- management per medical services Elevated troponin - likely on the downward trend from recent NSTEMI CAD: Cath of 11/19/18 showed 99% ostial LAD that was stented with Xience Rimma 3 x 18; other cors had mild to mod stenoses Ischemic dilated cardiomyopathy. Echocardiogram of 11-18-18 showed LVEF 30-35%. LA dilated. Mild AoR. Mod to severe TR. PASP 40mmHg Acute on chronic systolic CHF Chronic a-fib - rate not well controlled Apixaban for stroke prophylaxis COPD Tobaccoism - cessation advised - he has been refraining Chronic resting tremor TSH of 2-28-19 WNL Plan: Pneumonia with sepsis - management per medical services Mild troponin elevated likely d/t NSTEMI (treated with cor intervention) and/or hypoxia Continue Plavix d/t know h/o CAD with recent stent placement Chronic a-fib - continue OAC for stroke prophylaxis -continue beta yana. Hypotension - resolved - BB restarted - if BP allows re-start LUIS d/t ICM Acute on chronic systolic CHF - give Lasix as indicated and tolerated Monitor lab closely Thank you for your consultation. Please call me if you have any questions. Jacques Deras MD, FACP, FACC, FSCAI, FHRS, CCDS Interventional Cardiology Cardiac Electrophysiology Vascular Medicine and Endovascular Interventions Focused Exam Time of Focused Exam: 14:36 Cameron DERAS MD Dec 05, 2018 11:43 am
--- NOTE | 2018-12-05 12:49 | Progress Note-Hospitalist ---
Subjective HPI/CC On Admission Date Seen by Provider: Dec 05, 2018 Time Seen by Provider: 12:15 CC: Dyspnea HPI: This is a 78-year-old white male [facility] patient who is known to me from recent hospital stay for pneumonia, non-ST elevation status post stented coronary artery and elevated BNP who presents to the ER with hypoxia when he saw Dr. Agustin a [facility] for a follow-up visit. He was that 80 percent at the clinic but when he arrived to the ER he was found to be stable but having bilateral infiltrates elevated white count and elevated lactic acid along with elevated troponin and BNP he met criteria for hospital stay and pulmonary and cardiology consultation along with prison placement arrangements. He does live with his son and [id number] but it appears that he has declined since going home and may very well need skilled care. Subjective/Events-last exam Patient doing well Ambulating back and forth to the bathroom lying uses a walker Weaning off oxygen Overall very frail and needs skilled care upon discharge Bowels are moving Eating and drinking better Overall denies any chest pain or new issues Review of Systems General: Fatigue Focused Exam Time of Focused Exam: 14:36 Objective Exam Vital Signs Vital Signs Date Time Temp Pulse Resp B/P (MAP) Pulse Ox O2 Delivery O2 Flow Rate FiO2 12/05/18 08:51 77 96 21 12/05/18 08:40 Room Air 12/05/18 08:00 96.1 20 112/59 (76) 1.00 Capillary Refill : Less Than 3 SecondsLess Than 3 Seconds General Appearance: No Apparent Distress, WD/WN, Chronically ill, Cachetic, Other (speaks in full sentences, alert and oriented, no obvious distress) HEENT: PERRL/EOMI, TMs Normal Neck: Full Range of Motion, Normal Inspection Respiratory: Chest Non Tender, Lungs Clear, No Accessory Muscle Use, No Respiratory Distress, Decreased Breath Sounds Cardiovascular: No Edema, Normal Peripheral Pulses, Irregularly Irregular Gastrointestinal: Normal Bowel Sounds, Non Tender, Soft Back: Normal Inspection, No CVA Tenderness, No Vertebral Tenderness Extremity: Normal Capillary Refill, Normal Inspection, No Pedal Edema Neurologic/Psychiatric: Alert, Oriented x3, No Motor/Sensory Deficits, Normal 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 Assessment/Plan Assessment and Plan Assess & Plan/Chief Complaint Assessment: Recurrent bibasilar pneumonia on PO abx AECOPD on steroids Hypoxia Elevated troponin Recent stent and coronary artery Status post non-ST elevation [place] Elevated BNP Parkinson's Cachexia Former smoker quit last week Home O2 dependent Plan: Cardiology and pulmonology consultations are appreciated Social work for placement in skilled facility at discharge, awaiting approval Maintain oxygen Nebulizer treatments Antibiotics NHP is needed for skilled care due to cachexia and overall weakness and failed DC to home last week HLIVF Diagnosis/Problems Diagnosis/Problems (1) Recurrent pneumonia Status: Acute (2) Cachexia Status: Chronic (3) Former smoker Status: Chronic (4) RESPIRATORY FAILURE, UNSP, UNSP W HYPOXIA OR HYPERCAPNIA Status: Acute (5) Anxiety Status: Acute (6) Parkinson disease Status: Chronic (7) Elevated troponin Status: Acute (8) Atrial fibrillation, chronic Status: Chronic (9) Congestive heart failure Status: Acute Qualifiers: Heart failure type: unspecified Heart failure chronicity: unspecified Qualified Codes: I50.9 - Heart failure, unspecified (10) Hypertension Status: Chronic Qualifiers: Hypertension type: essential hypertension Qualified Codes: I10 - Essential (primary) hypertension (11) COPD (chronic obstructive pulmonary disease) Status: Chronic Qualifiers: COPD type: unspecified COPD Qualified Codes: J44.9 - Chronic obstructive pulmonary disease, unspecified (12) Stented coronary artery Status: Acute Clinical Quality Measures DVT/VTE Risk/Contraindication: Risk Factor Score Per Nursin RFS Level Per Nursing on Admit: 4+=Very High NIYAH SHARP DO Dec 05, 2018 12:49
--- NOTE | 2018-12-05 14:40 | Pulmonary Progress Note ---
Sepsis Event Evaluation Height, Weight, BMI Height: 5'10.00" Weight: 144lbs. 8.0oz. 65.184328nw; 19.1 BMI Method:Stated Focused Exam Time of Focused Exam: 14:36 Exam Exam Vital Signs Date Time Temp Pulse Resp B/P (MAP) Pulse Ox O2 Delivery O2 Flow Rate FiO2 12/05/18 12:00 96.4 90 20 121/76 (91) 97 Nasal Cannula 1.00 12/05/18 08:51 77 96 21 12/05/18 08:40 96 Room Air 12/05/18 08:30 96 Room Air 12/05/18 08:00 96.1 75 20 112/59 (76) 99 Nasal Cannula 1.00 12/05/18 07:00 79 12/05/18 04:00 97.8 89 18 132/79 (96) 98 Nasal Cannula 1.00 12/05/18 02:39 96 Nasal Cannula 1.00 12/05/18 01:00 90 12/05/18 00:00 97.8 87 18 113/68 (83) 98 Nasal Cannula 1.00 12/04/18 20:30 97.8 101 20 108/63 (78) 96 Nasal Cannula 1.00 12/04/18 20:30 96 Nasal Cannula 1.00 12/04/18 19:42 95 Nasal Cannula 1.00 12/04/18 19:00 86 12/04/18 15:55 99.2 93 20 108/56 (73) 96 Nasal Cannula 0.50 12/04/18 14:55 97 Nasal Cannula 1.00 I & O 12/05/18 07:00 Intake Total 2330 ml Output Total 2625 ml Balance -295 ml Height & Weight Height: 5'10.00" Weight: 144lbs. 8.0oz. 65.741112wk; 19.1 BMI Method:Stated General Appearance: No Apparent Distress, WD/WN, Chronically ill, Cachetic, Other (speaks in full sentences, alert and oriented, no obvious distress) HEENT: PERRL/EOMI, TMs Normal Neck: Full Range of Motion, Normal Inspection Respiratory: Chest Non Tender, Lungs Clear, No Accessory Muscle Use, No Respiratory Distress, Decreased Breath Sounds Cardiovascular: No Edema, Normal Peripheral Pulses, Irregularly Irregular Capillary Refill: Less Than 3 Seconds Extremity: Normal Capillary Refill, Normal Inspection, No Pedal Edema Neurologic/Psychiatric: Alert, Oriented x3, No Motor/Sensory Deficits, Normal 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 Tobacco use -Education -will do out patient testing Hypoxia -Pt does have home 02 -out patient testing Elevated troponin CAD - with stents Parkinsons Cachexia DARIN RENEE DO Dec 05, 2018 14:40
[2018-12-05] MEDS: MELATONIN 3 MG TABLET PO PRN (21:10)
[2018-12-05] MEDS: ALPRAZolam 0.25 MG (XANAX) TAB PO PRN (21:10)
[2018-12-06] VITALS: BP 110/74
[2018-12-06 04:05] VITALS: BP 113/79
[2018-12-06] MEDS: predniSONE 10 MG TAB PO SCH (06:39)
[2018-12-06] MEDS: AUGMENTIN 500 MG TAB (AMOXICILLIN/CLAVULANATE) PO SCH (06:39)
[2018-12-06 08:00] VITALS: BP 138/77
[2018-12-06] MEDS: RT-ALBUTEROL/IPRATROPIUM 3 ML (DUONEB) VIAL INH SCH (08:32)
[2018-12-06] MEDS: CLOPIDOGREL 75 MG (PLAVIX) TABLET PO SCH (08:37)
[2018-12-06] MEDS: DIGOXIN 0.125 MG (LANOXIN) TAB PO SCH (08:37)
[2018-12-06] MEDS: APIXABAN 5 MG (ELIQUIS) TABLET PO SCH (08:37)
[2018-12-06] MEDS ORDERED: LISI-552 PO (09:33)
--- NOTE | 2018-12-06 09:34 | Discharge Summary ---
Diagnosis/Chief Complaint Date of Admission Nov 29, 2018 at 14:21 Date of Discharge Discharge Diagnosis Assessment: Recurrent bibasilar pneumonia on PO abx AECOPD on steroids Hypoxia Elevated troponin Recent stent and coronary artery Status post non-ST elevation VT Elevated BNP Parkinson's Cachexia Former smoker quit last week Home O2 dependent Plan: Cardiology and pulmonology consultations are appreciated Social work for placement in skilled facility at discharge, awaiting approval Maintain oxygen Nebulizer treatments Antibiotics NHP is needed for skilled care due to cachexia and overall weakness and failed DC to home last week HLIVF Discharge Summary Discharge Physical Examination Allergies: Coded Allergies: No Known Drug Allergies (Unverified , 11/18/18) Vitals & I&Os Vital Signs Date Time Temp Pulse Resp B/P (MAP) Pulse Ox O2 Delivery O2 Flow Rate FiO2 12/06/18 12:53 Nasal Cannula 12/06/18 08:33 96 12/06/18 08:00 97.5 71 18 138/77 (97) 12/05/18 12:00 1.00 12/05/18 08:51 21 Hospital Course Was the Problem List Reviewed?: Yes Pt had a lengthy hospital course, he was admitted after a recurrent pneumonia and severe debility following an uncomplicated discharge last week on new home oxygen and after hospitalization for non-ST elevations status post stent placement and antibiotic regimen for pneumonia and severe COPD, so was placed in the hospital, monitored closely, IV fluids given, supportive care with IV antibiotics, and cardiology and pulmonology provided their expertise. Pt was deemed stable at time of discharge with PT and OT, maintain on oxygen, although frail status and cachexia precludes a simple discharge to home and intermediate was recommended, Pt was agreeable to that, and a fast appeal was made for his insurance to approve that after they denied the discharge to the intermediate but patient was able to return home with family and everyone was in agreement with the plan. Labs (last 24 hrs) Laboratory Tests 11/29/18 10:26: Digoxin Level 0.60L 11/29/18 11:20: White Blood Count 26.0H, Red Blood Count 3.71L, Hemoglobin 11.7L, Hematocrit 36L , Mean Corpuscular Volume 97, Mean Corpuscular Hemoglobin 32, Mean Corpuscular Hemoglobin Concent 33, Red Cell Distribution Width 13.7, Platelet Count 494H, Mean Platelet Volume 9.2, Neutrophils (%) (Auto) 85H, Lymphocytes (%) (Auto) 9L , Monocytes (%) (Auto) 6, Eosinophils (%) (Auto) 0, Basophils (%) (Auto) 0, Neutrophils # (Auto) 22.2H, Lymphocytes # (Auto) 2.3, Monocytes # (Auto) 1.5H, Eosinophils # (Auto) 0.0, Basophils # (Auto) 0.0, Neutrophils % (Manual) 85, Lymphocytes % (Manual) 9, Monocytes % (Manual) 6, Blood Morphology Comment NORMAL, Sodium Level 138, Potassium Level 4.0, Chloride Level 98, Carbon Dioxide Level 28, Anion Gap 12, Blood Urea Nitrogen 27H, Creatinine 1.23, Estimat Glomerular Filtration Rate 57, BUN/Creatinine Ratio 22, Glucose Level 96 , Lactic Acid Level 2.47*H, Calcium Level 9.4, Corrected Calcium 9.6, Total Bilirubin 1.6H, Aspartate Amino Transf (AST/SGOT) 20, Alanine Aminotransferase ( ALT/SGPT) 26, Alkaline Phosphatase 65, Troponin I 0.419*H, B-Type Natriuretic Peptide 595.1H, Total Protein 6.6, Albumin 3.8 11/29/18 11:29: Blood Gas Puncture Site R BRACH, Blood Gas Patient Temperature 96.5, Arterial Blood pH 7.52H, Arterial Blood Partial Pressure CO2 35, Arterial Blood Partial Pressure O2 137H, Arterial Blood HCO3 28H, Arterial Blood Total CO2 29.4, Arterial Blood Oxygen Saturation 99, Arterial Blood Base Excess 5.0H, Richard Test YES-POS, Blood Gas Ventilator Setting NO, Blood Gas Inspired Oxygen 6 11/29/18 12:21: Urine Color YELLOW, Urine Clarity CLEAR, Urine pH 7, Urine Specific [place] 1.010L, Urine Protein NEGATIVE, Urine Glucose (UA) NEGATIVE, Urine Ketones NEGATIVE, Urine Nitrite NEGATIVE, Urine Bilirubin NEGATIVE, Urine Urobilinogen NORMAL, Urine Leukocyte Esterase NEGATIVE, Urine RBC (Auto) NEGATIVE, Urine RBC NONE, Urine WBC NONE, Urine Crystals NONE, Urine Bacteria NEGATIVE, Urine Casts NONE, Urine Mucus NEGATIVE, Urine Culture Indicated NO 11/29/18 13:09: Lactic Acid Level 0.73 11/29/18 14:21: Lab Scanned Report Referred Lab Report 11/30/18 03:45: White Blood Count 11.8H, Red Blood Count 3.63L, Hemoglobin 11.3L, Hematocrit 35L , Mean Corpuscular Volume 96, Mean Corpuscular Hemoglobin 31, Mean Corpuscular Hemoglobin Concent 32, Red Cell Distribution Width 13.4, Platelet Count 421H, Mean Platelet Volume 9.3, Neutrophils (%) (Auto) 94H, Lymphocytes (%) (Auto) 5L , Monocytes (%) (Auto) 2, Eosinophils (%) (Auto) 0, Basophils (%) (Auto) 0, Neutrophils # (Auto) 11.0H, Lymphocytes # (Auto) 0.5L, Monocytes # (Auto) 0.2, Eosinophils # (Auto) 0.0, Basophils # (Auto) 0.0, Sodium Level 138, Potassium Level 3.9, Chloride Level 99, Carbon Dioxide Level 26, Anion Gap 13, Blood Urea Nitrogen 29H, Creatinine 1.11, Estimat Glomerular Filtration Rate > 60, BUN/ Creatinine Ratio 26, Glucose Level 178H, Calcium Level 8.9, Corrected Calcium 9.4, Magnesium Level 1.7L, Total Bilirubin 1.3H, Aspartate Amino Transf (AST/ SGOT) 19, Alanine Aminotransferase (ALT/SGPT) 23, Alkaline Phosphatase 60, Total Protein 6.0L, Albumin 3.4, Digoxin Level 0.58L 12/01/18 04:05: Sodium Level 140, Potassium Level 4.1, Chloride Level 103, Carbon Dioxide Level 25, Anion Gap 12, Blood Urea Nitrogen 27H, Creatinine 0.95, Estimat Glomerular Filtration Rate > 60, BUN/Creatinine Ratio 28, Glucose Level 159H, Calcium Level 8.9 12/05/18 05:21: White Blood Count 10.9, Red Blood Count 3.49L, Hemoglobin 10.9L, Hematocrit 34L , Mean Corpuscular Volume 97, Mean Corpuscular Hemoglobin 31, Mean Corpuscular Hemoglobin Concent 32, Red Cell Distribution Width 13.5, Platelet Count 387, Mean Platelet Volume 9.0, Neutrophils (%) (Auto) 71, Lymphocytes (%) (Auto) 19, Monocytes (%) (Auto) 9, Eosinophils (%) (Auto) 1, Basophils (%) (Auto) 0, Neutrophils # (Auto) 7.7, Lymphocytes # (Auto) 2.1, Monocytes # (Auto) 1.0, Eosinophils # (Auto) 0.1, Basophils # (Auto) 0.0, Sodium Level 137, Potassium Level 3.6, Chloride Level 102, Carbon Dioxide Level 26, Anion Gap 9, Blood Urea Nitrogen 25H, Creatinine 0.93, Estimat Glomerular Filtration Rate > 60, BUN/ Creatinine Ratio 27, Glucose Level 101, Calcium Level 8.6, Corrected Calcium 9.4 , Total Bilirubin 0.5, Aspartate Amino Transf (AST/SGOT) 15, Alanine Aminotransferase (ALT/SGPT) 30, Alkaline Phosphatase 55, Total Protein 5.0L, Albumin 3.0L Microbiology 11/29/18 Blood Culture - Final, Complete No growth 11/29/18 Gram Stain - Final, Complete 11/29/18 Sputum Culture - Final, Complete Streptococcus pneumoniae Usual upper respiratory ashish Pending Labs Microbiology Date/Time Source Procedure Growth Status 11/29/18 13:09 Peripheral Rt Ac Blood Culture - Final No growth Complete 11/29/18 11:20 Peripheral Lt Ac Blood Culture - Final No growth Complete 11/29/18 17:30 Sputum Expectorated Gram Stain - Final Complete 11/29/18 17:30 Sputum Culture - Final Streptococcus pneumoniae Usual upper respiratory ashish Complete Laboratory Tests 11/29/18 10:26: Digoxin Level 0.60 11/29/18 11:20: White Blood Count 26.0, Red Blood Count 3.71, Hemoglobin 11.7, Hematocrit 36, Mean Corpuscular Volume 97, Mean Corpuscular Hemoglobin 32, Mean Corpuscular Hemoglobin Concent 33, Red Cell Distribution Width 13.7, Platelet Count 494, Mean Platelet Volume 9.2, Neutrophils (%) (Auto) 85, Lymphocytes (%) (Auto) 9, Monocytes (%) (Auto) 6, Eosinophils (%) (Auto) 0, Basophils (%) (Auto) 0, Neutrophils # (Auto) 22.2, Lymphocytes # (Auto) 2.3, Monocytes # (Auto) 1.5, Eosinophils # (Auto) 0.0, Basophils # (Auto) 0.0, Neutrophils % (Manual) 85, Lymphocytes % (Manual) 9, Monocytes % (Manual) 6, Blood Morphology Comment NORMAL, Sodium Level 138, Potassium Level 4.0, Chloride Level 98, Carbon Dioxide Level 28, Anion Gap 12, Blood Urea Nitrogen 27, Creatinine 1.23, Estimat Glomerular Filtration Rate 57, BUN/Creatinine Ratio 22, Glucose Level 96 , Lactic Acid Level 2.47, Calcium Level 9.4, Corrected Calcium 9.6, Total Bilirubin 1.6, Aspartate Amino Transf (AST/SGOT) 20, Alanine Aminotransferase ( ALT/SGPT) 26, Alkaline Phosphatase 65, Troponin I 0.419, B-Type Natriuretic Peptide 595.1, Total Protein 6.6, Albumin 3.8 11/29/18 11:29: Blood Gas Puncture Site R BRACH, Blood Gas Patient Temperature 96.5, Arterial Blood pH 7.52, Arterial Blood Partial Pressure CO2 35, Arterial Blood Partial Pressure O2 137, Arterial Blood HCO3 28, Arterial Blood Total CO2 29.4, Arterial Blood Oxygen Saturation 99, Arterial Blood Base Excess 5.0, Richard Test YES-POS, Blood Gas Ventilator Setting NO, Blood Gas Inspired Oxygen 6 11/29/18 12:21: Urine Color YELLOW, Urine Clarity CLEAR, Urine pH 7, Urine Specific [place] 1.010, Urine Protein NEGATIVE, Urine Glucose (UA) NEGATIVE, Urine Ketones NEGATIVE, Urine Nitrite NEGATIVE, Urine Bilirubin NEGATIVE, Urine Urobilinogen NORMAL, Urine Leukocyte Esterase NEGATIVE, Urine RBC (Auto) NEGATIVE, Urine RBC NONE, Urine WBC NONE, Urine Crystals NONE, Urine Bacteria NEGATIVE, Urine Casts NONE, Urine Mucus NEGATIVE, Urine Culture Indicated NO 11/29/18 13:09: Lactic Acid Level 0.73 11/29/18 14:21: Lab Scanned Report Referred Lab Report 11/30/18 03:45: White Blood Count 11.8, Red Blood Count 3.63, Hemoglobin 11.3, Hematocrit 35, Mean Corpuscular Volume 96, Mean Corpuscular Hemoglobin 31, Mean Corpuscular Hemoglobin Concent 32, Red Cell Distribution Width 13.4, Platelet Count 421, Mean Platelet Volume 9.3, Neutrophils (%) (Auto) 94, Lymphocytes (%) (Auto) 5, Monocytes (%) (Auto) 2, Eosinophils (%) (Auto) 0, Basophils (%) (Auto) 0, Neutrophils # (Auto) 11.0, Lymphocytes # (Auto) 0.5, Monocytes # (Auto) 0.2, Eosinophils # (Auto) 0.0, Basophils # (Auto) 0.0, Sodium Level 138, Potassium Level 3.9, Chloride Level 99, Carbon Dioxide Level 26, Anion Gap 13, Blood Urea Nitrogen 29, Creatinine 1.11, Estimat Glomerular Filtration Rate > 60, BUN/ Creatinine Ratio 26, Glucose Level 178, Calcium Level 8.9, Corrected Calcium 9.4 , Magnesium Level 1.7, Total Bilirubin 1.3, Aspartate Amino Transf (AST/SGOT) 19 , Alanine Aminotransferase (ALT/SGPT) 23, Alkaline Phosphatase 60, Total Protein 6.0, Albumin 3.4, Digoxin Level 0.58 12/01/18 04:05: Sodium Level 140, Potassium Level 4.1, Chloride Level 103, Carbon Dioxide Level 25, Anion Gap 12, Blood Urea Nitrogen 27, Creatinine 0.95, Estimat Glomerular Filtration Rate > 60, BUN/Creatinine Ratio 28, Glucose Level 159, Calcium Level 8.9 12/05/18 05:21: White Blood Count 10.9, Red Blood Count 3.49, Hemoglobin 10.9, Hematocrit 34, Mean Corpuscular Volume 97, Mean Corpuscular Hemoglobin 31, Mean Corpuscular Hemoglobin Concent 32, Red Cell Distribution Width 13.5, Platelet Count 387, Mean Platelet Volume 9.0, Neutrophils (%) (Auto) 71, Lymphocytes (%) (Auto) 19, Monocytes (%) (Auto) 9, Eosinophils (%) (Auto) 1, Basophils (%) (Auto) 0, Neutrophils # (Auto) 7.7, Lymphocytes # (Auto) 2.1, Monocytes # (Auto) 1.0, Eosinophils # (Auto) 0.1, Basophils # (Auto) 0.0, Sodium Level 137, Potassium Level 3.6, Chloride Level 102, Carbon Dioxide Level 26, Anion Gap 9, Blood Urea Nitrogen 25, Creatinine 0.93, Estimat Glomerular Filtration Rate > 60, BUN/ Creatinine Ratio 27, Glucose Level 101, Calcium Level 8.6, Corrected Calcium 9.4 , Total Bilirubin 0.5, Aspartate Amino Transf (AST/SGOT) 15, Alanine Aminotransferase (ALT/SGPT) 30, Alkaline Phosphatase 55, Total Protein 5.0, Albumin 3.0 Discharge Home Medications: Active Scripts Active Lisinopril 20 Mg Tablet 20 Mg PO DAILY Prednisone 10 Mg Tab 0 PO UD Take 4 tabs(40mg)daily, decrease by 1 tab(10mg) every other day. Reported Eliquis (Apixaban) 5 Mg Tablet 5 Mg PO BID Plavix (Clopidogrel Bisulfate) 75 Mg Tablet 75 Mg PO DAILY Atorvastatin Calcium 40 Mg Tablet 40 Mg PO HS Digoxin 125 Mcg Tablet 125 Mcg PO DAILY Furosemide 40 Mg Tablet 40 Mg PO DAILY Potassium Chloride 20 Meq Tablet.er 20 Meq PO DAILY Iprat-Albut 0.5-3(2.5) mg/3 ml (Ipratropium/Albuterol Sulfate) 3 Ml Ampul.neb 3 Ml NEB QID PRN Advair Hfa 115-21 Mcg Inhaler (Fluticasone/Salmeterol) 12 Gm Hfa.aer.ad 2 Puff IH BID Tramadol HCl 50 Mg Tablet 50 Mg PO BID PRN Lisinopril 40 Mg Tablet 40 Mg PO DAILY Metoprolol Succinate 25 Mg Tab.er.24h 25 Mg PO BID Delsym (Dextromethorphan Polistirex) 30 Mg/5 Ml Samanta.er.12h 10 Ml PO Q12H PRN Instructions to patient/family Please see electronic discharge instructions given to patient. Diagnosis/Problems Diagnosis/Problems (1) Recurrent pneumonia Status: Acute (2) Cachexia Status: Chronic (3) Former smoker Status: Chronic (4) RESPIRATORY FAILURE, UNSP, UNSP W HYPOXIA OR HYPERCAPNIA Status: Acute (5) Anxiety Status: Acute (6) Parkinson disease Status: Chronic (7) Elevated troponin Status: Acute (8) Atrial fibrillation, chronic Status: Chronic (9) Congestive heart failure Status: Acute Qualifiers: Qualified Codes: I50.9 - Heart failure, unspecified (10) Hypertension Status: Chronic Qualifiers: Qualified Codes: I10 - Essential (primary) hypertension (11) COPD (chronic obstructive pulmonary disease) Status: Chronic Qualifiers: Qualified Codes: J44.9 - Chronic obstructive pulmonary disease, unspecified (12) Stented coronary artery Status: Acute Clinical Quality Measures DVT/VTE Risk/Contraindication: Risk Factor Score Per Nursin RFS Level Per Nursing on Admit: 4+=Very High NIYAH SHARP DO Dec 06, 2018 09:34
--- NOTE | 2018-12-06 10:42 | Occupational Ther Daily Note ---
OT Current Status-Daily Note Subjective Pt seen in room, up in bed, agreeable to OT. No pain mentioned. Appearance Alert, cooperative Mental Status/Objective Therapy Code Descriptions/Definitions Functional [place] Measure: 0=Not Assessed/NA 4=Minimal Assistance 1=Total Assistance 5=Supervision or Setup 2=Maximal Assistance 6=Modified [place] 3=Moderate Assistance 7=Complete [place] ADL-Treatment Pt was able to get up from supine to sit EOB without help but needed help to get untangled from covers. Pt was able to get up to standing with SBA and walked SBA, FWW to bathroom. On/off toilet with SBA and managed clothing/ hygiene with SBA. Declined to wash hands at sink. A little unsteady, with tremors noted in UEs, R greater than L. Pt reported that he had been allowed to take himself to the bathroom this weekend but still had chair alarm on bed so nursing notified and verified he should call for help to go to the bathroom. Pt able to get back into be without assistance except to move pillows. Pt left up in bed, 3 rails up. Toileting (FIM): 5 Toilet/Commode Transfer (FIM): 5 Other Treatment Pt sat EOB and completed 10-15 reps bilat UE exercise with 1# weight, working on shoulders, elbows and forearms. Pt educ on how to do each exercise and with occasional cues to do them correctly. To help strengthen arms to help with transfers and standing during ADLs. Education OT Patient Education: Exercise program, Modified ADL techniques, Progress toward Goal/Update tx plan, Purpose of tx/functional activities, Safety issues Teaching Recipient: Patient Teaching Methods: Demonstration, Discussion Response to Teaching: Verbalize Understanding, Return Demonstration, Reinforcement Needed OT Short Term Goals Short Term Goals 1=Demonstrate adherence to instructed precautions during ADL tasks. 2=Patient will verbalize/demonstrate understanding of assistive devices/ modifications for ADL. 3=Patient will improve strength/tolerance for activity to enable patient to perform ADL's. OT Mcfp Goals Mcfp Goals Time Frame: Dec 15, 2018 Eating (FIM): 6 Grooming(FIM): 6 Bathing(FIM): 5 Upper Body Dressing(FIM): 5 Lower Body Dressing(FIM): 5 Toileting(FIM): 6 Transfers (B,C,W/C) (FIM): 6 Toilet/Commode Transfer(FIM): 6 Shower Transfer(FIM): 5 Additional Goals: 1-Demonstrate ADL Tasks, 2-Verbalize Understanding, 3- ImproveStrength/[place] 1=Demonstrate adherence to instructed precautions during ADL tasks. 2=Patient will verbalize/demonstrate understanding of assistive devices/ modifications for ADL. 3=Patient will improve strength/tolerance for activity to enable patient to perform ADL's. OT Education/Plan Discharge Recommendations Plan/Recommendations: Continue POC Treatment Plan/Plan of Care Patient would benefit from OT for education, treatment and training to promote independence in ADL's, mobility, safety and/or upper extremity function for ADL' s. Plan of Care: ADL Retraining, Functional Mobility, UE Funct Exercise/Act Treatment Duration: Dec 15, 2018 Frequency: 5 times per week Estimated Hrs Per Day: .25 hour per day Agreement: Yes Rehab Potential: Fair Time/GCodes Start Time: 09:29 Stop Time: 09:44 Total Time Billed (hr/min): 15 Billed Treatment Time visit, 15 minutes exercise XOCHILT MOSHER OT Dec 06, 2018 10:42
--- NOTE | 2018-12-06 10:51 | Cardiology Progress Note ---
Cardiology SOAP Progress Note Subjective: No cardiac complaints. Objective: I&O/Vital Signs 12/06/18 12/06/18 12/06/18 12/06/18 00:00 01:00 04:05 06:43 Temp 97.8 97.2 Pulse 91 78 83 87 Resp 20 20 B/P (MAP) 110/74 (86) 113/79 (90) Pulse Ox 98 96 O2 Delivery Room Air Room Air 12/06/18 12/06/18 12/06/18 08:00 08:00 08:33 Temp 97.5 Pulse 71 Resp 18 B/P (MAP) 138/77 (97) Pulse Ox 98 94 96 O2 Delivery Room Air Room Air Room Air 12/06/18 00:00 Intake Total 1130 ml Output Total 1575 ml Balance -445 ml Weight (Pounds): 145 Weight (Ounces): 0.0 Weight (Calculated Kilograms): 65.003871 Constitutional: No appears stated age; AAO x 3; No apparent distress, No PERRL , No well-developed, No well-nourished; other (thin) Respiratory: No accessory muscle use, No respiratory distress; chest is bilaterally symmetric, lungs clear to auscultation, other (diminished lower lobes bilat) Cardiovascular: No regular rate-rhythm; irregularly irregular; No extra beats, No parasternal heave is noted, No JVD, No edema, No bradycardia, No tachycardia , No point of maximal impulse, No cardiac thrills are palpable; S1 and S2; No gallop/S3, No gallop/S4, No diastolic murmur, No systolic murmur, No friction rub, No click, No other Gastrointestional: No tender; soft, round, audible bowel sounds Extremities: No normal range of motion, No non-tender, No normal inspection, No pedal edema, No calf tenderness, No normal capillary refill, No pelvis stable , No calf tenderness, No inflammation, No pedal edema, No slow capillary refill , No swelling, No other, No abrasion, No clubbing, No cyanosis, No ecchymosis, No laceration; no lower extremity edema bilateral; No significant edema, No tenderness, No wound Neurologic/Psychiatric: no motor/sensory deficits, alert, normal mood/affect, oriented x 3, other (chronic resting tremors of upper extremities), grossly intact, power is 5/5 both on sides Skin: warm/dry; No rash, No ulcerations Results/Procedures: Labs Microbiology 11/29/18 Blood Culture - Final, Complete No growth 11/29/18 Gram Stain - Final, Complete 11/29/18 Sputum Culture - Final, Complete Streptococcus pneumoniae Usual upper respiratory ashish A/P: Assessment/Dx: Pneumonia with sepsis- management per medical services Elevated troponin - likely on the downward trend from recent NSTEMI CAD: Cath of 11/19/18 showed 99% ostial LAD that was stented with Xience Rimma 3 x 18; other cors had mild to mod stenoses Ischemic dilated cardiomyopathy. Echocardiogram of 11-18-18 showed LVEF 30-35%. LA dilated. Mild AoR. Mod to severe TR. PASP 40mmHg Acute on chronic systolic CHF Chronic a-fib - rate not well controlled Apixaban for stroke prophylaxis COPD Tobaccoism - cessation advised - he has been refraining Chronic resting tremor TSH of 11-18-18 WNL Plan: Pneumonia with sepsis - management per medical services Mild troponin elevated likely d/t NSTEMI (treated with cor intervention) and/or hypoxia Continue Plavix d/t know h/o CAD with recent stent placement Chronic a-fib - continue OAC for stroke prophylaxis -continue beta yana. Hypotension - resolved - BB restarted - if BP allows re-start LUIS d/t ICM Acute on chronic systolic CHF - give Lasix as indicated and tolerated Monitor lab closely Thank you for your consultation. Please call me if you have any questions. Jacques Deras MD, FACP, FACC, FSCAI, FHRS, CCDS Interventional Cardiology Cardiac Electrophysiology Vascular Medicine and Endovascular Interventions Focused Exam Time of Focused Exam: 14:36 Cameron DERAS MD Dec 06, 2018 10:51 am
--- NOTE | 2018-12-06 11:02 | Physical Therapy Progress Note ---
Therapy Progress Note Patient adamantly declined PT stating, "I'm tired and I'm leaving today and I don't feel like it." PT attempted to educate patient on importance of participating with therapy to increase strength and mobility, however, patient continued to decline. PT will attempt later today or tomorrow. 1 ref ([id number]) AINSLEY CANSECO PT Dec 06, 2018 11:02
[2018-12-06 12:00] VITALS: BP 132/76
--- NOTE | 2018-12-06 12:52 | D/C HH Face to Face Order ---
D/C Face to Face Orders Instructions for Patient Via [facility], Patient Instructions/FollowUp: [facility] in 1 week Physician to follow Patient: [facility] Discharge Diet for Home: Cardiac Diet Patient Problems: COPD Recurrent pneumonia Debility with cachexia Parkinsons Patient Data-Allergies,Ht & Wt Patient Allergies: Coded Allergies: No Known Drug Allergies (Unverified , 11/18/18) Height (Feet): 5 Height (Inches): 10.00 Weight (Pounds): 145 Weight (Ounces): 0.0 Home Health Need/Face to Face Date of Face to Face: Dec 06, 2018 Clinical Findings: Generalized weakness and fatigue, Instability, Muscle weakness, Shortness of breath, Unsteady gait I have seen Pt [id number]: Yes Discharged To: Home Diagnosis/Conditions: COPD Recurrent pneumonia Debility with cachexia Parkinsons Patient is Homebound due to: Adina fall risk due to instabilty, Muscle weakness , Shortness of breath/distress Homebound Status Due to the above stated illness, injury or surgical procedure (medical condition or diagnosis) and associated clinical findings, the patient is homebound because of his/her inability to leave home except with aid of a supportive device and/or person AND leaving the home requires a considerable and taxing effort or is medically contraindicated. Pt req the following assistanc: [facility] Nursing Orders Home Health Services Order: Nursing Services, Commercial Loan Closer-Evaluate & Treat, Physical Therapy-Evaluate & Treat Home Health Infusion Therapy Line Start Date: Nov 29, 2018 Line Start Time: 1120 Line Type: Saline Lock Site Location: Forearm Certify Stmt I certify that this patient is under my care and that I, a nurse practitioner or a physician; a export sales assistant working with me, had a face to face encounter that - meets the physician face to face encounter requirements with this patient as dated. NIYAH SHARP DO Dec 06, 2018 12:52
--- NOTE | 2018-12-06 12:53 | Discharge Inst-Skilled Nursing ---
Discharge Inst-Skilled NF Patient Instructions Patient Problems: COPD Recurrent pneumonia Debility with cachexia Parkinsons Goal: Return to independent living Consult/Follow Up/Orders Follow Up Appt.: [facility] in 1 week Skilled NF Admit to: [facility] Certification (SNF) I certify that SNF services are required to be given on an inpatient basis because of the above named patient's need for long-term care on a continuing basis for the conditions(s) for which he/she was receiving inpatient hospital services prior to his/her transfer to the SNF. Care Home Facility Order: Nursing Services, Student Development Dean-Evaluate & Treat, Physical Therapy-Evaluate & Treat, Speech Language-Evaluate & Treat Oxygen Delivery Method: Nasal Cannula Discharge Diet: Cardiac Diet Daily Activity as Tolerated: Yes New & Resume Previous Orders Akua Lund Dec 06, 2018 12:52 AKUA LUND DO Dec 06, 2018 12:53
--- NOTE | 2018-12-06 14:20 | NUR ---
Pastoral care visit.
[2018-12-06 16:05] VITALS: BP 110/82
--- NOTE | 2018-12-06 16:31 | Pulmonary Progress Note ---
Subjective Time Seen by a Provider: 16:30 Subjective/Events-last exam No complications noted. Sepsis Event Evaluation Height, Weight, BMI Height: 5'10.00" Weight: 145lbs. 0.0oz. 65.619473op; 19.1 BMI Method:Stated Focused Exam Time of Focused Exam: 14:36 Exam Exam Vital Signs Date Time Temp Pulse Resp B/P (MAP) Pulse Ox O2 Delivery O2 Flow Rate FiO2 12/06/18 12:53 Nasal Cannula 12/06/18 12:00 98.1 74 18 132/76 (94) 93 Room Air 12/06/18 08:33 96 Room Air 12/06/18 08:00 97.5 71 18 138/77 (97) 94 Room Air 12/06/18 08:00 98 Room Air 12/06/18 06:43 87 12/06/18 04:05 97.2 83 20 113/79 (90) 96 Room Air 12/06/18 01:00 78 12/06/18 00:00 97.8 91 20 110/74 (86) 98 Room Air 12/05/18 20:39 95 Room Air 12/05/18 20:00 98.2 89 20 108/71 (83) 98 Room Air 12/05/18 20:00 98 Room Air 12/05/18 19:00 96 I & O 12/06/18 07:00 Intake Total 1370 ml Output Total 2625 ml Balance -1255 ml Height & Weight Height: 5'10.00" Weight: 145lbs. 0.0oz. 65.038120jr; 19.1 BMI Method:Stated General Appearance: No Apparent Distress, WD/WN, Chronically ill, Cachetic, Other (speaks in full sentences, alert and oriented, no obvious distress) HEENT: PERRL/EOMI, TMs Normal Neck: Full Range of Motion, Normal Inspection Respiratory: Chest Non Tender, Lungs Clear, No Accessory Muscle Use, No Respiratory Distress, Decreased Breath Sounds Cardiovascular: No Edema, Normal Peripheral Pulses, Irregularly Irregular Capillary Refill: Less Than 3 Seconds Extremity: Normal Capillary Refill, Normal Inspection, No Pedal Edema Neurologic/Psychiatric: Alert, Oriented x3, No Motor/Sensory Deficits, Normal Mood/Affect, 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 Tobacco use -Education -will do out patient testing Hypoxia -Pt does have home 02 -out patient testing Elevated troponin CAD - with stents Parkinsons Cachexia Pt is ok for discharge from pulonary standpoint. DARIN RENEE DO Dec 06, 2018 16:31
--- NOTE | 2018-12-06 17:02 | NUR ---
CM/SS. Patient discharged home with [facility] services today after several days waiting for his [employer] to make a decision on a referral for [place] [facility] [place] [facility], denial, and expedited appeal. HHC: Resumed [facility] services, RN, PT, OT as indicated. Skilled Placement: [facility] was notified at approx 1602 that [facility] received a call to approve patient for skilled care through 12/13/18. After waiting without results of decision, patient was discharged home with his family as before with the above noted HHC. [facility] has coordinated with [facility] and they did ask insurance to keep authorization open one day in case the home situation was inadequate. Will call primary caregiver tomorrow to inquire and recommend they utilize the services at [facility] under insurance benefits. Process was complicated and did not seem to serve patient timely. It was very time consuming for all involved parties, hospital and SNF, and lead to prolonged hospital stay. [facility] is the PCP and would need to be contacted for NH admission orders if necessary.
--- NOTE | 2018-12-07 12:23 | NUR ---
REUBEN/CAREN. Followed up with BORIS/Melody today x 2, they have determined patient will not seek skilled care as it pertains to the aforementioned insurance authorization held an additional 24 hours. [facility]
== END 2018-12-06 17:30 | disposition home health service (06) | DRG 871 ==
LOC: EDUNIT# 11:10 → ER 11:13 → 4TH 14:21
PROVIDERS: ADMIT Internal Medicine; ATTEND Internal Medicine
DX: A40.3 Sepsis due to Streptococcus pneumoniae (principal); J13 Pneumonia due to Streptococcus pneumoniae; J44.0 Chronic obstructive pulmonary disease with (acute) lower respiratory infection; I21.4 Non-ST elevation (NSTEMI) myocardial infarction; I11.0 Hypertensive heart disease with heart failure; I50.23 Acute on chronic systolic (congestive) heart failure; J96.00 Acute respiratory failure, unspecified whether with hypoxia or hypercapnia; I42.0 Dilated cardiomyopathy; J44.1 Chronic obstructive pulmonary disease with (acute) exacerbation; R64 Cachexia; I48.2 Chronic atrial fibrillation; K75.9 Inflammatory liver disease, unspecified; I25.10 Atherosclerotic heart disease of native coronary artery without angina pectoris; I08.2 Rheumatic disorders of both aortic and tricuspid valves; E78.00 Pure hypercholesterolemia, unspecified; G20 Parkinson's disease; I95.9 Hypotension, unspecified; E86.0 Dehydration; R79.89 Other specified abnormal findings of blood chemistry; F41.9 Anxiety disorder, unspecified; M19.91 Primary osteoarthritis, unspecified site; Z95.5 Presence of coronary angioplasty implant and graft; Z99.81 Dependence on supplemental oxygen; Z87.891 Personal history of nicotine dependence; Z79.02 Long term (current) use of antithrombotics/antiplatelets
CPT/HCPCS: 36415; 36600; 71045; 80048; 80053; 80162; 81000; 82805; 83605; 83735; 83880; 84484; 85007; 85025; 85027; 87040; 87070; 87077; 87184; 87205; 93005; 94640; 94760; 96365

== ENCOUNTER → 2019-01-26 | Outpatient (CLI) | payer MEDICARE ==
[~2019-01-26] MED LIST changes: +ATOR40TA70 PO; +CLOP75TA69 PO; +DIGO125T PO; +FURO40TA4 PO; +IPRA3AMP31 NEB; +LISI-552 PO; +RIVA10T PO; -RIVA10TA PO; +RT-ALBUTEROL SULF 2.5 MG/3 ML PRE-MIX VIAL INH ONE; +RT-ALBUTEROL SULF 2.5 MG/3 ML PRE-MIX VIAL ONE
== END ==
LOC: RAD 15:51
PROVIDERS: ATTEND Nurse Practitioner Family
DX: J44.9 Chronic obstructive pulmonary disease, unspecified (principal); J30.9 Allergic rhinitis, unspecified; J18.8 Other pneumonia, unspecified organism; J98.4 Other disorders of lung

== ENCOUNTER → 2019-02-08 | Outpatient (CLI) | payer MEDICARE ==
[~2019-02-08] MED LIST changes: -RT-ALBUTEROL SULF 2.5 MG/3 ML PRE-MIX VIAL INH ONE; -RT-ALBUTEROL SULF 2.5 MG/3 ML PRE-MIX VIAL ONE
== END ==
LOC: CARD 13:19
PROVIDERS: ATTEND Internal Medicine Cardiovascular Disease
DX: I25.10 Atherosclerotic heart disease of native coronary artery without angina pectoris (principal); I10 Essential (primary) hypertension; J44.9 Chronic obstructive pulmonary disease, unspecified; I77.89 Other specified disorders of arteries and arterioles; I73.9 Peripheral vascular disease, unspecified; I08.3 Combined rheumatic disorders of mitral, aortic and tricuspid valves
CPT/HCPCS: 93306; 93923

== ENCOUNTER → 2019-02-15 | Outpatient (CLI) | payer MEDICARE ==
[~2019-02-15] MED LIST changes: +HOLD METFORMIN - RECEIVED CONTRAST 20 ML VIAL IV SCH; +IOHEXOL 350 MG/ML 100 ML (OMNIPAQUE 350) VIAL IV ONE; +NS 100 ML (IVPB) BAG IV ONE
--- NOTE | 2019-02-15 09:51 | Diagnostic Imaging Report ---
INDICATION: Dyspnea, cough and COPD. CT chest obtained with IV contrast bolus and compared with 11/22/2018. FINDINGS: There is a mildly prominent node in the precarinal region measuring 15 mm, unchanged compared to the prior study. There is no new adenopathy visualized. There is no apparent hilar adenopathy or axillary adenopathy. There is significant improvement in right pleural effusion compared to the prior study with a minimal trace of residual pleural fluid. The left pleural effusion has resolved completely. There is no pericardial fluid. Bibasilar atelectatic changes and/or consolidations have also improved compared to the prior study. There is still some dependent atelectatic change in the lung bases posteriorly. Interstitial edema has significantly improved compared to the previous study. There is emphysematous change diffusely. There are some bibasilar interstitial fibrotic changes with peribronchial thickening noted. There is a calcified granuloma in the left lung base. IMPRESSION: Compared to the prior study of 11/22/2018, the right pleural effusion has almost completely resolved and the left pleural effusion has completely resolved. There is diffuse emphysematous change noted. Areas of infiltrate versus atelectasis in the lung bases have improved significantly compared to the prior study with some residual dependent atelectatic change in the lung bases as well as some underlying chronic interstitial disease. Interstitial edema has significantly improved compared to the prior study. There is diffuse emphysematous change. Mildly prominent precarinal node appear stable compared to the prior study. Dictated by: Dictated on workstation # [id number]
== END ==
LOC: RAD 08:53
PROVIDERS: ATTEND Nurse Practitioner Family
DX: J43.9 Emphysema, unspecified (principal); J90 Pleural effusion, not elsewhere classified; J98.11 Atelectasis; J81.1 Chronic pulmonary edema; R59.0 Localized enlarged lymph nodes; J30.9 Allergic rhinitis, unspecified; J18.8 Other pneumonia, unspecified organism
CPT/HCPCS: 71260

== ENCOUNTER → 2019-08-26 | Outpatient (CLI) | payer MEDICARE ==
[~2019-08-26] MED LIST changes: +CATHETER FLUSH 10 ML SYR IV PRN; -DIGO125T PO; +DIGO125T3 PO; -METO-387 PO; +MTP25TSR PO; -TRAM50TA2 PO; +TRM50T PO
--- NOTE | 2019-08-26 18:26 | Diagnostic Imaging Report ---
PROCEDURE: CT head with and without contrast. TECHNIQUE: Multiple contiguous axial images were obtained through the brain before and after the administration of intravenous contrast. Auto Exposure Controls were utilized during the CT exam to meet ALARA standards for radiation dose reduction. DATE: August 26, 2019. COMPARISON: MRI brain July 25, 2010. CT head July 21, 2010. INDICATION: 79-year-old male, tremors. FINDINGS: There is a calcified extra-axial lesion adjacent to the right frontoparietal region measuring 8.3 mm in size which is unchanged in size since July 21, 2010. This is most likely a benign meningioma. There is proportional prominence of the ventricles and CSF spaces consistent with mild cerebral volume loss. There is no identified abnormal extra-axial fluid collection. There is no evidence of acute intracranial hemorrhage. There is no mass effect or midline shift. There is no abnormal intraparenchymal enhancement. There are areas of low-attenuation in the periventricular and subcortical white matter likely reflecting mild changes of chronic small vessel ischemic disease. The visualized portions of the paranasal sinuses, mastoid air cells and middle ears are well aerated. IMPRESSION: 1. No identified acute intracranial abnormality. 2. 8 mm probable benign meningioma adjacent to the right frontal parietal region. 3. Mild cerebral volume loss and mild changes of chronic small vessel ischemic disease. Dictated by: Dictated on workstation # [id number]
== END ==
LOC: RAD 12:47
PROVIDERS: ATTEND Nurse Practitioner Family
DX: I67.82 Cerebral ischemia (principal); G93.89 Other specified disorders of brain; R44.3 Hallucinations, unspecified
CPT/HCPCS: 70470

== ENCOUNTER → 2021-02-05 | Outpatient (CLI) | payer MEDICARE ==
[~2021-02-05] MED LIST changes: -HOLD METFORMIN - RECEIVED CONTRAST 20 ML VIAL IV SCH; -IOHEXOL 350 MG/ML 100 ML (OMNIPAQUE 350) VIAL IV ONE; -LISI-552 PO; +LISI20TA26 PO; +LISI40TA9 PO; -NS 100 ML (IVPB) BAG IV ONE; +REGADENOSON 0.4 MG/5 ML SYR (LEXISCAN) IV ONE
[2021-02-05 13:36] VITALS: BP 182/97
--- NOTE | 2021-02-05 16:30 | STRESS TEST ---
DATE OF SERVICE: 02/05/2021 RESTING AND POST REGADENOSON TECHNETIUM-99M TETROFOSMIN SPECT CT IMAGING ORDERING PHYSICIAN: Dr. Castro. PRIMARY PHYSICIAN: [facility]. CLINICAL DIAGNOSIS: Coronary artery disease. Baseline images were carried out after injection of 9.71 mCi of technetium-99 Tetrofosmin. This was followed by 0.4 mg Regadenoson and 27.7 mCi of technetium-99m Tetrofosmin for stress imaging. The electrocardiogram showed atrial flutter/fibrillation, but the baseline is hard to interpret because there is a considerable artifact because of the patient's coarse tremor. The electrocardiogram did not change significantly with the Regadenoson infusion. The patient noted some shortness of breath following Regadenoson infusion, which resolved in a few minutes. Review of images at rest and following stress does not indicate any distinct perfusion defects consistent with significant myocardial ischemia or infarction. Gated images show normal global left ventricular systolic function with normal regional wall motion. Left ventricular ejection fraction is calculated to be 59%. Left ventricular end diastolic volume is 58 mL. TID is absent (1.11). CONCLUSIONS: 1. No evidence of any significant myocardial ischemia or infarction on this study. 2. Normal regional wall motion. 3. Normal global left ventricular systolic function with a calculated ejection fraction of 59%. Job ID: [id number] DocumentID: [id number] Dictated Date: 02/05/2021 15:38:12 Ndt Inspector Date: 02/05/2021 16:30:02 Dictated By: MINDI CASTRO MD, MA, FACP, FACC,
== END ==
LOC: CARD 11:45
PROVIDERS: ATTEND Internal Medicine Cardiovascular Disease
DX: I25.10 Atherosclerotic heart disease of native coronary artery without angina pectoris (principal)
CPT/HCPCS: 78452; 93017; A9502

== ENCOUNTER → 2021-02-06 | Outpatient (CLI) | payer MEDICARE ==
[~2021-02-06] MED LIST changes: -CATHETER FLUSH 10 ML SYR IV PRN; -REGADENOSON 0.4 MG/5 ML SYR (LEXISCAN) IV ONE
== END ==
LOC: CARD 09:50
PROVIDERS: ATTEND Internal Medicine Cardiovascular Disease
DX: I51.7 Cardiomegaly (principal); I35.1 Nonrheumatic aortic (valve) insufficiency
CPT/HCPCS: 93306

== ENCOUNTER → 2021-12-19 | Outpatient (CLI) | payer MEDICARE ==
--- NOTE | 2021-12-19 15:48 | Diagnostic Imaging Report ---
PROCEDURE: MRI lumbar spine. TECHNIQUE: Multiplanar, multisequence MRI of the lumbar spine was performed without contrast. INDICATION: Neck and low back pain with no recent injury. EXAMINATION: Lumbar spine MRI without contrast 12/19/2021. FINDINGS: There is grade 1 anterolisthesis at L3-L4. Remaining alignment is preserved. Vertebral body heights maintained. Tip of the conus unremarkable in appearance and location. L1-L2: There is mild broad-based bulging disc material with bilateral facet and ligamentum flavum hypertrophy. Moderate bilateral neural foraminal stenosis is noted. L2-L3: There is intervertebral disc space narrowing and disc desiccation and a broad-based bulging disc with bilateral facet and ligamentum flavum hypertrophy. Findings cause mild to moderate central stenosis. There is moderate to severe bilateral neural foraminal narrowing. There are endplate changes consistent with Modic type I degenerative findings. L3-L4: There is intervertebral disc space narrowing, disc desiccation and a broad-based bulging disc containing a central annular tear. There is bilateral facet and ligamentum flavum hypertrophy. Findings cause moderate central stenosis with narrowing of the lateral recesses, left greater than right. There is severe left and moderate right neural foraminal stenosis. L4-L5: There is intervertebral disc space narrowing, disc desiccation and a broad-based bulging disc with bilateral facet and ligamentum flavum hypertrophy. There is moderate central stenosis with narrowing of the lateral recesses, right greater than left. There is severe bilateral neural foraminal stenosis, right greater than left. There are endplate changes consistent with Modic type I degenerative findings. L5-S1: There is disc desiccation with a central disc protrusion. There is bilateral facet hypertrophy. There is mild central narrowing. There is minimal bilateral neural foraminal narrowing. Visualized intra-abdominal structures unremarkable for acute abnormality. IMPRESSION: Multilevel diffuse degenerative disease, as described above. Dictated by: Dictated on workstation # [id number]
--- NOTE | 2021-12-19 18:33 | Diagnostic Imaging Report ---
EXAMINATION: Cervical spine MRI without contrast, 12/19/2021. TECHNIQUE: Multiplanar, multisequence MR imaging of the cervical spine was performed without contrast. INDICATION: Neck pain. COMPARISON: 02/16/2018. FINDINGS: There is grade 1 retrolisthesis at C3-C4 and C5-C6. These findings are stable from previous imaging. Remaining alignment is preserved. Vertebral body heights are maintained. Cervicomedullary junction is unremarkable. Visualized cord signal is preserved. C2-C3: There is bilateral facet hypertrophy with secondary mild bilateral neural foraminal narrowing. Central canal is patent. C3-C4: There is intervertebral disc space narrowing, disc desiccation, and a broad-based bulging disc with bilateral facet hypertrophy. There is secondary hxzjpfha-vl-slxfan left neural foraminal stenosis. There is unda-sz-wtajnhrt central narrowing. C4-C5: There is intervertebral disc space narrowing, disc desiccation, and a central disc protrusion with bilateral facet hypertrophy. There is secondary moderate left neural foraminal stenosis. Central canal and right neural foramen are patent. C5-C6: There is intervertebral disc space narrowing, disc desiccation, and a right paracentral bulging disc. Secondary moderate central stenosis is noted with narrowing of the left lateral recess and moderate right neural foraminal stenosis. The left neural foramen is patent. C6-C7: Unremarkable. C7-T1: Unremarkable. Visualized lung apices are within normal limits. Prevertebral soft tissues are unremarkable. IMPRESSION: 1. There are fairly stable changes with multilevel degenerative disease as described above. No evidence for cord compression or significant central stenosis. Dictated by: Dictated on workstation # [id number]
--- NOTE | 2021-12-19 19:07 | Diagnostic Imaging Report ---
PROCEDURE: MR imaging of the brain without contrast. TECHNIQUE: Multiplanar, multisequence MR imaging of the brain was performed without contrast. INDICATION: Parkinson's disease. Tremors. COMPARISON: Prior MRI brain from July 25, 2010. FINDINGS: There are no MR findings of an acute intracranial abnormality. The diffusion series demonstrates no evidence of acute ischemia. There is no MR evidence of acute intracranial hemorrhage. There is advanced age-related global volume loss. There are moderate to advanced microvascular changes present in the white matter as well as multiple small remote lacunar infarcts within the centrum semiovale and within the basal ganglia. Microvascular changes have progressed compared to the previous exam. There is no midline shift. There is no hydrocephalus. There is no extra-axial collection. The basilar cisterns are patent. The posterior fossa demonstrates microvascular changes within the kem. A small markedly T2 hypointense extra-axial nodule over the right parietal lobe measures 9 mm compatible with meningioma. This is not significantly changed from prior exam. The mastoid air cells are clear. The paranasal sinuses are clear. Note is made of a remote remote unchanged left orbital floor fracture. The patient is status post prior ocular lens replacement. Major expected vascular flow voids are maintained. IMPRESSION: 1. No MR findings of an acute intracranial abnormality. 2. Interval progression in age-related volume loss, microvascular disease and remote lacunar infarcts within the deep white matter and basal ganglia. 3. No significant change in posterior right parietal meningioma. 4. Chronic unchanged left orbital floor fracture. Dictated by: Dictated on workstation # [id number]
== END ==
LOC: RAD 14:00
PROVIDERS: ATTEND Nurse Practitioner
DX: M47.817 Spondylosis without myelopathy or radiculopathy, lumbosacral region (principal); G20 Parkinson's disease; M48.062 Spinal stenosis, lumbar region with neurogenic claudication; M48.02 Spinal stenosis, cervical region; M47.812 Spondylosis without myelopathy or radiculopathy, cervical region; M43.12 Spondylolisthesis, cervical region; M50.31 Other cervical disc degeneration, high cervical region; M50.21 Other cervical disc displacement, high cervical region; I67.82 Cerebral ischemia; S02.32XA Fracture of orbital floor, left side, initial encounter for closed fracture; M51.27 Other intervertebral disc displacement, lumbosacral region; M48.07 Spinal stenosis, lumbosacral region; M51.36 Other intervertebral disc degeneration, lumbar region; M43.16 Spondylolisthesis, lumbar region
CPT/HCPCS: 70551; 72141; 72148

== ENCOUNTER 2022-02-12 18:33 | Emergency (ER) | payer MEDICARE ==
--- NOTE | 2022-02-12 19:26 | ED General ---
General Chief Complaint: Dizziness/Syncope Stated Complaint: DIZZINESS Source of Information: Patient Exam Limitations: No Limitations History of Present Illness Date Seen by Provider: February 12, 2022 Time Seen by Provider: 19:14 Initial Comments This is an 81-year-old male who presented to the ER via POV with complaints of persistent dizziness, chest pain, shortness of breath since this morning. Allergies and Home Medications Allergies Coded Allergies: No Known Drug Allergies (Unverified , 11/18/18) Patient Home Medication List Apixaban (Eliquis) 5 Mg Tablet, 5 MG PO BID, (Reported) Entered as Reported by: BLAIRE LYNNE on 11/29/18 1623 Atorvastatin Calcium (Atorvastatin Calcium) 40 Mg Tablet, 40 MG PO HS, (Re ported) Entered as Reported by: BLAIRE LYNNE on 11/29/18 162 Clopidogrel Bisulfate (Plavix) 75 Mg Tablet, 75 MG PO DAILY, (Reported) Entered as Reported by: BLAIRE LYNNE on 11/29/18 162 Digoxin (Digoxin) 125 Mcg Tablet, 125 MCG PO DAILY, (Reported) Entered as Reported by: BLAIRE LYNNE on 11/29/18 162 Fluticasone/Salmeterol (Advair Hfa 115-21 Mcg Inhaler) 12 Gm Hfa.aer.ad, 2 PUFF IH BID, (Reported) Entered as Reported by: BLIARE LYNNE on 11/29/18 162 Ipratropium/Albuterol Sulfate (Iprat-Albut 0.5-3(2.5) mg/3 ml) 3 Ml Ampul.neb, 3 ML NEB QID PRN for SHORTNESS OF BREATH, (Reported) Entered as Reported by: BLAIRE LYNNE on 11/29/18 162 Lisinopril (Lisinopril) 20 Mg Tablet, 20 MG PO DAILY Prescribed by: NIYAH SHARP on 12/06/18 0933 Metoprolol Succinate (Metoprolol Succinate) 25 Mg Tab.er.24h, 25 MG PO BID, (Reported) Entered as Reported by: BLAIRE LYNNE on 11/18/18 1323 Tramadol HCl (Tramadol HCl) 50 Mg Tablet, 50 MG PO BID PRN for PAIN-MODERATE, (Reported) Entered as Reported by: BLAIRE LYNNE on 11/18/18 1323 Past Jfgxnig-Hoxlax-Tbjjep Hx Immunizations Up To Date Tetanus Booster (TDap): Unknown Seasonal Allergies Seasonal Allergies: No Past Medical History Surgeries: Yes (dental) Coronary Stent Respiratory: Yes COPD Currently Using CPAP: No Currently Using BIPAP: No Cardiac: Yes Atrial Fibrillation, Coronary Artery Disease, High Cholesterol Neurological: Yes Reproductive Disorders: No Genitourinary: No Gastrointestinal: Yes Liver Disease/Jaundice, Hepatitis Musculoskeletal: Yes Arthritis Endocrine: No HEENT: No Cancer: No Psychosocial: No Integumentary: No Blood Disorders: No Family Medical History Diabetes mellitus 19 FATHER SON Neoplasm G8 SISTER Physical Exam Vital Signs Capillary Refill : Height, Weight, BMI Height: 5'10.00" Weight: 145lbs. 0.0oz. [age]yo; 19.1 BMI Method:Stated Progress/Results/Core Measures Suspected Sepsis SIRS Temperature: Pulse: Respiratory Rate: Laboratory Tests 02/12/22 18:58: White Blood Count 8.2 Blood Pressure / Mean: Laboratory Tests 02/12/22 18:58: Creatinine 1.09, INR Comment 2.3H, Platelet Count 234, Total Bilirubin 1.0 Results/Orders Lab Results Laboratory Tests Test 02/12/22 18:52 02/12/22 18:58 Range/Units Influenza Type A (RT-PCR) Not Detected Not Detecte Influenza Type B (RT-PCR) Not Detected Not Detecte SARS-CoV-2 RNA (RT-PCR) Not Detected Not Detecte White Blood Count 8.2 4.3-11.0 10^3/uL Red Blood Count 3.85 L 4.30-5.52 10^6/uL Hemoglobin 12.2 L 13.3-17.7 g/dL Hematocrit 37 L 40-54 % Mean Corpuscular Volume 96 80-99 fL Mean Corpuscular Hemoglobin 32 25-34 pg Mean Corpuscular Hemoglobin Concent 33 32-36 g/dL Red Cell Distribution Width 13.4 10.0-14.5 % Platelet Count 234 130-400 10^3/uL Mean Platelet Volume 10.1 9.0-12.2 fL Immature Granulocyte % (Auto) 1 % Neutrophils (%) (Auto) 61 42-75 % Lymphocytes (%) (Auto) 27 12-44 % Monocytes (%) (Auto) 9 0-12 % Eosinophils (%) (Auto) 2 0-10 % Basophils (%) (Auto) 1 0-10 % Neutrophils # (Auto) 5.0 1.8-7.8 10^3/uL Lymphocytes # (Auto) 2.2 1.0-4.0 10^3/uL Monocytes # (Auto) 0.8 0.0-1.0 10^3/uL Eosinophils # (Auto) 0.1 0.0-0.3 10^3/uL Basophils # (Auto) 0.0 0.0-0.1 10^3/uL Immature Granulocyte # (Auto) 0.1 0.0-0.1 10^3/uL Prothrombin Time 26.0 H 12.2-14.7 SEC INR Comment 2.3 H 0.8-1.4 Activated Partial Thromboplast Time 52 H 24-35 SEC D-Dimer 0.30 0.00-0.49 UG/ML Sodium Level 136 135-145 MMOL/L Potassium Level 4.4 3.6-5.0 MMOL/L Chloride Level 104 98-107 MMOL/L Carbon Dioxide Level 20 L 21-32 MMOL/L Anion Gap 12 5-14 MMOL/L Blood Urea Nitrogen 26 H 7-18 MG/DL Creatinine 1.09 0.60-1.30 MG/DL Estimat Glomerular Filtration Rate 68 BUN/Creatinine Ratio 24 Glucose Level 181 H 70-105 MG/DL Calcium Level 9.2 8.5-10.1 MG/DL Corrected Calcium 9.4 8.5-10.1 MG/DL Magnesium Level 1.8 1.6-2.4 MG/DL Total Bilirubin 1.0 0.1-1.0 MG/DL Aspartate Amino Transf (AST/SGOT) 18 5-34 U/L Alanine Aminotransferase (ALT/SGPT) < 6 0-55 U/L Alkaline Phosphatase 69 40-136 U/L Total Creatine Kinase 41 30-200 U/L Creatine Kinase MB 0.7 <6.6 NG/ML Myoglobin 40.5 10.0-92.0 NG/ML Troponin I < 0.028 <0.028 NG/ML B-Type Natriuretic Peptide 77.0 <100.0 PG/ML Total Protein 6.2 L 6.4-8.2 GM/DL Albumin 3.7 3.2-4.5 GM/DL My Orders Orders - [facility] Cbc With Automated Diff (02/12/22 19:24) Magnesium (02/12/22 19:24) Chest 1 View, Ap/Pa Only (02/12/22 19:24) Ekg Tracing (02/12/22 19:24) Comprehensive Metabolic Panel (02/12/22 19:24) Myoglobin Serum (02/12/22 19:24) Protime With Inr (02/12/22 19:24) Partial Thromboplastin Time (02/12/22 19:24) O2 (02/12/22 19:24) Monitor-Rhythm Ecg Trace Only (02/12/22 19:24) Ed Iv/Invasive Line Start (02/12/22 19:24) Creatine Kinase (02/12/22 19:24) Creatine Kinase Mb (02/12/22 19:24) Bnp [place] (02/12/22 19:24) Fibrin Degradation Products (02/12/22 19:24) Ns Iv 1000 Ml (Sodium Chloride 0.9%) (02/12/22 19:30) Troponin I Fletcher (02/12/22 18:58) Morphine Injection (Morphine Injection (02/12/22 19:57) Covid 19 Inhouse Test (02/12/22 20:18) Influenza A And B By Pcr (02/12/22 20:18) Medications Given in ED Current Medications Medications Dose Ordered Sig/Froylan Route Start Time Stop Time Status Last Admin Dose Admin Sodium Chloride 1,000 ml @ 999 mls/hr ONCE ONCE IV 02/12/22 19:30 02/12/22 20:30 DC 02/12/22 19:34 999 MLS/HR Vital Signs/I&O Capillary Refill : Departure Impression Primary Impression: Dehydration Disposition: 01 HOME, SELF-CARE Condition: Improved Departure-Patient Inst. Decision time for Depature: 21:07 Referrals: [facility] (PCP/Family) Primary Care Physician Patient Instructions: Dehydration, Adult (DC) Add. Discharge Instructions: Plan: 1. Make sure you are drinking plenty of fluids to stay hydrated. 2. Check your blood pressure before taking your blood pressure medication, if your top number is below 100, hold that dose. 3. Follow up with your primary care provider next week. 4. Return for any new, concerning, or worsening symptoms. All discharge instructions reviewed with patient and/or family. Voiced understanding. [facility] February 12, 2022 19:26
[2022-02-12 19:30] LABS: BASOPHILS % (AUTO) 1 % (0-10); EOSINOPHILS # (AUTO) 0.1 10^3/uL (0.0-0.3); EOSINOPHILS % (AUTO) 2 % (0-10); HEMATOCRIT 37 % (40-54); HEMOGLOBIN 12.2 g/dL (13.3-17.7); LYMPHOCYTES # (AUTO) 2.2 10^3/uL (1.0-4.0); LYMPHOCYTES % (AUTO) 27 % (12-44); MEAN CORPUSCULAR HEMOGLOBIN 32 pg (25-34); MEAN CORPUSCULAR HGB CONC 33 g/dL (32-36); MEAN CORPUSCULAR VOLUME 96 fL (80-99); MEAN PLATELET VOLUME 10.1 fL (9.0-12.2); MONOCYTES # (AUTO) 0.8 10^3/uL (0.0-1.0); MONOCYTES % (AUTO) 9 % (0-12); NEUTROPHILS % (AUTO) 61 % (42-75); PLATELET COUNT 234 10^3/uL (130-400); WHITE BLOOD COUNT 8.2 10^3/uL (4.3-11.0)
[2022-02-12] MEDS ORDERED: NS IV 1000 ML 1,000 ML IV ONE ×2 (19:30→21:30)
[2022-02-12 19:37] LABS: INR 2.3 (0.8-1.4)
--- NOTE | 2022-02-12 19:53 | Diagnostic Imaging Report ---
INDICATION: Chest pain and dizziness. EXAMINATION: Frontal chest obtained at 7:51 p.m. COMPARISON: 11/29/2018. Heart and mediastinal silhouette are normal in appearance. There is hyperinflation compatible with COPD with chronic appearing increased interstitial markings. There is improved aeration of the lung bases compared to the prior study. IMPRESSION: COPD changes with no acute process in the chest. Dictated by: Dictated on workstation # [id number]
[2022-02-12] MEDS ORDERED: morphine INJ 10 MG/ML 1ML (SYR OR VIAL) IVP STA (19:57)
[2022-02-12 20:31] LABS: ALBUMIN 3.7 GM/DL (3.2-4.5)
[2022-02-12 20:32] LABS: CHLORIDE 104 MMOL/L (98-107); POTASSIUM 4.4 MMOL/L (3.6-5.0); SODIUM 136 MMOL/L (135-145)
[2022-02-12 20:33] LABS: CALCIUM 9.2 MG/DL (8.5-10.1)
[2022-02-12 20:34] LABS: GLUCOSE 181 MG/DL (70-105); TOTAL PROTEIN 6.2 GM/DL (6.4-8.2)
[2022-02-12 20:35] LABS: CARBON DIOXIDE 20 MMOL/L (21-32)
[2022-02-12 20:37] LABS: ALKALINE PHOSPHATASE 69 U/L (40-136)
[2022-02-12 20:38] LABS: CREATININE SERUM 1.09 MG/DL (0.60-1.30); GFR ESTIMATED 68
[2022-02-12 20:39] LABS: BUN/CREATININE RATIO 24
[2022-02-12 20:41] LABS: ALANINE AMINOTRANSFERASE < 6 U/L (0-55); MAGNESIUM 1.8 MG/DL (1.6-2.4)
[2022-02-12 20:42] LABS: CREATINE KINASE 41 U/L (30-200)
[2022-02-12 20:52] LABS: CREATINE KINASE MB 0.7 NG/ML (<6.6)
[2022-02-12 21:57] LABS: BILIRUBIN,URINE NEGATIVE (NEGATIVE); CLARITY,URINE CLEAR; COLOR,URINE YELLOW; GLUCOSE, URINE (UA) NEGATIVE (NEGATIVE); KETONES,URINE NEGATIVE (NEGATIVE); LEUKOCYTE ESTERASE ,URINE NEGATIVE (NEGATIVE); NITRITE,URINE NEGATIVE (NEGATIVE); PROTEIN,URINE NEGATIVE (NEGATIVE)
[2022-02-12 22:04] LABS: BACTERIA,URINE NEGATIVE /HPF; RBC,URINE RARE /HPF; WBC,URINE RARE /HPF
[2022-02-12 22:05] VITALS: BP 138/94
== END 2022-02-12 22:07 | disposition home or self-care (01) ==
LOC: EDUNIT# 18:33 → ER 18:35
DX: E86.0 Dehydration (principal); Z20.822 Contact with and (suspected) exposure to COVID-19
CPT/HCPCS: 36415; 71045; 80053; 81000; 82550; 82553; 83735; 83874; 83880; 84484; 85025; 85379; 85610; 85730; 87636; 93005; 93041

== ENCOUNTER → 2022-10-13 | Outpatient (CLI) | payer MEDICARE ==
[~2022-10-13] MED LIST changes: +CLOP-31 PO; -CLOP75TA69 PO
--- NOTE | 2022-10-13 12:19 | Diagnostic Imaging Report ---
INDICATION: Dysphagia. TECHNIQUE: This study was performed in conjunction with Speech Pathology. Video fluoroscopy was performed during the swallowing of barium in multiple consistencies. A total of 67 seconds of fluoroscopic time was utilized. FINDINGS: The patient ingested thin barium as well as applesauce, banana, and cracker consistencies. There were two episodes of laryngeal penetration during the swallowing of thin barium. There was a single episode of aspiration during the swallowing of thin barium. All other consistencies were normal. There is normal epiglottic tilt and laryngeal elevation. No significant residue was detected. IMPRESSION: Penetration and a single episode of aspiration during the swallowing of thin barium. No other significant abnormality was detected. Dictated by: Dictated on workstation # [id number]
== END ==
LOC: RAD 10:00
PROVIDERS: ATTEND Internal Medicine
DX: R13.12 Dysphagia, oropharyngeal phase (principal)
CPT/HCPCS: 74230

== ENCOUNTER 2022-10-24 12:50 | Outpatient (RCR) | payer MEDICARE | END 2022-11-18 | disposition home or self-care (01) | PROVIDERS: ATTEND Internal Medicine | DX: R13.14 Dysphagia, pharyngoesophageal phase (principal) ==